=== PATIENT | female | born 1965 | race Caucasian/White ===

== ENCOUNTER → 2016-05-29 | Outpatient (CLI) | payer MEDICARE ==
[~2016-05-29] MED LIST: /CELE20CA PO; /CIPR75TA OR; /FENT25PA TD; /FENT25PA TOP; /FENT50PA TD; /LOR25TA OR; /ONDA4TA OR; /PANT40TA OR; /SUCR1TA OR; AMLO10TA OR; ASCO1000 PO; ATIV0.5T OR; ATIV0.5T3 PO; CAL-500T PO; CALC500T49; CALCIUM OR; CALCIUM PO; CALCIUM/MAGNESIUM PO; CLIN200T; COLA100C2 OR; COMPAZINE OR; CORA1000 PO; DICL50TAB PO; DIET; ENOX40SY SC; FENT25DI22 TD; FISH1000 OR; FISH1000 PO; FLAXMIS PO; FOLLOW UP; FOSA70TA PO; HUMIRA; HUMIRA OR; HYDR10TA16 PO; HYDROCODONE; HYDROCODONE OR; IBUP40TA PO; LIDO5DIS EXT; LORA0.5T OR; MAG OR; MAG400TA PO; MAGN500T2 PO; MAGNESIUM OX; MAGNESIUM PO; METH2.5TA PO; MILKPOW PO; MILKSUS OR; NATU400T PO; NEUR100C PO; NEUTSOL PO; OMEP20TA7 OR; OXYC5CAP4 PO; OYST500T OR; PERC7.5T8 OR; POTA10CA2 OR; PRED2.5T PO; PRED20TA PO; PRED5TAB; PRED5TAB OR; PROBCAP13 PO; PROBCAP4 PO; SENN8.6T5 OR; SENO8.6T5 OR; SULI200T OR; SULI200T PO; VALT1TAB PO; VICO5TAB; VICO5TAB OR; VICODIN PO; VICODINES TAB PO; VIT D 2000 OR; VIT D 2000 PO; VITA-56 OR; VITA100L PO; VITA100T; VITA100T OR; VITA100T5 OR; VITA400C; VITA400C OR; VITA400C PO; VITA500C OR; VITA500T; VITA500T OR; VITA500T3 PO; VITA50TA12 PO; VITAMIN D 3 PO; VITAMIN D50000 UNT; VITAMINB12; VITAMIND3 PO; VITAMINE PO; ZINC OR; ZOFR8TAB OR; ZYFLAMEND PO; [UNRECOGNIZED DRUG - CODE] PO; [UNRECOGNIZED DRUG - CODE] PO; [UNRECOGNIZED DRUG - MIXTURE] PO; [UNRECOGNIZED DRUG - OTHER]; [UNRECOGNIZED DRUG - OTHER]; [UNRECOGNIZED DRUG - OTHER] OR; [UNRECOGNIZED DRUG - OTHER] PO; [UNRECOGNIZED DRUG - OTHER] PO; [UNRECOGNIZED DRUG - OTHER] PO; [UNRECOGNIZED DRUG - OTHER] PO; [UNRECOGNIZED DRUG - OTHER] PO; [UNRECOGNIZED DRUG - OTHER] PO; [UNRECOGNIZED DRUG - OTHER] PO; magnesium oxide OR; milk thistle PO; tumeric PO; vitamin D OR
--- NOTE | 2016-06-01 01:26 | ECWPNPC ---
PATIENT NAME: LILIAN HOOD : 1965 GENDER: FEMALE VISIT DATE: 05/29/2016 DISCHARGE DATE: 05/29/16 1457 VISIT LOCKED DATE TIME: PHYSICIAN: ANETTE LORD RESOURCE: ANETTE LORD REASON FOR APPOINTMENT 1. CHRONIC PAIN HISTORY OF PRESENT ILLNESS HISTORY OF PRESENT ILLNESS: HERE FOR F/U AND MANAGEMENT OF CHRONIC NECK AND LBP W HX OF RHEUMATOID ARTHROPATHY.HAS HAD SEVERE INCREASE IN PAIN IN MARCH.USING HYDROCODONE 10/325 BETWEEN 4-6 PILLS DAY AND THIS VARIES ACCORDING TO PAIN LEVEL.FEELS IT IS EFFECTIVE AT REDUCING PAIN AND KEEPING HER COMFORTABLE.DENIES SIDE EFFECTS. CHIEF AREA OF PAIN IS LEFT SHOULDER. FOLLOWING WITH SOS AND RHEUMATOLOGY. PAIN THE PATIENT DESCRIBES THE PAIN... THE PATIENT DESCRIBES THE PAIN... FALL RISK SCREENING: SCREENING :NO FALLS IN THE PAST YEAR CURRENT MEDICATIONS TAKING PREDNISONE 2.5 MG TABLET 1 TABLET ORALLY TWICE DAILY TAKING DICLOFENAC SODIUM 50 MG TABLET DELAYED RELEASE 1 TABLET ORALLY TWICE DAILY TAKING VITAMIN B12 100 MCG TABLET 500 MCG 2 TABLETS ORALLY ONCE A DAY TAKING VITAMIN D3 2000 UNIT CAPSULE 1 CAPSULE ORALLY ONCE A DAY TAKING MAGNESIUM 500 MG CAPSULE 1 CAP ORALLY ONCE A DAY TAKING VITAMIN E 400 UNIT CAPSULE 1 CAPSULE ORALLY ONCE A DAY TAKING MILK THISTLE 500 MG CAPSULE 750MGS ORALLY DAILY TAKING PROBIOTIC TABLET DELAYED RELEASE ORALLY DAILY TAKING GLUTATHIONE 50 MG TABLET ORALLY TAKING VITAMIN C 1000 MG TABLET 1 TABLET ORALLY ONCE A DAY TAKING MAY HAVE CURAMED BCM-95 DAILY TAKING COLLAGEN ULTRA - CAPSULE ORALLY TAKING NORCO 10-325 MG TABLET 1 TABLET NEEDED ORALLY Q4-6H MDD6 TAKING IRON (FERROUS GLUCONATE) 65 MG TABLET ORALLY TWICE DAILY TAKING CORAL CALCIUM 500 MG CAPSULE 1 CAP ORALLY DAILY NOT-TAKING VITAMIN B6 250 MG TABLET ORALLY NOT-TAKING CALCIUM CITRATE 1040 MG TABLET ORALLY NOT-TAKING ALOE VERA 470 MG CAPSULE ORALLY NOT-TAKING MAY HAVE - - , NOTES: BONE AND TISSUE SUPPLEMENT NOT-TAKING METHOTREXATE 2.5 MG TABLET 4 TABS ORALLY WEEKLY NOT-TAKING BONE DENSITY 300-200 MG-UNIT TABLET 2 TABLETS BEFORE A MEAL ORALLY ONCE A DAY MEDICATION LIST REVIEWED AND RECONCILED WITH THE PATIENT PAST MEDICAL HISTORY RHEUMATOID ARTHRITIS-DR. STERN OVARIAN CA-DR. LILIAN VALENZUELA DEPRESSION BRCA 2 POSITIVE IRON DEFICIENCY ANEMIA TDAP 02/2015 ALLERGIES HYDROXYCHLOROQUINE: ALLERGY SULFASALAZINE: ALLERGY SEAFOOD: NAUSEA/VOMITING: ALLERGY CODEINE SULFATE: STOMACH CRAMPING: ALLERGY DULOXETINE HCL: HALLUCINATIONS: ALLERGY LYRICA: DIZZINESS, UNSTABLE BALANCE, SHORT-TERM MEMORY LOSS: ALLERGY HUMIRA: MUSCLE PAIN: ALLERGY GABAPENTIN: CONFUSION: ALLERGY METHOTREXATE: SORES IN MOUTH, CONSTANT COUGH AND PROBLEMS BREATHING: SIDE EFFECTS SOCIAL HISTORY TOBACCO USE ARE YOU A:NONSMOKER LEARNING BARRIERS / SPECIAL NEEDS ORIENTED TO PLAN OF CARE: PATIENT, PAIN MANAGEMENT PATIENT, ORIENTED TO PLAN OF CARE: PATIENT, PAIN MANAGEMENT PATIENT. NEW PATIENT PAIN DIARY TODAY'S VISITNOTES FROM 0-10, WHAT LEVEL IS YOUR PAIN TODAY?0 PAIN CLINIC PFS, CLERGY, PUBLIC HEALTH REFERRALS PFS REFERRAL NEEDED?NO CLERGY REFERRAL NEEDED?NO PUBLIC HEALTH REFERRAL NEEDED?NO WAS THE PROVIDER NOTIFIED OF ANY PERTINENT INFO?NO PFS REFERRAL NEEDED?NO CLERGY REFERRAL NEEDED?NO PUBLIC HEALTH REFERRAL NEEDED?NO WAS THE PROVIDER NOTIFIED OF ANY PERTINENT INFO?NO REVIEW OF SYSTEMS CONSTITUTIONAL: ANY CHANGE IN YOUR MEDICAL CONDITION? YES LEFT SHOULDER ARTHRITIS-- SEEING SPECIALIST--? SURGERYANEMIA . CHILLS NO . FEVER NO . INFECTION: DO YOU HAVE NEW INFECTIONS? NO . DO YOU HAVE HISTORY OF MRSA? NO . MUSCULOSKELETAL: ANY NEW PATTERNS OF PAIN OR NUMBNESS? NO . GASTROENTEROLOGY: ANY NEW CHANGE IN BOWEL CONTROL? NO . GENITOURINARY: ANY NEW CHANGE IN BLADDER CONTROL? NO . IS THERE A CHANCE YOU COULD BE ? NO . HEMATOLOGY/LYMPH: DO YOU TAKE ANY BLOOD THINNERS? (FOR EXAMPLE- COUMADIN, PLAVIX, AGGRENOX, PLATEL, PRADAXA, OR XARELTO) NO . WHEN WAS YOUR LAST DOSE? DATE: TIME: . NEUROLOGY: HAVE YOU FALLEN IN THE PAST 6 MONTHS? NO . ANY NEW EXTREMITY NUMBNESS OR WEAKNESS? NO . CARDIOLOGY: DO YOU HAVE A PACEMAKER OR DEFIBRILLATOR? NO . RESPIRATORY: HAVE YOU BEEN SICK IN THE PAST WEEK? NO . FEVER NO . FLU LIKE SYMPTOMS? NO . COUGH NO . INTEGUMENTARY: DO YOU HAVE ANY RASHES OR OPEN SORES? NO . ALLERGIC/IMMUNO: ARE YOU ALLERGIC TO SHELLFISH OR IV DYE? NO . ANY NEW ALLERGIES? NO . PSYCHIATRIC: DO YOU HAVE THOUGHTS OF HURTING YOURSELF OR SOMEONE ELSE? NO . ARE YOU ABUSED, NEGLECTED, OR IN AN UNSAFE ENVIRONMENT? NO . ENDOCRINOLOGY: ARE YOU DIABETIC? NO . OTHER: DO YOU NEED ANY PRESCRIPTIONS? YES HYDROCODONE . IF YES, PLEASE LIST: ____ . ANY NEW PROBLEMS WITH YOUR MEDICATIONS? NO . WHEN DID YOU LAST EAT? ____ . WHEN DID YOU LAST DRINK? ____ . WHAT DID YOU LAST DRINK? ____ . NAME OF PERSON DRIVING YOU HOME? ____ . DO YOU HAVE ANY OTHER QUESTIONS OR CONCERNS NO . REVIEWED BY: PROVIDER: ANETTE AMADOR . VITAL SIGNS WT 130 LBS, HT 62 IN, BMI 23.77 INDEX, BP 139/69 MM HG, HR 105 /MIN, RR 16 /MIN, TEMP 98.6 F, OXYGEN SAT % 100, REVIEWED BY: AD. EXAMINATION GENERAL EXAMINATION: HEENT:HEAD:, NORMOCEPHALIC, EYES:, EYES NORMAL, NOSE:, NOSE CLEAR, THROAT: NORMAL. LUNGS:LUNG SOUNDS ARE CLEAR. HEART:HEART RATE REGULAR. ABDOMEN:SOFT AND NOT TENDER, NON-DISTENDED. MUSCULOSKELETAL:*. LUMBAR SACRAL SPINEMUSCLE STRENGTH TESTING 4/5 RIGHT AND 3/5 LEFT LOWER EXT. PALPATION: NEGATIVE FOR PAIN OVER L/S SPINE. MILD DISCOMFORT WITH DEEP PALPATION PAIN OVER L/S PARASPINALS AND SIJ AREAS L>R. THORACIC SPINENEGATIVE FOR PAIN WITH PALPATION OF THORACIC SPINE. NEGATIVE FOR PAIN WITH PALPATION OF THORACIC PARASPINAL. CERVICALMILD PAIN WITH PALPATION OF CERVICAL SPINE. + FOR PAIN WITH PALPATION OF CERVICAL PARASPINALS L>R.. + FOR PAIN WITH PALPATION OF TRAPEZIUS BILAT L>R., MUSCLE STRENGTH TESTING 1/5 LEFT AND 2/5 RIGHT UPPER EXTREMETIES. 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 ROJM-UPPER ARMS-LESS THAN 30 DEGREES ABDUCTION LEFT.ABDUCTION <50 DEGREES RIGHT... SKIN:NORMAL, NO RASH. NEUROLOGIC EXAM:ALERT AND ORIENTED X 3, DTRS 1-2+ IN ALL 4 EXTREMITIES, DENIES UPPER EXTREMETIES SENSORY LOSS, DENIES LOWER EXTREMETIES SENSORY LOSS. DIAGNOSTIC: . ASSESSMENTS RHEUMATOID ARTHRITIS INVOLVING MULTIPLE SITES WITH POSITIVE RHEUMATOID FACTOR - M05.79 (PRIMARY) CHRONIC PRESCRIPTION OPIATE USE - Z79.899 TREATMENT RHEUMATOID ARTHRITIS INVOLVING MULTIPLE SITES WITH POSITIVE RHEUMATOID FACTOR REFILL NORCO TABLET, 10-325 MG, 1 TABLET NEEDED, ORALLY, Q4-6H MDD6, 30 DAY(S), 180, REFILLS 0 PROCEDURE CODES FA211 ESTABILISHED PATIENT SCIENTOLOGIST FACILITY CHARGE FOLLOW UP 2 MONTHS ELECTRONICALLY SIGNED BY PERRY MARTINEZ ON 05/29/2016 AT 02:58 PM EST DISCLAIMER : THIS IS A VISIT SUMMARY EXTRACTED FROM THE [employer] CHART. IT IS NOT A COPY OF THE [employer] PROGRESS NOTE. SUDHIR
== END ==
LOC: M PAIN 14:00
PROVIDERS: ATTEND Nurse Practitioner Family
DX: M05.79 Rheumatoid arthritis with rheumatoid factor of multiple sites without organ or systems involvement (principal); Z79.899 Other long term (current) drug therapy; Z79.891 Long term (current) use of opiate analgesic; M54.2 Cervicalgia; M54.5 Low back pain; G89.29 Other chronic pain; Z88.6 Allergy status to analgesic agent; Z88.3 Allergy status to other anti-infective agents; Z88.5 Allergy status to narcotic agent; Z91.013 Allergy to seafood

== ENCOUNTER → 2016-07-29 | Outpatient (CLI) | payer OTHER ==
--- NOTE | 2016-08-02 01:46 | ECWPNPC ---
PATIENT NAME: LILIAN HOOD : 1965 GENDER: FEMALE VISIT DATE: 07/29/2016 DISCHARGE DATE: 07/29/16 1445 VISIT LOCKED DATE TIME: PHYSICIAN: ANETTE LORD RESOURCE: ANETTE LORD REASON FOR APPOINTMENT 1. CHRONIC PAIN HISTORY OF PRESENT ILLNESS HISTORY OF PRESENT ILLNESS: HERE FOR F/U AND MANAGEMENT OF CHRONIC NECK AND LBP W HX OF RHEUMATOID ARTHROPATHY.HAS HAD SEVERE INCREASE IN PAIN IN MARCH.USING HYDROCODONE 10/325 BETWEEN 4-6 PILLS DAY AND THIS VARIES ACCORDING TO PAIN LEVEL.FEELS IT IS EFFECTIVE AT REDUCING PAIN AND KEEPING HER COMFORTABLE.DENIES SIDE EFFECTS. LEFT SHOULDER PAIN HAS IMPROVED.SAW DR. JONES FOR HER SHOULDER AND SHE HAS DECIDED NOT TO DO SURGERY.SAW REGARDING HANDS. SHE IS THINKING OF HAVING RIGHT HAND SURGERY IN . FOLLOWING WITH SOS AND RHEUMATOLOGY.RATING PAIN VAS 5/10. PAIN THE PATIENT DESCRIBES THE PAIN... THE PATIENT DESCRIBES THE PAIN... THE PATIENT DESCRIBES THE PAIN... FALL RISK SCREENING: SCREENING :NO FALLS IN THE PAST YEAR CURRENT MEDICATIONS TAKING PREDNISONE 2.5 MG TABLET 1 TABLET ORALLY TWICE DAILY TAKING DICLOFENAC SODIUM 50 MG TABLET DELAYED RELEASE 1 TABLET ORALLY TWICE DAILY TAKING VITAMIN B12 100 MCG TABLET 500 MCG 2 TABLETS ORALLY ONCE A DAY TAKING VITAMIN D3 2000 UNIT CAPSULE 1 CAPSULE ORALLY ONCE A DAY TAKING MAGNESIUM 500 MG CAPSULE 1 CAP ORALLY ONCE A DAY TAKING VITAMIN E 400 UNIT CAPSULE 1 CAPSULE ORALLY ONCE A DAY TAKING MILK THISTLE 500 MG CAPSULE 750MGS ORALLY DAILY TAKING PROBIOTIC TABLET DELAYED RELEASE ORALLY DAILY TAKING GLUTATHIONE 50 MG TABLET ORALLY DAILY TAKING VITAMIN C 1000 MG TABLET 1 TABLET ORALLY ONCE A DAY TAKING MAY HAVE CURAMED BCM-95 DAILY TAKING CORAL CALCIUM 500 MG CAPSULE 1 CAP ORALLY DAILY TAKING NORCO 10-325 MG TABLET 1 TABLET NEEDED ORALLY Q4-6H MDD6 TAKING IRON 1 TAB ORAL DAILY NOT-TAKING COLLAGEN ULTRA - CAPSULE ORALLY NOT-TAKING IRON (FERROUS GLUCONATE) 65 MG TABLET ORALLY TWICE DAILY NOT-TAKING VITAMIN B6 250 MG TABLET ORALLY NOT-TAKING CALCIUM CITRATE 1040 MG TABLET ORALLY NOT-TAKING ALOE VERA 470 MG CAPSULE ORALLY NOT-TAKING MAY HAVE - - , NOTES: BONE AND TISSUE SUPPLEMENT NOT-TAKING METHOTREXATE 2.5 MG TABLET 4 TABS ORALLY WEEKLY NOT-TAKING BONE DENSITY 300-200 MG-UNIT TABLET 2 TABLETS BEFORE A MEAL ORALLY ONCE A DAY MEDICATION LIST REVIEWED AND RECONCILED WITH THE PATIENT PAST MEDICAL HISTORY RHEUMATOID ARTHRITIS-DR. STERN OVARIAN CA-DR. LILIAN VALENZUELA DEPRESSION BRCA 2 POSITIVE IRON DEFICIENCY ANEMIA TDAP 02/2015 ALLERGIES HYDROXYCHLOROQUINE: ALLERGY SULFASALAZINE: ALLERGY SEAFOOD: NAUSEA/VOMITING: ALLERGY CODEINE SULFATE: STOMACH CRAMPING: ALLERGY DULOXETINE HCL: HALLUCINATIONS: ALLERGY LYRICA: DIZZINESS, UNSTABLE BALANCE, SHORT-TERM MEMORY LOSS: ALLERGY HUMIRA: MUSCLE PAIN: ALLERGY GABAPENTIN: CONFUSION: ALLERGY METHOTREXATE: SORES IN MOUTH, CONSTANT COUGH AND PROBLEMS BREATHING: SIDE EFFECTS SOCIAL HISTORY GENERAL: TOBACCO USE ARE YOU A:NONSMOKER LEARNING BARRIERS / SPECIAL NEEDS ORIENTED TO PLAN OF CARE: PATIENT, PAIN MANAGEMENT PATIENT, ORIENTED TO PLAN OF CARE: PATIENT, PAIN MANAGEMENT PATIENT. NEW PATIENT PAIN DIARY TODAY'S VISITNOTES FROM 0-10, WHAT LEVEL IS YOUR PAIN TODAY?0 PAIN CLINIC PFS, CLERGY, PUBLIC HEALTH REFERRALS PFS REFERRAL NEEDED?NO CLERGY REFERRAL NEEDED?NO PUBLIC HEALTH REFERRAL NEEDED?NO WAS THE PROVIDER NOTIFIED OF ANY PERTINENT INFO?NO PFS REFERRAL NEEDED?NO CLERGY REFERRAL NEEDED?NO PUBLIC HEALTH REFERRAL NEEDED?NO WAS THE PROVIDER NOTIFIED OF ANY PERTINENT INFO?NO REVIEW OF SYSTEMS CONSTITUTIONAL: ANY CHANGE IN YOUR MEDICAL CONDITION? NO . CHILLS NO . FEVER NO . INFECTION: DO YOU HAVE NEW INFECTIONS? NO . DO YOU HAVE HISTORY OF MRSA? NO . MUSCULOSKELETAL: ANY NEW PATTERNS OF PAIN OR NUMBNESS? NO . GASTROENTEROLOGY: ANY NEW CHANGE IN BOWEL CONTROL? NO . GENITOURINARY: ANY NEW CHANGE IN BLADDER CONTROL? NO . IS THERE A CHANCE YOU COULD BE ? NO . HEMATOLOGY/LYMPH: DO YOU TAKE ANY BLOOD THINNERS? (FOR EXAMPLE- COUMADIN, PLAVIX, AGGRENOX, PLATEL, PRADAXA, OR XARELTO) NO . WHEN WAS YOUR LAST DOSE? DATE: TIME: . NEUROLOGY: HAVE YOU FALLEN IN THE PAST 6 MONTHS? NO . ANY NEW EXTREMITY NUMBNESS OR WEAKNESS? NO . CARDIOLOGY: DO YOU HAVE A PACEMAKER OR DEFIBRILLATOR? NO . RESPIRATORY: HAVE YOU BEEN SICK IN THE PAST WEEK? NO . FEVER NO . FLU LIKE SYMPTOMS? NO . COUGH NO . INTEGUMENTARY: DO YOU HAVE ANY RASHES OR OPEN SORES? NO . ALLERGIC/IMMUNO: ARE YOU ALLERGIC TO SHELLFISH OR IV DYE? NO . ANY NEW ALLERGIES? NO . PSYCHIATRIC: DO YOU HAVE THOUGHTS OF HURTING YOURSELF OR SOMEONE ELSE? NO . ARE YOU ABUSED, NEGLECTED, OR IN AN UNSAFE ENVIRONMENT? NO . ENDOCRINOLOGY: ARE YOU DIABETIC? NO . OTHER: DO YOU NEED ANY PRESCRIPTIONS? YES . IF YES, PLEASE LIST: HYDROCODONE . ANY NEW PROBLEMS WITH YOUR MEDICATIONS? NO . WHEN DID YOU LAST EAT? ____ . WHEN DID YOU LAST DRINK? ____ . WHAT DID YOU LAST DRINK? ____ . NAME OF PERSON DRIVING YOU HOME? ____ . DO YOU HAVE ANY OTHER QUESTIONS OR CONCERNS YES, LEFT SHOULDER -NOT HAVING TOTAL SHOULDER REPLACEMENT YET(). GOING TO HAVE RIGHT HAND SURGERY IN 2016 (DR. GARCIA). ALL FINGERS AND KNUCKLES DISLOCATED . REVIEWED BY: PROVIDER: ANETTE AMADOR . VITAL SIGNS WT 132.4 LBS, HT 62 IN, BMI 24.21 INDEX, BP 126/75 MM HG, HR 107 /MIN, RR 16 /MIN, TEMP 98.2 F, OXYGEN SAT % 98%, NA INITIALS LC, REVIEWED BY: CS. EXAMINATION GENERAL EXAMINATION: HEENT:HEAD:, NORMOCEPHALIC, EYES:, EYES NORMAL, NOSE:, NOSE CLEAR, THROAT: NORMAL. LUNGS:LUNG SOUNDS ARE CLEAR. HEART:HEART RATE REGULAR. ABDOMEN:SOFT AND NOT TENDER, NON-DISTENDED. MUSCULOSKELETAL:*. LUMBAR SACRAL SPINEMUSCLE STRENGTH TESTING 4/5 RIGHT AND 3/5 LEFT LOWER EXT. PALPATION: NEGATIVE FOR PAIN OVER L/S SPINE. MILD DISCOMFORT WITH DEEP PALPATION PAIN OVER L/S PARASPINALS AND SIJ AREAS L>R. THORACIC SPINENEGATIVE FOR PAIN WITH PALPATION OF THORACIC SPINE. NEGATIVE FOR PAIN WITH PALPATION OF THORACIC PARASPINAL. CERVICALMILD PAIN WITH PALPATION OF CERVICAL SPINE. + FOR PAIN WITH PALPATION OF CERVICAL PARASPINALS L>R.. + FOR PAIN WITH PALPATION OF TRAPEZIUS BILAT L>R., MUSCLE STRENGTH TESTING 1/5 LEFT AND 2/5 RIGHT UPPER EXTREMETIES. 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 ROJM-UPPER ARMS-LESS THAN 30 DEGREES ABDUCTION LEFT.ABDUCTION <50 DEGREES RIGHT... SKIN:NORMAL, NO RASH. NEUROLOGIC EXAM:ALERT AND ORIENTED X 3, DTRS 1-2+ IN ALL 4 EXTREMITIES, DENIES UPPER EXTREMETIES SENSORY LOSS, DENIES LOWER EXTREMETIES SENSORY LOSS. DIAGNOSTIC: . ASSESSMENTS RHEUMATOID ARTHRITIS INVOLVING MULTIPLE SITES WITH POSITIVE RHEUMATOID FACTOR - M05.79 (PRIMARY) CHRONIC PRESCRIPTION OPIATE USE - Z79.899 TREATMENT RHEUMATOID ARTHRITIS INVOLVING MULTIPLE SITES WITH POSITIVE RHEUMATOID FACTOR REFILL NORCO TABLET, 10-325 MG, 1 TABLET NEEDED, ORALLY, Q4-6H MDD6, 30 DAY(S), 180, REFILLS 0 NOTES: ISTOP REGISTRY REVIEWED AND DEMNOSTRATES COMPLLIANCE. BRINGS IN MEDICATIONS WHICH IS APPROPRIATE FOR WHAT WAS DISPENSED. RECENT URINE TOXICOLOGY REVIEWED. NO UNAUTHORIZED MEDICATIONS. NO ILLICIT SUBSTANCES AND PRESCRIBED MEDICATIONS WERE PRESENT. , RISKS AND BENEFITS OF NARCOTIC/OPIOD MEDICATIONS WERE REVIEWED WITH PATIENT - THIS INCLUDES BUT IS NOT LIMITED TO RISK OF DEPENDANCE/DEVELOPMENT OF ADDICTION, MOOD DISTURBANCE AND DEPRESSION, OSTEOPOROSIS, HORMONAL AND LABIDAL CHANGES, RESPIRATORY DEPRESSION AND . PATIENT IS ADVISED NOT TO DRIVE WHILE ON THESE MEDICATIONSUSE TYLENOL 650MG THREE TIMES PER DAY. PROCEDURE CODES FA211 ESTABILISHED PATIENT [facility] CHARGE DISPOSITION & COMMUNICATION FOLLOW UP 2 MONTHS ELECTRONICALLY SIGNED BY PERRY MARTINEZ ON 07/29/2016 AT 03:24 PM EDT DISCLAIMER : THIS IS A VISIT SUMMARY EXTRACTED FROM THE [employer] CHART. IT IS NOT A COPY OF THE [employer] PROGRESS NOTE. SUDHIR
== END ==
LOC: M PAIN 14:20
PROVIDERS: ATTEND Nurse Practitioner Family
DX: Z09 Encounter for follow-up examination after completed treatment for conditions other than malignant neoplasm (principal); G89.29 Other chronic pain; M05.79 Rheumatoid arthritis with rheumatoid factor of multiple sites without organ or systems involvement; F32.9 Major depressive disorder, single episode, unspecified; D50.9 Iron deficiency anemia, unspecified; Z88.8 Allergy status to other drugs, medicaments and biological substances; Z88.2 Allergy status to sulfonamides; Z91.013 Allergy to seafood; Z88.5 Allergy status to narcotic agent; Z79.52 Long term (current) use of systemic steroids; Z79.899 Other long term (current) drug therapy; Z85.43 Personal history of malignant neoplasm of ovary

== ENCOUNTER → 2016-08-18 | Outpatient (CLI) | payer OTHER | LOC: M LAB 10:57 | PROVIDERS: ATTEND Obstetrics & Gynecology Gynecologic Oncology | DX: C56.1 Malignant neoplasm of right ovary (principal); C56.2 Malignant neoplasm of left ovary ==

== ENCOUNTER 2016-09-13 16:19 | Emergency (ER) | payer OTHER ==
[~2016-09-13] VITALS: Ht 160 cm; Wt 61.2 kg
[2016-09-13] MEDS ORDERED: MAGN500C PO (16:33)
[2016-09-13] MEDS ORDERED: IRON50TA PO (16:33)
[2016-09-13] MEDS ORDERED: NS 500 ML IV ONE (18:15)
[2016-09-13 19:02] LABS: BASO % 0.3 % (0.0-1.0); EOS # 0.1 K/mm3 (0.0-0.50); EOS % 1.4 % (0.0-3.0); LARGE UNSTAINED CELL # 0.1 K/mm3 (0.0-0.4); LARGE UNSTAINED CELL % 1.5 % (0.0-4.0); LYMPH # 1.2 K/mm3 (1.5-4.5); LYMPH % 14.4 % (24.0-44.0); MEAN CORPUSCULAR HEMOGLOBIN 29.6 pg (27.0-33.0); MEAN CORPUSCULAR HGB CONC 31.9 g/dl (32.0-36.5); MEAN CORPUSCULAR VOLUME 92.6 fl (80.0-96.0); MONO # 0.5 K/mm3 (0.0-0.8); MONO % 5.3 % (0.0-5.0); NEUTROPHILS # 6.7 K/mm3 (1.8-7.7); NEUTROPHILS % 77.2 % (36.0-66.0); PLATELET COUNT, AUTOMATED 385 k/mm3 (150-450); RED CELL DISTRIBUTION WIDTH 14.1 % (11.5-14.5); WHITE BLOOD COUNT 8.6 K/mm3 (4.0-10.0)
--- NOTE | 2016-09-13 19:20 | REPUSA ---
Ultrasound of the gallbladder Clinical history: pain. Findings: The pancreas is limited in visualization secondary to overlying bowel gas, but appears grossly unrema rkable. The liver demonstrates increased echotexture and echogenicity, with no mass lesions. The gall bladder contains gallstones. There is no gallbladder wall thickening. The common bile duct measures 4 mm and is within normal limits. There is a positive Gasca's sign. The right kidney measures 10.4 cm in length and is unremarkable. There is no ascites. Impression: 1. Cholelithiasis with positive Gasca's sign. No gallbladder wall thickening or biliary ductal dilat ation. Acute cholecystitis must be considered. Follow-up is recommended as clinically indicated. 2. Fatty infiltration of the liver.
[2016-09-13 19:24] LABS: ALBUMIN 3.5 GM/DL (3.2-5.2); ALBUMIN/GLOBULIN RATIO 0.76 (1.00-1.93); ALKALINE PHOSPHATASE 92 U/L (45-117); ALT/SGPT 21 U/L (12-78); ANION GAP 9 MEQ/L (8-16); AST/SGOT 19 U/L (15-37); BILIRUBIN,DIRECT 0.1 MG/DL (0.0-0.2); BILIRUBIN,TOTAL 0.4 MG/DL (0.2-1.0); BLOOD UREA NITROGEN 9 MG/DL (7-18); CALCIUM LEVEL 8.3 MG/DL (8.5-10.1); CARBON DIOXIDE LEVEL 28 MEQ/L (21-32); CHLORIDE LEVEL 102 MEQ/L (98-107); CREATININE FOR GFR 0.52 MG/DL (0.55-1.02); GLOMERULAR FILTRATION RATE > 60.0 (>51); GLUCOSE, FASTING 120 MG/DL (70-105); MAGNESIUM LEVEL 1.7 MG/DL (1.8-2.4); PHOSPHORUS LEVEL 3.5 MG/DL (2.5-4.9); POTASSIUM SERUM 3.6 MEQ/L (3.5-5.1); SODIUM LEVEL 139 MEQ/L (136-145); TOTAL PROTEIN 8.1 GM/DL (6.4-8.2)
[2016-09-13 19:30] LABS: FREE T4 1.29 NG/DL (0.76-1.46)
[2016-09-13] MEDS ORDERED: MAGNESIUM OXIDE 400 MG TAB (MAG-OX) PO ONE (20:30)
[2016-09-13] MEDS ORDERED: ISOVUE-370 76% 100ML VIAL (Q9967) As Ordered ONE (20:46)
[2016-09-13 22:34] VITALS: BP 135/80
--- NOTE | 2016-09-14 05:07 | REP ---
Clinical: Shortness of breath and acute abdominal pain. Technique: Axial contrast enhanced images from the lung bases to the pubic symphysis using 100 ml Isovue 370 intravenous contrast material with coronal and sagittal re-formations. Comparison: 08/08/2015. Findings: Lung bases demonstrate minimal right middle lobe and lingular fibroatelectatic changes. Visualized portions of the heart and pericardium normal. Liver, spleen, pancreas, gallbladder, bilateral adrenal glands and kidneys are normal. The enteric system is without obstruction or acute inflammatory process. Evidence for prior appendectomy. Pelvis demonstrates normal bladder and evidence for prior hysterectomy. No pelvic fluid or ascites. No free air. No adenopathy. No mass lesion. Vasculature is normal. Surrounding musculoskeletal structures are intact. Impression: No acute intra-abdominal or pelvic pathology appreciated. Signed by Keyshawn Holley MD 09/14/2016 04:58 A
--- NOTE | 2016-09-14 05:10 | REP ---
Clinical: Acute chest pain and shortness of breath. Comparison: 04/24/2009 Technique: Axial contrast enhanced images from the thoracic inlet to the upper abdomen using 100 ml Isovue 370 intravenous contrast material with coronal and sagittal re-formations. Findings: Satisfactory enhancement of the pulmonary vasculature is achieved and no filling defects are identified to suggest pulmonary embolus. Thoracic aorta is normal caliber without aneurysm or dissection. Heart and pericardium are normal. Bilateral lung staley are well aerated and without acute pulmonary parenchymal consolidation or atelectasis; trace chronic right middle lobe and lingular fibroatelectatic changes noted . No nodule or mass lesion. No pleural effusion/reaction. No pneumothorax. Incidental note is made of left axillary adenopathy with lymph nodes measuring up to 19 mm. Impression: No evidence for pulmonary embolus. No acute pleuroparenchymal or mediastinal process. Prominent left axillary lymph nodes up to 19 mm. Signed by Keyshawn Holley MD 09/14/2016 05:02 A
--- NOTE | 2016-09-14 10:07 | REP ---
CHEST, TWO VIEWS: HISTORY: Chest pain. COMPARISON: 02/20/2015 The lungs are clear. The heart is normal in size. The pulmonary vasculature is normal in appearance. The bony structure is intact. IMPRESSION: No acute disease. Signed by Marcelino Cazares MD 09/14/2016 10:10 A
--- NOTE | 2016-09-15 05:52 | ECGEPIP ---
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
== END 2016-09-13 22:35 | disposition home or self-care (01) ==
LOC: M ED 17:59
DX: R53.81 Other malaise (principal); R53.83 Other fatigue; K80.20 Calculus of gallbladder without cholecystitis without obstruction; D50.9 Iron deficiency anemia, unspecified; M05.40 Rheumatoid myopathy with rheumatoid arthritis of unspecified site; Z85.05 Personal history of malignant neoplasm of liver; Z85.43 Personal history of malignant neoplasm of ovary; Z88.5 Allergy status to narcotic agent; Z79.899 Other long term (current) drug therapy; Z91.013 Allergy to seafood; Z79.52 Long term (current) use of systemic steroids
CPT/HCPCS: 36415; 71020; 71275; 74177; 76705; 80048; 80076; 81001; 82550; 82553; 83690; 83735; 83880; 84100; 84439; 84443; 84484; 85025; 85379; 87086; 93005; 93041; 94760; 96360; 96361; 99285; Q9967

== ENCOUNTER → 2016-09-16 | Outpatient (CLI) | payer OTHER ==
[~2016-09-16] MED LIST changes: +IRON50TA PO; +MAGN500C PO
[2016-09-16 14:01] LABS: BASO % 0.3 % (0.0-1.0); EOS # 0.2 K/mm3 (0.0-0.50); EOS % 2.5 % (0.0-3.0); LARGE UNSTAINED CELL # 0.1 K/mm3 (0.0-0.4); LARGE UNSTAINED CELL % 1.9 % (0.0-4.0); LYMPH # 1.8 K/mm3 (1.5-4.5); LYMPH % 28.3 % (24.0-44.0); MEAN CORPUSCULAR HEMOGLOBIN 29.7 pg (27.0-33.0); MEAN CORPUSCULAR HGB CONC 31.4 g/dl (32.0-36.5); MEAN CORPUSCULAR VOLUME 94.7 fl (80.0-96.0); MONO # 0.4 K/mm3 (0.0-0.8); PLATELET COUNT, AUTOMATED 455 k/mm3 (150-450); RED CELL DISTRIBUTION WIDTH 14.2 % (11.5-14.5); WHITE BLOOD COUNT 6.5 K/mm3 (4.0-10.0)
[2016-09-16 14:07] LABS: ALBUMIN 3.4 GM/DL (3.2-5.2); ALBUMIN/GLOBULIN RATIO 0.72 (1.00-1.93); ALKALINE PHOSPHATASE 86 U/L (45-117); ALT/SGPT 18 U/L (12-78); ANION GAP 6 MEQ/L (8-16); AST/SGOT 16 U/L (15-37); BILIRUBIN,TOTAL 0.4 MG/DL (0.2-1.0); BLOOD UREA NITROGEN 12 MG/DL (7-18); CALCIUM LEVEL 8.7 MG/DL (8.5-10.1); CARBON DIOXIDE LEVEL 29 MEQ/L (21-32); CHLORIDE LEVEL 105 MEQ/L (98-107); FERRITIN 226 NG/ML (8-252); GLOMERULAR FILTRATION RATE > 60.0 (>51); GLUCOSE, FASTING 88 MG/DL (70-105); PERCENT SATURATION 13.6 % (13.2-37.4); SODIUM LEVEL 140 MEQ/L (136-145); TOTAL IRON BINDING CAPACITY 258 UG/DL (250-450); TOTAL PROTEIN 8.1 GM/DL (6.4-8.2)
[2016-09-16 14:11] LABS: VITAMIN B12 LEVEL 1936 PG/ML (247-911)
--- NOTE | 2016-09-17 01:57 | REP ---
Clinical: Pain. Deformity. Technique: AP, lateral, bilateral oblique views of the right foot. Comparison: 05/28/2012. Findings: Moderate osteopenia is appreciated. Advanced degenerative changes include joint space narrowing, marginal osteophytes, periarticular erosive changes and chronic subluxation involving the metatarsophalangeal and interphalangeal joints. Marked hallux valgus deformity noted. Degenerative changes involving the midfoot articulations are also appreciated including subchondral sclerosis and spurring. No acute fracture dislocation. No subcutaneous emphysema or radiodense foreign body. Impression: Osteopenia and advanced degenerative changes. Advanced hallux valgus deformity. Signed by Keyshawn Holley MD 09/17/2016 01:48 A
== END ==
LOC: M LAB 12:24
PROVIDERS: ATTEND Nurse Practitioner Family
DX: M85.871 Other specified disorders of bone density and structure, right ankle and foot (principal); M20.11 Hallux valgus (acquired), right foot; M06.9 Rheumatoid arthritis, unspecified; M81.0 Age-related osteoporosis without current pathological fracture; E61.1 Iron deficiency
CPT/HCPCS: 36415; 73630; 80053; 82607; 82652; 82728; 83550; 83735; 85025; G0463

== ENCOUNTER → 2016-09-23 | Outpatient (CLI) | payer OTHER ==
--- NOTE | 2016-09-23 19:12 | REP ---
Right lower extremity duplex venous ultrasound: History: Right lower extremity edema. Question reflux. Reflux study. Findings: The deep veins of the right lower extremity are anechoic and fully compressible on two-dimensional scanning from the groin to the popliteal fossa. There is no evidence of deep vein thrombosis. Color Doppler flow is homogeneous. A normal spectral Doppler interrogation. Reflux findings: There is minimal focus of venous reflux, greater than 0.5 seconds in duration, in the deep system from the common femoral vein to the mid femoral vein on the right side. No reflux is seen in the superficial system. The greater saphenous vein measures 4 mm proximally at the saphenofemoral junction. The greater saphenous vein measures 2.5 mm in AP dimension at midthigh and 2.7 mm in AP dimension at the knee. The lesser saphenous vein measures 3.1 mm in AP dimension. Impression: No evidence of deep vein thrombosis. Minimal reflux in the deep system from common femoral vein to mid femoral vein. No superficial system reflux seen. Signed by Chauncey Meza MD 09/24/2016 08:06 A
== END ==
LOC: M RAD 13:14
PROVIDERS: ATTEND Nurse Practitioner Family
DX: R60.0 Localized edema (principal)

== ENCOUNTER → 2016-09-26 | Outpatient (CLI) | payer OTHER ==
--- NOTE | 2016-09-26 17:57 | REP ---
LEFT LOWER EXTREMITY DUPLEX DOPPLER VENOUS ULTRASOUND WITH EVALUATION FOR VENOUS REFLUX: Real-time compression and duplex Doppler interrogation of left lower extremity deep vein system is performed. Left common femoral, superficial femoral and popliteal veins are fully compressible with transducer pressure and demonstrate normal spontaneous and phasic flow without evidence of deep venous thrombosis. Evaluation for venous reflux demonstrates reflux in the common femoral vein of a minimal degree. There is also minimal reflux throughout the superficial femoral vein. There is an anterior accessory greater saphenous vein present without reflux. There is minimal reflux in the greater saphenous vein at the saphenofemoral junction duration 0.7 seconds, AP diameter of that vessel 5 mm. No reflux is seen in the greater saphenous vein at the mid thigh level or at the level of the knee. The diameter of those vessels is 2 mm. There is no reflux in the left popliteal vein or lesser saphenous vein measures 2 mm. Signed by Demond Lau MD 09/26/2016 08:06 P
== END ==
LOC: M RAD 13:48
PROVIDERS: ATTEND Nurse Practitioner Family
DX: R60.0 Localized edema (principal)

== ENCOUNTER → 2016-09-30 | Outpatient (CLI) | payer OTHER ==
--- NOTE | 2016-10-07 08:21 | HOLTMON ---
[facility] Test Date: 2016-09-30 Pat Name: LILIAN HOOD Department: Room: - Gender: Bi Tester: LONI LINDER : 1965 Requested By: Fe Azevedo [facility] Order Number: [id number] Reading MD: Rome Jauregui Interpretive Statements Your patient's underlying rhythm was sinus with a rate that varied between 45 bpm at 5:53 AM and 125 bpm at 4:38 PM, averaging 82 bpm. No evidence of significant bradyarrhythmia or high-grade AV block. Very rare isolated PVCs (averaging less than one per hour) and no PSVT. Occasional isolated asymptomatic PVCs (averaging 34 per hour) but no more complex for symptomatic arrhythmia was observed. Reported symptoms of dizziness/shortness of breath upon standing, shortness of breath while riding in the car, dizziness following medications, dizziness and shortness of breath while walking, chest pressure, did not correlate with any rhythm disturbance. Electronically Signed On 10-07-2016 8:21:07 EDT by Rome Jauregui
== END ==
LOC: M EKG 12:58
PROVIDERS: ATTEND Nurse Practitioner Family
DX: R00.2 Palpitations (principal)

== ENCOUNTER → 2016-09-30 | Outpatient (CLI) | payer OTHER ==
--- NOTE | 2016-10-23 02:03 | ECWPNPC ---
PATIENT NAME: LILIAN HOOD : 1965 GENDER: FEMALE VISIT DATE: 09/30/2016 DISCHARGE DATE: 09/30/16 1506 VISIT LOCKED DATE TIME: PHYSICIAN: ANETTE LORD RESOURCE: ANETTE LORD REASON FOR APPOINTMENT 1. FOLLOWUP HISTORY OF PRESENT ILLNESS HISTORY OF PRESENT ILLNESS: HERE FOR F/U AND MANAGEMENT OF CHRONIC NECK AND LBP W HX OF RHEUMATOID ARTHROPATHY.HAS HAD SEVERE INCREASE IN LOW BACK PAIN OVER THE PAST MONTH. USING HYDROCODONE 10/325 BETWEEN 4-6 PILLS DAY AND THIS VARIES ACCORDING TO PAIN LEVEL.FEELS IT IS EFFECTIVE AT REDUCING PAIN AND KEEPING HER COMFORTABLE.DENIES SIDE EFFECTS. LEFT SHOULDER PAIN HAS IMPROVED.SAW DR. JONES FOR HER SHOULDER AND SHE HAS DECIDED NOT TO DO SURGERY.SAW REGARDING HANDS. SHE IS THINKING OF HAVING RIGHT HAND SURGERY IN . FOLLOWING WITH SOS AND RHEUMATOLOGY.RATING PAIN VAS 2-6/10. PAIN THE PATIENT DESCRIBES THE PAIN... THE PATIENT DESCRIBES THE PAIN... THE PATIENT DESCRIBES THE PAIN... THE PATIENT DESCRIBES THE PAIN... FALL RISK SCREENING: SCREENING :NO FALLS IN THE PAST YEAR CURRENT MEDICATIONS TAKING PREDNISONE 2.5 MG TABLET 1 TABLET ORALLY TWICE DAILY TAKING DICLOFENAC SODIUM 50 MG TABLET DELAYED RELEASE 1 TABLET ORALLY TWICE DAILY TAKING VITAMIN B12 100 MCG TABLET 500 MCG 2 TABLETS ORALLY ONCE A DAY TAKING VITAMIN D3 2000 UNIT CAPSULE 1 CAPSULE ORALLY ONCE A DAY TAKING MAGNESIUM 500 MG CAPSULE 1 CAP ORALLY ONCE A DAY TAKING VITAMIN E 400 UNIT CAPSULE 1 CAPSULE ORALLY ONCE A DAY TAKING MILK THISTLE 500 MG CAPSULE 750MGS ORALLY DAILY TAKING PROBIOTIC TABLET DELAYED RELEASE ORALLY DAILY TAKING VITAMIN C 1000 MG TABLET 1 TABLET ORALLY ONCE A DAY TAKING MAY HAVE CURAMED BCM-95 DAILY TAKING CORAL CALCIUM 500 MG CAPSULE 1 CAP ORALLY DAILY TAKING IRON 1 TAB ORAL DAILY TAKING IRON (FERROUS GLUCONATE) 65 MG TABLET ORALLY TWICE DAILY TAKING NORCO 10-325 MG TABLET 1 TABLET NEEDED ORALLY Q4-6H MDD6 NOT-TAKING GLUTATHIONE 50 MG TABLET ORALLY DAILY NOT-TAKING COLLAGEN ULTRA - CAPSULE ORALLY NOT-TAKING VITAMIN B6 250 MG TABLET ORALLY NOT-TAKING CALCIUM CITRATE 1040 MG TABLET ORALLY NOT-TAKING ALOE VERA 470 MG CAPSULE ORALLY NOT-TAKING MAY HAVE - - , NOTES: BONE AND TISSUE SUPPLEMENT NOT-TAKING METHOTREXATE 2.5 MG TABLET 4 TABS ORALLY WEEKLY NOT-TAKING BONE DENSITY 300-200 MG-UNIT TABLET 2 TABLETS BEFORE A MEAL ORALLY ONCE A DAY MEDICATION LIST REVIEWED AND RECONCILED WITH THE PATIENT PAST MEDICAL HISTORY RHEUMATOID ARTHRITIS-DR. STERN OVARIAN CA-DR. LILIAN VALENZUELA DEPRESSION BRCA 2 POSITIVE IRON DEFICIENCY ANEMIA TDAP 02/2015 ALLERGIES METHOTREXATE: SORES IN MOUTH, CONSTANT COUGH AND PROBLEMS BREATHING: SIDE EFFECTS HYDROXYCHLOROQUINE: ALLERGY SULFASALAZINE: ALLERGY SEAFOOD: NAUSEA/VOMITING: ALLERGY CODEINE SULFATE: STOMACH CRAMPING: ALLERGY DULOXETINE HCL: HALLUCINATIONS: ALLERGY LYRICA: DIZZINESS, UNSTABLE BALANCE, SHORT-TERM MEMORY LOSS: ALLERGY HUMIRA: MUSCLE PAIN: ALLERGY GABAPENTIN: CONFUSION: ALLERGY SURGICAL HISTORY QUINTON BSO-DR. LILIAN VALENZUELA 05/20/2010 RIGHT TKA-DR. ABDUL DOUBLE MASTECTOMY-DR. DANIS IBARRA 03/[address] CALDERA 08/10/2014 LEFT TKA-DR. KOENIG 11/2014 HOSPITALIZATION/MAJOR DIAGNOSTIC PROCEDURE SURGICAL NEEDS REVIEW OF SYSTEMS CONSTITUTIONAL: ANY CHANGE IN YOUR MEDICAL CONDITION? YES. PT SEEN AT [facility] ER FOR FATIGUE AND CHEST PRESSURE. LABS & DX TESTS DONE, GALL STONES , ENLARGED LEFT ATRIUM AND LYMPHADENOPATHY TO LEFT AXILLA. SINCE THEN PT HAS FOLLOWED UP WITH PCP AND SEVERAL SPECIALTY MD'S. PT STATES SHE HAD A BX OF L AXILLARY LN YESTERDAY IN [place]. PT STATES HER PAIN IS WELL CONTROLLED WITH NORCO.&NBSP;. CHILLS &NBSP;&NBSP; NO&NBSP;. FEVER &NBSP;&NBSP; NO&NBSP;. INFECTION: DO YOU HAVE NEW INFECTIONS? NO . DO YOU HAVE HISTORY OF MRSA? NO . MUSCULOSKELETAL: ANY NEW PATTERNS OF PAIN OR NUMBNESS? YES CHEST PRESSURE, EXAMINED AT [facility] ER. LESS SEVERE NOW, PT RATES CHEST PRESSURE 2/10. . GASTROENTEROLOGY: ANY NEW CHANGE IN BOWEL CONTROL? NO . GENITOURINARY: ANY NEW CHANGE IN BLADDER CONTROL? NO . IS THERE A CHANCE YOU COULD BE ? NO . HEMATOLOGY/LYMPH: DO YOU TAKE ANY BLOOD THINNERS? (FOR EXAMPLE- COUMADIN, PLAVIX, AGGRENOX, PLATEL, PRADAXA, OR XARELTO) NO . WHEN WAS YOUR LAST DOSE? DATE: TIME: . NEUROLOGY: HAVE YOU FALLEN IN THE PAST 6 MONTHS? NO . ANY NEW EXTREMITY NUMBNESS OR WEAKNESS? NO . CARDIOLOGY: DO YOU HAVE A PACEMAKER OR DEFIBRILLATOR? NO . RESPIRATORY: HAVE YOU BEEN SICK IN THE PAST WEEK? NO . FEVER NO . FLU LIKE SYMPTOMS? NO . COUGH NO . INTEGUMENTARY: DO YOU HAVE ANY RASHES OR OPEN SORES? NO . ALLERGIC/IMMUNO: ARE YOU ALLERGIC TO SHELLFISH OR IV DYE? NO . ANY NEW ALLERGIES? NO . PSYCHIATRIC: DO YOU HAVE THOUGHTS OF HURTING YOURSELF OR SOMEONE ELSE? NO . ARE YOU ABUSED, NEGLECTED, OR IN AN UNSAFE ENVIRONMENT? NO . ENDOCRINOLOGY: ARE YOU DIABETIC? NO . OTHER: DO YOU NEED ANY PRESCRIPTIONS? NO . IF YES, PLEASE LIST: ____ . ANY NEW PROBLEMS WITH YOUR MEDICATIONS? NO . WHEN DID YOU LAST EAT? ____ . WHEN DID YOU LAST DRINK? ____ . WHAT DID YOU LAST DRINK? ____ . NAME OF PERSON DRIVING YOU HOME? ____ . DO YOU HAVE ANY OTHER QUESTIONS OR CONCERNS NO . REVIEWED BY: PROVIDER: ANETTE AMADOR . VITAL SIGNS WT 132.2 LBS, HT 62 IN, BMI 24.18 INDEX, BP 130/78 MM HG, HR 131 /MIN, RR 18 /MIN, TEMP 97.3 F, OXYGEN SAT % 94%, SAFE IN ENV? (Y/N) Y, NA INITIALS GA 13:41, REVIEWED BY: EM. EXAMINATION GENERAL EXAMINATION: HEENT:HEAD:, NORMOCEPHALIC, EYES:, EYES NORMAL, NOSE:, NOSE CLEAR, THROAT: NORMAL. LUNGS:LUNG SOUNDS ARE CLEAR. HEART:HEART RATE REGULAR. ABDOMEN:SOFT AND NOT TENDER, NON-DISTENDED. MUSCULOSKELETAL:*. LUMBAR SACRAL SPINEMUSCLE STRENGTH TESTING 4/5 RIGHT AND 3/5 LEFT LOWER EXT. PALPATION: + FOR PAIN OVER L/S SPINE AND LUMBAR PARASPINALS.TRIGGER POINTS ELICITED OVER LUMBAR AND CERVICAL PARASPINALS . THORACIC SPINENEGATIVE FOR PAIN WITH PALPATION OF THORACIC SPINE. NEGATIVE FOR PAIN WITH PALPATION OF THORACIC PARASPINAL. CERVICALMILD PAIN WITH PALPATION OF CERVICAL SPINE. + FOR PAIN WITH PALPATION OF CERVICAL PARASPINALS L>R.. + FOR PAIN WITH PALPATION OF TRAPEZIUS BILAT L>R., MUSCLE STRENGTH TESTING 1/5 LEFT AND 2/5 RIGHT UPPER EXTREMETIES. WEAK BUTTON BUTTONHOLE MARKER STRENGTH BUTTON BUTTONHOLE MARKER BILATERAL HAND L>R. ROJM-UPPER ARMS-LESS THAN 30 DEGREES ABDUCTION LEFT.ABDUCTION <50 DEGREES RIGHT... SKIN:NORMAL, NO RASH. NEUROLOGIC EXAM:ALERT AND ORIENTED X 3, DTRS 1-2+ IN ALL 4 EXTREMITIES, DENIES UPPER EXTREMETIES SENSORY LOSS, DENIES LOWER EXTREMETIES SENSORY LOSS. DIAGNOSTIC: . ASSESSMENTS RHEUMATOID ARTHRITIS INVOLVING MULTIPLE SITES WITH POSITIVE RHEUMATOID FACTOR - M05.79 (PRIMARY) MYALGIA - M79.1 CHRONIC PRESCRIPTION OPIATE USE - Z79.891 TREATMENT RHEUMATOID ARTHRITIS INVOLVING MULTIPLE SITES WITH POSITIVE RHEUMATOID FACTOR REFILL NORCO TABLET, 10-325 MG, 1 TABLET NEEDED, ORALLY, Q4-6H MDD6, 30 DAY(S), 180, REFILLS 0 NOTES: ISTOP REGISTRY REVIEWED AND DEMNOSTRATES COMPLLIANCE. BRINGS IN MEDICATIONS WHICH IS APPROPRIATE FOR WHAT WAS DISPENSED. RECENT URINE TOXICOLOGY REVIEWED. NO UNAUTHORIZED MEDICATIONS. NO ILLICIT SUBSTANCES AND PRESCRIBED MEDICATIONS WERE PRESENT. , RISKS AND BENEFITS OF NARCOTIC/OPIOD MEDICATIONS WERE REVIEWED WITH PATIENT - THIS INCLUDES BUT IS NOT LIMITED TO RISK OF DEPENDANCE/DEVELOPMENT OF ADDICTION, MOOD DISTURBANCE AND DEPRESSION, OSTEOPOROSIS, HORMONAL AND LABIDAL CHANGES, RESPIRATORY DEPRESSION AND . PATIENT IS ADVISED NOT TO DRIVE WHILE ON THESE MEDICATIONS.URINE TOX TODAY. PROCEDURE CODES FA211 ESTABILISHED PATIENT [facility] CHARGE DISPOSITION & COMMUNICATION FOLLOW UP 6 WEEKS ELECTRONICALLY SIGNED BY PERRY MARTINEZ ON 10/21/2016 AT 08:53 AM EDT DISCLAIMER : THIS IS A VISIT SUMMARY EXTRACTED FROM THE [employer] CHART. IT IS NOT A COPY OF THE [employer] PROGRESS NOTE. SUDHIR
== END ==
LOC: M PAIN 14:00
PROVIDERS: ATTEND Nurse Practitioner Family
DX: G89.29 Other chronic pain (principal); M05.79 Rheumatoid arthritis with rheumatoid factor of multiple sites without organ or systems involvement; M79.1 Myalgia; C56.9 Malignant neoplasm of unspecified ovary; F32.9 Major depressive disorder, single episode, unspecified; M81.0 Age-related osteoporosis without current pathological fracture; E83.42 Hypomagnesemia; M21.961 Unspecified acquired deformity of right lower leg; Z88.8 Allergy status to other drugs, medicaments and biological substances; Z88.2 Allergy status to sulfonamides; Z91.013 Allergy to seafood; Z88.5 Allergy status to narcotic agent; Z79.52 Long term (current) use of systemic steroids; Z79.899 Other long term (current) drug therapy

== ENCOUNTER → 2016-11-25 | Outpatient (CLI) | payer MEDICARE, OTHER ==
[~2016-11-25] MED LIST changes: +CORACAP6 PO; +CURC500C PO; +HYDR-2807 PO; +IRON18TA PO; +MILK175C2 PO; +PRED25TA PO; +VITA10006 PO; +VITA100067 PO; +VITA400C7 PO; +[UNRECOGNIZED DRUG - CODE] XX; +[UNRECOGNIZED DRUG - OTHER] PO; +iodine PB
--- NOTE | 2016-11-26 08:27 | REP ---
MRI THORACIC SPINE WITHOUT AND WITH CONTRAST: HISTORY: Back pain. CONTRAST: ProHance 12 mL. COMPARISON: 01/29/2015. There is no disc bulge or herniation. The spinal canal and neural foramina are patent. The spinal cord is normal in signal intensity. There is no abnormal enhancement. Normal signal intensity is present in the thoracic vertebral bodies. IMPRESSION: There is no disc bulge or herniation. Signed by Marcelino Cazares MD 11/26/2016 08:32 A
--- NOTE | 2016-11-26 09:08 | REP ---
MRI CHEST/STERNUM: Multiple sequences obtained in the axial, sagittal, and coronal planes pre and post intravenous administration of 12 mL of gadolinium. The sternum demonstrates normal marrow signal. There is no bone marrow edema or occult fracture. There is no bone lesion identified. There is no abnormal marrow enhancement. There are degenerative changes at the sternoclavicular joints bilaterally. With spurring noted at the medial ends of the clavicles and a tiny amount of fluid in both sternoclavicular joints. There is some metallic artifact in the anterior soft tissues. Incidental note is made of a cyst in the spleen. IMPRESSION: No sternal abnormality. There are degenerative changes as the sternoclavicular joints bilaterally. Signed by Demond Lau MD 11/26/2016 05:35 P
== END ==
LOC: M RAD 16:16
PROVIDERS: ATTEND Nurse Practitioner Family
DX: R59.9 Enlarged lymph nodes, unspecified (principal); R07.89 Other chest pain
CPT/HCPCS: 71552; 72157; A9576

== ENCOUNTER → 2016-12-17 | Outpatient (CLI) | payer OTHER ==
--- NOTE | 2017-01-02 02:04 | ECWPNPC ---
PATIENT NAME: LILIAN HOOD : 1965 GENDER: FEMALE VISIT DATE: 12/17/2016 DISCHARGE DATE: 12/17/16 1658 VISIT LOCKED DATE TIME: PHYSICIAN: ANETTE LORD RESOURCE: ANETTE LORD HISTORY OF PRESENT ILLNESS HISTORY OF PRESENT ILLNESS: HERE FOR F/U AND MANAGEMENT OF CHRONIC NECK AND LBP W HX OF RHEUMATOID ARTHROPATHY.HAS HAD SEVERE INCREASE IN LOW BACK PAIN OVER THE PAST MONTH. USING HYDROCODONE 10/325 BETWEEN 4-6 PILLS DAY AND THIS VARIES ACCORDING TO PAIN LEVEL.FEELS IT IS EFFECTIVE AT REDUCING PAIN AND KEEPING HER COMFORTABLE.DENIES SIDE EFFECTS. LEFT SHOULDER PAIN HAS IMPROVED.SAW DR. JONES FOR HER SHOULDER AND SHE HAS DECIDED NOT TO DO SURGERY.SAW REGARDING HANDS. SHE IS THINKING OF HAVING RIGHT HAND SURGERY IN . FOLLOWING WITH SOS AND RHEUMATOLOGY.RATING PAIN VAS 4-6/10. PAIN THE PATIENT DESCRIBES THE PAIN... THE PATIENT DESCRIBES THE PAIN... THE PATIENT DESCRIBES THE PAIN... THE PATIENT DESCRIBES THE PAIN... THE PATIENT DESCRIBES THE PAIN... FALL RISK SCREENING: SCREENING :NO FALLS IN THE PAST YEAR CURRENT MEDICATIONS TAKING NORCO 10-325 MG TABLET 1 TABLET NEEDED ORALLY Q4-6H MDD6 TAKING PREDNISONE 2.5 MG TABLET 1 TABLET ORALLY TWICE DAILY TAKING DICLOFENAC SODIUM 50 MG TABLET DELAYED RELEASE 1 TABLET ORALLY TWICE DAILY TAKING VITAMIN D3 2000 UNIT CAPSULE 1 CAPSULE ORALLY ONCE A DAY TAKING MAGNESIUM 500 MG CAPSULE 1 CAP ORALLY ONCE A DAY TAKING VITAMIN E 400 UNIT CAPSULE 1 CAPSULE ORALLY ONCE A DAY TAKING MILK THISTLE 500 MG CAPSULE 750MGS ORALLY DAILY TAKING PROBIOTIC TABLET DELAYED RELEASE ORALLY DAILY TAKING VITAMIN C 1000 MG TABLET 1 TABLET ORALLY ONCE A DAY TAKING MAY HAVE CURAMED BCM-95 DAILY TAKING FERROUS SULFATE 325 (65 FE) MG TABLET 1 TABLET ORALLY TID TAKING CALCIUM 500 MG TABLET 1 TABLET WITH MEALS ORALLY TWICE A DAY NOT-TAKING VITAMIN B12 100 MCG TABLET 500 MCG 2 TABLETS ORALLY ONCE A DAY NOT-TAKING CORAL CALCIUM 500 MG CAPSULE 1 CAP ORALLY DAILY NOT-TAKING IRON 1 TAB ORAL DAILY NOT-TAKING GLUTATHIONE 50 MG TABLET ORALLY DAILY NOT-TAKING COLLAGEN ULTRA - CAPSULE ORALLY NOT-TAKING VITAMIN B6 250 MG TABLET ORALLY NOT-TAKING CALCIUM CITRATE 1040 MG TABLET ORALLY NOT-TAKING ALOE VERA 470 MG CAPSULE ORALLY NOT-TAKING MAY HAVE - - , NOTES: BONE AND TISSUE SUPPLEMENT NOT-TAKING METHOTREXATE 2.5 MG TABLET 4 TABS ORALLY WEEKLY NOT-TAKING BONE DENSITY 300-200 MG-UNIT TABLET 2 TABLETS BEFORE A MEAL ORALLY ONCE A DAY MEDICATION LIST REVIEWED AND RECONCILED WITH THE PATIENT PAST MEDICAL HISTORY RHEUMATOID ARTHRITIS-DR. STERN OVARIAN CA-DR. LILIAN VALENZUELA DEPRESSION BRCA 2 POSITIVE IRON DEFICIENCY ANEMIA TDAP 02/2015 ALLERGIES METHOTREXATE: SORES IN MOUTH, CONSTANT COUGH AND PROBLEMS BREATHING: SIDE EFFECTS HYDROXYCHLOROQUINE: ALLERGY SULFASALAZINE: ALLERGY SEAFOOD: NAUSEA/VOMITING: ALLERGY CODEINE SULFATE: STOMACH CRAMPING: ALLERGY DULOXETINE HCL: HALLUCINATIONS: ALLERGY LYRICA: DIZZINESS, UNSTABLE BALANCE, SHORT-TERM MEMORY LOSS: ALLERGY HUMIRA: MUSCLE PAIN: ALLERGY GABAPENTIN: CONFUSION: ALLERGY SURGICAL HISTORY QUINTON BSO-DR. LILIAN VALENZUELA 05/20/2010 RIGHT TKA-DR. ABDUL DOUBLE MASTECTOMY-DR. DANIS IBARRA 03/[address] CALDERA 08/10/2014 LEFT TKA-DR. KOENIG 11/2014 NEEDLE BIOPSY LEFT AXILLARY/NODES 09/2016 HOSPITALIZATION/MAJOR DIAGNOSTIC PROCEDURE SURGICAL NEEDS REVIEW OF SYSTEMS REVIEWED BY: PROVIDER: ANETTE AMADOR . CONSTITUTIONAL: ANY CHANGE IN YOUR MEDICAL CONDITION? NO . CHILLS NO . FEVER NO . INFECTION: DO YOU HAVE NEW INFECTIONS? NO . DO YOU HAVE HISTORY OF MRSA? NO . MUSCULOSKELETAL: ANY NEW PATTERNS OF PAIN OR NUMBNESS? YES, RIGHT FOOT, ANKLE PAIN HAS WORSENED . GASTROENTEROLOGY: ANY NEW CHANGE IN BOWEL CONTROL? YES, BOWEL CRAMPING . GENITOURINARY: ANY NEW CHANGE IN BLADDER CONTROL? NO . IS THERE A CHANCE YOU COULD BE ? NO . HEMATOLOGY/LYMPH: DO YOU TAKE ANY BLOOD THINNERS? (FOR EXAMPLE- COUMADIN, PLAVIX, AGGRENOX, PLATEL, PRADAXA, OR XARELTO) NO . WHEN WAS YOUR LAST DOSE? DATE: TIME: . NEUROLOGY: HAVE YOU FALLEN IN THE PAST 6 MONTHS? NO . ANY NEW EXTREMITY NUMBNESS OR WEAKNESS? NO . CARDIOLOGY: DO YOU HAVE A PACEMAKER OR DEFIBRILLATOR? NO . RESPIRATORY: HAVE YOU BEEN SICK IN THE PAST WEEK? NO . FEVER NO . FLU LIKE SYMPTOMS? NO . COUGH NO . INTEGUMENTARY: DO YOU HAVE ANY RASHES OR OPEN SORES? NO . ALLERGIC/IMMUNO: ARE YOU ALLERGIC TO SHELLFISH OR IV DYE? NO . ANY NEW ALLERGIES? NO . PSYCHIATRIC: DO YOU HAVE THOUGHTS OF HURTING YOURSELF OR SOMEONE ELSE? NO . ARE YOU ABUSED, NEGLECTED, OR IN AN UNSAFE ENVIRONMENT? NO . ENDOCRINOLOGY: ARE YOU DIABETIC? NO . OTHER: DO YOU NEED ANY PRESCRIPTIONS? YES, HYDROCODONE . IF YES, PLEASE LIST: ____ . ANY NEW PROBLEMS WITH YOUR MEDICATIONS? NO . WHEN DID YOU LAST EAT? ____ . WHEN DID YOU LAST DRINK? ____ . WHAT DID YOU LAST DRINK? ____ . NAME OF PERSON DRIVING YOU HOME? ____ . DO YOU HAVE ANY OTHER QUESTIONS OR CONCERNS NO . VITAL SIGNS WT 128 LBS, HT 62 IN, BMI 23.41 INDEX, BP 122/77 MM HG, HR 101 /MIN, RR 18 /MIN, TEMP 98.8 F, OXYGEN SAT % 99%, SAFE IN ENV? (Y/N) Y, NA INITIALS AW 1541, REVIEWED BY: MELONY. EXAMINATION GENERAL EXAMINATION: HEENT:HEAD:, NORMOCEPHALIC, EYES:, EYES NORMAL, NOSE:, NOSE CLEAR, THROAT: NORMAL. LUNGS:LUNG SOUNDS ARE CLEAR. HEART:HEART RATE REGULAR. ABDOMEN:SOFT AND NOT TENDER, NON-DISTENDED. MUSCULOSKELETAL:*. LUMBAR SACRAL SPINEMUSCLE STRENGTH TESTING 4/5 RIGHT AND 3/5 LEFT LOWER EXT. PALPATION: + FOR PAIN OVER L/S SPINE AND LUMBAR PARASPINALS.TRIGGER POINTS ELICITED OVER LUMBAR AND CERVICAL PARASPINALS . THORACIC SPINENEGATIVE FOR PAIN WITH PALPATION OF THORACIC SPINE. NEGATIVE FOR PAIN WITH PALPATION OF THORACIC PARASPINAL. CERVICALMILD PAIN WITH PALPATION OF CERVICAL SPINE. + FOR PAIN WITH PALPATION OF CERVICAL PARASPINALS L>R.. + FOR PAIN WITH PALPATION OF TRAPEZIUS BILAT L>R., MUSCLE STRENGTH TESTING 1/5 LEFT AND 2/5 RIGHT UPPER EXTREMETIES. WEAK REPAIRER AUTO CLOCKS STRENGTH REPAIRER AUTO CLOCKS BILATERAL HAND L>R. ROJM-UPPER ARMS-LESS THAN 30 DEGREES ABDUCTION LEFT.ABDUCTION <50 DEGREES RIGHT... SKIN:NORMAL, NO RASH. NEUROLOGIC EXAM:ALERT AND ORIENTED X 3, DTRS 1-2+ IN ALL 4 EXTREMITIES, DENIES UPPER EXTREMETIES SENSORY LOSS, DENIES LOWER EXTREMETIES SENSORY LOSS. DIAGNOSTIC: . ASSESSMENTS RHEUMATOID ARTHRITIS INVOLVING MULTIPLE SITES WITH POSITIVE RHEUMATOID FACTOR - M05.79 (PRIMARY) CHRONIC PRESCRIPTION OPIATE USE - Z79.891 TREATMENT RHEUMATOID ARTHRITIS INVOLVING MULTIPLE SITES WITH POSITIVE RHEUMATOID FACTOR REFILL NORCO TABLET, 10-325 MG, 1 TABLET NEEDED, ORALLY, Q4-6H MDD6, 30 DAY(S), 180, REFILLS 0 PROCEDURE CODES FA211 ESTABILISHED PATIENT [facility] CHARGE DISPOSITION & COMMUNICATION FOLLOW UP 3 MONTHS ELECTRONICALLY SIGNED BY PERRY MARTINEZ ON 01/01/2017 AT 07:13 PM EDT DISCLAIMER : THIS IS A VISIT SUMMARY EXTRACTED FROM THE [employer] CHART. IT IS NOT A COPY OF THE [employer] PROGRESS NOTE. MTDD
== END ==
LOC: M PAIN 14:20
PROVIDERS: ATTEND Nurse Practitioner Family
DX: M05.79 Rheumatoid arthritis with rheumatoid factor of multiple sites without organ or systems involvement (principal); M54.2 Cervicalgia; M54.5 Low back pain; F32.9 Major depressive disorder, single episode, unspecified; Z88.2 Allergy status to sulfonamides; Z91.013 Allergy to seafood; Z88.5 Allergy status to narcotic agent; Z88.8 Allergy status to other drugs, medicaments and biological substances; Z79.52 Long term (current) use of systemic steroids; Z79.899 Other long term (current) drug therapy

== ENCOUNTER → 2017-02-16 | Outpatient (CLI) | payer OTHER | LOC: M LAB 15:59 | PROVIDERS: ATTEND Nurse Practitioner | DX: C56.2 Malignant neoplasm of left ovary (principal) ==

== ENCOUNTER 2017-02-26 12:04 | Outpatient (CLI) | payer OTHER ==
[~2017-02-26] VITALS: Ht 160 cm; Wt 60.3 kg
[2017-02-26] MEDS ORDERED: NS 1,000 ML IV SCH (12:15)
[2017-02-26] MEDS ORDERED: LIDOCAINE 2% INJ 100 MG/5 ML SDV (FOR ANES.) As Ordered ONE (12:17)
[2017-02-26] MEDS ORDERED: PROPOFOL 200 MG/20 ML VIAL As Ordered ONE (12:17)
[2017-02-26] MEDS ORDERED: fentaNYL 100 MCG/2 ML INJECTION (J3010) As Ordered ONE (12:49)
[2017-02-26] MEDS ORDERED: PHENYLephrine HCL 500 MCG/5 ML (100MCG/ML) SYRINGE (J2370) As Ordered ONE (12:59)
--- NOTE | 2017-02-26 13:03 | ROOR ---
Patient Name: Charmaine Jorgensen Procedure Date: 02/26/2017 12:50 PM Date of : 1965 Age: 51 Room: [facility] Gender: Female Note Status: Finalized Procedure: Upper GI endoscopy Indications: Suspected esophageal reflux Providers: Deni Crump Jr, MD Referring MD: Fe Sherwood NP Requesting Provider: Medicines: Propofol per Anesthesia Complications: No immediate complications. Procedure: Pre-Anesthesia Assessment: - Prior to the procedure, a History and Physical was performed, and patient medications and allergies were reviewed. The patient is competent. The risks and benefits of the procedure and the sedation options and risks were discussed with the patient. All questions were answered and informed consent was obtained. Patient identification and proposed procedure were verified by the physician and the nurse in the pre-procedure area and in the procedure room. Mental Status Examination: alert and oriented. Airway Examination: normal oropharyngeal airway and neck mobility. Respiratory Examination: clear to auscultation. CV Examination: normal. ASA Grade Assessment: II - A patient with mild systemic disease. After reviewing the risks and benefits, the patient was deemed in satisfactory condition to undergo the procedure. The anesthesia plan was to use moderate sedation / analgesia (conscious sedation). Immediately prior to administration of medications, the patient was re-assessed for adequacy to receive sedatives. The heart rate, respiratory rate, oxygen saturations, blood pressure, adequacy of pulmonary ventilation, and response to care were monitored throughout the procedure. The physical status of the patient was re-assessed after the procedure. The Endoscope was introduced through the mouth, and advanced to the second part of duodenum. The upper GI endoscopy was accomplished without difficulty. The patient tolerated the procedure well. Findings: The upper third of the esophagus, middle third of the esophagus and lower third of the esophagus were normal. The cardia and prepyloric region of the stomach were normal. Patchy moderate inflammation characterized by erosions and friability was found in the gastric body. Biopsies were taken with a cold forceps for histology. The duodenal bulb, first portion of the duodenum and second portion of the duodenum were normal. Impression: - Normal upper third of esophagus, middle third of esophagus and lower third of esophagus. - Normal cardia and prepyloric region of the stomach. - Gastritis. Biopsied. - Normal duodenal bulb, first portion of the duodenum and second portion of the duodenum. Recommendation: - Discharge patient to home (ambulatory). - Return to my office in 1 month. Deni Crump MD Deni Crump Jr, MD 02/26/2017 1:03:08 PM This report has been signed electronically. Number of Addenda: 0 Note Initiated On: 02/26/2017 12:50 PM Estimated Blood Loss: Estimated blood loss: none.
[2017-02-26 13:41] VITALS: BP 94/63
== END 2017-02-26 13:40 | disposition home or self-care (01) ==
LOC: M OPP 12:04
PROVIDERS: ATTEND Surgery
DX: K21.9 Gastro-esophageal reflux disease without esophagitis (principal); R10.13 Epigastric pain; K29.70 Gastritis, unspecified, without bleeding; R07.89 Other chest pain; R23.3 Spontaneous ecchymoses; M06.9 Rheumatoid arthritis, unspecified; M54.89 Other dorsalgia; M54.2 Cervicalgia; M79.7 Fibromyalgia; Z85.43 Personal history of malignant neoplasm of ovary; Z92.21 Personal history of antineoplastic chemotherapy; R06.02 Shortness of breath; Z90.13 Acquired absence of bilateral breasts and nipples; Z96.653 Presence of artificial knee joint, bilateral; Z88.8 Allergy status to other drugs, medicaments and biological substances; Z91.041 Radiographic dye allergy status; Z88.5 Allergy status to narcotic agent; Z88.2 Allergy status to sulfonamides; Z91.013 Allergy to seafood; Z79.52 Long term (current) use of systemic steroids; Z79.899 Other long term (current) drug therapy
CPT/HCPCS: 43239; 88305; J2370; J3010

== ENCOUNTER → 2017-03-25 | Outpatient (CLI) | payer OTHER | LOC: M PAIN 14:30 | PROVIDERS: ATTEND Nurse Practitioner Family | DX: M05.79 Rheumatoid arthritis with rheumatoid factor of multiple sites without organ or systems involvement (principal); M54.5 Low back pain; M54.2 Cervicalgia; G89.29 Other chronic pain; Z79.891 Long term (current) use of opiate analgesic; Z79.899 Other long term (current) drug therapy; Z88.8 Allergy status to other drugs, medicaments and biological substances; Z88.2 Allergy status to sulfonamides; Z88.5 Allergy status to narcotic agent; Z91.013 Allergy to seafood ==

== ENCOUNTER → 2017-06-23 | Outpatient (CLI) | payer MEDICARE | LOC: M PAIN 14:45 | DX: G89.29 Other chronic pain (principal); R06.9 Unspecified abnormalities of breathing; M05.79 Rheumatoid arthritis with rheumatoid factor of multiple sites without organ or systems involvement; F32.9 Major depressive disorder, single episode, unspecified; D50.9 Iron deficiency anemia, unspecified; Z79.891 Long term (current) use of opiate analgesic; Z79.52 Long term (current) use of systemic steroids; Z79.899 Other long term (current) drug therapy; Z88.2 Allergy status to sulfonamides; Z88.5 Allergy status to narcotic agent; Z88.8 Allergy status to other drugs, medicaments and biological substances; Z91.013 Allergy to seafood | CPT/HCPCS: G0463 ==

== ENCOUNTER → 2017-08-28 | Outpatient (CLI) | payer MEDICARE ==
[2017-08-28 19:09] LABS: CA 125 8.3 U/ML (<30.2)
== END ==
LOC: M LAB 16:27
DX: C56.1 Malignant neoplasm of right ovary (principal); C56.2 Malignant neoplasm of left ovary
CPT/HCPCS: 86304

== ENCOUNTER → 2017-09-28 | Outpatient (CLI) | payer MEDICARE | LOC: M PAIN 14:30 | DX: G89.29 Other chronic pain (principal); M05.79 Rheumatoid arthritis with rheumatoid factor of multiple sites without organ or systems involvement; M54.2 Cervicalgia; M54.5 Low back pain; F32.9 Major depressive disorder, single episode, unspecified; D50.9 Iron deficiency anemia, unspecified; Z96.653 Presence of artificial knee joint, bilateral; Z90.13 Acquired absence of bilateral breasts and nipples; Z90.710 Acquired absence of both cervix and uterus; Z79.52 Long term (current) use of systemic steroids; Z79.891 Long term (current) use of opiate analgesic; Z79.899 Other long term (current) drug therapy; Z88.8 Allergy status to other drugs, medicaments and biological substances; Z88.5 Allergy status to narcotic agent; Z91.013 Allergy to seafood | CPT/HCPCS: G0463 ==

== ENCOUNTER → 2017-11-03 | Outpatient (REF) | payer MEDICARE ==
[2017-11-03 17:26] LABS: BASO % 0.4 % (0.0-1.0); EOS # 0.2 10^3/uL (0.0-0.50); EOS % 2.4 % (0.0-3.0); HEMATOCRIT 36.6 % (36.0-47.0); HEMOGLOBIN 11.6 g/dl (12.0-15.5); IMMATURE GRANULOCYTE % 0.3 % (0-3.0); LYMPH # 1.6 10^3/uL (1.5-4.5); LYMPH % 22.7 % (24.0-44.0); MEAN CORPUSCULAR HGB CONC 31.7 g/dl (32.0-36.5); MEAN CORPUSCULAR VOLUME 94.6 fl (80.0-96.0); MONO # 0.5 10^3/uL (0.0-0.8); MONO % 6.8 % (0.0-5.0); NEUTROPHILS # 4.9 10^3/uL (1.8-7.7); NEUTROPHILS % 67.4 % (36.0-66.0); PLATELET COUNT, AUTOMATED 347 10^3/uL (150-450); RED BLOOD COUNT 3.87 10^6/uL (4.00-5.40); RED CELL DISTRIBUTION WIDTH 13.7 % (11.5-14.5); WHITE BLOOD COUNT 7.2 10^3/uL (4.0-10.0)
[2017-11-03 17:53] LABS: VITAMIN B12 LEVEL 751 PG/ML (247-911)
[2017-11-03 18:07] LABS: ALBUMIN 3.6 GM/DL (3.2-5.2); ALBUMIN/GLOBULIN RATIO 0.78 (1.00-1.93); ALKALINE PHOSPHATASE 98 U/L (45-117); ALT/SGPT 26 U/L (12-78); ANION GAP 10 MEQ/L (8-16); AST/SGOT 17 U/L (7-37); BILIRUBIN,TOTAL 0.4 MG/DL (0.2-1.0); BLOOD UREA NITROGEN 12 MG/DL (7-18); CALCIUM LEVEL 8.7 MG/DL (8.5-10.1); CARBON DIOXIDE LEVEL 28 MEQ/L (21-32); CHLORIDE LEVEL 104 MEQ/L (98-107); CREATININE FOR GFR 0.54 MG/DL (0.55-1.30); FERRITIN 334 NG/ML (8-252); FREE T4 1.26 NG/DL (0.76-1.46); GLOMERULAR FILTRATION RATE > 60.0 (>51); GLUCOSE, FASTING 112 MG/DL (70-100); IRON (FE) 68 UG/DL (50-170); MAGNESIUM LEVEL 1.8 MG/DL (1.8-2.4); POTASSIUM SERUM 3.8 MEQ/L (3.5-5.1); SODIUM LEVEL 142 MEQ/L (136-145); THYROID STIMULATING HORMONE 0.813 uIU/ML (0.358-3.740); TOTAL IRON BINDING CAPACITY 262 UG/DL (250-450); TOTAL PROTEIN 8.2 GM/DL (6.4-8.2)
[2017-11-07 00:12] LABS: VITAMIN D 1,25 DIHYDROXY 24.5 pg/mL (19.9-79.3)
== END ==
LOC: M SFHCCLAY 13:45
DX: E83.42 Hypomagnesemia (principal); M81.0 Age-related osteoporosis without current pathological fracture; E61.1 Iron deficiency; M06.9 Rheumatoid arthritis, unspecified; Z79.899 Other long term (current) drug therapy
CPT/HCPCS: 83550

== ENCOUNTER → 2017-11-03 | Outpatient (CLI) | payer MEDICARE | LOC: M CLY 14:00 | DX: M16.11 Unilateral primary osteoarthritis, right hip (principal); M25.851 Other specified joint disorders, right hip; R93.7 Abnormal findings on diagnostic imaging of other parts of musculoskeletal system; E83.42 Hypomagnesemia; M81.0 Age-related osteoporosis without current pathological fracture; M06.9 Rheumatoid arthritis, unspecified; Z79.899 Other long term (current) drug therapy | CPT/HCPCS: 73502; 83550 ==

== ENCOUNTER → 2017-12-04 | Outpatient (CLI) | payer MEDICARE ==
[~2017-12-04] MED LIST changes: -/CELE20CA PO; -/CIPR75TA OR; -/FENT25PA TD; -/FENT25PA TOP; -/FENT50PA TD; -/LOR25TA OR; -/ONDA4TA OR; -/PANT40TA OR; -/SUCR1TA OR; -AMLO10TA OR; -ASCO1000 PO; -ATIV0.5T OR; -ATIV0.5T3 PO; -CAL-500T PO; -CALC500T49; -CALCIUM OR; -CALCIUM PO; -CALCIUM/MAGNESIUM PO; -CLIN200T; -COLA100C2 OR; -COMPAZINE OR; -CORA1000 PO; -CORACAP6 PO; -CURC500C PO; -DICL50TAB PO; -DIET; -ENOX40SY SC; -FENT25DI22 TD; -FISH1000 OR; -FISH1000 PO; -FLAXMIS PO; -FOLLOW UP; -FOSA70TA PO; +GASTROGRAFIN SOLUTION 30ML (Q9963) As Ordered; -HUMIRA; -HUMIRA OR; -HYDR-2807 PO; -HYDR10TA16 PO; -HYDROCODONE; -HYDROCODONE OR; -IBUP40TA PO; -IRON18TA PO; -IRON50TA PO; +ISOVUE-370 76% 100ML VIAL (Q9967) As Ordered; -LIDO5DIS EXT; -LORA0.5T OR; -MAG OR; -MAG400TA PO; -MAGN500C PO; -MAGN500T2 PO; -MAGNESIUM OX; -MAGNESIUM PO; -METH2.5TA PO; -MILK175C2 PO; -MILKPOW PO; -MILKSUS OR; -NATU400T PO; -NEUR100C PO; -NEUTSOL PO; -OMEP20TA7 OR; -OXYC5CAP4 PO; -OYST500T OR; -PERC7.5T8 OR; -POTA10CA2 OR; -PRED2.5T PO; -PRED20TA PO; -PRED25TA PO; -PRED5TAB; -PRED5TAB OR; -PROBCAP13 PO; -PROBCAP4 PO; -SENN8.6T5 OR; -SENO8.6T5 OR; -SULI200T OR; -SULI200T PO; -VALT1TAB PO; -VICO5TAB; -VICO5TAB OR; -VICODIN PO; -VICODINES TAB PO; -VIT D 2000 OR; -VIT D 2000 PO; -VITA-56 OR; -VITA10006 PO; -VITA100067 PO; -VITA100L PO; -VITA100T; -VITA100T OR; -VITA100T5 OR; -VITA400C; -VITA400C OR; -VITA400C PO; -VITA400C7 PO; -VITA500C OR; -VITA500T; -VITA500T OR; -VITA500T3 PO; -VITA50TA12 PO; -VITAMIN D 3 PO; -VITAMIN D50000 UNT; -VITAMINB12; -VITAMIND3 PO; -VITAMINE PO; -ZINC OR; -ZOFR8TAB OR; -ZYFLAMEND PO; -[UNRECOGNIZED DRUG - CODE] PO; -[UNRECOGNIZED DRUG - CODE] PO; -[UNRECOGNIZED DRUG - CODE] XX; -[UNRECOGNIZED DRUG - MIXTURE] PO; -[UNRECOGNIZED DRUG - OTHER]; -[UNRECOGNIZED DRUG - OTHER]; -[UNRECOGNIZED DRUG - OTHER] OR; -[UNRECOGNIZED DRUG - OTHER] PO; -[UNRECOGNIZED DRUG - OTHER] PO; -[UNRECOGNIZED DRUG - OTHER] PO; -[UNRECOGNIZED DRUG - OTHER] PO; -[UNRECOGNIZED DRUG - OTHER] PO; -[UNRECOGNIZED DRUG - OTHER] PO; -[UNRECOGNIZED DRUG - OTHER] PO; -[UNRECOGNIZED DRUG - OTHER] PO; -iodine PB; -magnesium oxide OR; -milk thistle PO; -tumeric PO; -vitamin D OR
== END ==
LOC: M RAD 16:08
DX: R10.11 Right upper quadrant pain (principal); J84.10 Pulmonary fibrosis, unspecified; M51.36 Other intervertebral disc degeneration, lumbar region; M94.251 Chondromalacia, right hip; M17.0 Bilateral primary osteoarthritis of knee
CPT/HCPCS: Q9963

== ENCOUNTER → 2017-12-29 | Outpatient (CLI) | payer MEDICARE | LOC: M PAIN 15:00 | DX: M05.79 Rheumatoid arthritis with rheumatoid factor of multiple sites without organ or systems involvement (principal); D50.9 Iron deficiency anemia, unspecified; M06.9 Rheumatoid arthritis, unspecified; Z79.899 Other long term (current) drug therapy; Z88.8 Allergy status to other drugs, medicaments and biological substances; Z91.013 Allergy to seafood | CPT/HCPCS: G0463 ==

== ENCOUNTER → 2018-02-15 | Outpatient (CLI) | payer MEDICARE | LOC: M CLY 09:13 | DX: Z01.818 Encounter for other preprocedural examination (principal); M16.11 Unilateral primary osteoarthritis, right hip; M06.9 Rheumatoid arthritis, unspecified | CPT/HCPCS: 71046; 90682 ==

== ENCOUNTER → 2018-04-26 | Outpatient (CLI) | payer MEDICARE ==
[~2018-04-26] MED LIST changes: +/CELE20CA PO; +/CIPR75TA OR; +/FENT25PA TD; +/FENT25PA TOP; +/FENT50PA TD; +/LOR25TA OR; +/ONDA4TA OR; +/PANT40TA OR; +/SUCR1TA OR; +AMLO10TA OR; +ASCO1000 PO; +ATIV0.5T OR; +ATIV0.5T3 PO; +CAL-500T PO; +CALC500T49; +CALCIUM OR; +CALCIUM PO; +CALCIUM/MAGNESIUM PO; +CLIN200T; +COLA100C2 OR; +COMPAZINE OR; +CORA1000 PO; +CORACAP6 PO; +CURC500C PO; +DICL50TAB PO; +DIET; +ENOX40SY SC; +FENT25DI22 TD; +FISH1000 OR; +FISH1000 PO; +FLAXMIS PO; +FOLLOW UP; +FOSA70TA PO; -GASTROGRAFIN SOLUTION 30ML (Q9963) As Ordered; +HUMIRA; +HUMIRA OR; +HYDR-2807 PO; +HYDR10TA16 PO; +HYDROCODONE; +HYDROCODONE OR; +IBUP40TA PO; +IRON18TA PO; +IRON50TA PO; -ISOVUE-370 76% 100ML VIAL (Q9967) As Ordered; +LIDO5DIS EXT; +LORA0.5T OR; +MAG OR; +MAG400TA PO; +MAGN500C PO; +MAGN500T2 PO; +MAGNESIUM OX; +MAGNESIUM PO; +METH2.5T48 PO; +MILK175C2 PO; +MILKPOW PO; +MILKSUS OR; +NATU400T PO; +NEUR100C PO; +NEUTSOL PO; +OMEP20TA7 OR; +OXYC5CAP4 PO; +OYST500T OR; +PERC7.5T8 OR; +POTA10CA2 OR; +PRED2.5T PO; +PRED20TA PO; +PRED25TA PO; +PRED5TAB; +PRED5TAB OR; +PROBCAP13 PO; +PROBCAP4 PO; +SENN8.6T5 OR; +SENO8.6T5 OR; +SULI200T OR; +SULI200T PO; +VALT1TAB PO; +VICO5TAB; +VICO5TAB OR; +VICODIN PO; +VICODINES TAB PO; +VIT D 2000 OR; +VIT D 2000 PO; +VITA-56 OR; +VITA10006 PO; +VITA100067 PO; +VITA100L PO; +VITA100T; +VITA100T OR; +VITA100T5 OR; +VITA400C; +VITA400C OR; +VITA400C PO; +VITA400C7 PO; +VITA500C OR; +VITA500T; +VITA500T OR; +VITA500T3 PO; +VITA50TA12 PO; +VITAMIN D 3 PO; +VITAMIN D50000 UNT; +VITAMINB12; +VITAMIND3 PO; +VITAMINE PO; +ZINC OR; +ZOFR8TAB OR; +ZYFLAMEND PO; +[UNRECOGNIZED DRUG - CODE] PO; +[UNRECOGNIZED DRUG - CODE] PO; +[UNRECOGNIZED DRUG - CODE] XX; +[UNRECOGNIZED DRUG - MIXTURE] PO; +[UNRECOGNIZED DRUG - OTHER]; +[UNRECOGNIZED DRUG - OTHER]; +[UNRECOGNIZED DRUG - OTHER] OR; +[UNRECOGNIZED DRUG - OTHER] PO; +[UNRECOGNIZED DRUG - OTHER] PO; +[UNRECOGNIZED DRUG - OTHER] PO; +[UNRECOGNIZED DRUG - OTHER] PO; +[UNRECOGNIZED DRUG - OTHER] PO; +[UNRECOGNIZED DRUG - OTHER] PO; +[UNRECOGNIZED DRUG - OTHER] PO; +[UNRECOGNIZED DRUG - OTHER] PO; +iodine PB; +magnesium oxide OR; +milk thistle PO; +tumeric PO; +vitamin D OR
--- NOTE | 2018-05-20 01:00 | ECWPNPC ---
PATIENT NAME: LILIAN HOOD : 1965 GENDER: FEMALE VISIT DATE: 04/26/2018 DISCHARGE DATE: 04/26/18 1514 VISIT LOCKED DATE TIME: PHYSICIAN: ANETTE LORD RESOURCE: ANETTE LORD REASON FOR APPOINTMENT 1. CHRONIC PAIN HISTORY OF PRESENT ILLNESS DEPRESSION SCREENING: PHQ-2 IN LAST TWO WEEKS HAVE YOU BEEN BOTHERED BY LITTLE INTEREST OR PLEASURE IN DOING THINGSNO FEELING DOWN, DEPRESSED, OR HOPELESSNO HISTORY OF PRESENT ILLNESS: HERE FOR F/U AND MANAGEMENT OF CHRONIC NECK AND LBP W HX OF RHEUMATOID ARTHROPATHY. USING HYDROCODONE 10/325 BETWEEN 4-6 PILLS DAY AND THIS VARIES ACCORDING TO PAIN LEVEL.FEELS IT IS EFFECTIVE AT REDUCING PAIN AND KEEPING HER COMFORTABLE.DENIES SIDE EFFECTS.FOLLOWING WITH REGARDING HANDS.SHE HAD RIGHT HIP REPLACEMENT ON February.SHE IS DOING WELL POST OPERATIVELY. PAIN THE PATIENT DESCRIBES THE PAIN... THE PATIENT DESCRIBES THE PAIN... THE PATIENT DESCRIBES THE PAIN... THE PATIENT DESCRIBES THE PAIN... THE PATIENT DESCRIBES THE PAIN... THE PATIENT DESCRIBES THE PAIN... THE PATIENT DESCRIBES THE PAIN... THE PATIENT DESCRIBES THE PAIN... THE PATIENT DESCRIBES THE PAIN... THE PATIENT DESCRIBES THE PAIN... FALL RISK SCREENING: SCREENING :NO FALLS IN THE PAST YEAR CURRENT MEDICATIONS TAKING ZANTAC 150 MG TABLET 1 TABLET AT BEDTIME ORALLY ONCE A DAY NEEDED TAKING PREDNISONE 2.5 MG TABLET 1 TABLET ORALLY TWICE DAILY TAKING DICLOFENAC SODIUM 50 MG TABLET DELAYED RELEASE 1 TABLET ORALLY TWICE DAILY TAKING VITAMIN D3 2000 UNIT CAPSULE 1 CAPSULE ORALLY ONCE A DAY TAKING MAGNESIUM 500 MG CAPSULE 1 CAP ORALLY ONCE A DAY TAKING VITAMIN E 400 UNIT CAPSULE 1 CAPSULE ORALLY ONCE A DAY TAKING MILK THISTLE 500 MG CAPSULE 750MGS ORALLY DAILY TAKING PROBIOTIC TABLET DELAYED RELEASE ORALLY DAILY TAKING VITAMIN C 1000 MG TABLET 1 TABLET ORALLY ONCE A DAY TAKING MAY HAVE CURAMED BCM-95 DAILY TAKING CALCIUM 500 MG TABLET 1 TABLET WITH MEALS ORALLY DAILY TAKING FLAXSEED OIL 1000 MG CAPSULE ORALLY TAKING GLUTATHIONE 50 MG TABLET ORALLY DAILY TAKING MAY HAVE - - , NOTES: CURAMED SUPPLEMENT FOR IMMUNE HEALTH TAKING B COMPLEX - TABLET ORALLY TAKING COLACE 100 MG CAPSULE 1 CAPSULE NEEDED ORALLY ONCE A DAY TAKING FERROUS SULFATE 325 (65 FE) MG TABLET 1 TABLET ORALLY TID TAKING NORCO 10-325 MG TABLET 1 TABLET NEEDED ORALLY Q4-6H MDD6 NOT-TAKING EPIPEN 2-ARPAN 0.3 MG/0.3ML SOLUTION AUTO-INJECTOR DIRECTED INJECTION DIRECTED: PRN ALLERGIC REACTION NOT-TAKING ASPIR-81 81 MG TABLET DELAYED RELEASE 1 TABLET ORALLY ONCE A DAY MEDICATION LIST REVIEWED AND RECONCILED WITH THE PATIENT PAST MEDICAL HISTORY RHEUMATOID ARTHRITIS-DR. STERN OVARIAN CA-DR. LILIAN VALENZUELA DEPRESSION BRCA 2 POSITIVE IRON DEFICIENCY ANEMIA TDAP 02/2015 ALLERGIES METHOTREXATE: SORES IN MOUTH, CONSTANT COUGH AND PROBLEMS BREATHING: SIDE EFFECTS HYDROXYCHLOROQUINE: ALLERGY SULFASALAZINE: ALLERGY SEAFOOD: NAUSEA/VOMITING: ALLERGY CODEINE SULFATE: STOMACH CRAMPING: ALLERGY DULOXETINE HCL: HALLUCINATIONS: ALLERGY LYRICA: DIZZINESS, UNSTABLE BALANCE, SHORT-TERM MEMORY LOSS: ALLERGY HUMIRA: MUSCLE PAIN: ALLERGY GABAPENTIN: CONFUSION: ALLERGY CELEBREX: DIFFICULTY BREATHING: ALLERGY MUSHROOMS: ANAPHYLAXIS: ALLERGY SURGICAL HISTORY QUINTON BSO-DR. LILIAN VALENZUELA 05/20/2010 RIGHT TKA-DR. ABDUL DOUBLE MASTECTOMY-DR. DANIS IBARRA 03/[address] CALDERA 08/10/2014 LEFT TKA-DR. KOENIG 11/2014 NEEDLE BIOPSY LEFT AXILLARY/NODES 09/[address] CALDERA 02/2017 TOTAL RIGHT HIP ARTHROPLASTY 02/23/2018 SOCIAL HISTORY GENERAL: TOBACCO USE ARE YOU A:NONSMOKER BMI CARE GOAL FOLLOW-UP ABOVE NORMAL BMI FOLLOW-UPLIFESTYLE EDUCATION REGARDING DIET ALCOHOL SCREENING DID YOU HAVE A DRINK CONTAINING ALCOHOL IN THE PAST YEAR?NO POINTS0 INTERPRETATIONNEGATIVE RECREATIONAL DRUG USE DRUG USE?NO PATIENT DENIES ABUSE OR MISSUSED OF ANY MEDICATION. PATIENT DENIES USE OF ANY ILLEGAL SUBSTANCE INCLUDING MARIJUANA OR COCAINE. CAFFEINE CAFFEINE USE?NO SEXUAL HX HAD SEX IN THE LAST 12 MONTHS (VAGINAL, ORAL, OR ANAL)?NO HAVE YOU EVER HAD AN STD?NO HIV / HEP-C SCREENING HIV TEST OFFERED TO PATIENT:YES DATE OFFERED:11/03/2017 TEST ACCEPTED:NO HEP-C TEST OFFERED TO PATIENT:YES DATE OFFERED:11/03/2017 REASON:PATIENT DECLINED TEST ACCEPTED:NO REASON:PATIENT DECLINED BROCHURE PROVIDED TO PATIENTNO -PATIENT DECLINED MU-ISM [id number] AGNOSTIC LANGUAGE LANGUAGES SPOKEN:ESTONIAN EDUCATION LEVEL OF EDUCATION:COLLEGE LEARNING BARRIERS / SPECIAL NEEDS CHANGE FROM LAST VISIT?NO 02/15/2018 BARRIERS TO LEARNING?NO HEARING IMPAIRED?NO VISION IMPAIRED?YES COGNITIVELY IMPAIRED?NO :CORRECTIVE LENSES READINESS TO LEARN?YES LEARNING PREFERENCES?NO LEARNING CAPABILITIES PRESENT?YES EMOTIONAL BARRIERS?NO SPECIAL DEVICES?YES :OTHER [facility] ADVANCED PRACTICE NURSE NEEDED?NO DOMESTIC VIOLENCE DO YOU FEEL SAFE IN YOUR ENVIRONMENT?YES 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 EXERCISE: WALKS. MARITAL STATUS: SINGLE. OTHERS AT HOME: NONE. NEW PATIENT PAIN DIARY TODAY'S VISITNOTES FROM 0-10, WHAT LEVEL IS YOUR PAIN TODAY?5 PAIN CLINIC PFS, CLERGY, PUBLIC HEALTH REFERRALS PFS REFERRAL NEEDED?NO CLERGY REFERRAL NEEDED?NO PUBLIC HEALTH REFERRAL NEEDED?NO WAS THE PROVIDER NOTIFIED OF ANY PERTINENT INFO?NO HAS THE PATIENT BEEN EDUCATED REGARDING HIS/HER PLAN OF CARE?YES HAS THE PATIENT BEEN EDUCATED REGARDING PAIN, THE RISK FOR PAIN, THE IMPORTANCE OF EFFECTIVE PAIN MANAGEMENT, AND THE PAIN ASSESSMENT PROCESS?YES ADVANCE DIRECTIVE ADVANCE DIRECTIVE DISCUSSED WITH PATIENT:YES JIGNA HOOD-MOM HOSPITALIZATION/MAJOR DIAGNOSTIC PROCEDURE SURGICAL NEEDS RIGHT HIP REPLACED REVIEW OF SYSTEMS REVIEWED BY: PROVIDER: ANETTE AMADOR . CONSTITUTIONAL: ANY CHANGE IN YOUR MEDICAL CONDITION? YES, RIGHT HIP REPLACEMENT 02/2018 . CHILLS NO . FEVER NO . INFECTION: DO YOU HAVE NEW INFECTIONS? NO . DO YOU HAVE HISTORY OF MRSA? NO . MUSCULOSKELETAL: ANY NEW PATTERNS OF PAIN OR NUMBNESS? YES, LEFT HIP PAIN SINCE RIGHT HIP REPLACEMENT . GASTROENTEROLOGY: ANY NEW CHANGE IN BOWEL CONTROL? NO . GENITOURINARY: ANY NEW CHANGE IN BLADDER CONTROL? NO . IS THERE A CHANCE YOU COULD BE ? NO . HEMATOLOGY/LYMPH: DO YOU TAKE ANY BLOOD THINNERS? (FOR EXAMPLE- COUMADIN, PLAVIX, AGGRENOX, PLATEL, PRADAXA, OR XARELTO) NO . WHEN WAS YOUR LAST DOSE? DATE: TIME: . NEUROLOGY: HAVE YOU FALLEN IN THE PAST 6 MONTHS? NO . ANY NEW EXTREMITY NUMBNESS OR WEAKNESS? YES, LEFT HIP PAIN . CARDIOLOGY: DO YOU HAVE A PACEMAKER OR DEFIBRILLATOR? NO . RESPIRATORY: HAVE YOU BEEN SICK IN THE PAST WEEK? NO . FEVER NO . FLU LIKE SYMPTOMS? NO . COUGH NO . INTEGUMENTARY: DO YOU HAVE ANY RASHES OR OPEN SORES? NO . ALLERGIC/IMMUNO: ARE YOU ALLERGIC TO SHELLFISH OR IV DYE? NO . ANY NEW ALLERGIES? YES, MUSHROOMS . PSYCHIATRIC: DO YOU HAVE THOUGHTS OF HURTING YOURSELF OR SOMEONE ELSE? NO . ARE YOU ABUSED, NEGLECTED, OR IN AN UNSAFE ENVIRONMENT? NO . ENDOCRINOLOGY: ARE YOU DIABETIC? NO . OTHER: DO YOU NEED ANY PRESCRIPTIONS? YES, HYDROCODONE REFILL . IF YES, PLEASE LIST: ____ . ANY NEW PROBLEMS WITH YOUR MEDICATIONS? NO . WHEN DID YOU LAST EAT? ____ . WHEN DID YOU LAST DRINK? ____ . WHAT DID YOU LAST DRINK? ____ . NAME OF PERSON DRIVING YOU HOME? ____ . DO YOU HAVE ANY OTHER QUESTIONS OR CONCERNS YES, RIGHT HIP REPLACEMENT 02/23/[address] [facility] [address] BRANDEN KOENIG . VITAL SIGNS WT 130.2 LBS, HT 62 IN, BMI 23.81 INDEX, BP 120/80 MM HG, HR 120 /MIN, RR 18 /MIN, TEMP 96.6 F, OXYGEN SAT % 97%, NA INITIALS SC 14:22, REVIEWED BY: MELONY. EXAMINATION GENERAL EXAMINATION: GENERAL APPEARANCE:AWAKE,ALERT ,PLEAASANT . PSYCHAFFECT NORMAL . LUNGS:LUNG DAVILA ARE CLEAR TO AUSCULTATION BILATERALLY. GOOD MOVEMENT OF AIR . HEART:S1, S2 IN A REGULAR RATE AND RHYTHM. NO SIGNIFICANT MURMURS, RUBS OR GALLOPS NOTED . ASSESSMENTS RHEUMATOID ARTHRITIS INVOLVING MULTIPLE SITES WITH POSITIVE RHEUMATOID FACTOR - M05.79 (PRIMARY) CHRONIC PRESCRIPTION OPIATE USE - Z79.899 TREATMENT RHEUMATOID ARTHRITIS INVOLVING MULTIPLE SITES WITH POSITIVE RHEUMATOID FACTOR REFILL NORCO TABLET, 10-325 MG, 1 TABLET NEEDED, ORALLY, Q4-6H MDD6, 30 DAY(S), 180, REFILLS 0 NOTES: ISTOP REGISTRY REVIEWED AND DEMONSTRATES COMPLLIANCE. BRINGS IN MEDICATIONS WHICH IS APPROPRIATE FOR WHAT WAS DISPENSED. RECENT URINE TOXICOLOGY REVIEWED. NO UNAUTHORIZED MEDICATIONS. NO ILLICIT SUBSTANCES AND PRESCRIBED MEDICATIONS WERE PRESENT. , RISKS AND BENEFITS OF NARCOTIC/OPIOD MEDICATIONS WERE REVIEWED WITH PATIENT - THIS INCLUDES BUT IS NOT LIMITED TO RISK OF DEPENDANCE/DEVELOPMENT OF ADDICTION, MOOD DISTURBANCE AND DEPRESSION, OSTEOPOROSIS, HORMONAL AND LABIDAL CHANGES, RESPIRATORY DEPRESSION AND . PATIENT IS ADVISED NOT TO DRIVE OR DRINK ALCOHOL WHILE ON THESE MEDICATIONS. PROCEDURE CODES FA211 ESTABILISHED PATIENT [facility] CHARGE DISPOSITION & COMMUNICATION FOLLOW UP 3 MONTHS ELECTRONICALLY SIGNED BY PERRY FROST ON 05/19/2018 AT 01:56 PM EST DISCLAIMER : THIS IS A VISIT SUMMARY [facility]ED FROM [facility]. IT IS NOT A COPY OF THE [facility] PROGRESS NOTE. MTDD
== END ==
LOC: M PAIN 14:15
PROVIDERS: ATTEND Nurse Practitioner Family
DX: G89.29 Other chronic pain (principal); M05.79 Rheumatoid arthritis with rheumatoid factor of multiple sites without organ or systems involvement; F32.9 Major depressive disorder, single episode, unspecified; D50.9 Iron deficiency anemia, unspecified; Z96.653 Presence of artificial knee joint, bilateral; Z85.43 Personal history of malignant neoplasm of ovary; Z90.710 Acquired absence of both cervix and uterus; Z90.722 Acquired absence of ovaries, bilateral; Z79.899 Other long term (current) drug therapy; Z79.891 Long term (current) use of opiate analgesic; Z91.013 Allergy to seafood; Z91.018 Allergy to other foods; Z88.2 Allergy status to sulfonamides; Z88.5 Allergy status to narcotic agent; Z88.8 Allergy status to other drugs, medicaments and biological substances; Z96.641 Presence of right artificial hip joint

== ENCOUNTER 2018-05-22 13:08 | Emergency (ER) | payer MEDICARE ==
[~2018-05-22] VITALS: Ht 160 cm; Wt 59.1 kg
[2018-05-22] MEDS ORDERED: MILK175C2 PO (13:38)
[2018-05-22] MEDS ORDERED: NS 1,000 ML IV ONE (14:15)
[2018-05-22 14:43] LABS: BASO % 0.2 % (0.0-1.0); EOS % 0.4 % (0.0-3.0); HEMATOCRIT 33.6 % (36.0-47.0); HEMOGLOBIN 10.2 g/dl (12.0-15.5); MEAN CORPUSCULAR HEMOGLOBIN 29.7 pg (27.0-33.0); MEAN CORPUSCULAR HGB CONC 30.4 g/dl (32.0-36.5); MEAN CORPUSCULAR VOLUME 97.7 fl (80.0-96.0); MONO # 0.5 10^3/uL (0.0-0.8); MONO % 5.5 % (0.0-5.0); NEUTROPHILS # 6.6 10^3/uL (1.8-7.7); NEUTROPHILS % 81.4 % (36.0-66.0); PLATELET COUNT, AUTOMATED 281 10^3/uL (150-450); RED BLOOD COUNT 3.44 10^6/uL (4.00-5.40); WHITE BLOOD COUNT 8.1 10^3/uL (4.0-10.0)
[2018-05-22 14:54] LABS: INR 0.96; PROTHROMBIN TIME 12.9 SECONDS (12.1-14.4)
--- NOTE | 2018-05-22 14:54 | REP ---
CT ABDOMEN AND PELVIS WITHOUT CONTRAST: HISTORY: Abdominal pain. COMPARISON: 12/04/2017 Calcification is present in the gallbladder consistent with cholelithiasis. A 1.3 cm hypodensity is present in the spleen, unchanged compared to the previous study. The liver, pancreas, adrenal glands, and kidneys are normal in appearance. There is no mass, adenopathy, or free fluid. The visualized lungs are clear. The patient is status post right total hip replacement. Metal artifact partially obscures the pelvis. The patient is status post hysterectomy. The visualized urinary bladder is normal in appearance. Surgical clips are present in the anterior abdomen. Degenerative change is present in the spine. IMPRESSION: 1. Cholelithiasis. 2. There is a 1.3 cm hypodensity in the spleen, unchanged compared to the previous study. 3. The patient is status post hysterectomy. Electronically Signed by Marcelino Cazares MD 05/22/2018 03:00 P
[2018-05-22 14:55] LABS: PARTIAL THROMBOPLASTIN TIME 28.9 SECONDS (25.4-37.6)
--- NOTE | 2018-05-22 15:07 | REP ---
RIGHT ANKLE, FOUR VIEWS: HISTORY: Pain. There is no acute fracture or dislocation. The joint space is normal in appearance. An osteophyte is present on the anterior talus. Soft tissue swelling is present. IMPRESSION: There is no acute fracture or dislocation. Electronically Signed by Marcelino Cazares MD 05/22/2018 03:08 P
[2018-05-22 15:09] LABS: ALBUMIN 3.7 GM/DL (3.2-5.2); ALT/SGPT 22 U/L (12-78); BILIRUBIN,DIRECT 0.2 MG/DL (0.0-0.2); BILIRUBIN,TOTAL 0.6 MG/DL (0.2-1.0); BLOOD UREA NITROGEN 10 MG/DL (7-18); CALCIUM LEVEL 8.9 MG/DL (8.5-10.1); CARBON DIOXIDE LEVEL 28 MEQ/L (21-32); CHLORIDE LEVEL 102 MEQ/L (98-107); CK-MB VALUE MASS < 1.0 NG/ML (<3.6); CPK CREATINE PHOSPHOKINASE 21 U/L (26-192); CREATININE FOR GFR 0.48 MG/DL (0.55-1.30); GLOMERULAR FILTRATION RATE > 60.0 (>51); GLUCOSE, FASTING 102 MG/DL (70-100); LIPASE 82 U/L (73-393); MB/CK RELATIVE INDEX 4.76 (< OR =4); POTASSIUM SERUM 4.1 MEQ/L (3.5-5.1); SODIUM LEVEL 138 MEQ/L (136-145); TOTAL PROTEIN 8.1 GM/DL (6.4-8.2); TROPONIN I < 0.02 NG/ML (< 0.10)
[2018-05-22 17:04] VITALS: BP 128/62
--- NOTE | 2018-05-23 15:45 | ECGEPIP ---
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
== END 2018-05-22 17:06 | disposition home or self-care (01) ==
LOC: M ED 13:08
DX: D64.9 Anemia, unspecified (principal); K92.1 Melena; M19.071 Primary osteoarthritis, right ankle and foot; Z96.641 Presence of right artificial hip joint; Z85.43 Personal history of malignant neoplasm of ovary; Z79.899 Other long term (current) drug therapy; Z79.52 Long term (current) use of systemic steroids; Z88.5 Allergy status to narcotic agent; Z88.8 Allergy status to other drugs, medicaments and biological substances; Z88.2 Allergy status to sulfonamides; Z91.048 Other nonmedicinal substance allergy status; Z91.013 Allergy to seafood; Z96.653 Presence of artificial knee joint, bilateral; Z90.13 Acquired absence of bilateral breasts and nipples; G62.0 Drug-induced polyneuropathy; Z92.21 Personal history of antineoplastic chemotherapy; Z90.710 Acquired absence of both cervix and uterus; K57.92 Diverticulitis of intestine, part unspecified, without perforation or abscess without bleeding; M54.9 Dorsalgia, unspecified; R07.9 Chest pain, unspecified

== ENCOUNTER → 2018-05-23 | Outpatient (CLI) | payer MEDICARE | LOC: M LAB 14:47 | PROVIDERS: ATTEND Obstetrics & Gynecology Gynecologic Oncology | DX: C56.1 Malignant neoplasm of right ovary (principal); C56.2 Malignant neoplasm of left ovary ==

== ENCOUNTER → 2018-05-23 | Outpatient (CLI) | payer MEDICARE ==
[2018-05-23 15:08] LABS: BASO % 0.3 % (0.0-1.0); EOS # 0.1 10^3/uL (0.0-0.50); EOS % 0.6 % (0.0-3.0); HEMATOCRIT 34.1 % (36.0-47.0); HEMOGLOBIN 10.5 g/dl (12.0-15.5); LYMPH # 0.9 10^3/uL (1.5-4.5); LYMPH % 11.7 % (24.0-44.0); MEAN CORPUSCULAR HGB CONC 30.8 g/dl (32.0-36.5); MEAN CORPUSCULAR VOLUME 97.4 fl (80.0-96.0); MONO # 0.4 10^3/uL (0.0-0.8); MONO % 5.6 % (0.0-5.0); NEUTROPHILS # 6.3 10^3/uL (1.8-7.7); NEUTROPHILS % 81.4 % (36.0-66.0); PLATELET COUNT, AUTOMATED 312 10^3/uL (150-450); WHITE BLOOD COUNT 7.7 10^3/uL (4.0-10.0)
[2018-05-23 15:50] LABS: ALBUMIN 3.7 GM/DL (3.2-5.2); ALT/SGPT 24 U/L (12-78); BILIRUBIN,TOTAL 0.6 MG/DL (0.2-1.0); BLOOD UREA NITROGEN 8 MG/DL (7-18); CALCIUM LEVEL 9.1 MG/DL (8.5-10.1); CARBON DIOXIDE LEVEL 28 MEQ/L (21-32); CHLORIDE LEVEL 101 MEQ/L (98-107); FERRITIN 360 NG/ML (8-252); GLOMERULAR FILTRATION RATE > 60.0 (>51); GLUCOSE, FASTING 97 MG/DL (70-100); IRON (FE) 31 UG/DL (50-170); MAGNESIUM LEVEL 1.8 MG/DL (1.8-2.4); PERCENT SATURATION 13.1 % (13.2-45.0); POTASSIUM SERUM 4.1 MEQ/L (3.5-5.1); SODIUM LEVEL 137 MEQ/L (136-145); THYROID STIMULATING HORMONE 0.932 uIU/ML (0.358-3.740); TOTAL IRON BINDING CAPACITY 237 UG/DL (250-450); TOTAL PROTEIN 8.1 GM/DL (6.4-8.2)
[2018-05-24 11:01] LABS: VITAMIN B12 LEVEL 1261 PG/ML (247-911)
== END ==
LOC: M LAB 14:40
PROVIDERS: ATTEND Nurse Practitioner Family
DX: M81.0 Age-related osteoporosis without current pathological fracture (principal); E55.9 Vitamin D deficiency, unspecified; E61.1 Iron deficiency; M06.9 Rheumatoid arthritis, unspecified; M05.79 Rheumatoid arthritis with rheumatoid factor of multiple sites without organ or systems involvement; R53.83 Other fatigue

== ENCOUNTER → 2018-07-15 | Outpatient (CLI) | payer MEDICARE ==
[~2018-07-15] MED LIST changes: +ZANT300T9 PO
--- NOTE | 2018-07-15 16:43 | REP ---
Clinical: Dizziness . Technique: Lau scale and color Doppler evaluation using linear high frequency transducer Findings: Two-dimensional lau scale and color images demonstrate smooth age-appropriate intimal thickening of the bilateral carotid arteries with normal arterial lumen, laminar flow and no appreciable narrowing. Color Doppler interrogation demonstrates normal arterial wave patterns and velocities with no significant spectral broadening. Normal flow direction is appreciated in the bilateral vertebral arteries. RIGHT (cm/s) LEFT (cm/s) ICA peak systolic velocity 87.4 116.3 ICA diastolic velocity 40.6 37.7 ECA peak systolic velocity 73.6 62.5 CCA peak systolic velocity 89.5 91.0 ICA/CCA ratio 0.98 1.28 Impression: No hemodynamically significant areas of narrowing or stenosis appreciated. Based on set standards narrowing falls within the less than 50% range. Electronically Signed by Keyshawn Holley MD 07/15/2018 04:34 P
--- NOTE | 2018-07-15 17:15 | REP ---
MR BRAIN WITHOUT CONTRAST: HISTORY: Dizziness. COMPARISON: CT 08/13/2010. Several small areas of increased signal intensity on T2 weighted images are present in the cerebellum. These represent old lacunar infarctions. Several punctate areas of increased signal intensity on T2 weighted images are present in the subcortical white matter. This represents small vessel ischemic disease. There is no intraparenchymal hemorrhage, acute infarct, mass, or midline shift. The ventricular system and cortical sulci are dilated consistent with minimal volume loss. There is no extracerebral collection. The visualized sinuses are clear. IMPRESSION:1. Old bilateral cerebellar lacunar infarctions. 2. Minimal small vessel ischemic disease. 3. Minimal volume loss. Electronically Signed by Marcelino Cazares MD 07/16/2018 08:47 A
== END ==
LOC: M RAD 15:20
PROVIDERS: ATTEND Nurse Practitioner Family
DX: I63.9 Cerebral infarction, unspecified (principal); I67.82 Cerebral ischemia

== ENCOUNTER → 2018-07-23 | Outpatient (CLI) | payer MEDICARE ==
--- NOTE | 2018-08-09 00:16 | ECWPNPC ---
PATIENT NAME: LILIAN HOOD : 1965 GENDER: FEMALE VISIT DATE: 07/23/2018 DISCHARGE DATE: 07/23/18 1532 VISIT LOCKED DATE TIME: PHYSICIAN: ANETTE LORD RESOURCE: ANETTE LORD REASON FOR APPOINTMENT 1. 3 MONTHS HISTORY OF PRESENT ILLNESS HISTORY OF PRESENT ILLNESS: HERE FOR F/U AND MANAGEMENT OF CHRONIC NECK AND LBP W HX OF RHEUMATOID ARTHROPATHY. USING HYDROCODONE 10/325 BETWEEN 4-6 PILLS DAY AND THIS VARIES ACCORDING TO PAIN LEVEL.FEELS IT IS EFFECTIVE AT REDUCING PAIN AND KEEPING HER COMFORTABLE.DENIES SIDE EFFECTS.SHE HAD RIGHT HIP REPLACEMENT ON February.SHE IS DOING WELL POST OPERATIVELY.SHE IS WAITING TO DO LEFT HIP AND IS CURRENTLY BEING EVALUATED FOR VERTIGO AND RAPID HEART RATE.LEFT HIP HAS BEEN UNBEARABLE.PAIN LEVEL IS 5-9/10 VAS. PAIN THE PATIENT DESCRIBES THE PAIN... THE PATIENT DESCRIBES THE PAIN... THE PATIENT DESCRIBES THE PAIN... THE PATIENT DESCRIBES THE PAIN... THE PATIENT DESCRIBES THE PAIN... THE PATIENT DESCRIBES THE PAIN... THE PATIENT DESCRIBES THE PAIN... THE PATIENT DESCRIBES THE PAIN... THE PATIENT DESCRIBES THE PAIN... THE PATIENT DESCRIBES THE PAIN... THE PATIENT DESCRIBES THE PAIN... FALL RISK SCREENING: SCREENING : NO FALLS IN THE PAST YEAR. CURRENT MEDICATIONS TAKING PREDNISONE 2.5 MG TABLET 1 TABLET ORALLY TWICE DAILY TAKING VITAMIN D3 2000 UNIT CAPSULE 1 CAPSULE ORALLY ONCE A DAY TAKING MAGNESIUM 500 MG CAPSULE 1 CAP ORALLY ONCE A DAY TAKING MILK THISTLE 500 MG CAPSULE 750MGS ORALLY DAILY TAKING PROBIOTIC TABLET DELAYED RELEASE ORALLY DAILY TAKING VITAMIN C 1000 MG TABLET 1 TABLET ORALLY ONCE A DAY TAKING MAY HAVE CURAMED BCM-95 DAILY TAKING CALCIUM 500 MG TABLET 1 TABLET WITH MEALS ORALLY DAILY TAKING GLUTATHIONE 50 MG TABLET ORALLY DAILY TAKING MAY HAVE - - , NOTES: CURAMED SUPPLEMENT FOR IMMUNE HEALTH TAKING COLACE 100 MG CAPSULE 1 CAPSULE NEEDED ORALLY ONCE A DAY TAKING NORCO 10-325 MG TABLET 1 TABLET NEEDED ORALLY Q4-6H MDD6 TAKING VITAMIN B-12 100 MCG TABLET ORALLY TAKING ZANTAC 300 MG TABLET 1 TABLET ORALLY ONCE A DAY NOT-TAKING FLAXSEED OIL 1000 MG CAPSULE ORALLY , NOTES: NOT CURRENTLY TAKING NOT-TAKING EPIPEN 2-ARPAN 0.3 MG/0.3ML SOLUTION AUTO-INJECTOR DIRECTED INJECTION DIRECTED: PRN ALLERGIC REACTION NOT-TAKING DICLOFENAC SODIUM 50 MG TABLET DELAYED RELEASE 1 TABLET ORALLY TWICE DAILY DISCONTINUED FERROUS SULFATE 325 (65 FE) MG TABLET 1 TABLET ORALLY TID DISCONTINUED B COMPLEX - TABLET ORALLY MEDICATION LIST REVIEWED AND RECONCILED WITH THE PATIENT PAST MEDICAL HISTORY RHEUMATOID ARTHRITIS-DR. STERN OVARIAN CA-DR. LILIAN VALENZUELA DEPRESSION BRCA 2 POSITIVE IRON DEFICIENCY ANEMIA TDAP 02/2015 ALLERGIES METHOTREXATE: SORES IN MOUTH, CONSTANT COUGH AND PROBLEMS BREATHING - SIDE EFFECTS HYDROXYCHLOROQUINE: ALLERGY SULFASALAZINE: ALLERGY SEAFOOD: NAUSEA/VOMITING - ALLERGY CODEINE SULFATE: STOMACH CRAMPING - ALLERGY DULOXETINE HCL: HALLUCINATIONS - ALLERGY LYRICA: DIZZINESS, UNSTABLE BALANCE, SHORT-TERM MEMORY LOSS - ALLERGY HUMIRA: MUSCLE PAIN - ALLERGY GABAPENTIN: CONFUSION - ALLERGY CELEBREX: DIFFICULTY BREATHING - ALLERGY MUSHROOMS: ANAPHYLAXIS - ALLERGY SURGICAL HISTORY QUINTON BSO-DR. LILIAN VALENZUELA 05/20/2010 RIGHT TKA-DR. ABDUL DOUBLE MASTECTOMY-DR. DANIS IBARRA 03/[address] CALDERA 08/10/2014 LEFT TKA-DR. KOENIG 11/2014 NEEDLE BIOPSY LEFT AXILLARY/NODES 09/[address] CALDERA 02/2017 TOTAL RIGHT HIP ARTHROPLASTY: DR. KOENIG 02/23/2018 FAMILY HISTORY FATHER: ALIVE 76 YRS, PROSTATE CA AGE 60, DIAGNOSED WITH HYPERTENSION MOTHER: ALIVE 73 YRS, WELL SIBLINGS: BROTHER TESTING FOR LEUKEMIA 4 BROTHER(S) - HEALTHY. FATHER HAD PROSTATE CANCER. SOCIAL HISTORY GENERAL: TOBACCO USE ARE YOU A:NONSMOKER LATEX QUESTIONNAIRE LATEX ALLERGY : HAVE YOU EVER DEVELOPED ANY TYPE OF REACTION AFTER HANDLING LATEX PRODUCTS SUCH RUBBER GLOVES, CONDOMS, DIAPHRAGMS, BALLOONS, SOCKS, OR UNDERWEAR?NO LATEX ALLERGY : HAVE YOU EVER DEVELOPED ANY TYPE OF REACTION DURING OR AFTER DENTAL APPOINTMENT, VAGINAL/RECTAL EXAMINATION, SURGICAL PROCEDURE, OR ANY OTHER EXPOSURE?NO LATEX RISK : HAVE YOU EVER HAD ANY DIFFICULTY BREATHING OR HIVES AFTER EATING OR HANDLING ANY FRUITS, OR VEGETABLES; SUCH KIWI, BANANAS, STONE FRUITS, OR CHESTNUTSNO LATEX RISK : DO YOU HAVE A PREVIOUS PERSONAL HISTORY OF MORE THAN NINE SURGERIES, SPINA BIFIDA, OR REPEATED CATHERTIZATIONS? NO LATEX RISK : ARE YOU FREQUENTLY EXPOSED TO LATEX PRODUCTS IN YOUR OCCUPATION?NO DATE ASKED : 07/23/2018 BMI CARE GOAL FOLLOW-UP ABOVE NORMAL BMI FOLLOW-UPLIFESTYLE EDUCATION REGARDING DIET ALCOHOL SCREENING DID YOU HAVE A DRINK CONTAINING ALCOHOL IN THE PAST YEAR?NO POINTS0 INTERPRETATIONNEGATIVE RECREATIONAL DRUG USE DRUG USE?NO PATIENT DENIES ABUSE OR MISSUSED OF ANY MEDICATION. PATIENT DENIES USE OF ANY ILLEGAL SUBSTANCE INCLUDING MARIJUANA OR COCAINE. CAFFEINE CAFFEINE USE?NO SEXUAL HX HAD SEX IN THE LAST 12 MONTHS (VAGINAL, ORAL, OR ANAL)?NO HAVE YOU EVER HAD AN STD?NO HIV / HEP-C SCREENING HIV TEST OFFERED TO PATIENT:YES DATE OFFERED:11/03/2017 TEST ACCEPTED:NO HEP-C TEST OFFERED TO PATIENT:YES DATE OFFERED:11/03/2017 REASON:PATIENT DECLINED TEST ACCEPTED:NO REASON:PATIENT DECLINED BROCHURE PROVIDED TO PATIENTNO -PATIENT DECLINED BAPTISM [id number] AGNOSTIC LANGUAGE LANGUAGES SPOKEN:MALAY EDUCATION LEVEL OF EDUCATION:COLLEGE LEARNING BARRIERS / SPECIAL NEEDS CHANGE FROM LAST VISIT?NO 06/02/2018 BARRIERS TO LEARNING?NO HEARING IMPAIRED?NO VISION IMPAIRED?YES :CORRECTIVE LENSES COGNITIVELY IMPAIRED?NO READINESS TO LEARN?YES LEARNING PREFERENCES?NO LEARNING CAPABILITIES PRESENT?YES EMOTIONAL BARRIERS?NO SPECIAL DEVICES?YES :OTHER CRUTCH GUNITE NOZZLE OPERATOR NEEDED?NO DOMESTIC VIOLENCE DO YOU FEEL SAFE IN YOUR ENVIRONMENT?YES 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 EXERCISE: WALKS. MARITAL STATUS: SINGLE. OTHERS AT HOME: NONE. NEW PATIENT PAIN DIARY TODAY'S VISITNOTES FROM 0-10, WHAT LEVEL IS YOUR PAIN TODAY?5 PAIN CLINIC PFS, CLERGY, PUBLIC HEALTH REFERRALS PFS REFERRAL NEEDED?NO CLERGY REFERRAL NEEDED?NO PUBLIC HEALTH REFERRAL NEEDED?NO WAS THE PROVIDER NOTIFIED OF ANY PERTINENT INFO?NO HAS THE PATIENT BEEN EDUCATED REGARDING HIS/HER PLAN OF CARE?YES HAS THE PATIENT BEEN EDUCATED REGARDING PAIN, THE RISK FOR PAIN, THE IMPORTANCE OF EFFECTIVE PAIN MANAGEMENT, AND THE PAIN ASSESSMENT PROCESS?YES ADVANCE DIRECTIVE ADVANCE DIRECTIVE DISCUSSED WITH PATIENT:YES JIGNA HOOD-MOM REVIEWED WITH PT 07/23/18 5230 BV. HOSPITALIZATION/MAJOR DIAGNOSTIC PROCEDURE SURGICAL NEEDS RIGHT HIP REPLACED REVIEW OF SYSTEMS REVIEWED BY: PROVIDER: ANETTE AMADOR . CONSTITUTIONAL: ANY CHANGE IN YOUR MEDICAL CONDITION? YES, PT STATES SHE HAS HAD INCREASED HEART RATE AND LIGHTHEADEDNESS SINCE 2018. CURRENTLY SEEING [facility] AND HEMATOLOGY REGARDING THIS. HAS HAD WORKUP DONE, WAITING ON RESULTS. . CHILLS NO . FEVER NO . INFECTION: DO YOU HAVE NEW INFECTIONS? NO . DO YOU HAVE HISTORY OF MRSA? NO . MUSCULOSKELETAL: ANY NEW PATTERNS OF PAIN OR NUMBNESS? YES, PT COMPLAINS OF INCREASED PAIN IN LEFT HIP. STATES SHE IS CURRENTLY SEEING ORTHO AND IS PLANNING ON HIP REPLACEMENT. STATES MOBILITY IS GETTING WORSE . GASTROENTEROLOGY: ANY NEW CHANGE IN BOWEL CONTROL? NO . GENITOURINARY: ANY NEW CHANGE IN BLADDER CONTROL? NO . IS THERE A CHANCE YOU COULD BE ? NO . HEMATOLOGY/LYMPH: DO YOU TAKE ANY BLOOD THINNERS? (FOR EXAMPLE- COUMADIN, PLAVIX, AGGRENOX, PLATEL, PRADAXA, OR XARELTO) NO . WHEN WAS YOUR LAST DOSE? DATE: TIME: . NEUROLOGY: HAVE YOU FALLEN IN THE PAST 12 MONTHS? NO . ANY NEW EXTREMITY NUMBNESS OR WEAKNESS? NO . CARDIOLOGY: DO YOU HAVE A PACEMAKER OR DEFIBRILLATOR? NO . RESPIRATORY: HAVE YOU BEEN SICK IN THE PAST WEEK? NO . FEVER NO . FLU LIKE SYMPTOMS? NO . COUGH NO . INTEGUMENTARY: DO YOU HAVE ANY RASHES OR OPEN SORES? NO . ALLERGIC/IMMUNO: ARE YOU ALLERGIC TO IV DYE? NO . ANY NEW ALLERGIES? NO . PSYCHIATRIC: DO YOU HAVE THOUGHTS OF HURTING YOURSELF OR SOMEONE ELSE? NO . ARE YOU ABUSED, NEGLECTED, OR IN AN UNSAFE ENVIRONMENT? NO . ENDOCRINOLOGY: ARE YOU DIABETIC? NO . OTHER: DO YOU NEED ANY PRESCRIPTIONS? YES, HYDROCODONE 10/325 . IF YES, PLEASE LIST: ____ . ANY NEW PROBLEMS WITH YOUR MEDICATIONS? NO . WHEN DID YOU LAST EAT? ____ . WHEN DID YOU LAST DRINK? ____ . WHAT DID YOU LAST DRINK? ____ . NAME OF PERSON DRIVING YOU HOME? ____ . DO YOU HAVE ANY OTHER QUESTIONS OR CONCERNS NO . VITAL SIGNS WT 119 LBS, HT 62 IN, BMI 21.76 INDEX, BP 133/80 MM HG, HR 122 /MIN, RR 16 /MIN, TEMP 97.0 F, OXYGEN SAT % 94%, NA INITIALS SC 14:34. EXAMINATION GENERAL EXAMINATION: GENERAL APPEARANCE:AWAKE,ALERT ,PLEAASANT . PSYCHAFFECT NORMAL . LUNGS:LUNG DAVILA ARE CLEAR TO AUSCULTATION BILATERALLY. GOOD MOVEMENT OF AIR . HEART:S1, S2 IN A REGULAR RATE AND RHYTHM. NO SIGNIFICANT MURMURS, RUBS OR GALLOPS NOTED . ASSESSMENTS RHEUMATOID ARTHRITIS INVOLVING MULTIPLE SITES WITH POSITIVE RHEUMATOID FACTOR - M05.79 (PRIMARY) TREATMENT RHEUMATOID ARTHRITIS INVOLVING MULTIPLE SITES WITH POSITIVE RHEUMATOID FACTOR REFILL NORCO TABLET, 10-325 MG, 1 TABLET NEEDED, ORALLY, Q4-6H MDD6, 30 DAY(S), 180, REFILLS 0 NOTES: ISTOP REGISTRY REVIEWED AND DEMONSTRATES COMPLLIANCE. (REF #[id number] ) BRINGS IN MEDICATIONS WHICH IS APPROPRIATE FOR WHAT WAS DISPENSED. RECENT URINE TOXICOLOGY REVIEWED. NO UNAUTHORIZED MEDICATIONS. NO ILLICIT SUBSTANCES AND PRESCRIBED MEDICATIONS WERE PRESENT. URINE TOX TODAY, RISKS AND BENEFITS OF NARCOTIC/OPIOD MEDICATIONS WERE REVIEWED WITH PATIENT - THIS INCLUDES BUT IS NOT LIMITED TO RISK OF DEPENDANCE/DEVELOPMENT OF ADDICTION, MOOD DISTURBANCE AND DEPRESSION, OSTEOPOROSIS, HORMONAL AND LABIDAL CHANGES, RESPIRATORY DEPRESSION AND . PATIENT IS ADVISED NOT TO DRIVE OR DRINK ALCOHOL WHILE ON THESE MEDICATIONS. PROCEDURE CODES FA211 ESTABILISHED PATIENT [facility] FACILITY CHARGE DISPOSITION & COMMUNICATION FOLLOW UP 3 MONTHS (REASON: MED MGMT) ELECTRONICALLY SIGNED BY PERRY FROST ON 08/08/2018 AT 05:10 PM EDT DISCLAIMER : THIS IS A VISIT SUMMARY EXTRACTED FROM THE [employer] CHART. IT IS NOT A COPY OF THE [employer] PROGRESS NOTE. SUDHIR
== END ==
LOC: M PAIN 14:15
PROVIDERS: ATTEND Nurse Practitioner Family
DX: M05.79 Rheumatoid arthritis with rheumatoid factor of multiple sites without organ or systems involvement (principal); G89.29 Other chronic pain; F32.9 Major depressive disorder, single episode, unspecified; Z79.52 Long term (current) use of systemic steroids; Z79.899 Other long term (current) drug therapy; Z88.2 Allergy status to sulfonamides; Z88.5 Allergy status to narcotic agent; Z88.8 Allergy status to other drugs, medicaments and biological substances; Z91.018 Allergy to other foods; Z91.013 Allergy to seafood; Z85.43 Personal history of malignant neoplasm of ovary; Z90.13 Acquired absence of bilateral breasts and nipples; Z96.641 Presence of right artificial hip joint

== ENCOUNTER → 2018-07-27 | Outpatient (CLI) | payer MEDICARE ==
--- NOTE | 2018-07-30 10:16 | DEXA ---
AP SPINE L1 - L4 1.051 -1.2 -0.3 LT FEMUR TOTAL 0.612 -3.1 -2.5 LT NECK 0.736 -2.2 -1.1 RT FEMUR TOTAL RT NECK TOTAL BODY TOTAL OTHER COMMENTS: There is low bone density of the spine. There is osteoporosis of the left hip. There is degenerative change in the spine which may artificially elevate the BMD. The decreased density of the spine does represent a significant change since 08/30/2015. The decreased density of the left hip does represent a significant change since 08/30/2015. The density of the spine has decreased 9.2% since the initial exam on 08/29/2014. The spine density has decreased 7.3% since the most recent exam on 08/30/2015. The density of the left hip has decreased 6.3% since the initial exam on 08/29/2014. The density of the left hip has decreased 10.5% since the most recent exam on 08/30/2015. FOLLOW-UP: Recommendation for the next bone density exam: 2 years. SUDHIR
== END ==
LOC: M WHC 13:29
PROVIDERS: ATTEND Internal Medicine Hematology & Oncology
DX: M85.80 Other specified disorders of bone density and structure, unspecified site (principal); M81.0 Age-related osteoporosis without current pathological fracture; Z79.52 Long term (current) use of systemic steroids

== ENCOUNTER → 2018-07-30 | Outpatient (CLI) | payer MEDICARE ==
[~2018-07-30] MED LIST changes: +E-Z-GAS II EFFERVESCENT PACKET (SODIUM BICARB./CITRIC ACID/SIMETHICONE) As Ordered ONE; +E-Z-HD 98% w/w 340GM SUSP BTL As Ordered ONE; +E-Z-PAQUE 96% w/w SUSP 176GM BTL As Ordered ONE
--- NOTE | 2018-07-30 18:24 | REP ---
UPPER GI AND ESOPHAGRAM SINGLE CONTRAST The procedure was performed under the direct supervision of Dr. Hayes. The images were reviewed with Dr. Hayes. The robotic welding operator film shows no organomegaly or pathological masses. The test gas pattern is nonspecific. There are surgical clips overlying the abdomen and pelvis. The patient is status post right hip arthroplasty. Single view PA chest x-ray shows surgical clips in the axillary regions bilaterally as well as overlying the right chest. The superior mediastinal structures are midline. Heart size within normal limits. Lungs are clear. Liquid barium was administered in the erect and right lateral recumbent positions. The oral and pharyngeal stages of deglutition are unremarkable. Esophageal transport is prompt and efficient and there is no esophagitis stricture mucosal ring or hiatal hernia. Gastroesophageal reflux is not demonstrated on this examination. The stomach is grossly normal. The rugal folds are smooth and regular. There is no evidence of gastritis neoplasm or ulcer disease. The duodenum is grossly normal. The mucosal folds are smooth and regular. There is no evidence of duodenitis pancreatitis peptic ulcer disease or neoplasm. There are two small diverticula in the descending portion of the duodenum. The visualized portion of the proximal small bowel appears normal in course and caliber. Impression: There are two small diverticula in the descending portion of the duodenum otherwise unremarkable single contrast esophagram and upper GI examination. 1.1 minutes of fluoroscopy time was utilized for this procedure. Reviewed by VIRAL Contreras 07/30/2018 04:33 P Electronically Signed by Chau Hayes MD 07/30/2018 06:16 P
== END ==
LOC: M RAD 11:16
PROVIDERS: ATTEND Surgery
DX: K57.11 Diverticulosis of small intestine without perforation or abscess with bleeding (principal)

== ENCOUNTER → 2018-09-24 | Outpatient (CLI) | payer MEDICARE ==
[~2018-09-24] MED LIST changes: -/CELE20CA PO; -/FENT25PA TD; -/FENT25PA TOP; -/FENT50PA TD; -/ONDA4TA OR; -/PANT40TA OR; -/SUCR1TA OR; +CELE1CAP4 PO; -E-Z-GAS II EFFERVESCENT PACKET (SODIUM BICARB./CITRIC ACID/SIMETHICONE) As Ordered ONE; -E-Z-HD 98% w/w 340GM SUSP BTL As Ordered ONE; -E-Z-PAQUE 96% w/w SUSP 176GM BTL As Ordered ONE; -ENOX40SY SC; +FENT1DIS14 TD; +FENT1DIS14 TOP; +FENT1DIS15 TD; +IBUP-1114 PO; -IBUP40TA PO; +LOVE1INJ SC; +ONDA-1 OR; +ONDA-227 OR; +PROT1TAB2 OR; +SUCR1TAB56 OR; -ZOFR8TAB OR
[2018-09-24 11:32] LABS: BASO % 0.3 % (0.0-1.0); EOS # 0.1 10^3/uL (0.0-0.50); EOS % 1.1 % (0.0-3.0); LYMPH # 2.1 10^3/uL (1.5-4.5); LYMPH % 29.5 % (24.0-44.0); MEAN CORPUSCULAR HEMOGLOBIN 29.3 pg (27.0-33.0); MEAN CORPUSCULAR HGB CONC 30.8 g/dl (32.0-36.5); MEAN CORPUSCULAR VOLUME 95.4 fl (80.0-96.0); MONO # 0.5 10^3/uL (0.0-0.8); MONO % 7.2 % (0.0-5.0); NEUTROPHILS # 4.4 10^3/uL (1.8-7.7); NEUTROPHILS % 61.6 % (36.0-66.0); PLATELET COUNT, AUTOMATED 320 10^3/uL (150-450); RED BLOOD COUNT 4.09 10^6/uL (4.00-5.40); WHITE BLOOD COUNT 7.1 10^3/uL (4.0-10.0)
[2018-09-24 12:09] LABS: ALBUMIN 3.6 GM/DL (3.2-5.2); ALT/SGPT 16 U/L (12-78); BILIRUBIN,TOTAL 0.5 MG/DL (0.2-1.0); BLOOD UREA NITROGEN 13 MG/DL (7-18); CALCIUM LEVEL 9.3 MG/DL (8.5-10.1); CARBON DIOXIDE LEVEL 29 MEQ/L (21-32); CHLORIDE LEVEL 102 MEQ/L (98-107); CHOLESTEROL LEVEL 169 MG/DL (<200); CHOLESTEROL RISK RATIO 3.755 (<5); CREATININE FOR GFR 0.46 MG/DL (0.55-1.30); FOLATE 22.1 NG/ML; GLOMERULAR FILTRATION RATE > 60.0 (>51); GLUCOSE, FASTING 87 MG/DL (70-100); HDL CHOLESTEROL 45 MG/DL (>40); LDL CHOLESTEROL 94 MG/DL (<100); NON-HDL-C 124 MG/DL; POTASSIUM SERUM 3.7 MEQ/L (3.5-5.1); SODIUM LEVEL 137 MEQ/L (136-145); TOTAL PROTEIN 8.8 GM/DL (6.4-8.2); TRIGLYCERIDES LEVEL 148 MG/DL (<150); VITAMIN B12 LEVEL 729 PG/ML
[2018-09-24 12:15] LABS: HEMOGLOBIN A1c 4.6 %
[2018-09-28 11:38] LABS: DRVV SCREEN 42.7 SEC
[2018-09-29 14:10] LABS: ANCA-ATYPICAL <1:20 titer (Neg:<1:20); ANTI DS-DNA AB <1:10 titer (.); CARDIOLIPIN IGA ANTIBODY <9 APL U/mL (0-11); CARDIOLIPIN IGG ANTIBODY <9 GPL U/mL (0-14); CARDIOLIPIN IGM ANTIBODY 14 MPL U/mL (0-12); CYTOPLASMIC NEUTROP AB ANCA-C <1:20 titer (Neg:<1:20); PERINUCLEAR AB ANCA-P <1:20 titer (Neg:<1:20); SSA SJOGRENS A <0.2 AI (0.0-0.9); SSB SJOGRENS B <0.2 AI (0.0-0.9); VITAMIN E(ALPHA TOCOPHEROL) 13.4 mg/L (7.0-25.1); VITAMIN E(GAMMA TOCOPHEROL) 0.6 mg/L (0.5-5.5)
[2018-10-01 00:06] LABS: ANTI THROMBIN 3 ANTIGEN IMMUNO 137 % (72-124); ANTI THROMBIN 3 FUNCT ACTIVITY 146 % (75-135); PROTEIN C FUNCTIONAL ACTIVITY 164 % (73-180); PROTEIN S FUNCTIONAL ACTIVITY 72 % (63-140); VITAMIN B1 LEVEL WHOLE BLOOD 167.2 nmol/L (66.5-200.0); VITAMIN B6,PYRIDOXAL PHOSPHATE 6.4 ug/L (2.0-32.8)
== END ==
LOC: M LAB 10:34
PROVIDERS: ATTEND Psychiatry & Neurology Neurology
DX: I63.9 Cerebral infarction, unspecified (principal); R41.2 Retrograde amnesia

== ENCOUNTER → 2018-12-08 | Outpatient (CLI) | payer MEDICARE ==
[~2018-12-08] MED LIST changes: +CYAN500T8 PO
--- NOTE | 2018-12-08 20:05 | REP ---
HISTORY: Pain. There is severe asymmetric hip joint space narrowing with subchondral sclerosis involving the femoral head and acetabulum. There is mild superolateral femoral head flattening. The bones are somewhat demineralized. There is no evidence of acute fracture. IMPRESSION: Chronic left hip changes as described above. Electronically Signed by Marco A Muprhy DO 12/09/2018 12:20 P
== END ==
LOC: M WUC 18:34
PROVIDERS: ATTEND Physician Assistant
DX: M16.12 Unilateral primary osteoarthritis, left hip (principal)

== ENCOUNTER → 2018-12-22 | Outpatient (REF) | payer MEDICARE | LOC: M LABDRAWC 16:41 | PROVIDERS: ATTEND Obstetrics & Gynecology Gynecologic Oncology | DX: C56.1 Malignant neoplasm of right ovary (principal); C56.2 Malignant neoplasm of left ovary ==

== ENCOUNTER 2019-03-04 16:56 | Emergency (ER) | payer MEDICARE ==
[~2019-03-04] VITALS: Ht 160 cm; Wt 50.0 kg
[2019-03-04] MEDS ORDERED: ASPI81CH33 PO (17:30)
[2019-03-04] MEDS ORDERED: COLA100C5 PO (17:30)
[2019-03-04 18:57] LABS: HEMOGLOBIN 10.7 g/dl (12.0-15.5); MEAN CORPUSCULAR HEMOGLOBIN 32.1 pg (27.0-33.0); MEAN CORPUSCULAR HGB CONC 31.5 g/dl (32.0-36.5); MEAN CORPUSCULAR VOLUME 102.1 fl (80.0-96.0); PLATELET COUNT, AUTOMATED 206 10^3/uL (150-450); RED BLOOD COUNT 3.33 10^6/uL (4.00-5.40); WHITE BLOOD COUNT 6.2 10^3/uL (4.0-10.0)
[2019-03-04 19:18] VITALS: BP 119/68
--- NOTE | 2019-03-04 20:22 | ECGEPIP ---
[facility] - ED Test Date: 2019-03-04 Pat Name: LILIAN HOOD Department: Room: - Gender: Female Teleradiologist: CT : 1965 Requested By: Tong Small Order Number: [id number] Reading MD: Tong Small Measurements Intervals [place] Rate: 116 P: 69 [place]: 126 QRS: 79 QRSD: 86 T: 69 QT: 285 QTc: 396 Interpretive Statements SINUS TACHYCARDIA POSSIBLE LEFT ATRIAL ENLARGEMENT ABNORMAL RHYTHM ECG DELAYED R WAVE PROGRESSION NONSPECIFIC ST T WAVE CHANGES CW 05/22/[address] T WAVE CHANGES Electronically Signed on 03-04-2019 20:22:09 EDT by Tong Small
== END 2019-03-04 19:28 | disposition home or self-care (01) ==
LOC: M ED 16:56
DX: Z48.89 Encounter for other specified surgical aftercare (principal); R00.0 Tachycardia, unspecified; R94.31 Abnormal electrocardiogram [ECG] [EKG]; D64.9 Anemia, unspecified; Z96.642 Presence of left artificial hip joint; M06.9 Rheumatoid arthritis, unspecified; F32.9 Major depressive disorder, single episode, unspecified; Z85.43 Personal history of malignant neoplasm of ovary; Z79.82 Long term (current) use of aspirin; Z79.899 Other long term (current) drug therapy; Z91.018 Allergy to other foods; Z88.5 Allergy status to narcotic agent; Z88.1 Allergy status to other antibiotic agents; Z88.8 Allergy status to other drugs, medicaments and biological substances

== ENCOUNTER → 2019-04-21 | Outpatient (CLI) | payer MEDICARE ==
[~2019-04-21] MED LIST changes: +ASPI81CH33 PO; +COLA100C5 PO
--- NOTE | 2019-05-10 04:41 | ECWPNPC ---
PATIENT NAME: LILIAN HOOD : 1965 GENDER: FEMALE VISIT DATE: 04/21/2019 DISCHARGE DATE: 04/21/19 1617 VISIT LOCKED DATE TIME: PHYSICIAN: ANETTE LORD RESOURCE: ANETTE LORD REASON FOR APPOINTMENT 1. CHRONIC PAIN HISTORY OF PRESENT ILLNESS HISTORY OF PRESENT ILLNESS: HERE FOR F/U AND MANAGEMENT OF CHRONIC NECK AND LBP W HX OF RHEUMATOID ARTHROPATHY. USING HYDROCODONE 10/325 BETWEEN 4-6 PILLS DAY AND THIS VARIES ACCORDING TO PAIN LEVEL.FEELS IT IS EFFECTIVE AT REDUCING PAIN AND KEEPING HER COMFORTABLE.DENIES SIDE EFFECTS.SHE HAD LEFT HIP REPLACEMENT IN 2018.SHE IS DOING WELL POST OPERATIVELY.HAVING A FLARE UP OF RHEUMATOID ARTHRITIS OVER THE PAST WEEK. PAIN THE PATIENT DESCRIBES THE PAIN... FALL RISK SCREENING: SCREENING :NO FALLS REPORTED IN THE LAST YEAR CURRENT MEDICATIONS TAKING ASPIRIN 81 81 MG TABLET DELAYED RELEASE 1 TABLET ORALLY ONCE A DAY TAKING COLACE 100 MG CAPSULE 1 CAPSULE NEEDED ORALLY ONCE A DAY TAKING GLUTATHIONE 50 MG TABLET ORALLY DAILY TAKING CALCIUM 500 MG TABLET 2 ORALLY DAILY TAKING MAY HAVE CURAMED BCM-95 DAILY TAKING VITAMIN C 1000 MG TABLET 1 TABLET ORALLY ONCE A DAY TAKING PROBIOTIC TABLET DELAYED RELEASE ORALLY DAILY TAKING MILK THISTLE 500 MG CAPSULE 750MGS ORALLY DAILY TAKING MAGNESIUM 500 MG CAPSULE 1 CAP ORALLY ONCE A DAY TAKING VITAMIN D3 2000 UNIT CAPSULE 1 CAPSULE ORALLY ONCE A DAY TAKING PREDNISONE 2.5 MG TABLET 1 TABLET ORALLY BID TAKING MECLIZINE HCL 25 MG TABLET 1 TABLET NEEDED ORALLY TID TAKING NORCO 10-325 MG TABLET 1 TABLET NEEDED ORALLY Q4-6H MDD6 MEDICATION LIST REVIEWED AND RECONCILED WITH THE PATIENT PAST MEDICAL HISTORY RHEUMATOID ARTHRITIS-DR. STERN OVARIAN CA-DR. 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 LILIAN VALENZUELA 05/20/2010 RIGHT TKA-DR. ABDUL DOUBLE MASTECTOMY-DR. DANIS IBARRA 03/[address] CALDERA 08/10/2014 LEFT TKA-DR. KOENIG 11/2014 NEEDLE BIOPSY LEFT AXILLARY/NODES 09/[address] CALDERA 02/2017 TOTAL RIGHT HIP ARTHROPLASTY: DR. KOENIG 02/23/2018 EGD VERENICE 05/2018 LEFT PB: ARYA 01/2019 FAMILY HISTORY FATHER: ALIVE 76 YRS, PROSTATE CA AGE 60, DIAGNOSED WITH HYPERTENSION MOTHER: ALIVE 73 YRS, WELL SIBLINGS: BROTHER TESTING FOR LEUKEMIA 4 BROTHER(S) - HEALTHY. FATHER HAD PROSTATE CANCER. SOCIAL HISTORY GENERAL: TOBACCO USE ARE YOU A:NONSMOKER HIV / HEP-C SCREENING HIV TEST OFFERED TO PATIENT:YES DATE OFFERED:11/03/2017 TEST ACCEPTED:NO HEP-C TEST OFFERED TO PATIENT:YES DATE OFFERED:11/03/2017 REASON:PATIENT DECLINED TEST ACCEPTED:NO REASON:PATIENT DECLINED BROCHURE PROVIDED TO PATIENTNO -PATIENT DECLINED OTHERS AT HOME: NONE. EDUCATION LEVEL OF EDUCATION:COLLEGE DIET: REGULAR. LANGUAGE LANGUAGES SPOKEN:BOLIVIAN DOMESTIC VIOLENCE DO YOU FEEL SAFE IN YOUR ENVIRONMENT?YES NEW PATIENT PAIN DIARY TODAY'S VISITNOTES FROM 0-10, WHAT LEVEL IS YOUR PAIN TODAY?5 BMI CARE GOAL FOLLOW-UP ABOVE NORMAL BMI FOLLOW-UPLIFESTYLE EDUCATION REGARDING DIET RECREATIONAL DRUG USE DRUG USE?NO PATIENT DENIES ABUSE OR MISSUSED OF ANY MEDICATION. PATIENT DENIES USE OF ANY ILLEGAL SUBSTANCE INCLUDING MARIJUANA OR COCAINE. EXERCISE: WALKS. 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 EXAMINER NEEDED?NO PAIN CLINIC PFS, CLERGY, PUBLIC HEALTH REFERRALS PFS REFERRAL NEEDED?NO CLERGY REFERRAL NEEDED?NO PUBLIC HEALTH REFERRAL NEEDED?NO WAS THE PROVIDER NOTIFIED OF ANY PERTINENT INFO?NO HAS THE PATIENT BEEN EDUCATED REGARDING HIS/HER PLAN OF CARE?YES HAS THE PATIENT BEEN EDUCATED REGARDING PAIN, THE RISK FOR PAIN, THE IMPORTANCE OF EFFECTIVE PAIN MANAGEMENT, AND THE PAIN ASSESSMENT PROCESS?YES LATEX QUESTIONNAIRE LATEX ALLERGY : HAVE YOU EVER DEVELOPED ANY TYPE OF REACTION AFTER HANDLING LATEX PRODUCTS SUCH RUBBER GLOVES, CONDOMS, DIAPHRAGMS, BALLOONS, SOCKS, OR UNDERWEAR?NO LATEX ALLERGY : HAVE YOU EVER DEVELOPED ANY TYPE OF REACTION DURING OR AFTER DENTAL APPOINTMENT, VAGINAL/RECTAL EXAMINATION, SURGICAL PROCEDURE, OR ANY OTHER EXPOSURE?NO DATE ASKED : 07/23/2018 LATEX RISK : HAVE YOU EVER HAD ANY DIFFICULTY BREATHING OR HIVES AFTER EATING OR HANDLING ANY FRUITS, OR VEGETABLES; SUCH KIWI, BANANAS, STONE FRUITS, OR CHESTNUTSNO LATEX RISK : DO YOU HAVE A PREVIOUS PERSONAL HISTORY OF MORE THAN NINE SURGERIES, SPINA BIFIDA, OR REPEATED CATHERIZATIONS? NO LATEX RISK : ARE YOU FREQUENTLY EXPOSED TO LATEX PRODUCTS IN YOUR OCCUPATION?NO CAFFEINE CAFFEINE USE?NO ADVANCE DIRECTIVE ADVANCE DIRECTIVE DISCUSSED WITH PATIENT:YES JIGNA HOOD-MOM ORTHODOX [id number] AGNOSTIC MARITAL STATUS: SINGLE. 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 SEXUAL HX HAD SEX IN THE LAST 12 MONTHS (VAGINAL, ORAL, OR ANAL)?NO HAVE YOU EVER HAD AN STD?NO REVIEWED WITH PT 07/23/18 1439 BV. HOSPITALIZATION/MAJOR DIAGNOSTIC PROCEDURE SURGICAL NEEDS RIGHT HIP REPLACED REVIEW OF SYSTEMS REVIEWED BY: PROVIDER: ANETTE AMADOR . CONSTITUTIONAL: ANY CHANGE IN YOUR MEDICAL CONDITION? YES, VERTIGO, PCP PRESCRIBED MECLIZINE . CHILLS NO . FEVER NO . INFECTION: DO YOU HAVE NEW INFECTIONS? NO . DO YOU HAVE HISTORY OF MRSA? NO . MUSCULOSKELETAL: ANY NEW PATTERNS OF PAIN OR NUMBNESS? YES, RA CAUSING PAIN . GASTROENTEROLOGY: ANY NEW CHANGE IN BOWEL CONTROL? NO . GENITOURINARY: ANY NEW CHANGE IN BLADDER CONTROL? NO . IS THERE A CHANCE YOU COULD BE ? NO . HEMATOLOGY/LYMPH: DO YOU TAKE ANY BLOOD THINNERS? (FOR EXAMPLE- COUMADIN, PLAVIX, AGGRENOX, PLATEL, PRADAXA, OR XARELTO) NO . WHEN WAS YOUR LAST DOSE? DATE: TIME: . NEUROLOGY: HAVE YOU FALLEN IN THE PAST 12 MONTHS? NO . ANY NEW EXTREMITY NUMBNESS OR WEAKNESS? NO . CARDIOLOGY: DO YOU HAVE A PACEMAKER OR DEFIBRILLATOR? NO . RESPIRATORY: HAVE YOU BEEN SICK IN THE PAST WEEK? NO . FEVER NO . FLU LIKE SYMPTOMS? NO . COUGH NO . INTEGUMENTARY: DO YOU HAVE ANY RASHES OR OPEN SORES? NO . ALLERGIC/IMMUNO: ARE YOU ALLERGIC TO IV DYE? NO . ANY NEW ALLERGIES? NO . PSYCHIATRIC: DO YOU HAVE THOUGHTS OF HURTING YOURSELF OR SOMEONE ELSE? NO . ARE YOU ABUSED, NEGLECTED, OR IN AN UNSAFE ENVIRONMENT? NO . ENDOCRINOLOGY: ARE YOU DIABETIC? NO . OTHER: DO YOU NEED ANY PRESCRIPTIONS? YES, NORCO . IF YES, PLEASE LIST: ____ . ANY NEW PROBLEMS WITH YOUR MEDICATIONS? NO . WHEN DID YOU LAST EAT? ____ . WHEN DID YOU LAST DRINK? ____ . WHAT DID YOU LAST DRINK? ____ . NAME OF PERSON DRIVING YOU HOME? ____ . DO YOU HAVE ANY OTHER QUESTIONS OR CONCERNS LEFT HIP REPLACEMENT 01/2019 AND FLU VACCINE RECEIVED 03/2019 . VITAL SIGNS WT 112.8 LBS, HT 62 IN, BMI 20.63 INDEX, BP 116/79 MM HG, HR 133 /MIN, RR 18 /MIN, TEMP 96.9 F, OXYGEN SAT % 100%, NA INITIALS SC 15:00. EXAMINATION GENERAL EXAMINATION: GENERALAWAKE,ALERT ,PLEAASANT . PSYCHAFFECT NORMAL . LUNGS:LUNG DAVILA ARE CLEAR TO AUSCULTATION BILATERALLY. GOOD MOVEMENT OF AIR . HEART:S1, S2 IN A REGULAR RATE AND RHYTHM. NO SIGNIFICANT MURMURS, RUBS OR GALLOPS NOTED . ASSESSMENTS RHEUMATOID ARTHRITIS INVOLVING MULTIPLE SITES WITH POSITIVE RHEUMATOID FACTOR - M05.79 (PRIMARY) TREATMENT RHEUMATOID ARTHRITIS INVOLVING MULTIPLE SITES WITH POSITIVE RHEUMATOID FACTOR REFILL NORCO TABLET, 10-325 MG, 1 TABLET NEEDED, ORALLY, Q4-6H MDD6, 30 DAYS, 180, REFILLS 0 NOTES: ISTOP REGISTRY REVIEWED AND DEMONSTRATES COMPLLIANCE. BRINGS IN MEDICATIONS WHICH IS APPROPRIATE FOR WHAT WAS DISPENSED. RECENT URINE TOXICOLOGY REVIEWED. NO UNAUTHORIZED MEDICATIONS. NO ILLICIT SUBSTANCES AND PRESCRIBED MEDICATIONS WERE PRESENT. URINE TOX TODAY, RISKS OF NARCOTIC/OPIOD MEDICATIONS INCLUDES BUT IS NOT LIMITED TO RISK OF DEPENDANCE/DEVELOPMENT OF ADDICTION, MOOD DISTURBANCE AND DEPRESSION, OSTEOPOROSIS, HORMONAL AND LABIDAL CHANGES, RESPIRATORY DEPRESSION AND . PATIENT IS ADVISED NOT TO DRIVE OR DRINK ALCOHOL WHILE ON THESE MEDICATIONS. PROCEDURE CODES FA211 ESTABILISHED PATIENT [facility] FACILITY CHARGE DISPOSITION & COMMUNICATION FOLLOW UP 4 MONTHS ELECTRONICALLY SIGNED BY PERRY FROST ON 05/09/2019 AT 01:37 PM EST DISCLAIMER : THIS IS A VISIT SUMMARY EXTRACTED FROM THE [employer] CHART. IT IS NOT A COPY OF THE [email or web address] PROGRESS NOTE. MTDD
== END ==
LOC: M PAIN 14:30
PROVIDERS: ATTEND Nurse Practitioner Family
DX: M05.79 Rheumatoid arthritis with rheumatoid factor of multiple sites without organ or systems involvement (principal); G89.29 Other chronic pain; Z86.59 Personal history of other mental and behavioral disorders; Z88.2 Allergy status to sulfonamides; Z88.5 Allergy status to narcotic agent; Z88.8 Allergy status to other drugs, medicaments and biological substances; Z91.018 Allergy to other foods; Z79.82 Long term (current) use of aspirin; Z79.899 Other long term (current) drug therapy

== ENCOUNTER → 2019-07-12 | Outpatient (CLI) | payer MEDICARE | LOC: M LAB 16:32 | PROVIDERS: ATTEND Obstetrics & Gynecology Gynecologic Oncology | DX: C56.1 Malignant neoplasm of right ovary (principal); C56.2 Malignant neoplasm of left ovary ==

== ENCOUNTER → 2019-09-13 | Outpatient (CLI) | payer MEDICARE ==
--- NOTE | 2019-09-15 02:14 | ECWPNPC ---
PATIENT NAME: LILIAN HOOD : 1965 GENDER: FEMALE VISIT DATE: 09/13/2019 DISCHARGE DATE: 09/13/19 1146 VISIT LOCKED DATE TIME: PHYSICIAN: ANETTE LORD RESOURCE: ANETTE LORD REASON FOR APPOINTMENT 1. CHRONIC [phone] HISTORY OF PRESENT ILLNESS HISTORY OF PRESENT ILLNESS: PATIENT IS AGREEABLE TO TELEMED VISIT VIA ZOOM FOR F/U AND MANAGEMENT OF CHRONIC NECK AND LBP W HX OF RHEUMATOID ARTHROPATHY. USING HYDROCODONE 10/ BETWEEN 4-6 PILLS DAY AND THIS VARIES ACCORDING TO PAIN LEVEL.FEELS IT IS EFFECTIVE AT REDUCING PAIN AND KEEPING HER COMFORTABLE.DENIES SIDE EFFECTS.SHE HAD LEFT HIP REPLACEMENT IN 2018.SHE IS DOING WELL POST OPERATIVELY.HAVING A FLARE UP OF RHEUMATOID ARTHRITIS OVER THE PAST FEW MONTHS. WILL BE SEEING RHEUMATOLOGY TO CONSIDER BIOLOGIC IN THE NEXT FEW WEEKS. PAIN HAS BEEN BETTER OVER THE PAST WEEK AND IS RATING PAIN LEVEL A 4/10 VAS. PAIN THE PATIENT DESCRIBES THE PAIN... FALL RISK SCREENING: SCREENING :NO FALLS REPORTED IN THE LAST YEAR CURRENT MEDICATIONS TAKING ASPIRIN 81 81 MG TABLET DELAYED RELEASE 1 TABLET ORALLY ONCE A DAY TAKING COLACE 100 MG CAPSULE 1 CAPSULE NEEDED ORALLY ONCE A DAY TAKING GLUTATHIONE 50 MG TABLET ORALLY DAILY TAKING CALCIUM 500 MG TABLET 2 ORALLY DAILY TAKING MAY HAVE CURAMED BCM-95 DAILY TAKING VITAMIN C 1000 MG TABLET 1 TABLET ORALLY ONCE A DAY TAKING PROBIOTIC TABLET DELAYED RELEASE ORALLY DAILY TAKING MILK THISTLE 500 MG CAPSULE 750MGS ORALLY DAILY TAKING MAGNESIUM 500 MG CAPSULE 1 CAP ORALLY ONCE A DAY TAKING VITAMIN D3 2000 UNIT CAPSULE 1 CAPSULE ORALLY ONCE A DAY TAKING PREDNISONE 2.5 MG TABLET 1 TABLET ORALLY BID TAKING NORCO 10-325 MG TABLET 1 TABLET NEEDED ORALLY Q4-6H MDD6 NOT-TAKING FERROUS SULFATE 325 (65 FE) MG TABLET 1 TABLET ORALLY TID NOT-TAKING EPIPEN 2-ARPAN 0.3 MG/0.3ML SOLUTION AUTO-INJECTOR DIRECTED INJECTION DIRECTED: PRN ALLERGIC REACTION NOT-TAKING MECLIZINE HCL 25 MG TABLET 1 TABLET NEEDED ORALLY TID MEDICATION LIST REVIEWED AND RECONCILED WITH THE PATIENT PAST MEDICAL HISTORY RHEUMATOID ARTHRITIS-DR. STERN OVARIAN CA-DR. 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 LILIAN VALENZUELA 05/20/2010 RIGHT TKA-DR. ABDUL DOUBLE MASTECTOMY-DR. DANIS IBARRA 03/[address] CALDERA 08/10/2014 LEFT TKA-DR. KOENIG 11/2014 NEEDLE BIOPSY LEFT AXILLARY/NODES 09/[address] CALDERA 02/2017 TOTAL RIGHT HIP ARTHROPLASTY: DR. KOENIG 02/23/2018 EGD VERENICE 05/2018 LEFT PB: ARYA 01/2019 FAMILY HISTORY FATHER: ALIVE 76 YRS, PROSTATE CA AGE 60, DIAGNOSED WITH HYPERTENSION MOTHER: ALIVE 73 YRS, WELL SIBLINGS: BROTHER TESTING FOR LEUKEMIA 4 BROTHER(S) - HEALTHY. FATHER HAD PROSTATE CANCER. SOCIAL HISTORY GENERAL: TOBACCO USE ARE YOU A:NONSMOKER LATEX QUESTIONNAIRE LATEX ALLERGY : HAVE YOU EVER DEVELOPED ANY TYPE OF REACTION AFTER HANDLING LATEX PRODUCTS SUCH RUBBER GLOVES, CONDOMS, DIAPHRAGMS, BALLOONS, SOCKS, OR UNDERWEAR?NO LATEX ALLERGY : HAVE YOU EVER DEVELOPED ANY TYPE OF REACTION DURING OR AFTER DENTAL APPOINTMENT, VAGINAL/RECTAL EXAMINATION, SURGICAL PROCEDURE, OR ANY OTHER EXPOSURE?NO LATEX RISK : HAVE YOU EVER HAD ANY DIFFICULTY BREATHING OR HIVES AFTER EATING OR HANDLING ANY FRUITS, OR VEGETABLES; SUCH KIWI, BANANAS, STONE FRUITS, OR CHESTNUTSNO LATEX RISK : DO YOU HAVE A PREVIOUS PERSONAL HISTORY OF MORE THAN NINE SURGERIES, SPINA BIFIDA, OR REPEATED CATHERIZATIONS? NO LATEX RISK : ARE YOU FREQUENTLY EXPOSED TO LATEX PRODUCTS IN YOUR OCCUPATION?NO DATE ASKED : 07/23/2018 BMI CARE GOAL FOLLOW-UP ABOVE NORMAL BMI [facility] EDUC[facility] REGARDING DIET ALCOHOL SCREENING DID YOU HAVE A DRINK CONTAINING ALCOHOL IN THE PAST YEAR?NO POINTS0 INTERPRETATIONNEGATIVE RECREATIONAL DRUG USE DRUG USE?NO PATIENT DENIES ABUSE OR MISSUSED OF ANY MEDICATION. PATIENT DENIES USE OF ANY ILLEGAL SUBSTANCE INCLUDING MARIJUANA OR COCAINE. CAFFEINE CAFFEINE USE?NO SEXUAL HX HAD SEX IN THE LAST 12 MONTHS (VAGINAL, ORAL, OR ANAL)?NO HAVE YOU EVER HAD AN STD?NO HIV / HEP-C SCREENING HIV TEST OFFERED TO PATIENT:YES DATE OFFERED:11/03/2017 TEST ACCEPTED:NO HEP-C TEST OFFERED TO PATIENT:YES DATE OFFERED:11/03/2017 REASON:PATIENT DECLINED TEST ACCEPTED:NO REASON:PATIENT DECLINED BROCHURE PROVIDED TO PATIENTNO -PATIENT DECLINED ZOROASTRIANISM [id number] AGNOSTIC LANGUAGE LANGUAGES SPOKEN:SAMOAN EDUCATION LEVEL OF EDUCATION:COLLEGE LEARNING BARRIERS / SPECIAL NEEDS CHANGE FROM LAST VISIT?NO BARRIERS TO LEARNING?NO HEARING IMPAIRED?NO VISION IMPAIRED?YES COGNITIVELY IMPAIRED?NO :CORRECTIVE LENSES READINESS TO LEARN?YES LEARNING PREFERENCES?NO LEARNING CAPABILITIES PRESENT?YES EMOTIONAL BARRIERS?NO SPECIAL DEVICES?YES :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 EXERCISE: WALKS. MARITAL STATUS: SINGLE. OTHERS AT HOME: NONE. NEW PATIENT PAIN DIARY TODAY'S VISITNOTES PATIENT DESCRIBES PAIN :BURNING, HAVE IT ALL THE TIME, IT COMES AND GOES, THROBBING 09/13/19 FROM 0-10, WHAT LEVEL IS YOUR PAIN TODAY?5 PRECIPITATING FACTORS NOTHING ALLEVIATING FACTORS MEDS IMPACT ON FUNCTION YES PAIN CLINIC PFS, CLERGY, PUBLIC HEALTH REFERRALS PFS REFERRAL NEEDED?NO CLERGY REFERRAL NEEDED?NO PUBLIC HEALTH REFERRAL NEEDED?NO WAS THE PROVIDER NOTIFIED OF ANY PERTINENT INFO?NO HAS THE PATIENT BEEN EDUCATED REGARDING HIS/HER PLAN OF CARE?YES HAS THE PATIENT BEEN EDUCATED REGARDING PAIN, THE RISK FOR PAIN, THE IMPORTANCE OF EFFECTIVE PAIN MANAGEMENT, AND THE PAIN ASSESSMENT PROCESS?YES ADVANCE DIRECTIVE ADVANCE DIRECTIVE DISCUSSED WITH PATIENT:YES JIGNA HOOD-MOM REVIEWED WITH PT 07/23/18 1118 BV. HOSPITALIZATION/MAJOR DIAGNOSTIC PROCEDURE SURGICAL NEEDS RIGHT HIP REPLACED REVIEW OF SYSTEMS REVIEWED BY: PROVIDER: ANETTE AMADOR . CONSTITUTIONAL: ANY CHANGE IN YOUR MEDICAL CONDITION? NO . CHILLS NO . FEVER NO . INFECTION: DO YOU HAVE NEW INFECTIONS? NO . DO YOU HAVE HISTORY OF MRSA? NO . MUSCULOSKELETAL: ANY NEW PATTERNS OF PAIN OR NUMBNESS? YES, PAIN WAS CONSTANT FROM MAY TILL JULY. AUGUST PAIN HAS CALMED DOWN QUITE A BIT . GASTROENTEROLOGY: ANY NEW CHANGE IN BOWEL CONTROL? YES, CONSTIPATION, COLACE HELPS . GENITOURINARY: ANY NEW CHANGE IN BLADDER CONTROL? NO . IS THERE A CHANCE YOU COULD BE ? NO . HEMATOLOGY/LYMPH: DO YOU TAKE ANY BLOOD THINNERS? (FOR EXAMPLE- COUMADIN, PLAVIX, AGGRENOX, PLATEL, PRADAXA, OR XARELTO) NO . WHEN WAS YOUR LAST DOSE? DATE: TIME: . NEUROLOGY: HAVE YOU FALLEN IN THE PAST 12 MONTHS? NO . ANY NEW EXTREMITY NUMBNESS OR WEAKNESS? NO . CARDIOLOGY: DO YOU HAVE A PACEMAKER OR DEFIBRILLATOR? NO . RESPIRATORY: HAVE YOU BEEN SICK IN THE PAST WEEK? NO . FEVER NO . FLU LIKE SYMPTOMS? NO . COUGH NO . INTEGUMENTARY: DO YOU HAVE ANY RASHES OR OPEN SORES? NO . ALLERGIC/IMMUNO: ARE YOU ALLERGIC TO IV DYE? NO . ANY NEW ALLERGIES? NO . PSYCHIATRIC: DO YOU HAVE THOUGHTS OF HURTING YOURSELF OR SOMEONE ELSE? NO . ARE YOU ABUSED, NEGLECTED, OR IN AN UNSAFE ENVIRONMENT? NO . ENDOCRINOLOGY: ARE YOU DIABETIC? NO . OTHER: DO YOU NEED ANY PRESCRIPTIONS? NO . IF YES, PLEASE LIST: ____ . ANY NEW PROBLEMS WITH YOUR MEDICATIONS? NO . WHEN DID YOU LAST EAT? ____ . WHEN DID YOU LAST DRINK? ____ . WHAT DID YOU LAST DRINK? ____ . NAME OF PERSON DRIVING YOU HOME? ____ . DO YOU HAVE ANY OTHER QUESTIONS OR CONCERNS NO . EXAMINATION GENERAL EXAMINATION: GENERALNO ACUTE DISTRESS, WELL NOURISHED AND HYDRATED. PSYCHAPPROPRIATE MOOD AND AFFECT . FACE:UNREMARKABLE. ASSESSMENTS RHEUMATOID ARTHRITIS INVOLVING MULTIPLE SITES WITH POSITIVE RHEUMATOID FACTOR - M05.79 (PRIMARY) CHRONIC PRESCRIPTION OPIATE USE - Z79.899 TREATMENT RHEUMATOID ARTHRITIS INVOLVING MULTIPLE SITES WITH POSITIVE RHEUMATOID FACTOR CONTINUE NORCO TABLET, 10-325 MG, 1 TABLET NEEDED, ORALLY, Q4-6H MDD6 NOTES: ISTOP REGISTRY REVIEWED AND DEMONSTRATES COMPLLIANCE.D. RECENT URINE TOXICOLOGY REVIEWED. NO UNAUTHORIZED MEDICATIONS. NO ILLICIT SUBSTANCES AND PRESCRIBED MEDICATIONS WERE PRESENT. APPROXIMATE TIME SPENT DURING TELEMED VISIT WAS 12 MINUTES. OTHERS CLINICAL NOTES: VIRTULA VISIT DONE TODAY 09/13/19, NO VITAL SIGNS. EM. DISPOSITION & COMMUNICATION FOLLOW UP 3 MONTHS (REASON: MED MGMNT/RHEUMATOID ARTHROPATHY) ELECTRONICALLY SIGNED BY PERRY FROST ON 09/14/2019 AT 02:27 PM EDT DISCLAIMER : THIS IS A VISIT SUMMARY EXTRACTED FROM THE [employer] CHART. IT IS NOT A COPY OF THE [employer] PROGRESS NOTE. MTDD
== END ==
LOC: M PAIN 10:30
PROVIDERS: ATTEND Nurse Practitioner Family
DX: M05.79 Rheumatoid arthritis with rheumatoid factor of multiple sites without organ or systems involvement (principal); Z79.82 Long term (current) use of aspirin; Z79.891 Long term (current) use of opiate analgesic; Z79.899 Other long term (current) drug therapy; Z88.5 Allergy status to narcotic agent; Z88.8 Allergy status to other drugs, medicaments and biological substances; Z91.013 Allergy to seafood; Z91.018 Allergy to other foods

== ENCOUNTER → 2019-10-15 | Outpatient (CLI) | payer MEDICARE ==
--- NOTE | 2019-10-16 09:21 | REP ---
LIMITED CERVICAL SPINE: Three AP and lateral views of the cervical spine are performed. No compression fracture is seen. There is normal cervical lordosis with no prevertebral soft tissue swelling. There is mild to moderate disc space narrowing at C5-6. There is mild diffuse narrowing and sclerosis at the posterior facet joints. IMPRESSION: Mild to moderate degenerative disc space narrowing at C5-6. Electronically Signed by Demond Lau MD 10/16/2019 10:13 A
--- NOTE | 2019-10-16 09:24 | REP ---
BILATERAL ELBOWS: AP and lateral views of bilateral elbows performed. AP views are limited as the patient could not completely straighten her elbow. No acute fracture or dislocation is seen. There is moderate diffuse joint space narrowing bilaterally with diffuse sclerotic and erosive changes at the articulating surfaces. There is mild spurring of the proximal ulna bilaterally. There is mild spurring of the head of the left radius. IMPRESSION: Moderate erosive arthritic changes bilaterally. Electronically Signed by Demond Lau MD 10/16/2019 10:23 A
== END ==
LOC: M WUC 14:51
PROVIDERS: ATTEND Internal Medicine Rheumatology

== ENCOUNTER → 2019-10-15 | Outpatient (CLI) | payer MEDICARE ==
--- NOTE | 2019-10-16 09:22 | REP ---
BILATERAL HIPS: AP and frogleg views of bilateral hips performed. Total hip prosthesis is seen bilaterally. There is no acute fracture or dislocation. No abnormal lucency is seen at the prosthetic interface with adjacent bone. A cerclage wire is seen in the intertrochanteric region of the proximal left femur. There are metallic clips overlying the left pelvis. IMPRESSION: Bilateral total hip prostheses in good position with no radiographic abnormality. Electronically Signed by Demond Lau MD 10/16/2019 10:23 A
== END ==
LOC: M WUC 14:55
PROVIDERS: ATTEND Orthopaedic Surgery

== ENCOUNTER → 2019-10-15 | Outpatient (CLI) | payer MEDICARE ==
--- NOTE | 2019-10-16 08:53 | REP ---
LEFT FOOT, FOUR VIEWS: Four views of left foot are performed. I see no acute fracture or dislocation. There is diffuse moderate narrowing of the intertarsal joints with subchondral sclerosis and scattered mild spurring, as well as at the tarsal/metatarsal joints. There is severe narrowing a the 1st metatarsophalangeal joint with mild subchondral sclerosis. There is moderate spurring at the base of the 1st proximal phalanx. Erosive changes are seen of the head of the 1st metatarsal, and there are mild subchondral cystic changes. There is narrowing of the 2nd and 3rd metatarsophalangeal joints. There is mild diffuse narrowing of the interphalangeal joints. IMPRESSION: Diffuse degenerative changes, as above. There is fairly severe degenerative change and hallux valgus deformity at the 1st metatarsophalangeal joint. Electronically Signed by Demond Lau MD 10/16/2019 10:13 A
== END ==
LOC: M WUC 14:44
PROVIDERS: ATTEND Nurse Practitioner Family

== ENCOUNTER → 2019-11-08 | Outpatient (CLI) | payer MEDICARE ==
[~2019-11-08] MED LIST changes: +GASTROGRAFIN SOLUTION 30ML (Q9963) As Ordered ONE; +ISOVUE-370 76% 100ML VIAL As Ordered ONE
--- NOTE | 2019-11-08 17:07 | REP ---
REASON: History of carcinoma. The latest prior for comparison is 02/15/2015. The lung staley are clear and unchanged. Multiple surgical clips are seen in the axillary regions and anterior chest bilaterally status quo. The heart is not enlarged and the pleural angles are sharp. Marked chronic changes are again seen involving the left shoulder. IMPRESSION: No evidence of acute cardiopulmonary disease. Findings as described above. Electronically Signed by Marco A Murphy DO 11/08/2019 05:29 P
--- NOTE | 2019-11-09 03:16 | REP ---
REASON: History of ovarian carcinoma and weight loss. COMPARISON: Multiple, the latest 05/22/2018, a noncontrast-enhanced examination. Lack of intravenous contrast today also limits the exam. There are chronic changes seen in the lung bases with cylindrical bronchiectasis, status quo. The liver and spleen are unchanged. There is splenomegaly. There is cholelithiasis, status quo. The pancreas, adrenal glands, and kidneys are unchanged. The abdominal aorta and para-aortic regions seen in limited fashion are unchanged. No free fluid or free air is seen in the abdomen. The pelvis is seen in limited fashion secondary to marked spray artifact arising from hip prosthesis; even DEEPA was utilized. No gross free fluid or free air is seen in the abdomen or pelvis. There is no evidence of an intra-abdominal or intrapelvic mass or adenopathy. The bowel loops and their mesenteries are within normal limits. Bone window technique throughout the examination showed the osseous structures to be essentially unchanged from the prior exam. IMPRESSION: 1. Marked exam limitations, as described above. 2. Cholelithiasis, unchanged. 3. Splenomegaly, unchanged. 4. Chronic lung base changes, as described above. 5. Other findings as described above. Consider followup with a contrast-enhanced exam. Electronically Signed by Marco A Murphy DO 11/09/2019 08:39 A
== END ==
LOC: M RAD 14:25
PROVIDERS: ATTEND Obstetrics & Gynecology Gynecologic Oncology
DX: J47.9 Bronchiectasis, uncomplicated (principal); C56.1 Malignant neoplasm of right ovary; R16.1 Splenomegaly, not elsewhere classified; K80.10 Calculus of gallbladder with chronic cholecystitis without obstruction
CPT/HCPCS: 71046; 74176; Q9963; Q9967

== ENCOUNTER → 2020-03-19 | Outpatient (CLI) | payer MEDICARE ==
[~2020-03-19] MED LIST changes: -GASTROGRAFIN SOLUTION 30ML (Q9963) As Ordered ONE; -HYDR-2807 PO; +HYDR-4433 PO; -ISOVUE-370 76% 100ML VIAL As Ordered ONE
--- NOTE | 2020-03-21 03:30 | ECWPNPC ---
PATIENT NAME: LILIAN HOOD : 1965 GENDER: FEMALE VISIT DATE: 03/19/2020 DISCHARGE DATE: 03/19/20 1506 VISIT LOCKED DATE TIME: PHYSICIAN: ANETTE LORD PHYSICIAN PAGER NO: ACTIVE RESOURCE: ANETTE LORD REASON FOR APPOINTMENT 1. MED MGMNT/RHEUMATOID ARTHROPATHY HISTORY OF PRESENT ILLNESS GENERAL: HERE FOR MEDICATION MANAGEMENT OF CHRONIC GENERALIZED JOINT PAIN WITH A HISTORY OF RHEUMATOID ARTHRITIS. FINDS HER CURRENT MEDICATIONS HELPFUL AT REDUCING PAIN AND KEEPING HER FUNCTIONAL. DENIES ADVERSE SIDE EFFECTS. DOING WELL ON NEW MEDICATION SHE STARTED IN OCTOBER FOR RHEUMATOID DISEASE. CONTINUES TO HAVE WEIGHT LOSS. STATES THAT ONCOLOGY IS AWARE. HISTORY OF OVARIAN CANCER 10 YEARS AGO. FOLLOWS WITH ONCOLOGY YEARLY. STATES SHE FEELS WELL. -. FALL RISK SCREENING: SCREENING :ONE FALL WITH INJURY IN THE PAST YEAR 12/2019 HEAD LAC, LOST BALANCE BUT DID NOT SEEK MEDICAL ATTENTION. PAIN SCREENING: PATIENT HAS A COMPLAINT OF ACUTE OR CHRONIC PAIN :NO NURSING NOTE: -. PAIN CENTER INTAKE QUESTIONS: DO YOU HAVE A HISTORY OF MRSA? :NO DO YOU TAKE A BLOOD THINNERS? :NO DO YOU HAVE ANY BLEEDING DISORDERS? :NO ANY NEW NUMBNESS OR WEAKNESS IN YOUR LEGS OR ARMS? :NO ANY PACEMAKER,DEFIBRILLATOR, OR DORSAL COLUMN STIMULATOR? :NO DO YOU HAVE ANY RASHES OR OPEN SORES? :NO FRAILE SKIN, BRUISES EASILY ARE YOU ALLERGIC TO IV DYE? :NO ARE YOU DIABETIC? :NO ANY NEW PROBLEMS WITH YOUR MEDICATIONS? :NO HAVE YOU RECEIVED A VACCINE IN THE PAST 30 DAYS? :NO DO YOU PLAN TO RECEIVE A VACCINE IN THE NEXT 21 DAYS? :NO DO YOU NEED ANY PRESCRIPTION? :NO DO YOU TAKE ANY IMMUNOSUPPRESSIVE MEDICATIONS? :YES RA MEDICATIONS IS THERE A CHANCE YOU COULD BE ? :NO ARE YOU BREAST FEEDING? :NO CURRENT MEDICATIONS TAKING ASPIRIN 81 81 MG TABLET DELAYED RELEASE 1 TABLET ORALLY ONCE A DAY TAKING COLACE 100 MG CAPSULE 1 CAPSULE NEEDED ORALLY ONCE A DAY TAKING GLUTATHIONE 50 MG TABLET ORALLY DAILY TAKING CALCIUM 500 MG TABLET 2 ORALLY DAILY TAKING MAY HAVE CURAMED BCM-95 DAILY TAKING VITAMIN C 1000 MG TABLET 1 TABLET ORALLY ONCE A DAY TAKING PROBIOTIC TABLET DELAYED RELEASE ORALLY DAILY TAKING MILK THISTLE 500 MG CAPSULE 750MGS ORALLY DAILY TAKING MAGNESIUM 500 MG CAPSULE 1 CAP ORALLY ONCE A DAY TAKING VITAMIN D3 2000 UNIT CAPSULE 1 CAPSULE ORALLY ONCE A DAY TAKING PREDNISONE 2.5 MG TABLET 1 TABLET ORALLY BID, NOTES: TAPERING DOSE TAKING FERROUS SULFATE 325 (65 FE) MG TABLET 1 TABLET ORALLY TID TAKING LEFLUNOMIDE 10 MG TABLET 1 TABLET ORALLY ONCE A DAY, NOTES: RA RX TAKING NORCO 10-325 MG TABLET 1 TABLET NEEDED ORALLY Q4-6H MDD6 TAKING IODINE - CRYSTALS DIRECTED NOT-TAKING EPIPEN 2-ARPAN 0.3 MG/0.3ML SOLUTION AUTO-INJECTOR DIRECTED INJECTION DIRECTED: PRN ALLERGIC REACTION NOT-TAKING MECLIZINE HCL 25 MG TABLET 1 TABLET NEEDED ORALLY TID MEDICATION LIST REVIEWED AND RECONCILED WITH THE PATIENT PAST MEDICAL HISTORY RHEUMATOID ARTHRITIS-DR. STERN OVARIAN CA-DR. 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 LILIAN VALENZUELA 05/20/2010 RIGHT TKA-DR. ABDUL DOUBLE MASTECTOMY-DR. DANIS IBARRA 03/[address] CALDERA 08/10/2014 LEFT TKA-DR. KOENIG 11/2014 NEEDLE BIOPSY LEFT AXILLARY/NODES 09/[address] CALDERA 02/2017 TOTAL RIGHT HIP ARTHROPLASTY: DR. KOENIG 02/23/2018 EGD VERENICE 05/2018 LEFT PB: ARYA 01/2019 FAMILY HISTORY FATHER: ALIVE 76 YRS, PROSTATE CA AGE 60, DIAGNOSED WITH HYPERTENSION MOTHER: ALIVE 73 YRS, WELL SIBLINGS: BROTHER TESTING FOR LEUKEMIA 4 BROTHER(S) - HEALTHY. FATHER HAD PROSTATE CANCER. SOCIAL HISTORY GENERAL: TOBACCO USE ARE YOU A:NONSMOKER LATEX QUESTIONNAIRE LATEX ALLERGY : HAVE YOU EVER DEVELOPED ANY TYPE OF REACTION AFTER HANDLING LATEX PRODUCTS SUCH RUBBER GLOVES, CONDOMS, DIAPHRAGMS, BALLOONS, SOCKS, OR UNDERWEAR?NO LATEX ALLERGY : HAVE YOU EVER DEVELOPED ANY TYPE OF REACTION DURING OR AFTER DENTAL APPOINTMENT, VAGINAL/RECTAL EXAMINATION, SURGICAL PROCEDURE, OR ANY OTHER EXPOSURE?NO LATEX RISK : HAVE YOU EVER HAD ANY DIFFICULTY BREATHING OR HIVES AFTER EATING OR HANDLING ANY FRUITS, OR VEGETABLES; SUCH KIWI, BANANAS, STONE FRUITS, OR CHESTNUTSNO LATEX RISK : DO YOU HAVE A PREVIOUS PERSONAL HISTORY OF MORE THAN NINE SURGERIES, SPINA BIFIDA, OR REPEATED CATHERIZATIONS? NO LATEX RISK : ARE YOU FREQUENTLY EXPOSED TO LATEX PRODUCTS IN YOUR OCCUPATION?NO DATE ASKED : 03/19/2020 BMI CARE GOAL FOLLOW-UP BELOW NORMAL BMI FOLLOW-UPLIFESTYLE EDUCATION REGARDING DIET ALCOHOL SCREENING DID YOU HAVE A DRINK CONTAINING ALCOHOL IN THE PAST YEAR?NO POINTS0 INTERPRETATIONNEGATIVE RECREATIONAL DRUG USE DRUG USE?NO PATIENT DENIES ABUSE OR MISSUSED OF ANY MEDICATION. PATIENT DENIES USE OF ANY ILLEGAL SUBSTANCE INCLUDING MARIJUANA OR COCAINE. CAFFEINE CAFFEINE USE?NO SEXUAL HX HAD SEX IN THE LAST 12 MONTHS (VAGINAL, ORAL, OR ANAL)?NO HAVE YOU EVER HAD AN STD?NO HIV / HEP-C SCREENING HIV TEST OFFERED TO PATIENT:YES DATE OFFERED:11/03/2017 TEST ACCEPTED:NO HEP-C TEST OFFERED TO PATIENT:YES DATE OFFERED:11/03/2017 REASON:PATIENT DECLINED TEST ACCEPTED:NO REASON:PATIENT DECLINED BROCHURE PROVIDED TO PATIENTNO -PATIENT DECLINED LATTER-DAY [id number] AGNOSTIC LANGUAGE LANGUAGES SPOKEN:THAI EDUCATION LEVEL OF EDUCATION:COLLEGE LEARNING BARRIERS / SPECIAL NEEDS CHANGE FROM LAST VISIT?NO BARRIERS TO LEARNING?NO HEARING IMPAIRED?NO VISION IMPAIRED?YES COGNITIVELY IMPAIRED?NO :CORRECTIVE LENSES READINESS TO LEARN?YES LEARNING PREFERENCES?NO LEARNING CAPABILITIES PRESENT?YES EMOTIONAL BARRIERS?NO SPECIAL DEVICES?YES :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 EXERCISE: WALKS. MARITAL STATUS: SINGLE. OTHERS AT HOME: NONE. TODAY'S VISITNOTES PATIENT DESCRIBES PAIN :BURNING, HAVE IT ALL THE TIME, IT COMES AND GOES, THROBBING 09/13/19 FROM 0-10, WHAT LEVEL IS YOUR PAIN TODAY?5 PRECIPITATING FACTORS NOTHING ALLEVIATING FACTORS MEDS IMPACT ON FUNCTION YES PAIN CLINIC PFS, CLERGY, PUBLIC HEALTH REFERRALS PFS REFERRAL NEEDED?NO CLERGY REFERRAL NEEDED?NO PUBLIC HEALTH REFERRAL NEEDED?NO WAS THE PROVIDER NOTIFIED OF ANY PERTINENT INFO?NO HAS THE PATIENT BEEN EDUCATED REGARDING HIS/HER PLAN OF CARE?YES HAS THE PATIENT BEEN EDUCATED REGARDING PAIN, THE RISK FOR PAIN, THE IMPORTANCE OF EFFECTIVE PAIN MANAGEMENT, AND THE PAIN ASSESSMENT PROCESS?YES ADVANCE DIRECTIVE ADVANCE DIRECTIVE DISCUSSED WITH PATIENT:YES JIGNA HOOD-MOM REVIEWED WITH PT 07/23/18 1439 BV. HOSPITALIZATION/MAJOR DIAGNOSTIC PROCEDURE SURGICAL NEEDS RIGHT HIP REPLACED REVIEW OF SYSTEMS CONSTITUTIONAL: ANY RECENT FEVER NO . CHILLS NO . WEIGHT CHANGE OF UNKNOWN REASONS NO . GASTROENTEROLOGY: NEW UNEXPLAINABLE CHANGES IN BOWEL CONTROL NO . CONSTIPATION NO . GENITOURINARY: ANY NEW CHANGE IN BLADDER CONTROL? NO . NEUROLOGY: NEW ONSET DIZZINESS OR NEUROLOGICAL CHANGES NOT MENTIONED NO . NEW NUMBNESS OR PAIN PATTERNS NOT MENTIONED AND PERTINENT TO TODAY'S VISIT NO . CARDIOLOGY: NEW CHEST PRESSURE NO . NEW CHEST PAIN NO . RESPIRATORY: UNEXPLAINABLE COUGH NO . NEW SHORTNESS OF BREATH NO . VITAL SIGNS WT 95.6 LBS, HT 62 IN, BMI 17.48 INDEX, BP 148/68 MM HG, HR 142 /MIN, RR 18 /MIN, TEMP 99.1 F, OXYGEN SAT % 98% RA, BLOOD GLUCOSE LEVEL N/A, SAFE IN ENV? (Y/N) YES, NA INITIALS NV, REVIEWED BY: SHAUN RAMIREZ CHIEF OPERATIONS OFFICER. EXAMINATION GENERAL EXAMINATION: GENERALAWAKE,ALERT ,PLEAASANT . PSYCHAFFECT NORMAL . LUNGS:LUNG DAVILA ARE CLEAR TO AUSCULTATION BILATERALLY. GOOD MOVEMENT OF AIR . HEART:NORMAL RHYTHM, TACHYCARDIC. ASSESSMENTS RHEUMATOID ARTHRITIS INVOLVING MULTIPLE SITES WITH POSITIVE RHEUMATOID FACTOR - M05.79 (PRIMARY) CHRONIC PRESCRIPTION OPIATE USE - Z79.891 TREATMENT RHEUMATOID ARTHRITIS INVOLVING MULTIPLE SITES WITH POSITIVE RHEUMATOID FACTOR REFILL NORCO TABLET, 10-325 MG, 1 TABLET NEEDED, ORALLY, Q4-6H MDD6, 30 DAYS, 180, REFILLS 0 NOTES: ISTOP REGISTRY REVIEWED AND DEMONSTRATES COMPLLIANCE. (REF # ) BRINGS IN MEDICATIONS WHICH IS APPROPRIATE FOR WHAT WAS DISPENSED. RECENT URINE TOXICOLOGY REVIEWED. NO UNAUTHORIZED MEDICATIONS. NO ILLICIT SUBSTANCES AND PRESCRIBED MEDICATIONS WERE PRESENT. PROCEDURE CODES [id number] ESTABILISHED PATIENT [facility] CHARGE DISPOSITION & COMMUNICATION FOLLOW UP 4 MONTHS (REASON: MED MGMNT) ELECTRONICALLY SIGNED BY PERRY FROST ON 03/20/2020 AT 09:25 AM EST DISCLAIMER : THIS IS A VISIT SUMMARY EXTRACTED FROM THE [employer] CHART. IT IS NOT A COPY OF THE [employer] PROGRESS NOTE. SUDHIR
== END ==
LOC: M PAIN 14:30
PROVIDERS: ATTEND Nurse Practitioner Family
DX: M05.79 Rheumatoid arthritis with rheumatoid factor of multiple sites without organ or systems involvement (principal); G89.29 Other chronic pain; D50.9 Iron deficiency anemia, unspecified; Z86.59 Personal history of other mental and behavioral disorders; Z96.643 Presence of artificial hip joint, bilateral; Z96.653 Presence of artificial knee joint, bilateral; Z88.2 Allergy status to sulfonamides; Z88.5 Allergy status to narcotic agent; Z88.6 Allergy status to analgesic agent; Z88.8 Allergy status to other drugs, medicaments and biological substances; Z91.013 Allergy to seafood; Z91.018 Allergy to other foods; Z79.82 Long term (current) use of aspirin; Z79.899 Other long term (current) drug therapy

== ENCOUNTER → 2020-05-16 | Outpatient (CLI) | payer MEDICARE ==
[~2020-05-16] MED LIST changes: +CYAN500T14 PO; -CYAN500T8 PO
[2020-05-16 16:33] LABS: BASO % 0.6 % (0.0-1.0); EOS # 0.2 10^3/uL (0.0-0.5); EOS % 4.4 % (0.0-3.0); HEMATOCRIT 36.2 % (36.0-47.0); HEMOGLOBIN 10.6 g/dl (12.0-15.5); LYMPH % 37.8 % (24.0-44.0); MEAN CORPUSCULAR HGB CONC 29.3 g/dl (32.0-36.5); MEAN CORPUSCULAR VOLUME 98.9 fl (80.0-96.0); MONO # 0.5 10^3/uL (0.0-0.8); MONO % 8.6 % (0.0-5.0); NEUTROPHILS # 2.5 10^3/uL (1.5-8.5); NEUTROPHILS % 48.4 % (36.0-66.0); PLATELET COUNT, AUTOMATED 303 10^3/uL (150-450); RED BLOOD COUNT 3.66 10^6/uL (4.00-5.40); WHITE BLOOD COUNT 5.2 10^3/uL (4.0-10.0)
[2020-05-16 16:41] LABS: ALBUMIN 3.8 GM/DL (3.2-5.2); ALT/SGPT 33 U/L (12-78); C REACTIVE PROTEIN QUANTITATIV 1.24 MG/DL (0.00-0.30); CREATININE FOR GFR 0.48 MG/DL (0.55-1.30); GLOMERULAR FILTRATION RATE > 60.0 (>51)
[2020-05-16 18:06] LABS: ERYTHROCYTE SEDIMENTATION RATE 11 mm/hr (0-30)
== END ==
LOC: M WUC 14:30
PROVIDERS: ATTEND Physician Assistant Medical
DX: M05.79 Rheumatoid arthritis with rheumatoid factor of multiple sites without organ or systems involvement (principal); M81.8 Other osteoporosis without current pathological fracture; M15.9 Polyosteoarthritis, unspecified; Z79.899 Other long term (current) drug therapy

== ENCOUNTER → 2020-07-25 | Outpatient (CLI) | payer MEDICARE ==
[2020-07-25 17:09] LABS: ALT/SGPT 32 U/L (12-78); C REACTIVE PROTEIN QUANTITATIV 0.43 MG/DL (0.00-0.30); CREATININE FOR GFR 0.48 MG/DL (0.55-1.30); GLOMERULAR FILTRATION RATE > 60.0 (>51)
[2020-07-25 17:18] LABS: BASO % 0.8 % (0.0-1.0); EOS # 0.2 10^3/uL (0.0-0.5); EOS % 3.8 % (0.0-3.0); HEMATOCRIT 34.7 % (36.0-47.0); HEMOGLOBIN 10.5 g/dl (12.0-15.5); LYMPH # 1.9 10^3/uL (1.5-5.0); MEAN CORPUSCULAR HEMOGLOBIN 30.3 pg (27.0-33.0); MEAN CORPUSCULAR HGB CONC 30.3 g/dl (32.0-36.5); MONO # 0.4 10^3/uL (0.0-0.8); MONO % 7.6 % (2.0-8.0); NEUTROPHILS # 2.8 10^3/uL (1.5-8.5); NEUTROPHILS % 52.6 % (36.0-66.0); PLATELET COUNT, AUTOMATED 280 10^3/uL (150-450); RED BLOOD COUNT 3.47 10^6/uL (4.00-5.40); WHITE BLOOD COUNT 5.3 10^3/uL (4.0-10.0)
[2020-07-25 18:20] LABS: ERYTHROCYTE SEDIMENTATION RATE 38 mm/hr (0-30)
== END ==
LOC: M WUC 14:37
PROVIDERS: ATTEND Physician Assistant Medical
DX: M05.79 Rheumatoid arthritis with rheumatoid factor of multiple sites without organ or systems involvement (principal); M81.8 Other osteoporosis without current pathological fracture; M15.9 Polyosteoarthritis, unspecified; Z79.899 Other long term (current) drug therapy

== ENCOUNTER → 2020-08-08 | Outpatient (CLI) | payer MEDICARE ==
--- NOTE | 2020-08-11 10:46 | ECWPNPC ---
PATIENT NAME: LILIAN HOOD : 1965 GENDER: FEMALE VISIT DATE: 08/08/2020 DISCHARGE DATE: 08/08/20 1557 VISIT LOCKED DATE TIME: PHYSICIAN: ANETTE LORD PHYSICIAN PAGER NO: ACTIVE RESOURCE: ANETTE LORD REASON FOR APPOINTMENT 1. MED MGMNT/RHEUMATOID ARTHROPATHY HISTORY OF PRESENT ILLNESS DEPRESSION SCREENING: PHQ-2 (2015 EDITION) LITTLE INTEREST OR PLEASURE IN DOING THINGS?NOT AT ALL FEELING DOWN, DEPRESSED, OR HOPELESS?NOT AT ALL TOTAL SCORE0 GENERAL: HERE FOR ROUTINE FOLLOW-UP AND MEDICINE MANAGEMENT FOR CHRONIC PAIN. HAS SEVERE RHEUMATOID ARTHROPATHY. FINDS CURRENT MEDICATION HELPFUL AT REDUCING PAIN AND KEEPING HER FUNCTIONAL. DENIES ADVERSE MEDICATION.-. FALL RISK SCREENING: SCREENING : ONE FALL REPORTED IN THE LAST YEAR WITH INJURY. PAIN SCREENING: PATIENT HAS A COMPLAINT OF ACUTE OR CHRONIC PAIN :YES INTENSITY OF PAIN (SCALE OF 1 TO 10):0 NURSING NOTE: -. PAIN CENTER INTAKE QUESTIONS: DO YOU HAVE A HISTORY OF MRSA? :NO DO YOU TAKE A BLOOD THINNERS? :NO DO YOU HAVE ANY BLEEDING DISORDERS? :NO ANY NEW NUMBNESS OR WEAKNESS IN YOUR LEGS OR ARMS? :NO ANY PACEMAKER,DEFIBRILLATOR, OR DORSAL COLUMN STIMULATOR? :NO DO YOU HAVE ANY RASHES OR OPEN SORES? :NO ARE YOU ALLERGIC TO IV DYE? :NO ARE YOU DIABETIC? :NO ANY NEW PROBLEMS WITH YOUR MEDICATIONS? :NO HAVE YOU RECEIVED A VACCINE IN THE PAST 30 DAYS? :NO DO YOU PLAN TO RECEIVE A VACCINE IN THE NEXT 21 DAYS? :NO DO YOU NEED ANY PRESCRIPTION? :NO DO YOU TAKE ANY IMMUNOSUPPRESSIVE MEDICATIONS? :YES PREDNISONE AND LEFLUNIMIDE FOR RA DO YOU HAVE ANY KIDNEY OR LIVER DISEASE? :NO IS THERE A CHANCE YOU COULD BE ? :NO ARE YOU BREAST FEEDING? :NO CURRENT MEDICATIONS TAKING ASPIRIN 81 81 MG TABLET DELAYED RELEASE 1 TABLET ORALLY ONCE A DAY TAKING GLUTATHIONE 50 MG TABLET ORALLY DAILY TAKING CALCIUM 500 MG TABLET 2 ORALLY DAILY TAKING MAY HAVE CURAMED BCM-95 DAILY TAKING VITAMIN C 1000 MG TABLET 1 TABLET ORALLY ONCE A DAY TAKING PROBIOTIC TABLET DELAYED RELEASE ORALLY DAILY TAKING MILK THISTLE 500 MG CAPSULE 750MGS ORALLY DAILY TAKING MAGNESIUM 500 MG CAPSULE 1 CAP ORALLY ONCE A DAY TAKING VITAMIN D3 2000 UNIT CAPSULE 1 CAPSULE ORALLY ONCE A DAY TAKING PREDNISONE 2.5 MG TABLET 1 TABLET ORALLY BID, NOTES: TAPERING DOSE TAKING LEFLUNOMIDE 10 MG TABLET 1 TABLET ORALLY ONCE A DAY, NOTES: RA RX TAKING IODINE - CRYSTALS DIRECTED TAKING HYDROCODONE-ACETAMINOPHEN 10-325 MG TABLET 1 TABLET NEEDED ORALLY Q 4-6HR PRN MDD6 NOT-TAKING COLACE 100 MG CAPSULE 1 CAPSULE NEEDED ORALLY ONCE A DAY NOT-TAKING FERROUS SULFATE 325 (65 FE) MG TABLET 1 TABLET ORALLY TID NOT-TAKING NORCO 10-325 MG TABLET 1 TABLET NEEDED ORALLY Q4-6H MDD6 NOT-TAKING EPIPEN 2-ARPAN 0.3 MG/0.3ML SOLUTION AUTO-INJECTOR DIRECTED INJECTION DIRECTED: PRN ALLERGIC REACTION NOT-TAKING MECLIZINE HCL 25 MG TABLET 1 TABLET NEEDED ORALLY TID MEDICATION LIST REVIEWED AND RECONCILED WITH THE PATIENT PAST MEDICAL HISTORY RHEUMATOID ARTHRITIS-DR. STERN OVARIAN CA-DR. 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 ALLERGIES METHOTREXATE: SORES IN MOUTH, CONSTANT COUGH AND PROBLEMS BREATHING - SIDE EFFECTS HYDROXYCHLOROQUINE: ALLERGY SULFASALAZINE: ALLERGY SEAFOOD: NAUSEA/VOMITING - ALLERGY CODEINE SULFATE: STOMACH CRAMPING - ALLERGY DULOXETINE HCL: HALLUCINATIONS - ALLERGY LYRICA: DIZZINESS, UNSTABLE BALANCE, SHORT-TERM MEMORY LOSS - ALLERGY HUMIRA: MUSCLE PAIN - ALLERGY GABAPENTIN: CONFUSION - ALLERGY CELEBREX: DIFFICULTY BREATHING - ALLERGY MUSHROOMS: ANAPHYLAXIS - ALLERGY SOCIAL HISTORY GENERAL: TOBACCO USE ARE YOU A:NONSMOKER LATEX QUESTIONNAIRE LATEX ALLERGY : HAVE YOU EVER DEVELOPED ANY TYPE OF REACTION AFTER HANDLING LATEX PRODUCTS SUCH RUBBER GLOVES, CONDOMS, DIAPHRAGMS, BALLOONS, SOCKS, OR UNDERWEAR?NO LATEX ALLERGY : HAVE YOU EVER DEVELOPED ANY TYPE OF REACTION DURING OR AFTER DENTAL APPOINTMENT, VAGINAL/RECTAL EXAMINATION, SURGICAL PROCEDURE, OR ANY OTHER EXPOSURE?NO DATE ASKED : 03/19/2020 LATEX RISK : HAVE YOU EVER HAD ANY DIFFICULTY BREATHING OR HIVES AFTER EATING OR HANDLING ANY FRUITS, OR VEGETABLES; SUCH KIWI, BANANAS, STONE FRUITS, OR CHESTNUTSNO LATEX RISK : DO YOU HAVE A PREVIOUS PERSONAL HISTORY OF MORE THAN NINE SURGERIES, SPINA BIFIDA, OR REPEATED CATHERIZATIONS? NO LATEX RISK : ARE YOU FREQUENTLY EXPOSED TO LATEX PRODUCTS IN YOUR OCCUPATION?NO BMI CARE GOAL FOLLOW-UP BELOW NORMAL BMI [facility] EDUC[facility] REGARDING DIET ALCOHOL SCREENING DID YOU HAVE A DRINK CONTAINING ALCOHOL IN THE PAST YEAR?NO POINTS0 INTERPRETATIONNEGATIVE RECREATIONAL DRUG USE DRUG USE?NO PATIENT DENIES ABUSE OR MISSUSED OF ANY MEDICATION. PATIENT DENIES USE OF ANY ILLEGAL SUBSTANCE INCLUDING MARIJUANA OR COCAINE. CAFFEINE CAFFEINE USE?NO SEXUAL HX HAD SEX IN THE LAST 12 MONTHS (VAGINAL, ORAL, OR ANAL)?NO HAVE YOU EVER HAD AN STD?NO HIV / HEP-C SCREENING HIV TEST OFFERED TO PATIENT:YES DATE OFFERED:11/03/2017 TEST ACCEPTED:NO HEP-C TEST OFFERED TO PATIENT:YES DATE OFFERED:11/03/2017 REASON:PATIENT DECLINED TEST ACCEPTED:NO REASON:PATIENT DECLINED BROCHURE PROVIDED TO PATIENTNO -PATIENT DECLINED [id number] AGNOSTIC LANGUAGE LANGUAGES SPOKEN:GERMAN EDUCATION LEVEL OF EDUCATION:COLLEGE LEARNING BARRIERS / SPECIAL NEEDS CHANGE FROM LAST VISIT?NO BARRIERS TO LEARNING?NO HEARING IMPAIRED?NO VISION IMPAIRED?YES COGNITIVELY IMPAIRED?NO :CORRECTIVE LENSES READINESS TO LEARN?YES LEARNING PREFERENCES?NO LEARNING CAPABILITIES PRESENT?YES EMOTIONAL BARRIERS?NO SPECIAL DEVICES?YES :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 EXERCISE: WALKS. MARITAL STATUS: SINGLE. OTHERS AT HOME: NONE. TODAY'S VISITNOTES PATIENT DESCRIBES PAIN :BURNING, HAVE IT ALL THE TIME, IT COMES AND GOES, THROBBING 09/13/19 FROM 0-10, WHAT LEVEL IS YOUR PAIN TODAY?5 PRECIPITATING FACTORS NOTHING ALLEVIATING FACTORS MEDS IMPACT ON FUNCTION YES - PFS REFERRAL NEEDED?NO CLERGY REFERRAL NEEDED?NO PUBLIC HEALTH REFERRAL NEEDED?NO WAS THE PROVIDER NOTIFIED OF ANY PERTINENT INFO?NO HAS THE PATIENT BEEN EDUCATED REGARDING HIS/HER PLAN OF CARE?YES HAS THE PATIENT BEEN EDUCATED REGARDING PAIN, THE RISK FOR PAIN, THE IMPORTANCE OF EFFECTIVE PAIN MANAGEMENT, AND THE PAIN ASSESSMENT PROCESS?YES ADVANCE DIRECTIVE ADVANCE DIRECTIVE DISCUSSED WITH PATIENT:YES [facility] [place] 07/23/18 8947 BV. REVIEW OF SYSTEMS CONSTITUTIONAL: ANY RECENT FEVER NO . CHILLS NO . WEIGHT CHANGE OF UNKNOWN REASONS NO . GASTROENTEROLOGY: NEW UNEXPLAINABLE CHANGES IN BOWEL CONTROL NO . CONSTIPATION NO . GENITOURINARY: ANY NEW CHANGE IN BLADDER CONTROL? NO . NEUROLOGY: NEW ONSET DIZZINESS OR NEUROLOGICAL CHANGES NOT MENTIONED NO . NEW NUMBNESS OR PAIN PATTERNS NOT MENTIONED AND PERTINENT TO TODAY'S VISIT NO . CARDIOLOGY: NEW CHEST PRESSURE NO . PATIENT DENIES NO . RESPIRATORY: UNEXPLAINABLE COUGH NO . NEW SHORTNESS OF BREATH NO . VITAL SIGNS WT 93.2 LBS, HT 62 IN, BMI 17.04 INDEX, BP 140/67 MM HG, HR 130 /MIN, RR 18 /MIN, TEMP 97.3 F, OXYGEN SAT % 98%, SAFE IN ENV? (Y/N) Y, NA INITIALS SC 14:46, REVIEWED BY: EM. EXAMINATION GENERAL EXAMINATION: GENERALAWAKE,ALERT ,PLEAASANT . PSYCHAFFECT NORMAL . LUNGS:LUNG DAVILA ARE CLEAR TO AUSCULTATION BILATERALLY. GOOD MOVEMENT OF AIR . HEART:NORMAL RHYTHM, TACHYCARDIC. ASSESSMENTS RHEUMATOID ARTHRITIS INVOLVING MULTIPLE SITES WITH POSITIVE RHEUMATOID FACTOR - M05.79 (PRIMARY) CHRONIC PRESCRIPTION OPIATE USE - Z79.891 TREATMENT RHEUMATOID ARTHRITIS INVOLVING MULTIPLE SITES WITH POSITIVE RHEUMATOID FACTOR CONTINUE HYDROCODONE-ACETAMINOPHEN TABLET, 10-325 MG, 1 TABLET NEEDED, ORALLY, Q 4-6HR PRN MDD6 LAB: URINE TEST GROUP CORRINE GOODE 08/08/2020 3:52:10 PM > LAST DOSE: NORCO 08/08/2020 NOTES: ISTOP REGISTRY REVIEWED AND DEMONSTRATES COMPLLIANCE. BRINGS IN MEDICATIONS WHICH IS APPROPRIATE FOR WHAT WAS DISPENSED. RECENT URINE TOXICOLOGY REVIEWED. NO UNAUTHORIZED MEDICATIONS. NO ILLICIT SUBSTANCES AND PRESCRIBED MEDICATIONS WERE PRESENT. PROCEDURE CODES FA211 ESTABILISHED PATIENT [facility] CHARGE DISPOSITION & COMMUNICATION FOLLOW UP 3 MONTHS (REASON: MEDICATION MANAGEMENT/REVIEW URINE TOX) ELECTRONICALLY SIGNED BY PERRY FROST ON 08/10/2020 AT 01:30 PM EDT DISCLAIMER : THIS IS A VISIT SUMMARY EXTRACTED FROM THE [employer] CHART. IT IS NOT A COPY OF THE [employer] PROGRESS NOTE. MTDD
== END ==
LOC: M PAIN 14:30
PROVIDERS: ATTEND Nurse Practitioner Family
DX: M05.79 Rheumatoid arthritis with rheumatoid factor of multiple sites without organ or systems involvement (principal); G89.29 Other chronic pain; Z86.59 Personal history of other mental and behavioral disorders; Z88.2 Allergy status to sulfonamides; Z88.5 Allergy status to narcotic agent; Z88.8 Allergy status to other drugs, medicaments and biological substances; Z91.013 Allergy to seafood; Z91.018 Allergy to other foods; Z79.82 Long term (current) use of aspirin; Z79.899 Other long term (current) drug therapy

== ENCOUNTER → 2020-08-27 | Outpatient (CLI) | payer MEDICARE ==
[2020-08-27 16:21] LABS: BASO % 0.6 % (0.0-1.0); EOS # 0.2 10^3/uL (0.0-0.5); EOS % 3.7 % (0.0-3.0); HEMATOCRIT 35.7 % (36.0-47.0); HEMOGLOBIN 10.7 g/dl (12.0-15.5); LYMPH # 2.1 10^3/uL (1.5-5.0); MEAN CORPUSCULAR HEMOGLOBIN 30.4 pg (27.0-33.0); MEAN CORPUSCULAR VOLUME 101.4 fl (80.0-96.0); MONO # 0.5 10^3/uL (0.0-0.8); MONO % 7.7 % (2.0-8.0); NEUTROPHILS # 3.3 10^3/uL (1.5-8.5); NEUTROPHILS % 53.8 % (36.0-66.0); PLATELET COUNT, AUTOMATED 301 10^3/uL (150-450); RED BLOOD COUNT 3.52 10^6/uL (4.00-5.40); WHITE BLOOD COUNT 6.2 10^3/uL (4.0-10.0)
[2020-08-27 17:02] LABS: ALBUMIN 4.1 GM/DL (3.2-5.2); ALT/SGPT 27 U/L (12-78); BILIRUBIN,TOTAL 0.7 MG/DL (0.2-1.0); BLOOD UREA NITROGEN 12 MG/DL (7-18); CALCIUM LEVEL 9.4 MG/DL (8.5-10.1); CARBON DIOXIDE LEVEL 32 MEQ/L (21-32); CHLORIDE LEVEL 105 MEQ/L (98-107); CHOLESTEROL LEVEL 166 MG/DL (<200); CHOLESTEROL RISK RATIO 3.254 (<5); CREATININE FOR GFR 0.49 MG/DL (0.55-1.30); GLOMERULAR FILTRATION RATE > 60.0 (>51); GLUCOSE, FASTING 86 MG/DL (70-100); HDL CHOLESTEROL 51 MG/DL (>40); IRON (FE) 63 UG/DL (50-170); LDL CHOLESTEROL 88 MG/DL (<100); MAGNESIUM LEVEL 2.2 MG/DL (1.8-2.4); NON-HDL-C 115 MG/DL; POTASSIUM SERUM 3.8 MEQ/L (3.5-5.1); SODIUM LEVEL 141 MEQ/L (136-145); TOTAL 25(OH) VITAMIN D 61.6 NG/ML (30.0-100.0); TOTAL IRON BINDING CAPACITY 263 UG/DL (250-450); TRIGLYCERIDES LEVEL 136 MG/DL (<150)
== END ==
LOC: M WUC 11:25
PROVIDERS: ATTEND Nurse Practitioner Family
DX: M05.79 Rheumatoid arthritis with rheumatoid factor of multiple sites without organ or systems involvement (principal); G89.29 Other chronic pain; Z79.891 Long term (current) use of opiate analgesic; E83.42 Hypomagnesemia; R03.0 Elevated blood-pressure reading, without diagnosis of hypertension; R53.83 Other fatigue; R63.4 Abnormal weight loss; Z85.43 Personal history of malignant neoplasm of ovary; Z79.52 Long term (current) use of systemic steroids; M06.9 Rheumatoid arthritis, unspecified; Z79.899 Other long term (current) drug therapy

== ENCOUNTER → 2020-08-27 | Outpatient (CLI) | payer MEDICARE | LOC: M WUC 11:31 | PROVIDERS: ATTEND Obstetrics & Gynecology Gynecologic Oncology | DX: C56.1 Malignant neoplasm of right ovary (principal) ==

== ENCOUNTER → 2020-10-03 | Outpatient (CLI) | payer MEDICARE ==
[2020-10-03 16:16] LABS: BASO % 0.6 % (0.0-1.0); EOS # 0.2 10^3/uL (0.0-0.5); EOS % 3.2 % (0.0-3.0); HEMATOCRIT 33.7 % (36.0-47.0); HEMOGLOBIN 10.1 g/dl (12.0-15.5); LYMPH # 1.1 10^3/uL (1.5-5.0); LYMPH % 20.9 % (24.0-44.0); MEAN CORPUSCULAR HEMOGLOBIN 30.6 pg (27.0-33.0); MEAN CORPUSCULAR VOLUME 102.1 fl (80.0-96.0); MONO # 0.4 10^3/uL (0.0-0.8); MONO % 7.4 % (2.0-8.0); NEUTROPHILS # 3.4 10^3/uL (1.5-8.5); NEUTROPHILS % 67.7 % (36.0-66.0); PLATELET COUNT, AUTOMATED 246 10^3/uL (150-450)
[2020-10-03 16:28] LABS: ALBUMIN 3.9 GM/DL (3.2-5.2); ALT/SGPT 48 U/L (12-78); BLOOD UREA NITROGEN 14 MG/DL (7-18); C REACTIVE PROTEIN QUANTITATIV 1.08 MG/DL (0.00-0.30); CREATININE FOR GFR 0.44 MG/DL (0.55-1.30); GLOMERULAR FILTRATION RATE > 60.0 (>51)
[2020-10-03 17:11] LABS: ERYTHROCYTE SEDIMENTATION RATE 39 mm/hr (0-30)
== END ==
LOC: M WUC 14:06
PROVIDERS: ATTEND Physician Assistant Medical
DX: M05.79 Rheumatoid arthritis with rheumatoid factor of multiple sites without organ or systems involvement (principal); M15.9 Polyosteoarthritis, unspecified; M81.8 Other osteoporosis without current pathological fracture; Z79.899 Other long term (current) drug therapy

== ENCOUNTER → 2020-11-05 | Outpatient (CLI) | payer MEDICARE ==
--- NOTE | 2020-11-07 05:31 | ECWPNPC ---
PATIENT NAME: LILIAN HOOD : 1965 GENDER: FEMALE VISIT DATE: 11/05/2020 DISCHARGE DATE: 11/05/20 1516 VISIT LOCKED DATE TIME: PHYSICIAN: ANETTE LORD PHYSICIAN PAGER NO: ACTIVE RESOURCE: ANETTE LORD REASON FOR APPOINTMENT 1. MEDICATION MANAGEMENT/REVIEW URINE TOX HISTORY OF PRESENT ILLNESS GENERAL: - HERE FOR ROUTINE FOLLOW-UP AND MEDICINE MANAGEMENT FOR CHRONIC PAIN. HAS SEVERE RHEUMATOID ARTHROPATHY. FINDS CURRENT MEDICATION HELPFUL AT REDUCING PAIN AND KEEPING HER FUNCTIONAL. DENIES ADVERSE EFFECTS WITH MEDICATION.-CONTINUES TO LOSE WEIGHT OVER THE PAST 2 YEARS. FOLLOWING CLOSELY WITH DR. LAU WHO HAS ORDERED A CT SCAN OF HER ABDOMEN. PATIENT HAS BEEN TRYING TO EAT MORE HIGH CALORIE/PROTEIN MEALS. COMPLAINTS OF CHRONIC NAUSEA. REPORTS NORMAL BOWEL AND BLADDER FUNCTION. FALL RISK SCREENING: SCREENING : NO FALLS REPORTED IN THE LAST YEAR. PAIN SCREENING: PATIENT HAS A COMPLAINT OF ACUTE OR CHRONIC PAIN :YES LOCATION OF PAIN:NECK, LOW BACK, OTHER: RHEUMATOID ARTHROPATHY INTENSITY OF PAIN (SCALE OF 1 TO 10):4 WHAT DOES YOUR PAIN FEEL LIKE:ACHING, SHARP, THROBBING DURATION:CONTINOUS, CONSTANT, ALL DAY PAIN IS INCREASED BY:OTHERS NOTHING PAIN IS DECREASED BY:USE OF PAIN MEDICATIONS NURSING NOTE: -. PAIN CENTER INTAKE QUESTIONS: DO YOU HAVE A HISTORY OF MRSA? :NO DO YOU TAKE A BLOOD THINNERS? :NO DO YOU HAVE ANY BLEEDING DISORDERS? :NO ANY NEW NUMBNESS OR WEAKNESS IN YOUR LEGS OR ARMS? :NO ANY PACEMAKER,DEFIBRILLATOR, OR DORSAL COLUMN STIMULATOR? :NO DO YOU HAVE ANY RASHES OR OPEN SORES? :NO ARE YOU ALLERGIC TO IV DYE? :NO ARE YOU DIABETIC? :NO ANY NEW PROBLEMS WITH YOUR MEDICATIONS? :NO HAVE YOU RECEIVED A VACCINE IN THE PAST 30 DAYS? :NO DO YOU PLAN TO RECEIVE A VACCINE IN THE NEXT 21 DAYS? :NO DO YOU NEED ANY PRESCRIPTION? :NO DO YOU TAKE ANY IMMUNOSUPPRESSIVE MEDICATIONS? :YES PREDNISONE AND LEFLUNIMIDE FOR RA DO YOU HAVE ANY KIDNEY OR LIVER DISEASE? :NO IS THERE A CHANCE YOU COULD BE ? :NO ARE YOU BREAST FEEDING? :NO CURRENT MEDICATIONS TAKING ASPIRIN 81 81 MG TABLET DELAYED RELEASE 1 TABLET ORALLY ONCE A DAY TAKING GLUTATHIONE 50 MG TABLET ORALLY DAILY TAKING CALCIUM 500 MG TABLET 2 ORALLY DAILY TAKING MAY HAVE CURAMED BCM-95 DAILY TAKING VITAMIN C 1000 MG TABLET 1 TABLET ORALLY ONCE A DAY TAKING PROBIOTIC TABLET DELAYED RELEASE ORALLY DAILY TAKING MILK THISTLE 500 MG CAPSULE 750MGS ORALLY DAILY TAKING MAGNESIUM 500 MG CAPSULE 1 CAP ORALLY ONCE A DAY TAKING VITAMIN D3 2000 UNIT CAPSULE 1 CAPSULE ORALLY TWICE A DAY TAKING PREDNISONE 2.5 MG TABLET 1 TABLET ORALLY DAILY, NOTES: TAPERING DOSE TAKING LEFLUNOMIDE 10 MG TABLET 1 TABLET ORALLY ONCE A DAY, NOTES: RA RX TAKING FERROUS SULFATE 325 (65 FE) MG TABLET 1 TABLET ORALLY BID, NOTES: NOT SURE TAKING HYDROCODONE-ACETAMINOPHEN 10-325 MG TABLET 1 TABLET NEEDED ORALLY Q 4-6HR PRN MDD6 NOT-TAKING IODINE - CRYSTALS DIRECTED NOT-TAKING COLACE 100 MG CAPSULE 1 CAPSULE NEEDED ORALLY ONCE A DAY NOT-TAKING NORCO 10-325 MG TABLET 1 TABLET NEEDED ORALLY Q4-6H MDD6 NOT-TAKING EPIPEN 2-ARPAN 0.3 MG/0.3ML SOLUTION AUTO-INJECTOR DIRECTED INJECTION DIRECTED: PRN ALLERGIC REACTION NOT-TAKING MECLIZINE HCL 25 MG TABLET 1 TABLET NEEDED ORALLY TID MEDICATION LIST REVIEWED AND RECONCILED WITH THE PATIENT PAST MEDICAL HISTORY OVARIAN CA-DR. LILIAN VALENZUELA DEPRESSION RHEUMATOID ARTHRITIS-DR. 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 ONE FALL LAST YEAR FALL INSIDE OF THE LIVING, CUT ON FOREHEAD ALLERGIES METHOTREXATE: SORES IN MOUTH, CONSTANT COUGH AND PROBLEMS BREATHING - SIDE EFFECTS HYDROXYCHLOROQUINE: NOT SURE - ALLERGY SULFASALAZINE: NOT SURE - ALLERGY SEAFOOD: NAUSEA/VOMITING - ALLERGY CODEINE SULFATE: STOMACH CRAMPING - ALLERGY DULOXETINE HCL: HALLUCINATIONS - ALLERGY LYRICA: DIZZINESS, UNSTABLE BALANCE, SHORT-TERM MEMORY LOSS - ALLERGY HUMIRA: MUSCLE PAIN - ALLERGY GABAPENTIN: CONFUSION - ALLERGY CELEBREX: DIFFICULTY BREATHING - ALLERGY MUSHROOMS: ANAPHYLAXIS - ALLERGY SOCIAL HISTORY GENERAL: TOBACCO USE ARE YOU A:NONSMOKER LATEX QUESTIONNAIRE LATEX ALLERGY : HAVE YOU EVER DEVELOPED ANY TYPE OF REACTION AFTER HANDLING LATEX PRODUCTS SUCH RUBBER GLOVES, CONDOMS, DIAPHRAGMS, BALLOONS, SOCKS, OR UNDERWEAR?NO LATEX ALLERGY : HAVE YOU EVER DEVELOPED ANY TYPE OF REACTION DURING OR AFTER DENTAL APPOINTMENT, VAGINAL/RECTAL EXAMINATION, SURGICAL PROCEDURE, OR ANY OTHER EXPOSURE?NO LATEX RISK : HAVE YOU EVER HAD ANY DIFFICULTY BREATHING OR HIVES AFTER EATING OR HANDLING ANY FRUITS, OR VEGETABLES; SUCH KIWI, BANANAS, STONE FRUITS, OR CHESTNUTSNO LATEX RISK : DO YOU HAVE A PREVIOUS PERSONAL HISTORY OF MORE THAN NINE SURGERIES, SPINA BIFIDA, OR REPEATED CATHERIZATIONS? NO LATEX RISK : ARE YOU FREQUENTLY EXPOSED TO LATEX PRODUCTS IN YOUR OCCUPATION?NO DATE ASKED : 11/05/2020 ALCOHOL USE: NO. BMI CARE GOAL FOLLOW-UP BELOW NORMAL BMI FOLLOW-UPLIFESTYLE EDUCATION REGARDING DIET ALCOHOL SCREENING DID YOU HAVE A DRINK CONTAINING ALCOHOL IN THE PAST YEAR?NO POINTS0 INTERPRETATIONNEGATIVE RECREATIONAL DRUG USE DRUG USE?NO PATIENT DENIES ABUSE OR MISSUSED OF ANY MEDICATION. PATIENT DENIES USE OF ANY ILLEGAL SUBSTANCE INCLUDING MARIJUANA OR COCAINE. CAFFEINE CAFFEINE USE?NO SEXUAL HX HAD SEX IN THE LAST 12 MONTHS (VAGINAL, ORAL, OR ANAL)?NO HAVE YOU EVER HAD AN STD?NO HIV / HEP-C SCREENING HIV TEST OFFERED TO PATIENT:YES DATE OFFERED:11/03/2017 TEST ACCEPTED:NO HEP-C TEST OFFERED TO PATIENT:YES DATE OFFERED:11/03/2017 REASON:PATIENT DECLINED TEST ACCEPTED:NO REASON:PATIENT DECLINED BROCHURE PROVIDED TO PATIENTNO -PATIENT DECLINED MORMON [id number] AGNOSTIC LANGUAGE LANGUAGES SPOKEN:CUBAN EDUCATION LEVEL OF EDUCATION:COLLEGE LEARNING BARRIERS / SPECIAL NEEDS CHANGE FROM LAST VISIT?NO BARRIERS TO LEARNING?NO HEARING IMPAIRED?NO VISION IMPAIRED?YES :CORRECTIVE LENSES COGNITIVELY IMPAIRED?NO READINESS TO LEARN?YES LEARNING PREFERENCES?NO LEARNING CAPABILITIES PRESENT?YES EMOTIONAL BARRIERS?NO SPECIAL DEVICES?YES :WALKER, OTHER CRUTCH INSIGHTS ANALYST NEEDED?NO DOMESTIC VIOLENCE DO YOU FEEL SAFE IN YOUR ENVIRONMENT?YES 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 EXERCISE: WALKS. MARITAL STATUS: SINGLE. OTHERS AT HOME: NONE. TODAY'S VISITNOTES PATIENT DESCRIBES PAIN :BURNING, HAVE IT ALL THE TIME, IT COMES AND GOES, THROBBING 09/13/19 FROM 0-10, WHAT LEVEL IS YOUR PAIN TODAY?5 PRECIPITATING FACTORS NOTHING ALLEVIATING FACTORS MEDS IMPACT ON FUNCTION YES - PFS REFERRAL NEEDED?NO CLERGY REFERRAL NEEDED?NO PUBLIC HEALTH REFERRAL NEEDED?NO WAS THE PROVIDER NOTIFIED OF ANY PERTINENT INFO?NO HAS THE PATIENT BEEN EDUCATED REGARDING HIS/HER PLAN OF CARE?YES HAS THE PATIENT BEEN EDUCATED REGARDING PAIN, THE RISK FOR PAIN, THE IMPORTANCE OF EFFECTIVE PAIN MANAGEMENT, AND THE PAIN ASSESSMENT PROCESS?YES ADVANCE DIRECTIVE ADVANCE DIRECTIVE DISCUSSED WITH PATIENT:YES JIGNA HOOD-MOM REVIEWED WITH PT 07/23/18 1439 BV. REVIEW OF SYSTEMS CONSTITUTIONAL: ANY RECENT FEVER NO . CHILLS NO . WEIGHT CHANGE OF UNKNOWN REASONS NO . GASTROENTEROLOGY: NEW UNEXPLAINABLE CHANGES IN BOWEL CONTROL NO . CONSTIPATION NO . GENITOURINARY: ANY NEW CHANGE IN BLADDER CONTROL? NO . NEUROLOGY: NEW ONSET DIZZINESS OR NEUROLOGICAL CHANGES NOT MENTIONED NO . NEW NUMBNESS OR PAIN PATTERNS NOT MENTIONED AND PERTINENT TO TODAY'S VISIT NO . CARDIOLOGY: NEW CHEST PRESSURE NO . PATIENT DENIES NO . RESPIRATORY: UNEXPLAINABLE COUGH NO . NEW SHORTNESS OF BREATH NO . VITAL SIGNS WT 94.6 LBS, HT 62 IN, BMI 17.30 INDEX, BP 136/64 MM HG, HR 129 /MIN, RR 18 /MIN, TEMP 98.4 F, OXYGEN SAT % 98%, SAFE IN ENV? (Y/N) YES, NA INITIALS CT 14:41T.ARTURO LOCKWOOD. EXAMINATION GENERAL EXAMINATION: GENERALAWAKE,ALERT ,PLEAASANT . PSYCHAFFECT NORMAL . LUNGS:LUNG DAVILA ARE CLEAR TO AUSCULTATION BILATERALLY. GOOD MOVEMENT OF AIR . HEART:NORMAL RHYTHM, TACHYCARDIC. ASSESSMENTS RHEUMATOID ARTHRITIS INVOLVING MULTIPLE SITES WITH POSITIVE RHEUMATOID FACTOR - M05.79 (PRIMARY) CHRONIC PRESCRIPTION OPIATE USE - Z79.899 TREATMENT RHEUMATOID ARTHRITIS INVOLVING MULTIPLE SITES WITH POSITIVE RHEUMATOID FACTOR REFILL HYDROCODONE-ACETAMINOPHEN TABLET, 10-325 MG, 1 TABLET NEEDED, ORALLY, Q 4-6HR PRN MDD6, 30 DAYS, 180, REFILLS 0 PROCEDURE CODES FA211 ESTABILISHED PATIENT [facility] CHARGE DISPOSITION & COMMUNICATION FOLLOW UP 3 MONTHS (REASON: MED MGMNT/UTOX) ELECTRONICALLY SIGNED BY PERRY FROST ON 11/06/2020 AT 02:31 PM EDT DISCLAIMER : THIS IS A VISIT SUMMARY EXTRACTED FROM THE [employer] CHART. IT IS NOT A COPY OF THE [employer] PROGRESS NOTE. MTDD
== END ==
LOC: M PAIN 14:30
PROVIDERS: ATTEND Nurse Practitioner Family
DX: M05.79 Rheumatoid arthritis with rheumatoid factor of multiple sites without organ or systems involvement (principal); G89.29 Other chronic pain; D50.9 Iron deficiency anemia, unspecified; Z86.59 Personal history of other mental and behavioral disorders; Z88.2 Allergy status to sulfonamides; Z88.5 Allergy status to narcotic agent; Z88.6 Allergy status to analgesic agent; Z88.8 Allergy status to other drugs, medicaments and biological substances; Z91.013 Allergy to seafood; Z91.018 Allergy to other foods; Z79.82 Long term (current) use of aspirin; Z79.899 Other long term (current) drug therapy

== ENCOUNTER → 2020-11-29 | Outpatient (CLI) | payer MEDICARE ==
[~2020-11-29] MED LIST changes: +GASTROGRAFIN SOLUTION 30ML (Q9963) As Ordered ONE; +ISOVUE-370 76% 100ML VIAL As Ordered ONE
--- NOTE | 2020-11-29 17:08 | REP ---
INDICATION: ABN WT LOSS NAUSEA. COMPARISON: Comparison CT study November 08, 2019.. TECHNIQUE: Contrast dose: 100 ML of Isovue 370 are administered pre and postcontrast enhanced imaging of the upper abdomen. Oral contrast was also administered. Postcontrast imaging is acquired from the diaphragms to the perineum. AE the delayed postcontrast acquisition is also performed. FINDINGS: Preliminary digital booster station operator radiograph demonstrates bilateral hip arthroplasties. Bowel gas pattern is unremarkable. The lung bases are clear on axial CT images. There is no evidence of pleural effusion or ascites. The liver and the spleen are normal in size homogeneous in texture. There are calcific densities in the dependent portion the gallbladder consistent with cholelithiasis. No biliary ductal dilation is seen. No abnormality is noted in the pancreas. Normal adrenals are seen. The kidneys enhance symmetrically and are morphologically intact. No retroperitoneal mass or adenopathy is observed. Small and large bowel loops are unremarkable in the abdomen and pelvis. There is considerable spray artifact in the mid and lower pelvis from metallic hip arthroplasty components but no pelvic mass or adenopathy is appreciated. There is no evidence of ascites. No abdominal wall defect is seen. On bone window settings, no bony destructive lesion is appreciated. Delayed postcontrast acquisition shows no additional abnormality. There are scattered surgical clips in the abdomen unchanged. IMPRESSION: No acute abdominal or pelvic abnormality seen. Cholelithiasis. Bilateral hip arthroplasties. <Electronically signed by Kevin Meza > 11/29/20 1988
== END ==
LOC: M RAD 14:35
PROVIDERS: ATTEND Surgery
DX: R63.4 Abnormal weight loss (principal); R11.0 Nausea
CPT/HCPCS: 74178; Q9963; Q9967

== ENCOUNTER → 2020-12-05 | Outpatient (CLI) | payer MEDICARE ==
[~2020-12-05] MED LIST changes: -GASTROGRAFIN SOLUTION 30ML (Q9963) As Ordered ONE; -ISOVUE-370 76% 100ML VIAL As Ordered ONE
[2020-12-05 16:37] LABS: BASO % 0.4 % (0.0-1.0); EOS # 0.3 10^3/uL (0.0-0.5); EOS % 5.4 % (0.0-3.0); LYMPH # 0.9 10^3/uL (1.5-5.0); LYMPH % 19.2 % (24.0-44.0); MONO # 0.4 10^3/uL (0.0-0.8); MONO % 7.7 % (2.0-8.0); NEUTROPHILS # 3.2 10^3/uL (1.5-8.5); NEUTROPHILS % 67.1 % (36.0-66.0)
[2020-12-05 17:05] LABS: BLOOD UREA NITROGEN 15 MG/DL (7-18); CREATININE FOR GFR 0.48 MG/DL (0.55-1.30); GLOMERULAR FILTRATION RATE > 60.0 (>51)
[2020-12-05 17:06] LABS: ALBUMIN 3.8 GM/DL (3.2-5.2); ALT/SGPT 72 U/L (12-78); C REACTIVE PROTEIN QUANTITATIV 0.94 MG/DL (0.00-0.30)
== END ==
LOC: M WUC 13:32
DX: M05.79 Rheumatoid arthritis with rheumatoid factor of multiple sites without organ or systems involvement (principal); M15.9 Polyosteoarthritis, unspecified; M81.8 Other osteoporosis without current pathological fracture; Z79.899 Other long term (current) drug therapy

== ENCOUNTER → 2020-12-05 | Outpatient (CLI) | payer MEDICARE ==
[2020-12-05 16:39] LABS: BASO % 0.4 % (0.0-1.0); EOS # 0.2 10^3/uL (0.0-0.5); EOS % 4.1 % (0.0-3.0); HEMATOCRIT 32.3 % (36.0-47.0); HEMOGLOBIN 9.8 g/dl (12.0-15.5); LYMPH % 20.5 % (24.0-44.0); MEAN CORPUSCULAR HEMOGLOBIN 30.8 pg (27.0-33.0); MEAN CORPUSCULAR HGB CONC 30.3 g/dl (32.0-36.5); MEAN CORPUSCULAR VOLUME 101.6 fl (80.0-96.0); MONO # 0.3 10^3/uL (0.0-0.8); MONO % 7.2 % (2.0-8.0); NEUTROPHILS # 3.2 10^3/uL (1.5-8.5); NEUTROPHILS % 67.6 % (36.0-66.0); PLATELET COUNT, AUTOMATED 258 10^3/uL (150-450); RED BLOOD COUNT 3.18 10^6/uL (4.00-5.40); WHITE BLOOD COUNT 4.7 10^3/uL (4.0-10.0)
== END ==
LOC: M WUC 13:28
PROVIDERS: ATTEND Nurse Practitioner Family
DX: E61.1 Iron deficiency (principal)

== ENCOUNTER → 2020-12-11 | Outpatient (CLI) | payer MEDICARE ==
--- NOTE | 2020-12-13 00:17 | ECWPNPC ---
PATIENT NAME: YNES HOOD : 1965 GENDER: FEMALE VISIT DATE: 12/11/2020 DISCHARGE DATE: 12/11/20 1459 VISIT LOCKED DATE TIME: PHYSICIAN: ANETTE LORD PHYSICIAN PAGER NO: ACTIVE RESOURCE: ANETTE LORD REASON FOR APPOINTMENT 1. CHRONIC PAIN HISTORY OF PRESENT ILLNESS GENERAL: - - HERE FOR ROUTINE FOLLOW-UP AND MEDICINE MANAGEMENT FOR CHRONIC PAIN. HAS SEVERE RHEUMATOID ARTHROPATHY. FINDS CURRENT MEDICATION HELPFUL AT REDUCING PAIN AND KEEPING HER FUNCTIONAL. DENIES ADVERSE EFFECTS WITH MEDICATION.-PATIENT IS BEGINNING TO GAIN WEIGHT AFTER LOSING QUITE A BIT OF WEIGHT RECENTLY. FOLLOWING CLOSELY WITH PRIMARY CARE PROVIDER. REPORTS IMPROVED APPETITE. FALL RISK SCREENING: SCREENING : NO FALLS REPORTED IN THE LAST YEAR. PAIN SCREENING: PATIENT HAS A COMPLAINT OF ACUTE OR CHRONIC PAIN :YES LOCATION OF PAIN:NECK, UPPER BACK, MID BACK, LOW BACK RHEUMATOID ARTHROPATHY INTENSITY OF PAIN (SCALE OF 1 TO 10):7 WHAT DOES YOUR PAIN FEEL LIKE:ACHING, CONTINOUS, STABBING DURATION:CONTINOUS, CONSTANT, ALL DAY PAIN IS INCREASED BY:OTHERS NOTHING THE PAIN IS ALWAYS THERE PAIN IS DECREASED BY:USE OF PAIN MEDICATIONS NURSING NOTE: -. PAIN CENTER INTAKE QUESTIONS: DO YOU HAVE A HISTORY OF MRSA? :NO DO YOU TAKE A BLOOD THINNERS? :NO DO YOU HAVE ANY BLEEDING DISORDERS? :NO ANY NEW NUMBNESS OR WEAKNESS IN YOUR LEGS OR ARMS? :NO ANY PACEMAKER,DEFIBRILLATOR, OR DORSAL COLUMN STIMULATOR? :NO DO YOU HAVE ANY RASHES OR OPEN SORES? :NO ARE YOU ALLERGIC TO IV DYE? :NO ARE YOU DIABETIC? :NO ANY NEW PROBLEMS WITH YOUR MEDICATIONS? :NO HAVE YOU RECEIVED A VACCINE IN THE PAST 30 DAYS? :NO DO YOU PLAN TO RECEIVE A VACCINE IN THE NEXT 21 DAYS? :NO DO YOU NEED ANY PRESCRIPTION? :YES HYDROCODONE-ACETAMINOPHEN 10-325 MG DO YOU TAKE ANY IMMUNOSUPPRESSIVE MEDICATIONS? :YES PREDNISONE AND LEFLUNIMIDE FOR RA DO YOU HAVE ANY KIDNEY OR LIVER DISEASE? :NO IS THERE A CHANCE YOU COULD BE ? :NO ARE YOU BREAST FEEDING? :NO CURRENT MEDICATIONS TAKING ASPIRIN 81 81 MG TABLET DELAYED RELEASE 1 TABLET ORALLY ONCE A DAY TAKING GLUTATHIONE 50 MG TABLET ORALLY DAILY TAKING CALCIUM 500 MG TABLET 2 ORALLY DAILY TAKING MAY HAVE CURAMED BCM-95 DAILY TAKING VITAMIN C 1000 MG TABLET 1 TABLET ORALLY ONCE A DAY TAKING PROBIOTIC TABLET DELAYED RELEASE ORALLY DAILY TAKING MILK THISTLE 500 MG CAPSULE 750MGS ORALLY DAILY TAKING MAGNESIUM 500 MG CAPSULE 1 CAP ORALLY ONCE A DAY TAKING VITAMIN D3 2000 UNIT CAPSULE 1 CAPSULE ORALLY TWICE A DAY TAKING PREDNISONE 2.5 MG TABLET 1 TABLET ORALLY DAILY, NOTES: TAPERING DOSE TAKING LEFLUNOMIDE 10 MG TABLET 1 TABLET ORALLY ONCE A DAY TAKING HYDROCODONE-ACETAMINOPHEN 10-325 MG TABLET 1 TABLET NEEDED ORALLY Q 4-6HR PRN MDD6 TAKING SUCRALFATE 1 GM TABLET 1 TABLET ON AN EMPTY STOMACH ORALLY PREMALS TID TAKING FERROUS SULFATE 325 (65 FE) MG TABLET 1 TABLET ORALLY BID MEDICATION LIST REVIEWED AND RECONCILED WITH THE PATIENT ALLERGIES NO[ALLERGIES VERIFIED] SOCIAL HISTORY GENERAL: TOBACCO USE ARE YOU A:NONSMOKER LATEX QUESTIONNAIRE LATEX ALLERGY : HAVE YOU EVER DEVELOPED ANY TYPE OF REACTION AFTER HANDLING LATEX PRODUCTS SUCH RUBBER GLOVES, CONDOMS, DIAPHRAGMS, BALLOONS, SOCKS, OR UNDERWEAR?NO LATEX ALLERGY : HAVE YOU EVER DEVELOPED ANY TYPE OF REACTION DURING OR AFTER DENTAL APPOINTMENT, VAGINAL/RECTAL EXAMINATION, SURGICAL PROCEDURE, OR ANY OTHER EXPOSURE?NO LATEX RISK : HAVE YOU EVER HAD ANY DIFFICULTY BREATHING OR HIVES AFTER EATING OR HANDLING ANY FRUITS, OR VEGETABLES; SUCH KIWI, BANANAS, STONE FRUITS, OR CHESTNUTSNO LATEX RISK : DO YOU HAVE A PREVIOUS PERSONAL HISTORY OF MORE THAN NINE SURGERIES, SPINA BIFIDA, OR REPEATED CATHERIZATIONS? NO LATEX RISK : ARE YOU FREQUENTLY EXPOSED TO LATEX PRODUCTS IN YOUR OCCUPATION?NO DATE ASKED : 12/11/2020 ALCOHOL USE: NO. BMI CARE GOAL FOLLOW-UP BELOW NORMAL BMI FOLLOW-UPLIFESTYLE EDUCATION REGARDING DIET ALCOHOL SCREENING DID YOU HAVE A DRINK CONTAINING ALCOHOL IN THE PAST YEAR?NO POINTS0 INTERPRETATIONNEGATIVE RECREATIONAL DRUG USE DRUG USE?NO PATIENT DENIES ABUSE OR MISSUSED OF ANY MEDICATION. PATIENT DENIES USE OF ANY ILLEGAL SUBSTANCE INCLUDING MARIJUANA OR COCAINE. CAFFEINE CAFFEINE USE?NO SEXUAL HX HAD SEX IN THE LAST 12 MONTHS (VAGINAL, ORAL, OR ANAL)?NO HAVE YOU EVER HAD AN STD?NO HIV / HEP-C SCREENING HIV TEST OFFERED TO PATIENT:YES DATE OFFERED:11/03/2017 TEST ACCEPTED:NO HEP-C TEST OFFERED TO PATIENT:YES DATE OFFERED:11/03/2017 REASON:PATIENT DECLINED TEST ACCEPTED:NO REASON:PATIENT DECLINED BROCHURE PROVIDED TO PATIENTNO -PATIENT DECLINED JEHOVAH'S WITNESS [id number] AGNOSTIC LANGUAGE LANGUAGES SPOKEN:[place]ER EDUCATION LEVEL OF EDUCATION:COLLEGE LEARNING BARRIERS / SPECIAL NEEDS CHANGE FROM LAST VISIT?NO BARRIERS TO LEARNING?NO HEARING IMPAIRED?NO VISION IMPAIRED?YES :CORRECTIVE LENSES COGNITIVELY IMPAIRED?YES READINESS TO LEARN?YES LEARNING PREFERENCES?NO LEARNING CAPABILITIES PRESENT?YES EMOTIONAL BARRIERS?NO SPECIAL DEVICES?YES :WALKER, OTHER CRUTCH AD COMPOSITOR NEEDED?NO DOMESTIC VIOLENCE DO YOU FEEL SAFE IN YOUR ENVIRONMENT?YES 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 EXERCISE: WALKS. MARITAL STATUS: SINGLE. OTHERS AT HOME: NONE. TODAY'S VISITNOTES PATIENT DESCRIBES PAIN :BURNING, HAVE IT ALL THE TIME, IT COMES AND GOES, THROBBING 09/13/19 FROM 0-10, WHAT LEVEL IS YOUR PAIN TODAY?5 PRECIPITATING FACTORS NOTHING ALLEVIATING FACTORS MEDS IMPACT ON FUNCTION YES - PFS REFERRAL NEEDED?NO CLERGY REFERRAL NEEDED?NO PUBLIC HEALTH REFERRAL NEEDED?NO WAS THE PROVIDER NOTIFIED OF ANY PERTINENT INFO?NO HAS THE PATIENT BEEN EDUCATED REGARDING HIS/HER PLAN OF CARE?YES HAS THE PATIENT BEEN EDUCATED REGARDING PAIN, THE RISK FOR PAIN, THE IMPORTANCE OF EFFECTIVE PAIN MANAGEMENT, AND THE PAIN ASSESSMENT PROCESS?YES ADVANCE DIRECTIVE ADVANCE DIRECTIVE DISCUSSED WITH PATIENT:YES JIGNA HOOD-[facility] REVIEWED WITH PT 07/23/18 5531 BV. REVIEW OF SYSTEMS CONSTITUTIONAL: ANY RECENT FEVER NO . CHILLS NO . WEIGHT CHANGE OF UNKNOWN REASONS NO . GASTROENTEROLOGY: NEW UNEXPLAINABLE CHANGES IN BOWEL CONTROL NO . CONSTIPATION NO . GENITOURINARY: ANY NEW CHANGE IN BLADDER CONTROL? NO . NEUROLOGY: NEW ONSET DIZZINESS OR NEUROLOGICAL CHANGES NOT MENTIONED NO . NEW NUMBNESS OR PAIN PATTERNS NOT MENTIONED AND PERTINENT TO TODAY'S VISIT NO . CARDIOLOGY: NEW CHEST PRESSURE NO . PATIENT DENIES NO . RESPIRATORY: UNEXPLAINABLE COUGH NO . NEW SHORTNESS OF BREATH NO . VITAL SIGNS WT 97 LBS, HT 62 IN, BMI 17.74 INDEX, BP 138/89 MM HG, HR 116 /MIN, RR 16 /MIN, TEMP 97.7 F, OXYGEN SAT % 99%, SAFE IN ENV? (Y/N) YES, NA INITIALS KS 14:33T.ARTURO LOCKWOOD. EXAMINATION GENERAL EXAMINATION: GENERALAWAKE,ALERT ,PLEAASANT . PSYCHAFFECT NORMAL . LUNGS:LUNG DAVILA ARE CLEAR TO AUSCULTATION BILATERALLY. GOOD MOVEMENT OF AIR . HEART:NORMAL RHYTHM, TACHYCARDIC. ASSESSMENTS RHEUMATOID ARTHRITIS INVOLVING MULTIPLE SITES WITH POSITIVE RHEUMATOID FACTOR - M05.79 (PRIMARY) TREATMENT RHEUMATOID ARTHRITIS INVOLVING MULTIPLE SITES WITH POSITIVE RHEUMATOID FACTOR REFILL HYDROCODONE-ACETAMINOPHEN TABLET, 10-325 MG, 1 TABLET NEEDED, ORALLY, Q 4-6HR PRN MDD6, 30 DAYS, 180, REFILLS 0 NOTES: ISTOP REGISTRY REVIEWED AND DEMONSTRATES COMPLLIANCE. BRINGS IN MEDICATIONS WHICH IS APPROPRIATE FOR WHAT WAS DISPENSED. RECENT URINE TOXICOLOGY REVIEWED. NO UNAUTHORIZED MEDICATIONS. NO ILLICIT SUBSTANCES AND PRESCRIBED MEDICATIONS WERE PRESENT. PROCEDURE CODES FA211 ESTABILISHED PATIENT [facility] CHARGE DISPOSITION & COMMUNICATION FOLLOW UP 3 MONTHS (REASON: MED MGMNT) ELECTRONICALLY SIGNED BY PERRY FROST ON 12/12/2020 AT 01:09 PM EDT DISCLAIMER : THIS IS A VISIT SUMMARY EXTRACTED FROM THE ECLINICAL[employer] CHART. IT IS NOT A COPY OF THE [employer] PROGRESS NOTE. SUDHIR
== END ==
LOC: M PAIN 14:15
PROVIDERS: ATTEND Nurse Practitioner Family
DX: M05.79 Rheumatoid arthritis with rheumatoid factor of multiple sites without organ or systems involvement (principal); Z79.82 Long term (current) use of aspirin; Z79.891 Long term (current) use of opiate analgesic; Z79.899 Other long term (current) drug therapy

== ENCOUNTER → 2020-12-26 | Outpatient (CLI) | payer MEDICARE ==
[~2020-12-26] MED LIST changes: +CALC500C16 PO; +FERR28CA PO; +LEFL20TA10
== END ==
LOC: M LAB 15:55
PROVIDERS: ATTEND Physician Assistant Medical
DX: M06.09 Rheumatoid arthritis without rheumatoid factor, multiple sites (principal)

== ENCOUNTER → 2021-02-13 | Outpatient (CLI) | payer MEDICARE ==
[~2021-02-13] MED LIST changes: +LEFL10TA12; -LEFL20TA10
[2021-02-13 18:07] LABS: BASO % 0.6 % (0.0-1.0); EOS # 0.2 10^3/uL (0.0-0.5); EOS % 2.5 % (0.0-3.0); HEMATOCRIT 36.5 % (36.0-47.0); HEMOGLOBIN 11.3 g/dl (12.0-15.5); LYMPH # 0.8 10^3/uL (1.5-5.0); LYMPH % 11.7 % (24.0-44.0); MEAN CORPUSCULAR HEMOGLOBIN 31.1 pg (27.0-33.0); MEAN CORPUSCULAR VOLUME 100.6 fl (80.0-96.0); MONO # 0.5 10^3/uL (0.0-0.8); MONO % 7.4 % (2.0-8.0); NEUTROPHILS % 77.5 % (36.0-66.0); PLATELET COUNT, AUTOMATED 258 10^3/uL (150-450); RED BLOOD COUNT 3.63 10^6/uL (4.00-5.40); WHITE BLOOD COUNT 6.4 10^3/uL (4.0-10.0)
[2021-02-13 18:28] LABS: ALBUMIN 3.8 GM/DL (3.2-5.2); ALT/SGPT 52 U/L (12-78); BLOOD UREA NITROGEN 19 MG/DL (7-18); C REACTIVE PROTEIN QUANTITATIV 0.77 MG/DL (0.00-0.30); CREATININE FOR GFR 0.54 MG/DL (0.55-1.30); GLOMERULAR FILTRATION RATE > 60.0 (>51)
[2021-02-13 19:13] LABS: ERYTHROCYTE SEDIMENTATION RATE 40 mm/hr (0-30)
== END ==
LOC: M LAB 15:45
PROVIDERS: ATTEND Physician Assistant Medical
DX: M05.79 Rheumatoid arthritis with rheumatoid factor of multiple sites without organ or systems involvement (principal); M15.9 Polyosteoarthritis, unspecified; M81.8 Other osteoporosis without current pathological fracture; Z79.899 Other long term (current) drug therapy

== ENCOUNTER → 2021-03-18 | Outpatient (CLI) | payer MEDICARE ==
--- NOTE | 2021-03-18 12:21 | REP ---
INDICATION: GALL STONES. COMPARISON: None TECHNIQUE/RADIOTRACER AND DOSE: FOLLOWING THE INTRAVENOUS ADMINISTRATION OF 6.5 MCI TECHNETIUM 99 M-MEBROFENIN, MULTIPLE IMAGES OF THE RIGHT UPPER QUADRANT ARE PERFORMED FOR 60 MINUTES. FINDINGS: THE GALLBLADDER IS VISUALIZED AT 10 MINUTES POST INJECTION. THERE IS no BILIARY TO BOWEL TRANSIT AT 60MINUTES POST INJECTION. THERE IS NO SCINTIGRAPHIC EVIDENCE OF CHOLECYSTITIS. IMPRESSION: No scintigraphic evidence of cholecystitis. 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 <Electronically signed by Demond Lau > 03/18/21 [id number]
== END ==
LOC: M RAD 10:31
PROVIDERS: ATTEND Internal Medicine Gastroenterology
DX: K82.8 Other specified diseases of gallbladder (principal)
CPT/HCPCS: 78226; A9537

== ENCOUNTER → 2021-03-22 | Outpatient (CLI) | payer MEDICARE | LOC: M PAIN 14:30 | PROVIDERS: ATTEND Anesthesiology | DX: M05.79 Rheumatoid arthritis with rheumatoid factor of multiple sites without organ or systems involvement (principal); M54.2 Cervicalgia; M79.18 Myalgia, other site; D50.9 Iron deficiency anemia, unspecified; Z86.59 Personal history of other mental and behavioral disorders; Z88.2 Allergy status to sulfonamides; Z88.5 Allergy status to narcotic agent; Z88.6 Allergy status to analgesic agent; Z88.8 Allergy status to other drugs, medicaments and biological substances; Z91.013 Allergy to seafood; Z91.018 Allergy to other foods; Z79.82 Long term (current) use of aspirin; Z79.899 Other long term (current) drug therapy ==

== ENCOUNTER → 2021-04-15 | Outpatient (CLI) | payer MEDICARE ==
[~2021-04-15] MED LIST changes: +CVS1CAP2 PO; +D31000TA2 PO; +HYDR-4517 PO; -LEFL10TA12; +LEFL10TA12 PO; +MAGN1CAP PO; +RA M200C4 PO; +VITA100062 PO; +ZINC1TAB2 PO; +[UNRECOGNIZED DRUG - CODE] PO; +curamed
[2021-04-15 14:51] LABS: BASO % 0.6 % (0.0-1.0); EOS # 0.2 10^3/uL (0.0-0.5); EOS % 5.9 % (0.0-3.0); HEMATOCRIT 34.3 % (36.0-47.0); HEMOGLOBIN 10.7 g/dl (12.0-15.5); LYMPH # 0.8 10^3/uL (1.5-5.0); LYMPH % 23.4 % (24.0-44.0); MEAN CORPUSCULAR HEMOGLOBIN 31.3 pg (27.0-33.0); MEAN CORPUSCULAR HGB CONC 31.2 g/dl (32.0-36.5); MEAN CORPUSCULAR VOLUME 100.3 fl (80.0-96.0); MONO # 0.3 10^3/uL (0.0-0.8); MONO % 7.6 % (2.0-8.0); NEUTROPHILS # 2.2 10^3/uL (1.5-8.5); NEUTROPHILS % 62.2 % (36.0-66.0); PLATELET COUNT, AUTOMATED 212 10^3/uL (150-450); RED BLOOD COUNT 3.42 10^6/uL (4.00-5.40); WHITE BLOOD COUNT 3.5 10^3/uL (4.0-10.0)
[2021-04-15 15:07] LABS: ALBUMIN 3.8 GM/DL (3.2-5.2); ALT/SGPT 45 U/L (12-78); BLOOD UREA NITROGEN 16 MG/DL (7-18); C REACTIVE PROTEIN QUANTITATIV 2.89 MG/DL (0.00-0.30); GLOMERULAR FILTRATION RATE > 60.0 (>51)
[2021-04-15 15:43] LABS: ERYTHROCYTE SEDIMENTATION RATE 52 mm/hr (0-30)
== END ==
LOC: M LAB 13:44
PROVIDERS: ATTEND Internal Medicine Rheumatology
DX: M05.79 Rheumatoid arthritis with rheumatoid factor of multiple sites without organ or systems involvement (principal); Z79.899 Other long term (current) drug therapy

== ENCOUNTER → 2021-04-15 | Outpatient (CLI) | payer MEDICARE ==
[2021-04-15 15:09] LABS: ALBUMIN 3.8 GM/DL (3.2-5.2); BILIRUBIN,DIRECT 0.3 MG/DL (0.0-0.2); BILIRUBIN,TOTAL 1.2 MG/DL (0.2-1.0); TOTAL PROTEIN 7.9 GM/DL (6.4-8.2)
== END ==
LOC: M LAB 13:47
PROVIDERS: ATTEND Internal Medicine Gastroenterology
DX: R63.4 Abnormal weight loss (principal)

== ENCOUNTER → 2021-04-15 | Outpatient (CLI) | payer MEDICARE | LOC: M RAD 11:29 | PROVIDERS: ATTEND Internal Medicine Gastroenterology | DX: K31.84 Gastroparesis (principal) | CPT/HCPCS: 78264; A9541 ==

== ENCOUNTER → 2021-04-22 | Outpatient (CLI) | payer MEDICARE ==
[~2021-04-22] MED LIST changes: -curamed
== END ==
LOC: M LABSMTC 10:24
PROVIDERS: ATTEND Anesthesiology
DX: Z01.812 Encounter for preprocedural laboratory examination (principal); Z20.822 Contact with and (suspected) exposure to COVID-19

== ENCOUNTER → 2021-04-24 | Outpatient (CLI) | payer MEDICARE ==
[~2021-04-24] MED LIST changes: +LIDOCAINE 1% MDV 20ML VIAL As Ordered ONE
[2021-04-24 09:24] LABS: EOS # 0.2 10^3/uL (0.0-0.5); EOS % 5.9 % (0.0-3.0); HEMATOCRIT 34.6 % (36.0-47.0); HEMOGLOBIN 10.6 g/dl (12.0-15.5); LYMPH # 1.4 10^3/uL (1.5-5.0); LYMPH % 35.6 % (24.0-44.0); MEAN CORPUSCULAR HEMOGLOBIN 31.1 pg (27.0-33.0); MEAN CORPUSCULAR HGB CONC 30.6 g/dl (32.0-36.5); MEAN CORPUSCULAR VOLUME 101.5 fl (80.0-96.0); MONO # 0.3 10^3/uL (0.0-0.8); MONO % 8.1 % (2.0-8.0); NEUTROPHILS # 1.9 10^3/uL (1.5-8.5); NEUTROPHILS % 49.1 % (36.0-66.0); PLATELET COUNT, AUTOMATED 210 10^3/uL (150-450); RED BLOOD COUNT 3.41 10^6/uL (4.00-5.40); WHITE BLOOD COUNT 3.9 10^3/uL (4.0-10.0)
[2021-04-24 11:00] VITALS: BP 125/60
--- NOTE | 2021-04-24 19:43 | REP ---
INDICATION: ANEMIA. COMPARISON: None. TECHNIQUE: The procedure is performed by VIRAL Mcdonald, under the direct supervision of Dr. Lau. The risks and benefits of the procedure were explained to the patient and informed consent was obtained both orally and written. Directly prior to the start of the procedure, a formal timeout was done in the exam room. The left iliac crest was localized using CT guidance. Skin was prepped and draped in the usual sterile fashion. Ten ml of 1% lidocaine was used as a local anesthetic. FINDINGS: Using CT guidance an 11 gauge bone biopsy system was inserted. Approximately 7 mL of marrow fluid was obtained, as well as 1 core of bone. Patient tolerated the procedure well and there were no immediate complications. After the appropriate amount of monitored convalescence the patient was discharged from the department. IMPRESSION: CT-guided bone marrow aspiration and core bone biopsy. <Electronically signed by Elvie Bolton > 04/24/21 1632 <Electronically signed by Demond Lau > 04/24/21 1940
== END ==
LOC: M IRPRO 08:50
PROVIDERS: ATTEND Specialist
DX: D64.9 Anemia, unspecified (principal)

== ENCOUNTER 2021-04-26 11:42 | Day surgery (SDC) | payer MEDICARE ==
[~2021-04-26] VITALS: Ht 160 cm; Wt 46.2 kg
[~2021-04-26 11:42] MED LIST changes: -LIDOCAINE 1% MDV 20ML VIAL As Ordered ONE; +NS 1,000 ML IV ONE
--- OUTSIDE RECORDS SUMMARY | 2021-04-26 11:48 | CCD | Summary of Care ---
Author Author [facility] Address Unknown Phone Unavailable Care Team Providers Care Manager Of Quality Name Role Phone Fe Sherwood MUCK FARMER PCP Encounter Details Care Team Description Date Type Department 04/24/2021 [facility] Clinical Encounter Pathology at [place] [address] [place] [address] Allergies Comments Active Allergy Reactions Severity Noted Date Contraindicated for ovarian ca Extreme fatigue and pain Adalimumab Other (See 03/26/2012 Comments) (azulphadine/sulfasalazine) blurred vision Azulene Base Other (See 03/23/2012 Comments) Celecoxib Shortness Of High 07/14/2014 Breath, Palpitations Abdominal pain Codeine Other (See 03/23/2012 Comments) Abd cramping Codeine Other (See 07/06/2019 Comments) hallucinations Duloxetine Hcl Other (See Low 03/23/2012 Comments) Hallucinations Duloxetine Hcl Other (See 07/06/2019 Comments) "feels weird" Gabapentin Other (See 03/26/2012 Comments) Increased pain, immobility Adalimumab 02/23/2018 Hydroxychloroquine Low 08/22/2020 Methotrexate Derivatives Shortness Of High 03/23 Breath Respitory issues Methotrexate Derivatives Other (See 07/06/2019 Comments) Mushroom Extract Complex Anaphylaxis High 02/08 Mushroom-In Food Anaphylaxis High 02/08/2018 Pregabalin Medium 08/22/2020 Propoxyphene High 09/02/2007 documented as of this encounter (statuses as of 04/25/2021) Medications End Date Status Medication Sig Dispensed Refills Start Date Active predniSONE (DELTASONE) Take 2.5 mg 0 2.5 MG tablet by mouth Two Times Daily Active Ascorbic Acid (VITAMIN C Take 1,000 mg 0 PO) by mouth every morning Active Barley Grass POWD Take by mouth 0 daily 1 tablespoon, mix with water Active Probiotic Product Take 1 0 (PROBIOTIC PO) capsule by mouth daily Active Cholecalciferol (VITAMIN Take 2,000 0 D) 2000 UNITS tablet Units by mouth Two Times Daily Active Misc Natural Products Take 750 mg 0 (TURMERIC CURCUMIN) CAPS by mouth daily Active Flaxseed, Linseed, (FLAX Take 1,000 mg 0 SEED OIL PO) by mouth as needed Active CALCIUM CARBONATE PO Take 1,000 mg 0 by mouth every morning Active aspirin 81 MG tablet Take 81 mg by 0 mouth every evening Active Docusate Sodium 100 MG Take 100 mg 10 tablet 0 / capsule by mouth Two 9 Times Daily Active magnesium gluconate Take 500 mg 0 (MAGONATE) 500 MG tablet by mouth daily Active GLUTATHIONE PO Take by mouth 0 daily Active Coenzyme Q10 (CO Q-10) Take 100 mg 0 100 MG CAPS by mouth daily Active Cyanocobalamin (VITAMIN Take by mouth 0 B12 PO) daily Active ranitidine (ZANTAC) 300 Take 1 tablet 0 02/16/ MG tablet by mouth 9 daily as needed for Heartburn Additional Information Patient not taking. Reported on 09/27/2019 Active Ferrous Sulfate 325 (65 Take 325 mg 0 Fe) MG Oral Tablet by mouth daily with breakfast Active Flaxseed Oil 1000 MG Oral Take by mouth 0 Capsule Active Milk Thistle 175 MG Oral Take 175 mg 0 Tablet by mouth daily Active Vitamin E 400 UNIT Oral Take 400 0 Capsule Units by mouth daily Active raNITIdine HCl 150 MG Take 150 mg 0 Oral Tablet (ZANTAC) by mouth Two Times Daily Active Calcium Carbonate-Vitamin Take 1 tablet 0 D 500-200 MG-UNIT Oral by mouth Tablet (OSCAL-500) daily Active Diclofenac Sodium 50 MG Take 50 mg by 0 Oral Tablet Delayed mouth Two Release (VOLTAREN) Times Daily Active predniSONE 5 MG Oral Take 5 mg by 0 Tablet (DELTASONE) mouth daily Active B Complex Vitamins Take by mouth 0 (VITAMIN B COMPLEX PO) Active HYDROcodone-Acetaminophen Take 1 tablet 0 10-325 MG Oral Tablet by mouth (VICODIN) every 6 (six) hours as needed for Pain Active Leflunomide 20 MG Oral Take 10 mg by 0 Tablet (ARAVA) mouth daily documented as of this encounter (statuses as of 04/25/2021) Active Problems Problem Noted Date Weight loss 09/27/2019 Status post total hip replacement, left 03/21/2019 Impaired mobility and activities of daily living Overview: Formatting of this note might be differ ent from the original. PT/OT History of total left hip replacement 02/01/2019 Overview: Formatting of this note might be differ ent from the original. PT/OT. Chronic left hip pain 04/12/2018 Physical deconditioning 03/01/2018 Status post total replacement of right hip 8 Tachycardia 02/24/2018 Hypokalemia 02/24/2018 Hypomagnesemia 02/24/2018 Osteoarthritis of right hip 02/23/2018 Chronic right hip pain 12/14/2017 Rheumatoid arthritis involving both hands with positi ve rheumatoid factor 01/02/2017 Status post total left knee replacement using cement 10/20/2014 RA (rheumatoid arthritis) 09/07/2014 Overview: Formatting of this note might be differ ent from the original. Prednisone 2.5 mg BID DJD (degenerative joint disease) 09/06/2014 DJD (degenerative joint disease) of knee 09/06/2014 Seroma, postoperative 04/07/2012 Acquired absence of breast and nipple 04/05/2012 Other postprocedural status(V45.89) 04/05/2012 BRCA2 positive 03/26/2012 Fibromyalgia 05/18/2011 Ovarian cancer 05/18/2010 Cancer Staging: Clinical stage from 05/20: FIGO Stage IIIC - Signed by Chelly Elena MD on 09/25/2019 Overview: Formatting of this note might be differ ent from the original. Bilateral carcinosarcoma, Stage IIIC. B aseline CA125 176.4 L ast Assessment & Plan: Formatting of this note might be differ ent from the original. All results reviewed. Remains in remis shakir. Arthritis of right hip documented as of this encounter (statuses as of 04/25/2021) Resolved Problems Problem Noted Date Resolved Date Leukocytosis 02/25/2018 09/27/2019 Acute blood loss as cause of postoperative anemia 02/25/20 18 09/27/2019 Overview: Formatting of this note might be differ ent from the original. Stable Rheumatoid arthritis 03/01/2018 documented as of this encounter (statuses as of 04/25/2021) Social History Date Tobacco Use Types Packs/Day Years Used Former Smoker Cigars Smokeless Tobacco: Never Used Comments: 30 years ago (cigars) Comments Alcohol Use Standard Drinks/Week rare Yes 0 (1 standard drink = 0.6 o z pure alcohol) Alcohol Habits Answer Date Recorded How often do you have a drink containing alcohol? No t asked How many drinks containing alcohol do you have on No t asked a typical day when you are drinking? How often do you have six or more drinks on one Not asked occasion? Comment: rare 07/06/2019 Sex Assigned at Date Recorded Not on file documented as of this encounter Last Filed Vital Signs Not on filedocumented in this encounter Plan of Treatment Care Team Description Date Type Specialty Becky Brar NP [address] [place] [address] [email or web address] 11/07/2021 Office Visit Gynecologic Oncolog y Date/Time Name Type Priority Associated Diag noses 04/24/2021 1:03 PM EST Cytogenetics Oncology, Pathology and Routine Blood and Bone Marrow Cytology 04/24/2021 1:18 PM EST Hematopathology Pathology and Routine Cytology Order Schedule Name Type Priority Associated Diag noses Once for 1 Occurrences starting 04/24/20 21 until 04/24/2021 Cytogenetics Oncology, Pathology and Routine Blood and Bone Marrow Cytology Once for 1 Occurrences starting 04/24/20 21 until 04/24/2021 Hematopathology Pathology and Routine Cytology Health Maintenance Due Date Last Done Comments MMR Vaccines (1 of 1 - 1964 Standard series) Varicella Vaccines (1 of 1966 2 - 2-dose childhood series) Pneumococcal Vaccine: 1969 Pediatrics (0 to 5 Years) and At-Risk Patients (6 to 64 Years) (1 of 4 - PCV13) DTaP,Tdap,and Td Vaccines 1970 (1 - Tdap) HIV Screening 1976 Cervical Cancer Screening 1984 5 years Breast Cancer Screening 2 2013 years Colon Cancer Screening 10 2013 yrs Zoster Vaccines (1 of 2) 2013 COVID-19 Vaccine (3 - 10/09/2020 09/11/2020, Moderna risk 4-dose 08/14/2020 series) Influenza Vaccine 02/15/2021 03/08/2019, 02/15/2018 Hepatitis C Screening (B. Completed 02/24/2018 1431-2414) HIB Vaccines Aged Out No longer eligible based on patient's age to complete this topic Hepatitis A Vaccines Aged Out No longer eligibl e based on patient's age to complete this topic Hepatitis B Vaccines Aged Out No longer eligibl e based on patient's age to complete this topic IPV Vaccines Aged Out No longer eligible based on patient's age to complete this topic documented as of this encounter Implants Device Identifier Shelf Expiration Date Model / Serial / L ot Implanted Type Area Manufactur er 07/15/2015 6197-9-001 / / [id number] Cement Bone Simplexw/Tobra - Left: Knee BRENDA [id number] CORPORATIO Implanted: Qty: 1 on 09/06/2014 by Edenilson Gutierrez MD at [facility] 02/12/2022 [id number] / / [id number] Patella Poly 29mmpersona - [id number] Left: Patella Z IMMER Implanted: Qty: 1 on 09/06/2014 by Edenilson Dumont MD at [facility] Description: KALE: [id number] 07/15/2024 [id number] / / [id number] Stem Tib 5dg D Lpersona - [id number] Left: Knee ZI MMER Implanted: Qty: 1 on 09/06/2014 by Edenilson Dumont MD at [facility] Description: KALE: [id number] 05/17/2024 [id number] / / [id number] Comp Fem Cr Cmt Ccr St 5 Lpersona - Left: Knee Z IMMER [id number] Implanted: Qty: 1 on 09/06/2014 by Edenilson Dumont MD at [facility] Description: KALE: [id number] 02/14/2021 [id number] / / [id number] Art Cr Ply 12mm 3-9cd Lpersona - Left: Knee ZIMM ER [id number] Implanted: Qty: 1 on 09/06/2014 by Edenilson Dumont MD at [facility] Description: KALE: [id number] 11/24/2021 [id number] / / [id number] Head Fem Biolox V40 36mm/+5 - Right: Hip BRENDA [id number] CORPORATIO Implanted: Qty: 1 on 02/23/2018 by Edenilson Gutierrez MD at [facility] 10/12/2022 [id number] / / [id number] Liner 36mm 0dg Sz D - [id number] Right: Hip STRYK ER Implanted: Qty: 1 on 02/23/2018 by CORPOREdenilson Cannon MD at [facility] N 08/31/2022 [id number] / / [id number] Shell Trident Acet 48d - Right: Hip STRYK ER [id number] CORPORATIO Implanted: Qty: 1 on 02/23/2018 by Edenilson Gutierrez MD at [facility] 08/06/2022 [id number] / / [id number] Screw Bone Cancell 6.5 25mm - Right: Hip BRENDA [id number] CORPORATIO Implanted: Qty: 1 on 02/23/2018 by Edenilson Gtuierrez MD at [facility] 12/08/2022 [id number] / / [id number] Hip Stem Angled Accoladeii 127#4 - Right: Hip ST NATHAN [id number] CORPORATIO Implanted: Qty: 1 on 02/23/2018 by Edenilson Gutierrez MD at [facility] 10/08/2022 [id number] / / [id number] Shell Acetab 48mm Left: Hip BRENDA Clusterholetrident Ii - [id number] CORPORATIO Implanted: Qty: 1 on 02/01/2019 by Edenilson Gutierrez MD at [facility] 11/30/2023 [id number] / / [id number] Liner 36mm 0dg Sz D - [id number] Left: Hip STRY KER Implanted: Qty: 1 on 02/01/2019 by Edenilson Block MD at [facility] N 07/25/2023 [id number] / / [id number] Screw Hex Low Prof 6.5x20mm. - Left: Hip STRYKE R [id number] CORPORATIO Implanted: Qty: 1 on 02/01/2019 by Edenilson Gutierrez MD at [facility] 10/12/2023 [id number] / / [id number] Screw Hex Low Prof 6.5x30mm. - Left: Hip STRYKE R [id number] CORPORATIO Implanted: Qty: 1 on 02/01/2019 by Edenilson Gutierrez MD at [facility] 08/17/2022 [id number] / / [id number] Hip Stem Angled Accoladeii 127#4 - Left: Hip ST NATHAN [id number] CORPORATIO Implanted: Qty: 1 on 02/01/2019 by Edenilson Gutierrez MD at [facility] 10/25/2023 [id number] / / [id number] Cable Dall M.Set 2.0 Vit.Med. - Left: Hip STRYK ER [id number] CORPORATIO Implanted: Qty: 1 on 02/01/2019 by Edenilson Gutierrez MD at [facility] 10/21/2023 [id number] / / [id number] Head Fem Biolox V40 36mm/0 - Left: Hip BRENDA [id number] CORPORATIO Implanted: Qty: 1 on 02/01/2019 by Edenilson Gutierrez MD at [facility] documented as of this encounter Results Not on filedocumented in this encounter Care Teams Start Date End Date Manager Of Quality Relationship Specialty 07/10/14 Fe Sherwood, [place] [address] documented as of this encounter
--- OUTSIDE RECORDS SUMMARY | 2021-04-26 11:48 | CCD | Continuity of Care Document ---
Author Author Titi MENESES II PA-C Organization Unknown Address [address] [facility], [address] [place] [address] Phone [phone] Care Team Providers Care Drapery Seamstress Name Role Phone Fe Sherwood AUTM Yuri Machado M.D. AUTM [phone] Deni Crump M.D. AUTM [phone] [facility] Audiology AUTM [phone] Problems Active Problems Provider Date Gastroesophageal reflux disease Ishmael [place] MD Onset: 0 08/31/2014 Social History Type Date Description Comments Sex Unknown ETOH Use Denies alcohol use Tobacco Use Start: Unknown Patient has never smoked Recreational Drug Use Denies Drug Use Allergies and adverse reactions Active Allergies Criticality Reaction | Severity Comments Date Methotrexate Unable to assess criticality 08/31/2014 Cymbalta Unable to assess criticality 08/31/2014 Humira Unable to assess criticality 08/31/2014 Codeine Unable to assess criticality 08/31/2014 Celebrex Unable to assess criticality 08/31/2014 Medications Active Medications SIG Qnty Indications Ordering Provide r Date Fluticasone Propionate 50mcg/Act Suspension 2 sprays to each nostril daily 48gm H69.93 Nicholas vallecillo MD 12/26/2020 Saline Nasal [place] 0.65% Solution 2 sprays to each nostril 2-3 times a day and as needed 264ml H69.93 To sidney Kraus MD 12/26/2020 Prednisone 2.5mg Tablets 1 every day 60tabs Unknown Hydrocodone 10/325mg Tablets 1 Q4-6HRS prn For Chronic Back Pain Unknown 0 Vitamin C 1000mg Tablets 1 by mouth every day Unknown Vitamin D3 2000Unit Capsules 2 by mouth every day Unknown Dlfllbz-Kizcwoujm-Hzpi Tablets every day Unknown Milk Thistle Extract 500mg Tablets every day Unknown Turmeric Curcumin Capsules e very day Unknown 4X Probiotic Tablets every d ay Unknown Leflunomide 10mg Tablets ever y day Sachi Iyer R.P.A.-C. Aspirin 81mg Tablets DR 1 by mouth every day Unknown Iron 28mg Tablets 1 by jeni th every day Unknown Immunizations Description No Information Available Vital Signs Date Vital Result Comment 02/26/2021 2:09pm Height 62 inches 5'2" Weight 100.25 lb BMI (Body Mass Index) 18.3 kg/m2 [place] Body Weight 110 lb Weight 45.473 kg BSA (Body Surface Area) 1.43 m2 12/26/2020 3:05pm Height 62 inches 5'2" Weight 95.00 lb BMI (Body Mass Index) 17.4 kg/m2 [place] Body Weight 110 lb Weight 43.092 kg BSA (Body Surface Area) 1.39 m2 Results Description No Information Available Procedures Date Code Description Status 02/26/2021 88316 Office/Outpatient Established Lo w MDM 20-29 Min Completed 12/26/2020 48820 Office/Outpatient New Moderate M DM 45-59 Minutes Completed 12/26/2020 84656 Endoscopy Nasal Diagnostic Compl eted 12/19/2020 22628 Office/Outpatient Established Lo w MDM 20-29 Min Completed 10/31/2020 66750 Office/Outpatient Established Lo w MDM 20-29 Min Completed Medical Devices Description No Information Available Encounters Type Date Location Provider Dx Diagnosis Office Visit 02/26/2021 2:00p [facility] Jevon Meneses II, PA-C R42 Dizziness and giddiness Office Visit 12/26/2020 3:00p [facility] Nicholas Kraus MD R07.0 Pain in throat H69.93 Unspecified Eustachian tube disorder, bilateral R42 Dizziness and giddiness Office Visit 12/19/2020 2:15p [facility] Deni vizcarra JR, MD R13.10 Dysphagia, unspecified K80.20 Calculus of gallbladder w/o cholecystitis w/o obstruction Office Visit 10/31/2020 2:15p [facility] Deni vizcarra JR, MD R13.10 Dysphagia, unspecified R63.4 Abnormal weight loss Assessments Date Code Description Provider 02/26/2021 R42 Dizziness and giddiness Jevon bautista II, PA-C 12/26/2020 R07.0 Pain in throat Nicholas Kraus MD 12/26/2020 H69.93 Unspecified Eustachian tube diso rder, bilateral Nicholas Kraus MD 12/26/2020 R42 Dizziness and giddiness Nicholas case MD 12/19/2020 R13.10 Dysphagia, unspecified Deni JAraceli vizcarra JR, MD 12/19/2020 K80.20 Calculus of gallblad jose carlos without cholecystitis without obstruction Deni Crump JR, MD 10/31/2020 R13.10 Dysphagia, unspecified Deni Travon vizcarra JR, MD 10/31/2020 R63.4 Abnormal weight loss Deni soriano JR, MD Plan of Treatment Future Appointment(s):* 03/11/2021 2:45 pm - South Diaz MD at [facility] 02/26/2021 - Jevon Meneses II, PA-C* R42 Dizziness and giddiness* Comments:* Normal audiogram and vestibular testing. No ENT source of lightheadedness identified by exam or testing. Patient does report a history of cerebellar infarction, RA and prior treatment with chemotherapy for ovarian cancer all of which may be contributing to symptoms. Recommend she follow with PCP to discuss if neurology evaluation may be appropriate.Patient has long-term balance difficulties, offered referral for balance and gait therapy with physical therapy. She has seen PT in the past and is not interested in returning at this time. * Follow up:* PRN Functional Status Description No Information Available Mental Status Description No Information Available Referrals Refer to Reason for Referral Status Appt Date South Diaz M.D. NAUSEA/ EGD, DYSPAGIA Closed 03/11 [facility], Gastroenterology [address] [facility] [address] [facility], [address] [place], [place] [id number] [phone] Ishmael [place] M.D. Balance disorder, Closed 12/25/[address] [place] [address] [address] [place], [place] [id number] [phone]
--- OUTSIDE RECORDS SUMMARY | 2021-04-26 11:48 | CCD | Continuity of Care Document ---
Author Author Titi GORDON MD Organization Unknown Address [address] [place] [address] Phone [phone] Care Team Providers Care 3D Technologist Name Role Phone Fe Sherwood AUTM Yuri Machado M.D. AUTM [phone] Deni Crump M.D. AUTM [phone] [facility] Audiology AUTM [phone] Problems Active Problems Provider Date Gastroesophageal reflux [...] SIG Qnty Indications Ordering Provide r Date Miralax 17GM/Scoop Powder use as directed see dr gordon colon preparation instructions 510gm R11.0 Joseph marie Gordon MD 03/11/2021 Milk Of Magnesia 1200mg/15ML Suspe nsion take 60 milliliters by mouth as directed on colonoscopy prep sheet. 355ml R11.0 South Gordon MD 03/11/2021 Fluticasone Propionate 50mcg/Act Suspension 2 sprays to each nostril daily 48gm H69.93 Nicholas vallecillo MD 12/26/2020 Saline Nasal [place] 0.65% Solution 2 sprays to each nostril 2-3 times a day and as needed 264ml H69.93 To sidney Kraus MD 12/26/2020 Glutathione Powder Unknown Vitamin B-12 500mcg Tablets one tablet by mouth daily. Unknown Iron 28mg Tablets 1 by jeni th every day Unknown Aspirin 81mg Tablets DR 1 by mouth every day Unknown Leflunomide 10mg Tablets ever y day Sachi Iyer, R.P.A.-C. 4X Probiotic Tablets every d ay Unknown Turmeric Curcumin Capsules e very day Unknown Milk Thistle Extract 500mg Tablets every day Unknown Znltjye-Vaespmxxg-Ipkp Tablets every day Unknown Vitamin D3 2000Unit Capsules 2 by mouth every day Unknown Vitamin C 1000mg Tablets 1 by mouth every day Unknown Hydrocodone 10/325mg Tablets 1 Q4-6HRS prn For Chronic Back Pain Unknown 0 Prednisone 2.5mg Tablets 1 every day 60tabs Unknown Immunizations Description No Information Available Vital Signs Date Vital Result Comment 03/11/2021 2:56pm BP Systolic 143 mmHg BP Diastolic 71 mmHg Height 62 inches 5'2" Weight 101.00 lb BMI (Body Mass Index) 18.5 kg/m2 [place] Body Weight 110 lb Weight 45.814 kg BSA (Body Surface Area) 1.43 m2 02/26/2021 2:09pm Height 62 inches 5'2" Weight 100.25 lb BMI (Body Mass Index) 18.3 kg/m2 [place] Body Weight 110 lb Weight 45.473 kg BSA (Body Surface Area) 1.43 m2 Results Description No Information Available Procedures Date Code Description Status 03/11/2021 35068 Office/Outpatient New Moderate M DM 45-59 Minutes Completed 02/26/2021 97684 Office/Outpatient Established Lo w MDM 20-29 Min Completed 12/26/2020 36899 Office/Outpatient New Moderate M DM 45-59 Minutes Completed 12/26/2020 53690 Endoscopy Nasal Diagnostic Compl eted 12/19/2020 20401 Office/Outpatient Established Lo w MDM 20-29 Min Completed 10/31/2020 01654 Office/Outpatient Established Lo w MDM 20-29 Min Completed Medical Devices Description No Information Available Encounters Type Date Location Provider Dx Diagnosis Office Visit 03/11/2021 2:45p [facility] Gastroenterology [facility] ctice South Gordon MD R11.0 Nausea R63.4 Abnormal weight loss K80.80 Other cholelithiasis without obstruction Office Visit 02/26/2021 2:00p [facility]NT Practice Jevon Meneses II, PA-C R42 Dizziness and giddiness Office Visit 12/26/2020 3:00p [facility] ENT Practice Nicholas Kraus MD R07.0 Pain in throat H69.93 Unspecified Eustachian tube disorder, bilateral R42 Dizziness and giddiness Office Visit 12/19/2020 2:15p [facility] Surgery Practice Deni vizcarra JR, MD R13.10 Dysphagia, unspecified K80.20 Calculus of gallbladder w/o cholecystitis w/o obstruction Office Visit 10/31/2020 2:15p [facility] Surgery Practice Deni vizcarra JR, MD R13.10 Dysphagia, unspecified R63.4 Abnormal weight loss Assessments Date Code Description Provider 03/11/2021 R11.0 Nausea South Gordon MD 03/11/2021 R63.4 Abnormal weight loss South tuttle MD 03/11/2021 K80.80 Other cholelithiasis without obs truction South Gordon MD 02/26/2021 R42 Dizziness and giddiness Jevon bautista II, PA-C 12/26/2020 R07.0 Pain in throat Nicholas Kraus MD 12/26/2020 H69.93 Unspecified Eustachian tube diso rder, bilateral Nicholas Kraus MD 12/26/2020 R42 Dizziness and giddiness Nicholas case MD 12/19/2020 R13.10 Dysphagia, unspecified Deni vizcarra JR, MD 12/19/2020 K80.20 Calculus of gallblad jose carlos without cholecystitis without obstruction Deni Crump JR, MD 10/31/2020 R13.10 Dysphagia, unspecified Deni vizcarra JR, MD 10/31/2020 R63.4 Abnormal weight loss Deni Cool Cherry soriano JR, MD Plan of Treatment 03/11/2021 - South Gordon MD* R11.0 Nausea * R63.4 Abnormal weight loss * K80.80 Other cholelithiasis without obstruction * * New Medication:* Milk Of Magnesia 1200 mg/15ML * Miralax 17 GM/Scoop * New Orders:* EGD and Colonoscopy, Ordered: 03/11/21 * Comments:* chronic nausea, poor po intake, weight loss. * Recommendations:* EGD (and colonoscopy)---Pt at this time declines colonoscopy. Gastric emptying test US/HIDA Consider repeat TRADING MANAGER eval-Consider follow up with neurology--light headed/nausea Pt has known gallstones. Consider re eval per surgery. Functional Status Description No Information Available Mental Status Description No Information Available Referrals Refer to Reason for Referral Status Appt Date South Gordon M.D. NAUSEA/ EGD, DYSPAGIA Closed 03/11 [facility], Gastroenterology [address] [place] [address], [address] [place] [address] [phone] Ishmael [place] M.D. Balance disorder, Closed 12/25/[address] [place] [address] [address] [place] [address] [phone]
--- OUTSIDE RECORDS SUMMARY | 2021-04-26 11:48 | CCD ---
Author Author [facility] Organization [facility] Address Unknown Phone Unavailable Care Team Providers Care Radial Arm Saw Operator Name Role Phone Frank Sloan Unavailable PROBLEMS Type Condition ICD9-CM Code LYA31-LL Code Onset Dates Condition S tatus W/U Status Risk SNOMED Code Notes Problem Rheumatoid arthritis involvi ng multiple sites with positive rheumatoid factor M05.79 Active confirmed 847979257 Problem Ovarian cancer C56.9 Active confirmed 44815 3007 Problem Other chronic pain G89.29 Active confirmed 8 1545113 Problem Chronic prescription opiate use Z79.899 Active confirmed 074251614 Problem Hypomagnesemia E83.42 Active confirmed 71208 5004 Problem Myalgia M79.1 Active confirmed 19124440 Problem Chronic prescription opiate use Z79.891 Active confirmed 163320626 Problem Osteoporosis M81.0 Active confirmed 1714576 6 Problem Deformity of right foot M21.961 Active confirmed 125727556 Problem Need for hepatitis C screening test Z11.59 Acti ve confirmed 431669628 Problem Vitamin D deficiency E55.9 Active confirmed 44598606 Problem Chronic fatigue R53.82 Active confirmed 8422 9001 Problem Acute non intractable tension-type headache G44.20 9 Active confirmed 924364770 Problem Balance disorder R26.89 Active confirmed 387 112026 Problem History of total right hip replacement Z96.641 A ctive confirmed 688466030856 Problem Encounter for screening for human immunodeficiency vir us [HIV] Z11.4 Active confirmed 976944151 Problem Chronic gastritis, presence of bleeding unspecified, unspecified gastritis type K29.50 Active confirmed 3322443 Problem Primary osteoarthritis of right hip M16.11 Acti ve confirmed 529296389 Problem Iron deficiency anemia, unspecified D50.9 Acti ve confirmed 72802276 Problem Rheumatoid arthritis M06.9 Active confirmed 09778099 Problem Cerebellar infarction I63.9 Active confirmed 51008500 Problem Current chronic use of systemic steroids Z79.52 Active confirmed 742568020219309 Problem Primary osteoarthritis of left hip M16.12 Activ e confirmed 280630279735868 Problem Hx of ovarian cancer Z85.43 Active confirmed 063077482 ALLERGIES Allergen (clinical drug ingredient) Drug/Non Drug Allergy do cumented on EMR Reaction Allergy Type Onset Date Status mushrooms Anaphylaxis Non Drug Allergy Active duloxetine Duloxetine HCl(NDC Code:[address]-31) hallucinations Drug Allergy Active celecoxib CeleBREX(NDC Code:[address]-61) difficulty breathing Drug Allergy Active Glucosamine Shellfish-derived Products Nausea/Vomiting Drug Allergy Active gabapentin Gabapentin(NDC Code:[address]-13) confusion Drug Allergy Active sulfasalazine Sulfasalazine(NDC Code:[address]-73) not sure Drug A llergy Active adalimumab Humira(NDC Code:[address]-49) muscle pain Drug Allergy Active pregabalin Lyrica(NDC Code:[address]-79) dizziness , unstable balance, short- term memory loss Drug Allergy Active Hydroxychloroquine not sure Drug Allergy Acti ve methotrexate Methotrexate(NDC Code:[address]-81) sor es in mouth, constant cough and problems breathing Drug Allergy Active codeine Codeine Sulfate(NDC Code:[address]-95) stomach cramping D rug Allergy Active ENCOUNTERS from 1963 to 2021-03-24 Encounter Location Date Provider Diagnosis [facility] [address] [phone] [place] [address] Mar, Frank Sloan Rheumatoid arthritis involving multiple sites with positive rheumatoid factor M05.79 ; Cervicalgia M54.2 ; Myalgia M79.10 and Myofascial pain syndrome M79.18 IMMUNIZATIONS Vaccine Route Administration Date Status Influenza 18 yrs & older Flublok IM Intramuscular Mar 08, 2019 Administered Influenza 18 yrs & older Flublok IM Intramuscular Feb 15, 2018 Administered Pneumococcal Adult 0.5mL Pneumovax 23 IM Intramuscular Feb 14, 2 017 Administered Pneumococcal 0.5mL Prevnar 13 IM Intramuscular Apr 30, 2016 A dministered Influenza 6mo & up Fluzone IM Intramuscular Apr 30, 2016 Admi nistered SOCIAL HISTORY Tobacco Use: Social History Observation Description Date Details (start date - stop date) Never Smoker Sex Assigned At : Social History Observation Description Sex Assigned At Unknown Education: Question Answer Notes Level of Education: College Audit Question Answer Notes Total Score: 0 Interpretation: Alcohol Education Language: Question Answer Notes Languages spoken: Comoran Confucianism: Question Answer Notes Confucianism 01 Agnostic Sexual Hx: Question Answer Notes Had sex in the last 12 months (vaginal, oral, or anal)? No Have you ever had an STD? No Drug and Alcohol Question Answer Notes Total Score: 0 Interpretation: No problems reported Alcohol Screening: Question Answer Notes Did you have a drink containing alcohol in the past year? No Points 0 Interpretation Negative BMI Care Goal Follow-Up Question Answer Notes Below Normal BMI Follow-Up Lifestyle education regarding t Tobacco Use: Question Answer Notes Are you a: never smoker REASON FOR REFERRAL No Information VITAL SIGNS Weight 103.4 lbs Mar, Weight-kg 46.9 kg Mar, Height 62 in Mar, BMI 18.91 kg/m2 Mar, Heart Rate 116 /min Mar, Respiratory Rate 18 /min Mar, Temperature 99.3 degrees Fahrenheit Mar, Oximetry 97% Mar, Blood pressure systolic 125 mm Hg Mar, Blood pressure diastolic 71 mm Hg Mar, MEDICATIONS Medication SIG (Take, Route, Frequency, Duration) Notes Start Da te End Date Status HYDROcodone-Acetaminophen 10-325 MG 1 tablet as needed Orally q 4-6hr prn mdd6 for 30 days Mar, Active Aspirin 81 81 MG 1 tablet Orally Once a day Active Glutathione 50 MG Orally Daily Acti ve Ferrous Sulfate 325 (65 Fe) MG 1 tablet Orally bid for 30 day(s) Active predniSONE 2.5 MG 1 tablet Orally Daily TAPERING DOSE Active Vitamin C 1000 MG 1 tablet Orally Once a day Active Probiotic Orally Daily Active Sucralfate 1 GM 1 tablet on an empty stomach Orally premals tid for 30 day(s) Nov, Active Milk Thistle 500 MG 750mgs Orally Daily Active Calcium 500 MG 2 Orally Daily Active Magnesium 500 MG 1 cap Orally Once a day Active Leflunomide 10 MG 1 tablet Orally Once a day for 30 day(s) Active May Have curamed BCM-95 daily Act samira Vitamin D3 2000 UNIT 1 capsule Orally twice a day Active PROCEDURES No Information RESULTS No Results REASON FOR VISIT Chronic pain MEDICAL (GENERAL) HISTORY Type Description Date Medical History Ovarian Ca-Dr. Chelly Elena Medical History Depression Medical History Rheumatoid Arthritis-Dr. Feng Medical History BRCA 2 positive Medical History Iron Deficiency Anemia Medical History Tdap 02/2015 Medical History [place] cerebellar infarction on MRI Medical History ONE FALL LAST YEAR FALL INSIDE OF THE LI VING, CUT ON FOREHEAD Surgical History QUINTON BSO-Dr. Chelly Elena 05/20/2010 Surgical History Right TKA-Dr. Lu Surgical History Double Mastectomy-Dr. Mojgan Hawk 03/[address] Crump 08/10/2014 Surgical History Left TKA-Dr. Dumont 11/2014 Surgical History needle biopsy left axillary/nodes 09/[address] Crump 02/2017 Surgical History total right hip arthroplasty: Dr. Dumont 02/23/2018 Surgical History EGD Alisia 05/2018 Surgical History LEFT PB: Tim 01/2019 Hospitalization History surgical needs Hospitalization History right hip replaced Hospitalization History LEFT hip replacement Goals Section No Information Health Concerns No Information MEDICAL EQUIPMENT No Information MENTAL STATUS No Information FUNCTIONAL STATUS No Information ASSESSMENTS Encounter Date Diagnosis Assessment Notes Treatment Notes Treatm ent Clinical Notes Mar, Rheumatoid arthritis involvi ng multiple sites with positive rheumatoid factor (ICD-10 - M05.79) I discussed alternatives with Ms. Hood. We had a long conversation about the opioids. We agree on reducing 180 to 160 per month. She is going to try at home to see if she can make more changes. I will order a cervical MRI to see what is going on there. The patient reports understanding and agrees with the plan. I, Yaritza Solorzano, documented the above information acting as a scribe for Dr. Sloan. I have reviewed the above document, written by Yaritza Solorzano, biomedical equipment technician, and I verify that it is accurate. Mar, Cervicalgia (ICD-10 - M54.2) Mar, Myalgia (ICD-10 - M79.10) Mar, Myofascial pain syndrome (ICD-10 - M79.18) PLAN OF TREATMENT Medication Medication Name Sig Start Date Stop Date HYDROcodone-Acetaminophen 10-325 MG 1 tablet as needed Orally q 4-6hr prn mdd6 for 30 days Mar, Treatment Notes Assessment Notes Clinical Notes Rheumatoid arthritis involving multiple sites with positive rheumatoid factor I discussed alternatives with Ms. Hood. We had a long conversation about the opioids. We agree on reducing 180 to 160 per month. She is going to try at home to see if she can make more changes. I will order a cervical MRI to see what is going on there. The patient reports understanding and agrees with the plan. I, Yaritza Solorzano, documented the above information acting as a scribe for Dr. Sloan. I have reviewed the above document, written by Yaritza Solorzano, biomedical equipment technician, and I verify that it is accurate. Pending Tests Test Name Order Date [facility] Spine, Cervical without con 2021-03-22 Next Appt Details Request auth for cervical MRI Reason:Req uest auth for cervical MRI Provider Name:Fe [place], 2020-05 03:00:00 PM, [address] , , [place], [address], Follow Up:Request auth for cervical MRIRequest auth for cervical MRI Insurance Providers Payer Name Payer Address Payer Phone Insured Name Patient Relati onship to Insured Coverage Start Date Coverage End Date MEDICARE BLUE O [address] [id number] YNES HOOD self
--- OUTSIDE RECORDS SUMMARY | 2021-04-26 11:48 | CCD ---
Author Author [facility] Organization [facility] Address Unknown Phone Unavailable Care Team Providers Care Food Storeroom Clerk Name Role Phone Fe Sherwood Unavailable PROBLEMS Type Condition ICD9-CM Code [id number] Code Onset Dates Condition S tatus W/U Status Risk SNOMED Code Notes Problem Rheumatoid arthritis involvi ng multiple sites with positive rheumatoid factor M05.79 Active confirmed 657420577 Problem Ovarian cancer C56.9 Active confirmed 26318 3007 Problem Other chronic pain G89.29 Active confirmed 8 3068612 Problem Chronic prescription opiate use Z79.899 Active confirmed 216071171 Problem Hypomagnesemia E83.42 Active confirmed 59906 5004 Problem Myalgia M79.1 Active confirmed 88246727 Problem Chronic prescription opiate use Z79.891 Active confirmed 307255709 Problem Osteoporosis M81.0 Active confirmed 9905638 6 Problem Deformity of right foot M21.961 Active confirmed 407617640 Problem Need for hepatitis C screening test Z11.59 Acti ve confirmed 766265786 Problem Vitamin D deficiency E55.9 Active confirmed 07686483 Problem Chronic fatigue R53.82 Active confirmed 8422 9001 Problem Acute non intractable tension-type headache G44.20 9 Active confirmed 156735457 Problem Balance disorder R26.89 Active confirmed 387 000820 Problem History of total right hip replacement Z96.641 A ctive confirmed 605983217589 Problem Encounter for screening for human immunodeficiency vir us [HIV] Z11.4 Active confirmed 050025325 Problem Chronic gastritis, presence of bleeding unspecified, unspecified gastritis type K29.50 Active confirmed 1702926 Problem Primary osteoarthritis of right hip M16.11 Acti ve confirmed 162735661 Problem Iron deficiency anemia, unspecified D50.9 Acti ve confirmed 11600468 Problem Rheumatoid arthritis M06.9 Active confirmed 28131012 Problem Cerebellar infarction I63.9 Active confirmed 50358895 Problem Current chronic use of systemic steroids Z79.52 Active confirmed 701763257883267 Problem Primary osteoarthritis of left hip M16.12 Activ e confirmed 878235063856191 Problem Hx of ovarian cancer Z85.43 Active confirmed 519365672 ALLERGIES Allergen (clinical drug ingredient) Drug/Non Drug Allergy do cumented on EMR Reaction Allergy Type Onset Date Status mushrooms Anaphylaxis Non Drug Allergy Active duloxetine Duloxetine HCl(NDC Code:[address]-59) hallucinations Drug Allergy Active celecoxib CeleBREX(NDC Code:[address]-60) difficulty breathing Drug Allergy Active Glucosamine Shellfish-derived Products Nausea/Vomiting Drug Allergy Active gabapentin Gabapentin(NDC Code:[address]-76) confusion Drug Allergy Active sulfasalazine Sulfasalazine(NDC Code:[address]-70) not sure Drug A llergy Active adalimumab Humira(NDC Code:[address]-96) muscle pain Drug Allergy Active pregabalin Lyrica(NDC Code:[address]-42) dizziness , unstable balance, short- term memory loss Drug Allergy Active Hydroxychloroquine not sure Drug Allergy Acti ve methotrexate Methotrexate(NDC Code:[address]-59) sor es in mouth, constant cough and problems breathing Drug Allergy Active codeine Codeine Sulfate(NDC Code:[address]-50) stomach cramping D rug Allergy Active ENCOUNTERS from 1963 to 2021-04-01 Encounter Location Date Provider Diagnosis [facility] [phone] [place] [address] Mar, Fe Sherwood IMMUNIZATIONS Vaccine Route Administration Date Status Influenza 18 yrs & older Flublok IM Intramuscular Mar 08, 2019 Administered Influenza 18 yrs & older Flublok IM Intramuscular Feb 15, 2018 Administered Pneumococcal Adult 0.5mL Pneumovax 23 IM Intramuscular Jul 01, 017 Administered Pneumococcal 0.5mL Prevnar 13 IM [...] Education Language: Question Answer Notes Languages spoken: Maori Congregation: Question Answer Notes Congregation 01 Agnostic Sexual Hx: Question Answer Notes [...] REASON FOR REFERRAL No Information VITAL SIGNS No information MEDICATIONS Medication SIG (Take, Route, Frequency, Duration) [...] Information RESULTS No Results REASON FOR VISIT phone appt MEDICAL (GENERAL) HISTORY Type Description Date Medical History Ovarian Ca-Dr. Chelly Elena Medical History Depression Medical History Rheumatoid Arthritis-Dr. Feng Medical History BRCA 2 positive Medical History Iron Deficiency Anemia Medical History Tdap 02/2015 Medical History Lacunar cerebellar infarction on MRI Medical History ONE FALL LAST YEAR FALL INSIDE OF THE [place], CUT ON FOREHEAD Surgical History QUINTON [...] No Information FUNCTIONAL STATUS No Information ASSESSMENTS No Information PLAN OF TREATMENT Medication Medication Name Sig Start Date Stop Date HYDROcodone-Acetaminophen 10-325 MG 1 tablet as needed Orally q 4-6hr prn mdd6 for 30 days Mar, Next Appt Details Provider Name:Fe Sherwood, 2020-05 213 01:15:00 PM, [address] [facility], , [place], [address], Provider Name:Frank Sloan, 2021-07-24 02:30:00 PM, [address], , [place], [address], Insurance Providers Payer Name Payer Address Payer Phone Insured Name Patient Relati onship to Insured Coverage Start Date Coverage End Date MEDICARE BLUE PPO [address] [id number] [place] self
--- OUTSIDE RECORDS SUMMARY | 2021-04-26 11:48 | CCD ---
Author Author [facility] Organization [facility] Address Unknown Phone Unavailable Care Team Providers Care Data Typist Name Role Phone Fe Sherwood Unavailable PROBLEMS Type Condition ICD9-CM Code [id number] Code Onset Dates Condition S tatus W/U Status Risk SNOMED Code Notes Problem Rheumatoid arthritis involvi ng multiple sites with positive rheumatoid factor M05.79 Active confirmed 203285027 Problem Ovarian cancer C56.9 Active confirmed 86737 3007 Problem Other chronic pain G89.29 Active confirmed 8 4031459 Problem Chronic prescription opiate use Z79.899 Active confirmed 918028813 Problem Hypomagnesemia E83.42 Active confirmed 43428 5004 Problem Myalgia M79.1 Active confirmed 45193285 Problem Chronic prescription opiate use Z79.891 Active confirmed 808251415 Problem Osteoporosis M81.0 Active confirmed 0898670 6 Problem Deformity of right foot M21.961 Active confirmed 461770254 Problem Need for hepatitis C screening test Z11.59 Acti ve confirmed 322337451 Problem Vitamin D deficiency E55.9 Active confirmed 21994136 Problem Chronic fatigue R53.82 Active confirmed 8422 9001 Problem Acute non intractable tension-type headache G44.20 9 Active confirmed 228025593 Problem Balance disorder R26.89 Active confirmed 387 989643 Problem History of total right hip replacement Z96.641 A ctive confirmed 986198245387 Problem Encounter for screening for human immunodeficiency vir us [HIV] Z11.4 Active confirmed 580788736 Problem Chronic gastritis, presence of bleeding unspecified, unspecified gastritis type K29.50 Active confirmed 0009193 Problem Primary osteoarthritis of right hip M16.11 Acti ve confirmed 183168194 Problem Iron deficiency anemia, unspecified D50.9 Acti ve confirmed 31896032 Problem Rheumatoid arthritis M06.9 Active confirmed 06287985 Problem Cerebellar infarction I63.9 Active confirmed 60739586 Problem Current chronic use of systemic steroids Z79.52 Active confirmed 232634947548566 Problem Primary osteoarthritis of left hip M16.12 Activ e confirmed 195980280091921 Problem Hx of ovarian cancer Z85.43 Active confirmed 555087688 ALLERGIES Allergen (clinical drug ingredient) Drug/Non Drug Allergy do cumented on EMR Reaction Allergy Type Onset Date Status mushrooms Anaphylaxis Non Drug Allergy Active duloxetine Duloxetine HCl(NDC Code:[address]-46) hallucinations Drug Allergy Active celecoxib CeleBREX(NDC Code:[address]-28) difficulty breathing Drug Allergy Active Glucosamine Shellfish-derived Products Nausea/Vomiting Drug Allergy Active gabapentin Gabapentin(NDC Code:[address]-88) confusion Drug Allergy Active sulfasalazine Sulfasalazine(NDC Code:[address]-43) not sure Drug A llergy Active adalimumab Humira(NDC Code:[address]-12) muscle pain Drug Allergy Active pregabalin Lyrica(NDC Code:[address]-64) dizziness , unstable balance, short- term memory loss Drug Allergy Active Hydroxychloroquine not sure Drug Allergy Acti ve methotrexate Methotrexate(NDC Code:[address]-00) sor es in mouth, constant cough and problems breathing Drug Allergy Active codeine Codeine Sulfate(ND Code:[address]-38) stomach cramping D rug Allergy Active ENCOUNTERS from 1963 to 2021-04-10 Encounter Location Date Provider Diagnosis [facility] [phone] [place] [address] Mar, Fe Sherwood IMMUNIZATIONS Vaccine Route Administration [...] Education Language: Question Answer Notes Languages spoken: Uzbek Lutheran: Question Answer Notes Lutheran 01 Agnostic Sexual Hx: Question Answer Notes [...] Information RESULTS No Results REASON FOR VISIT booster or 3rd shot MEDICAL (GENERAL) HISTORY Type Description Date Medical [...] Next Appt Details Provider Name:Fe Sherwood, 2020-05 2-13 01:15:00 PM, [address] [facility], , [place], [address], Provider Name:Frank Sloan, 2021-07-24 02:30:00 PM, [address], , [place], [address], Insurance Providers Payer Name Payer Address Payer Phone Insured Name Patient Relati onship to Insured Coverage Start Date Coverage End Date MEDICARE BLUE PPO [address] [address] [place]
--- OUTSIDE RECORDS SUMMARY | 2021-04-26 11:48 | CCD | Continuity of Care Document ---
Author Author Titi MENESES II PA-C Organization Unknown Address [address] [facility], [address] [place] [address] Phone [phone] Care Team Providers Care Consumer Affairs Manager Name Role Phone Fe Sherwood AUTM [phone] Yuri Machado M.D. AUTM Deni Crump M.D. AUTM [phone] [facility] AUTM [phone] Problems Active Problems Provider Date Gastroesophageal reflux [...] H69.93 Nicholas vallecillo MD 12/26/2020 Saline Nasal [place] 0.65% Solution 2 sprays to each nostril 2-3 times a day and as needed 264ml H69.93 To sidney Kraus MD 12/26/2020 Prednisone 2.5mg Tablets 1 every day 60tabs Unknown Hydrocodone 10/325mg Tablets 1 Q4-6HRS prn For Chronic Back Pain Unknown 0 Vitamin C 1000mg Tablets 1 by mouth every day Unknown Vitamin D3 2000Unit Capsules 2 by mouth every day Unknown Pckaxze-Otkuylkjt-Lidz Tablets every day Unknown Milk Thistle Extract [...] lb BMI (Body Mass Index) 18.3 kg/m2 Cook Sta Body Weight 110 lb Weight 45.473 kg BSA (Body Surface Area) 1.43 m2 12/26/2020 3:05pm Height 62 inches 5'2" Weight 95.00 lb BMI (Body Mass Index) 17.4 kg/m2 Cook Sta Body Weight 110 lb Weight 43.092 kg BSA (Body Surface Area) 1.39 m2 Results Description No Information Available Procedures Date Code Description Status 12/26/2020 23033 Office/Outpatient New Moderate M DM 45-59 Minutes Completed 12/26/2020 13924 Endoscopy Nasal Diagnostic Compl eted 12/19/2020 82029 Office/Outpatient Established Lo w MDM 20-29 Min Completed 10/31/2020 96499 Office/Outpatient Established Lo w MDM 20-29 Min Completed Medical Devices Description No Information Available Encounters Type Date Location Provider Dx Diagnosis Office Visit 12/26/2020 3:00p [facility] Nicholas Kraus MD R07.0 Pain in throat H69.93 Unspecified Eustachian tube disorder, bilateral R42 Dizziness and giddiness Office Visit 12/19/2020 2:15p [facility] Deni vizcarra JR, MD R13.10 Dysphagia, unspecified K80.20 Calculus of gallbladder w/o cholecystitis w/o obstruction Office Visit 10/31/2020 2:15p [facility] Deni vizcarra JR, MD R13.10 Dysphagia, unspecified R63.4 Abnormal weight loss Assessments Date Code Description Provider 02/26/2021 R42 Dizziness and giddiness HELEN Cuadra IIC 12/26/2020 R07.0 Pain in throat Nicholas Kraus MD 12/26/2020 H69.93 Unspecified Eustachian tube diso rder, bilateral Nicholas Kraus MD 12/26/2020 R42 Dizziness and giddiness Nicholas case MD 12/19/2020 R13.10 Dysphagia, unspecified Deni Travon vizcarra JR, MD 12/19/2020 K80.20 Calculus of gallblad jose carlos without cholecystitis without obstruction Deni Crump JR, MD 10/31/2020 R13.10 Dysphagia, unspecified Deni Travon vizcarra JR, MD 10/31/2020 R63.4 Abnormal weight loss Deni soriano JR, MD Plan of Treatment Future Appointment(s):* 03/11/2021 2:45 pm - South Diaz MD at [facility] 02/26/2021 - Jevon Meneses II, PA-C* R42 Dizziness and giddiness* Comments:* Normal audiogram and vestibular testing. No ENT source of lightheadedness identigied. Recommend she return for evauation with PCP as additional evalaution with neurology may be considred. Patient has long-term balance difficulties, offered referral for evaluation with physical therapy. She has seen PT in the past and is not interested in returning at this time. * Follow up:* PRN Functional Status Description No Information Available Mental Status Description No Information Available Referrals Refer to Reason for Referral Status Appt Date South Diaz M.D. NAUSEA/ EGD, DYSPAGIA Closed 03/11 [facility], Gastroenterology [address] [place] [address], [address] [place] [id number] [phone] Ishmael Beasley M.D. Balance disorder, Closed 12/25/[address] [place] [address] [address] [place] [address] [phone]
--- OUTSIDE RECORDS SUMMARY | 2021-04-26 11:49 | CCD ---
Author Author [facility] Organization [facility] Address Unknown Phone Unavailable Care Team Providers Care Automobile Wrecker Name Role Phone Frank Sloan Unavailable PROBLEMS Type Condition ICD9-CM Code ZGN19-ZH Code Onset Dates Condition S tatus W/U Status Risk SNOMED Code Notes Problem Rheumatoid arthritis involvi ng multiple sites with positive rheumatoid factor M05.79 Active confirmed 260167173 Problem Ovarian cancer C56.9 Active confirmed 71166 3007 Problem Other chronic pain G89.29 Active confirmed 8 1148406 Problem Chronic prescription opiate use Z79.899 Active confirmed 963822345 Problem Hypomagnesemia E83.42 Active confirmed 97720 5004 Problem Myalgia M79.1 Active confirmed 69928678 Problem Chronic prescription opiate use Z79.891 Active confirmed 438161184 Problem Osteoporosis M81.0 Active confirmed 4992197 6 Problem Deformity of right foot M21.961 Active confirmed 358387939 Problem Need for hepatitis C screening test Z11.59 Acti ve confirmed 654533194 Problem Vitamin D deficiency E55.9 Active confirmed 08191284 Problem Chronic fatigue R53.82 Active confirmed 8422 9001 Problem Acute non intractable tension-type headache G44.20 9 Active confirmed 578599430 Problem Balance disorder R26.89 Active confirmed 387 084868 Problem History of total right hip replacement Z96.641 A ctive confirmed 927497226163 Problem Encounter for screening for human immunodeficiency vir us [HIV] Z11.4 Active confirmed 207682859 Problem Chronic gastritis, presence of bleeding unspecified, unspecified gastritis type K29.50 Active confirmed 6537507 Problem Primary osteoarthritis of right hip M16.11 Acti ve confirmed 356801279 Problem Iron deficiency anemia, unspecified D50.9 Acti ve confirmed 54362048 Problem Rheumatoid arthritis M06.9 Active confirmed 63728055 Problem Cerebellar infarction I63.9 Active confirmed 96445556 Problem Current chronic use of systemic steroids Z79.52 Active confirmed 441673941347527 Problem Primary osteoarthritis of left hip M16.12 Activ e confirmed 184926121729062 Problem Hx of ovarian cancer Z85.43 Active confirmed 792116045 ALLERGIES Allergen (clinical drug ingredient) Drug/Non Drug Allergy do cumented on EMR Reaction Allergy Type Onset Date Status mushrooms Anaphylaxis Non Drug Allergy Active Seafood seafood Nausea/Vomiting Non Drug Allergy Act samira Hydroxychloroquine not sure Drug Allergy Acti ve celebrex difficulty breathing Non Drug Allergy Active sulfasalazine Sulfasalazine(ND Code:[address]-20) not sure Drug A llergy Active adalimumab Humira(NDC Code:[address]-73) muscle pain Drug Allergy Active pregabalin Lyrica(ND Code:[address]-41) dizziness , unstable balance, short- term memory loss Drug Allergy Active duloxetine Duloxetine HCl(NDC Code:[address]-97) hallucinations Drug Allergy Active methotrexate Methotrexate(NDC Code:[address]-70) sor es in mouth, constant cough and problems breathing Drug Allergy Active gabapentin Gabapentin(NDC Code:[address]-79) confusion Drug Allergy Active codeine Codeine Sulfate(NDC Code:[address]-25) stomach cramping D rug Allergy Active ENCOUNTERS from 1963 to 2021-01-25 Encounter Location Date Provider Diagnosis [facility] [address] Floor [phone] [place] [address] 08 Jan, 2021 Frank Sloan Rheumatoid arthritis involving multiple sites with positive rheumatoid factor M05.79 IMMUNIZATIONS Vaccine Route Administration Date Status Influenza [...] Education Language: Question Answer Notes Languages spoken: Thai Muslim: Question Answer Notes Muslim 01 Agnostic Sexual Hx: Question Answer Notes [...] Notes Start Da te End Date Status Sucralfate 1 GM 1 tablet on an empty stomach Orally premals tid for 30 day(s) Nov, Active Vitamin D3 2000 UNIT 1 capsule Orally twice a day Active May Have curamed BCM-95 daily Act samira Vitamin C 1000 MG 1 tablet Orally Once a day Active Milk Thistle 500 MG 750mgs Orally Daily Active Calcium 500 MG 2 Orally Daily Active HYDROcodone-Acetaminophen 10-325 MG 1 tablet as needed Orally q 4-6hr prn mdd6 for 30 Days Jan, Active predniSONE 2.5 MG 1 tablet Orally Daily TAPERING DOSE Active Leflunomide 10 MG 1 tablet Orally Once a day for 30 day(s) Active Glutathione 50 MG Orally Daily Acti ve Ferrous Sulfate 325 (65 Fe) MG 1 tablet Orally bid for 30 day(s) Active Probiotic Orally Daily Active Magnesium 500 MG 1 cap Orally Once a day Active Aspirin 81 81 MG 1 tablet Orally Once a day Active PROCEDURES No Information RESULTS No Results REASON FOR VISIT [place] MEDICAL (GENERAL) HISTORY Type Description Date Medical History Ovarian Ca-Dr. Chelly Elena Medical History Depression Medical History Rheumatoid Arthritis-Dr. Feng Medical History BRCA 2 positive Medical History Iron Deficiency Anemia Medical History Tdap 02/2015 Medical History [place] cerebellar infarction on MRI Medical History ONE FALL LAST YEAR FALL INSIDE OF THE [employer], CUT ON FOREHEAD Surgical History QUINT[place] BSO-Dr. [...] Notes Treatment Notes Treatm ent Clinical Notes Jan, Rheumatoid arthritis involvi ng multiple sites with positive rheumatoid factor (ICD-10 - M05.79) PLAN OF TREATMENT Medication Medication Name Sig Start Date Stop Date HYDROcodone-Acetaminophen 10-325 MG 1 tablet as needed Orally q 4-6hr prn mdd6 for 30 Days Jan, Next Appt Details Provider Name:Fe Sherwood, 2020-05 03:00:00 PM, [address] [facility], , [place], [address], Provider Name:Frank Sloan, 2021-03-20 02:30:00 PM, [address], , [place], [address], Insurance Providers Payer Name Payer Address Payer Phone Insured Name Patient Relati onship to Insured Coverage Start Date Coverage End Date MEDICARE BLUE PPO [address] [facility] [id number] [place]
--- OUTSIDE RECORDS SUMMARY | 2021-04-26 11:49 | CCD ---
Author Author [facility] Organization [facility] Address Unknown Phone Unavailable Care Team Providers Care Charge Account Clerk Name Role Phone Yudith Sandoval MD Unavailable Unavailable Yudith Sandoval MD Unavailable Unavailable Yudith Sandoval MD Unavailable Unavailable Yudith Sandoval MD Unavailable Unavailable Yudith Sandoval MD Unavailable Unavailable Yudith Sandoval MD Unavailable Unavailable DARVIN, JEANNETTE CASAS Unavailable Unavailable REINDL, JEANNETTE CASAS Unavailable Unavailable REINDL, JEANNETTE CASAS Unavailable Unavailable DARVIN, JEANNETTE CASAS Unavailable Unavailable DARVIN, JEANNETTE CASAS Unavailable Unavailable DARVIN, JEANNETTE CASAS Unavailable Unavailable DARVIN, JEANNETTE CASAS Unavailable Unavailable JEANNETTE BOSTON MD Unavailable Unavailable JEANNETTE BOSTON MD Unavailable Unavailable JEANNETTE BOSTON MD Unavailable Unavailable JEANNETTE BOSTON MD Unavailable Unavailable JEANNETTE BOSTON MD Unavailable Unavailable REINJEANNETTE HORVATH MD Unavailable Unavailable REINJEANNETTE HORVATH MD Unavailable Unavailable REINDLJEANNETTE MD Unavailable Unavailable REINJEANNETTE HORVATH MD Unavailable Unavailable REINJEANNETTE HORVATH MD Unavailable Unavailable REINJEANNETTE HORVATH MD Unavailable Unavailable REINJEANNETTE HORVATH MD Unavailable Unavailable REINJEANNETTE HORVATH MD Unavailable Unavailable REINJEANNETTE HORVATH MD Unavailable Unavailable JEANNETTE BOSTON MD Unavailable Unavailable REINJEANNETTE HORVATH MD Unavailable Unavailable REINJEANNETTE HORVATH MD Unavailable Unavailable REINJEANNETTE HORVATH MD Unavailable Unavailable JEANNETTE BOSTON MD Unavailable Unavailable JEANNETTE BOSTON MD Unavailable Unavailable JEANNETTE BOSTON MD Unavailable Unavailable JEANNETTE BOSTON MD Unavailable Unavailable JEANNETTE BOSTON MD Unavailable Unavailable JEANNETTE BOSTON MD Unavailable Unavailable REINJEANNETTE HORVATH MD Unavailable Unavailable REINJEANNETTE HORVATH MD Unavailable Unavailable REINJEANNETTE HORVATH MD Unavailable Unavailable JEANNETTE BOSTON MD Unavailable Unavailable JEANNETTE BOSTON MD Unavailable Unavailable JEANNETTE BOSTON MD Unavailable Unavailable REINJEANNETTE HORVATH MD Unavailable Unavailable JEANNETTE BOSTON MD Unavailable Unavailable JEANNETTE BOSTON MD Unavailable Unavailable JEANNETTE BOSTON MD Unavailable Unavailable JEANNETTE BOSTON MD Unavailable Unavailable VALENZUELAAniceto MD Unavailable Unavailable VALENZUELAAniceto MD Unavailable Unavailable VALENZUELAAniceto MD Unavailable Unavailable VALENZUELAAniceto MD Unavailable Unavailable VALENZUELAAniceto MD Unavailable Unavailable VALENZUELAAniceto MD Unavailable Unavailable VALENZUELAAniceto MD Unavailable Unavailable VALENZUELAAniceto MD Unavailable Unavailable VALENZUELAAniceto MD Unavailable Unavailable VALENZUELAAniceto MD Unavailable Unavailable VALENZUELAAniceto MD Unavailable Unavailable Aniceto VALENZUELA MD Unavailable Unavailable VALENZUELAAniceto MD Unavailable Unavailable Aniceto VALENZUELA MD Unavailable Unavailable Aniceto VALENZUELA MD Unavailable Unavailable Aniceto VALENZUELA MD Unavailable Unavailable Aniceto VALENZUELA MD Unavailable Unavailable Aniceto VALENZUELA MD Unavailable Unavailable Aniceto VALENZUELA MD Unavailable Unavailable Aniceto VALENZUELA MD Unavailable Unavailable Aniceto VALENZUELA MD Unavailable Unavailable Aniceto VALENZUELA MD Unavailable Unavailable Aniceto VALENZUELA MD Unavailable Unavailable Aniceto VALENZUELA MD Unavailable Unavailable Aniceto VALENZUELA MD Unavailable Unavailable Aniceto VALENZUELA MD Unavailable Unavailable Aniceto VALENZUELA MD Unavailable Unavailable Aniceto VALENZUELA MD Unavailable Unavailable Aniceto VALENZUELA MD Unavailable Unavailable Aniceto VALENZUELA MD Unavailable Unavailable Aniceto VALENZUELA MD Unavailable Unavailable Aniceto VALENZUELA MD Unavailable Unavailable Aniceto VALENZUELA MD Unavailable Unavailable Aniceto VALENZUELA MD Unavailable Unavailable Aniceto VALENZUELA MD Unavailable Unavailable VALENZUELAAniceto SAL MD Unavailable Unavailable Aniceto VALENZUELA MD Unavailable Unavailable Aniceto VALENZUELA MD Unavailable Unavailable Aniceto VALENZUELA MD Unavailable Unavailable Aniceto VALENZUELA MD Unavailable Unavailable Aniceto VALENZUELA MD Unavailable Unavailable VALENZUELAAniceto MD Unavailable Unavailable Aniceto VALENZUELA MD Unavailable Unavailable Aniceto VALENZUELA MD Unavailable Unavailable Aniceto VALENZUELA MD Unavailable Unavailable Aniceto VALENZUELA MD Unavailable Unavailable Aniceto VALENZUELA MD Unavailable Unavailable Aniceto VALENZUELA MD Unavailable Unavailable VALENZUELAAniceto MD Unavailable Unavailable VALENZUELAAniceto BENSON MD Unavailable Unavailable Aniceto VALENZUELA MD Unavailable Unavailable VALENZUELAAniceto MD Unavailable Unavailable VALENZUELAAniceto MD Unavailable Unavailable VALENZUELAAniceto MD Unavailable Unavailable VALENZUELAAniceto MD Unavailable Unavailable VALENZUELAAniceto MD Unavailable Unavailable VALENZUELAAniceto MD Unavailable Unavailable VALENZUELAAniceto MD Unavailable Unavailable VALENZUELAAniceto MD Unavailable Unavailable VALENZUELAAniceto MD Unavailable Unavailable VALENZUELAAniceto MD Unavailable Unavailable VALENZUELAAniceto MD Unavailable Unavailable VALENZUELAAniceto MD Unavailable Unavailable VALENZUELAAniceto MD Unavailable Unavailable Aniceto VALENZUELA MD Unavailable Unavailable VALENZUELAAniceto SAL MD Unavailable Unavailable Aniceto VALENZUELA MD Unavailable Unavailable Aniceto VALENZUELA MD Unavailable Unavailable Aniceto VALENZUELA MD Unavailable Unavailable Aniceto VALENZUELA MD Unavailable Unavailable Aniceto VALENZUELA MD Unavailable Unavailable Aniceto VALENZUELA MD Unavailable Unavailable Aniceto VALENZUELA MD Unavailable Unavailable Aniceto VALENZUELA MD Unavailable Unavailable Aniceto VALENZUELA MD Unavailable Unavailable Aniceto VALENZUELA MD Unavailable Unavailable Aniceto VALENZUELA MD Unavailable Unavailable Aniceto VALENZUELA MD Unavailable Unavailable Aniceto VALENZUELA MD Unavailable Unavailable Aniceto VALENZUELA MD Unavailable Unavailable Aniceto VALENZUELA MD Unavailable Unavailable Aniceto VALENZUELA MD Unavailable Unavailable Aniceto VALENZUELA MD Unavailable Unavailable Aniceto VALENZUELA MD Unavailable Unavailable Aniceto VALENZUELA MD Unavailable Unavailable Aniceto VALENZUELA MD Unavailable Unavailable Aniceto VALENZUELA MD Unavailable Unavailable Aniceto VALENZUELA MD Unavailable Unavailable Aniceto VALENZUELA MD Unavailable Unavailable Aniceto VALENZUELA MD Unavailable Unavailable Aniceto VALENZUELA MD Unavailable Unavailable Aniceto VALENZUELA MD Unavailable Unavailable Aniceto VALENZUELA MD Unavailable Unavailable Aniceto VALENZUELA MD Unavailable Unavailable Aniceto VALENZUELA MD Unavailable Unavailable Aniceto VALENZUELA MD Unavailable Unavailable Aniceto VALENZUELA MD Unavailable Unavailable Aniceto VALENZUELA MD Unavailable Unavailable Aniceto VALENZUELA MD Unavailable Unavailable Aniceto AVLENZUELA MD Unavailable Unavailable Aniceto VALENZUELA MD Unavailable Unavailable Aniceto VALENZUELA MD Unavailable Unavailable Aniceto VALENZUELA MD Unavailable Unavailable Aniceto VALENZUELA MD Unavailable Unavailable Aniceto VALENZUELA MD Unavailable Unavailable Aniceto VALENZUELA MD Unavailable Unavailable MCILVAIN, M DEION PA Unavailable Unavailable MCILVAIN, M DEION PA Unavailable Unavailable MCILVAIN, M DEION PA Unavailable Unavailable MCILVAIN, M DEION PA Unavailable Unavailable MCILVAIN, M DEION PA Unavailable Unavailable MCILVAIN, M DEION PA Unavailable Unavailable MCILVAIN, M DEION PA Unavailable Unavailable MCILVAIN, M DEION PA Unavailable Unavailable MCILVAIN, M DEION PA Unavailable Unavailable MCILVAIN, M DEION PA Unavailable Unavailable MCILVAIN, M DEION PA Unavailable Unavailable MCILVAIN, M DEION PA Unavailable Unavailable MCILVAIN, M DEION PA Unavailable Unavailable MCILVAIN, M DEION PA Unavailable Unavailable MCILVAIN, M DEION PA Unavailable Unavailable MCILVAIN, M DEION PA Unavailable Unavailable MCILVAIN, M DEION PA Unavailable Unavailable MCILVAIN, M DEION PA Unavailable Unavailable MCILVAIN, M DEION PA Unavailable Unavailable MCILVAIN, M DEION PA Unavailable Unavailable MCILVAIN, M DEION PA Unavailable Unavailable MCILVAIN, M DEION PA Unavailable Unavailable MCILVAIN, M DEION PA Unavailable Unavailable MCILVAIN, M DEION PA Unavailable Unavailable MCILVAIN, M DEION PA Unavailable Unavailable MCILVAIN, M DEION PA Unavailable Unavailable MCILVAIN, M DEION PA Unavailable Unavailable MCILVAIN, M DEION PA Unavailable Unavailable MCILVAIN, M DEION PA Unavailable Unavailable MCILVAIN, M DEION PA Unavailable Unavailable MCILVAIN, M DEION PA Unavailable Unavailable MCILVAIN, M DEION PA Unavailable Unavailable MCILVAIN, M DEION PA Unavailable Unavailable MCILVAIN, M DEION PA Unavailable Unavailable MCILVAIN, M DEION PA Unavailable Unavailable MCILVAIN, M DEION PA Unavailable Unavailable MCILVAIN, M DEION PA Unavailable Unavailable MCILVAIN, M DEION PA Unavailable Unavailable MCILVAIN, M DEION PA Unavailable Unavailable MCILVAIN, M DEOIN PA Unavailable Unavailable MCILVAIN, M DEINO PA Unavailable Unavailable MCILVAIN, M DEION PA Unavailable Unavailable MCILVAIN, M DEION PA Unavailable Unavailable MCILVAIN, M DEION PA Unavailable Unavailable MCILVAIN, M DEION PA Unavailable Unavailable MCILVAIN, M DEION PA Unavailable Unavailable MCILVAIN, M DEION PA Unavailable Unavailable MCILVAIN, M DEION PA Unavailable Unavailable MCILVAIN, M DEION PA Unavailable Unavailable MCILVAIN, M DEION PA Unavailable Unavailable MCILVAIN, M DEION PA Unavailable Unavailable MCILVAIN, M DEION PA Unavailable Unavailable MCILVAIN, M DEION PA Unavailable Unavailable MCILVAIN, M DEION PA Unavailable Unavailable MCILVAIN, M DEION PA Unavailable Unavailable MCILVAIN, M DEION PA Unavailable Unavailable MCILVAIN, M DEION PA Unavailable Unavailable MCILVAIN, M DEION PA Unavailable Unavailable MCILVAIN, M DEION PA Unavailable Unavailable MCILVAIN, M DEION PA Unavailable Unavailable MCILVAIN, M DEION PA Unavailable Unavailable MCILVAIN, M DEION PA Unavailable Unavailable MCILVAIN, M DEION PA Unavailable Unavailable MCILVAIN, M DEION PA Unavailable Unavailable Volcko, M Becky DIAMOND SIZER AND GRADER Unavailable Unavailable Volcko, M Becky DIAMOND SIZER AND GRADER Unavailable Unavailable Volcko, M Becky DIAMOND SIZER AND GRADER Unavailable Unavailable Volcko, M Becky DIAMOND SIZER AND GRADER Unavailable Unavailable Volcko, M Becky DIAMOND SIZER AND GRADER Unavailable Unavailable Volcko, M Becky DIAMOND SIZER AND GRADER Unavailable Unavailable Volcko, M Becky DIAMOND SIZER AND GRADER Unavailable Unavailable Volcko, M Becky DIAMOND SIZER AND GRADER Unavailable Unavailable Volcko, M Becky DIAMOND SIZER AND GRADER Unavailable Unavailable Volcko, M Becky DIAMOND SIZER AND GRADER Unavailable Unavailable Volcko, M Becky DIAMOND SIZER AND GRADER Unavailable Unavailable Volcko, M Becky DIAMOND SIZER AND GRADER Unavailable Unavailable Volcko, M Becky DIAMOND SIZER AND GRADER Unavailable Unavailable Volcko, M Becky DIAMOND SIZER AND GRADER Unavailable Unavailable Volcko, M Becky DIAMOND SIZER AND GRADER Unavailable Unavailable Volcko, M Becky DIAMOND SIZER AND GRADER Unavailable Unavailable Volcko, M Becky DIAMOND SIZER AND GRADER Unavailable Unavailable Volcko, M Becky DIAMOND SIZER AND GRADER Unavailable Unavailable Volcko, M Becky DIAMOND SIZER AND GRADER Unavailable Unavailable Volcko, M Becky DIAMOND SIZER AND GRADER Unavailable Unavailable Volcko, M Becky DIAMOND SIZER AND GRADER Unavailable Unavailable Volcko, M Becky DIAMOND SIZER AND GRADER Unavailable Unavailable Volcko, M Becky DIAMOND SIZER AND GRADER Unavailable Unavailable Volcko, M Becky DIAMOND SIZER AND GRADER Unavailable Unavailable Volcko, M Becky DIAMOND SIZER AND GRADER Unavailable Unavailable Volcko, M Becky DIAMOND SIZER AND GRADER Unavailable Unavailable Volcko, M Becky DIAMOND SIZER AND GRADER Unavailable Unavailable Volcko, M Becky DIAMOND SIZER AND GRADER Unavailable Unavailable Volcko, M Becky DIAMOND SIZER AND GRADER Unavailable Unavailable Volcko, M Becky DIAMOND SIZER AND GRADER Unavailable Unavailable Volcko, M Becky DIAMOND SIZER AND GRADER Unavailable Unavailable Volcko, M Becky DIAMOND SIZER AND GRADER Unavailable Unavailable Volckalen M Becky DIAMOND SIZER AND GRADER Unavailable Unavailable Voldamariso M Becky DIAMOND SIZER AND GRADER Unavailable Unavailable Vollotus M Becky DIAMOND SIZER AND GRADER Unavailable Unavailable Volcko M Becky DIAMOND SIZER AND GRADER Unavailable Unavailable Volckalen M Becky DIAMOND SIZER AND GRADER Unavailable Unavailable Esteban, V FILOMENA PA-C Unavailable Unavailable Garden, V FILOMENA PA-C Unavailable Unavailable Esteban, V FILOMENA PA-C Unavailable Unavailable Garden, V FILOMENA PA-C Unavailable Unavailable Garden, V FILOMENA PA-C Unavailable Unavailable Esteban, V FILOMENA PA-C Unavailable Unavailable Garden, V FILOMENA PA-C Unavailable Unavailable Garden, V FILOMENA PA-C Unavailable Unavailable Estbean, V FILOMENA PA-C Unavailable Unavailable Esteban, V FILOMENA PA-C Unavailable Unavailable Garden, V FILOMENA PA-C Unavailable Unavailable Garden, V FILOMENA PA-C Unavailable Unavailable Garden, V FILOMENA PA-C Unavailable Unavailable Garden, V FILOMENA PA-C Unavailable Unavailable Aniceto Crump JR, MD Unavailable Unavailable Aniceto Crump JR, MD Unavailable Unavailable Aniceto Crump JR, MD Unavailable Unavailable Aniceto Crump JR, MD Unavailable Unavailable Aniceto Crump JR, MD Unavailable Unavailable Aniceto Crump JR, MD Unavailable Unavailable Aniceto Crump JR, MD Unavailable Unavailable Aniceto Crump JR, MD Unavailable Unavailable Aniceto Crump JR, MD Unavailable Unavailable Aniceto Crump JR, MD Unavailable Unavailable Aniceto Crump JR, MD Unavailable Unavailable Aniceto Crump JR, MD Unavailable Unavailable Aniceto Crump JR, MD Unavailable Unavailable Aniceto Crump JR, MD Unavailable Unavailable Aniceto Crump JR, MD Unavailable Unavailable Aniceto Crump JR, MD Unavailable Unavailable Aniceto Crump JR, MD Unavailable Unavailable Aniceto Crump JR, MD Unavailable Unavailable Aniceto Crump JR, MD Unavailable Unavailable Aniceto Crump JR, MD Unavailable Unavailable Aniceto Crump JR, MD Unavailable Unavailable Aniceto Crump JR, MD Unavailable Unavailable Aniceto Crump JR, MD Unavailable Unavailable Aniceto Crump JR, MD Unavailable Unavailable Aniceto Crump JR, MD Unavailable Unavailable Aniceto Crump JR, MD Unavailable Unavailable Aniceto Crump JR, MD Unavailable Unavailable Aniceto Crump JR, MD Unavailable Unavailable Aniceto Crump JR, MD Unavailable Unavailable Alisia JR, J Deni CASAS Unavailable Unavailable Alisia JR, J Deni CASAS Unavailable Unavailable Alisia JR, J Deni Unavailable Unavailable Alisia JR, J Deni CASAS Unavailable Unavailable Alisia JR, J Deni Unavailable Unavailable Alisia JR, J Deni Unavailable Unavailable Alisia JR, J Deni Unavailable Unavailable Alisia JR, J Deni Unavailable Unavailable Alisia JR, J Deni Unavailable Unavailable Alisia JR, J Deni Unavailable Unavailable Alisia JR, J Deni Unavailable Unavailable Alisia JR, J Deni Unavailable Unavailable Alisia JR, J Deni Unavailable Unavailable Alisia JR, J Deni Unavailable Unavailable Alisia JR, J Deni Unavailable Unavailable Alisia JR, J Deni Unavailable Unavailable Alisia JR, J Deni Unavailable Unavailable Alisia JR, J Deni Unavailable Unavailable Alisia JR, J Deni Unavailable Unavailable Alisia JR, J Deni Unavailable Unavailable Alisia JR, J Deni Unavailable Unavailable Alisia JR, J Deni Unavailable Unavailable Alisia JR, J Deni Unavailable Unavailable Alisia JR, J Deni Unavailable Unavailable Alisia JR, J Deni Unavailable Unavailable Alisia JR, J Deni CASAS Unavailable Unavailable Alisia JR, J Deni CASAS Unavailable Unavailable Adeola KRAUS MD Unavailable Unavailable Adeola KRAUS MD Unavailable Unavailable Adeola KRAUS MD Unavailable Unavailable Adeola KRAUS MD Unavailable Unavailable Adeola KRAUS MD Unavailable Unavailable Adeola KRAUS MD Unavailable Unavailable Adeola KRAUS MD Unavailable Unavailable Adeola KRAUS MD Unavailable Unavailable Adeola KRAUS MD Unavailable Unavailable Adeola KRAUS MD Unavailable Unavailable Adeola KRAUS MD Unavailable Unavailable Adeola KRAUS MD Unavailable Unavailable Adeola KRAUS MD Unavailable Unavailable Adeola KRAUS MD Unavailable Unavailable Adeola KRAUS MD Unavailable Unavailable Adeola KRAUS MD Unavailable Unavailable Adeola KRAUS MD Unavailable Unavailable Adeola KRAUS MD Unavailable Unavailable Adeola KRAUS MD Unavailable Unavailable Adeola KRAUS MD Unavailable Unavailable Adeola KRAUS MD Unavailable Unavailable Adeola KRAUS MD Unavailable Unavailable Adeola KRAUS MD Unavailable Unavailable Adeola KRAUS MD Unavailable Unavailable Adeola KRAUS MD Unavailable Unavailable Adeola KRAUS MD Unavailable Unavailable Adeola KRAUS MD Unavailable Unavailable Adeola KRAUS MD Unavailable Unavailable Adeola KRAUS MD Unavailable Unavailable Adeola KRAUS MD Unavailable Unavailable Adeola KRAUS MD Unavailable Unavailable Adeola KRAUS MD Unavailable Unavailable Adeola KRAUS MD Unavailable Unavailable Adeola KRAUS MD Unavailable Unavailable KHAIRALLAH, RAMZI MD Unavailable Unavailable KHAIRALLAH, RAMZI MD Unavailable Unavailable KHAIRALLAH, RAMZI MD Unavailable Unavailable KHAIRALLAH, RAMZI MD Unavailable Unavailable KHAIRALLAH, RAMZI MD Unavailable Unavailable KHAIRALLAH, RAMZI MD Unavailable Unavailable KHAIRALLAH, RAMZI MD Unavailable Unavailable KHAIRALLAH, RAMZI MD Unavailable Unavailable KHAIRALLAH, RAMZI MD Unavailable Unavailable KHAIRALLAH, RAMZI MD Unavailable Unavailable KHAIRALLAH, RAMZI MD Unavailable Unavailable KHAIRALLAH, RAMZI MD Unavailable Unavailable KHAIRALLAH, RAMZI MD Unavailable Unavailable KHAIRALLAH, RAMZI MD Unavailable Unavailable KHAIRALLAH, RAMZI MD Unavailable Unavailable KHAIRALLAH, RAMZI MD Unavailable Unavailable KHAIRALLAH, RAMZI MD Unavailable Unavailable KHAIRALLAH, RAMZI MD Unavailable Unavailable KHAIRALLAH, RAMZI MD Unavailable Unavailable KHAIRALLAH, RAMZI MD Unavailable Unavailable KHAIRALLAH, RAMZI MD Unavailable Unavailable KHAIRALLAH, RAMZI MD Unavailable Unavailable KHAIRALLAH, RAMZI MD Unavailable Unavailable KHAIRALLAH, RAMZI MD Unavailable Unavailable KHAIRALLAH, RAMZI MD Unavailable Unavailable KHAIRALLAH, RAMZI MD Unavailable Unavailable KHAIRALLAH, RAMZI MD Unavailable Unavailable KHAIRALLAH, RAMZI MD Unavailable Unavailable KHAIRALLAH, RAMZI MD Unavailable Unavailable KHAIRALLAH, RAMZI MD Unavailable Unavailable KHAIRALLAH, RAMZI MD Unavailable Unavailable KHAIRALLAH, RAMZI MD Unavailable Unavailable KHAIRALLAH, RAMZI MD Unavailable Unavailable KHAIRALLAH, RAMZI MD Unavailable Unavailable KHAIRALLAH, RAMZI MD Unavailable Unavailable KHAIRALLAH, RAMZI MD Unavailable Unavailable KHAIRALLAH, RAMZI MD Unavailable Unavailable KHAIRALLAH, RAMZI MD Unavailable Unavailable KHAIRALLAH, RAMZI MD Unavailable Unavailable KHAIRALLAH, RAMZI MD Unavailable Unavailable KHAIRALLAH, RAMZI MD Unavailable Unavailable KHAIRALLAH, RAMZI MD Unavailable Unavailable KHAIRALLAH, RAMZI MD Unavailable Unavailable KHAIRALLAH, RAMZI MD Unavailable Unavailable KHAIRALLAH, RAMZI MD Unavailable Unavailable KHAIRALLAH, RAMZI MD Unavailable Unavailable KHAIRALLAH, RAMZI MD Unavailable Unavailable KHAIRALLAH, RAMZI MD Unavailable Unavailable KHAIRALLAH, RAMZI MD Unavailable Unavailable KHAIRALLAH, RAMZI MD Unavailable Unavailable KHAIRALLAH, RAMZI MD Unavailable Unavailable KHAIRALLAH, RAMZI MD Unavailable Unavailable KHAIRALLAH, RAMZI MD Unavailable Unavailable KHAIRALLAH, RAMZI MD Unavailable Unavailable KHAIRALLAH, RAMZI MD Unavailable Unavailable KHAIRALLAH, RAMZI MD Unavailable Unavailable KHAIRALLAH, RAMZI MD Unavailable Unavailable KHAIRALLAH, RAMZI MD Unavailable Unavailable KHAIRALLAH, RAMZI MD Unavailable Unavailable KHAIRALLAH, RAMZI MD Unavailable Unavailable KHAIRALLAH, RAMZI MD Unavailable Unavailable KHAIRALLAH, RAMZI MD Unavailable Unavailable KHAIRALLAH, RAMZI MD Unavailable Unavailable KHAIRALLAH, RAMZI MD Unavailable Unavailable KHAIRALLAH, RAMZI MD Unavailable Unavailable KHAIRALLAH, RAMZI MD Unavailable Unavailable KHAIRALLAH, RAMZI MD Unavailable Unavailable KHAIRALLAH, RAMZI MD Unavailable Unavailable KHAIRALLAH, RAMZI MD Unavailable Unavailable KHAIRALLAH, RAMZI MD Unavailable Unavailable KHAIRALLAH, RAMZI MD Unavailable Unavailable KHAIRALLAH, RAMZI MD Unavailable Unavailable KHAIRALLAH, RAMZI MD Unavailable Unavailable KHAIRALLAH, RAMZI MD Unavailable Unavailable KHAIRALLAH, RAMZI MD Unavailable Unavailable KHAIRALLAH, RAMZI MD Unavailable Unavailable KHAIRALLAH, RAMZI MD Unavailable Unavailable KHAIRALLAH, RAMZI MD Unavailable Unavailable KHAIRALLAH, RAMZI MD Unavailable Unavailable KHAIRALLAH, RAMZI MD Unavailable Unavailable KHAIRALLAH, RAMZI MD Unavailable Unavailable KHAIRALLAH, RAMZI MD Unavailable Unavailable KHAIRALLAH, RAMZI MD Unavailable Unavailable KHAIRALLAH, RAMZI MD Unavailable Unavailable KHAIRALLAH, RAMZI MD Unavailable Unavailable KHAIRALLAH, RAMZI MD Unavailable Unavailable KHAIRALLAH, RAMZI MD Unavailable Unavailable KHAIRALLAH, RAMZI MD Unavailable Unavailable KHAIRALLAH, RAMZI MD Unavailable Unavailable KHAIRALLAH, RAMZI MD Unavailable Unavailable KHAIRALLAH, RAMZI MD Unavailable Unavailable Jevon Meneses II Unavailable Unavailable Gideon II, Jevon PA Unavailable Unavailable Gideon II, Jevon PA Unavailable Unavailable Gideon II, Jevon PA Unavailable Unavailable Gideon II, Jevon PA Unavailable Unavailable Gideon II, Jevon PA Unavailable Unavailable Gideon II, Jevon PA Unavailable Unavailable Gideon II, Jevon PA Unavailable Unavailable Gideon II, Jevon PA Unavailable Unavailable Gideon II, Jevon PA Unavailable Unavailable Gideon II, Jevon PA Unavailable Unavailable Gideon II, Jevon PA Unavailable Unavailable Gideon II, Jevon PA Unavailable Unavailable Gideon II, Jevon PA Unavailable Unavailable Gideon II, Jevon PA Unavailable Unavailable Gideon II, Jevon PA Unavailable Unavailable Gideon II, Jevon PA Unavailable Unavailable Gideon II, Jevon PA Unavailable Unavailable Gideon II, Jevon PA Unavailable Unavailable Re-disclosure Warning The records that you are about to access may contain information from federally-assisted alcohol or drug abuse programs. If such information is present, then the following federally mandated warning applies: This information has been disclosed to you from records protected by federal confidentiality rules (42 CFR part 2). The federal rules prohibit you from making any further disclosure of this information unless further disclosure is expressly permitted by the written consent of the person to whom it pertains or as otherwise permitted by 42 CFR part 2. A general authorization for the release of medical or other information is NOT sufficient for this purpose. The Federal rules restrict any use of the information to criminally investigate or prosecute any alcohol or drug abuse patient.The records that you are about to access may contain highly sensitive health information, the redisclosure of which is protected by Article 27-F of the [facility] Public Health law. If you continue you may have access to information: Regarding HIV / AIDS; Provided by facilities licensed or operated by the [facility] Office of Mental Health; or Provided by the [facility] Office for People With Developmental Disabilities. If such information is present, then the following [facility] mandated warning applies: This information has been disclosed to you from confidential records which are protected by state law. State law prohibits you from making any further disclosure of this information without the specific written consent of the person to whom it pertains, or as otherwise permitted by law. Any unauthorized further disclosure in violation of state law may result in a fine or halfway sentence or both. A general authorization for the release of medical or other information is NOT sufficient authorization for further disc losure. Allergies and Adverse Reactions Type Description Substance Reaction Status Data Source(s ) Propensity to adverse reactions HYDROXYCHLOROQUINE HYDROXYCHLOROQUINE [facility] Propensity to adverse reactions PREGABALIN PREGABALIN [facility] Propensity to adverse reactions PREGABALIN pregabalin Acti ve [facility] Propensity to adverse reactions HYDROXYCHLOROQUINE Hydroxychloroquine Active [facility] Family History Family Member Name Family Member Gender Family Member Status Date o f Status Description Data Source(s) Unknown Unknown Problem MEDENT ([facility]) Unknown Male Problem MEDENT ([facility]) alive Encounters Encounter Providers Location Date Indications Data Source(s ) Outpatient Attender: Becky Brar NP 11/07/2021 12:00:00 AM EDT [facility] Outpatient Referrer: Yudith Sandoval MD 04/24/2021 11:35:00 AM EST Nutritional anemia, unspecified [facility] Nutritional anemia, unspecified [place] [address] [facility] [address] [place] [address] 04/10/2021 12:00:00 AM EST eCW1 ([facility]) Unknown [address] [facility] [address] [address] 03/26/2021 12:00:00 AM EST eCW1 ([facility]) Outpatient [address] [facility] [address] [address] 03/22/2021 12:00:00 AM EDT eCW1 ([facility]) Outpatient Attender: JEANNETTE Kraus/Ramos/Irving/Rein dl 03/11/2021 02:45:00 PM EDT MEDENT ([facility]) Outpatient Attender: Jevon Kraus/Ramos/Irving/Suzanne dl 02/26/2021 02:00:00 PM EDT MED[facility] ([facility]) [place] [address] [facility] [place] [address] 02/21/2021 12:00:00 AM EDT eCW1 ([facility]) Unknown [address] [facility] [place] [address] 01/23/2021 12:00:00 AM EDT eCW1 ([facility]) Outpatient Attender: ROBER Kraus/Ramos/Irving/Reind marry 12/26/2020 03:00:00 PM EDT MEDENT ([facility] ) Outpatient Attender: Deni Kraus/[place]/Irving/Rein dl 12/19/2020 02:15:00 PM EDT MEDENT ([facility] ) Outpatient [address] [facility] [address] [place] [address] 12/11/2020 12:00:00 AM EDT eCW1 ([facility]) Outpatient [address] [facility] [place] [address] 12/10/2020 12:00:00 AM EDT eCW1 ([facility]) Outpatient Attender: LILIAN VALENZUELA MD [id number] 12:00:00 AM EDT - 11/08/2020 01:23:47 PM [facility] Outpatient [address] [facility] [place] [address] 11/05/2020 12:00:00 AM EDT eCW1 ([facility]) Outpatient Attender: Deni Kraus/Ramos/Irving/Rein dl 10/31/2020 02:15:00 PM EDT MEDENT ([facility] ) Unknown [address] [facility] [place] [address] 10/29/2020 12:00:00 AM EDT eCW1 ([facility]) Unknown [address] [facility] [place] [address] 10/25/2020 12:00:00 AM EDT eCW1 ([facility]) Attender: DEION VALERA [facility] 10/19/2020 01:36:00 PM EDT - 10/19/2020 01:36:00 PM EDT Next[facility] ( [facility]) Attender: DEION VALERA [facility] 10/04/2020 05:23:00 PM EDT - 10/04/2020 05:23:00 PM EDT [facility] ( [facility]) Unknown [address] [facility] [place] [address] 09/25/2020 12:00:00 AM EDT eCW1 ([facility]) Outpatient [address] [facility] [place] [address] 09/10/2020 12:00:00 AM EDT eCW1 ([facility]) OutpatientOFFICE/OUTPATIENT VISIT, EST Attender: DEION VALERA [facility] 09/04/2020 03:00:00 PM EDT - 09/04/2020 03:00:00 PM ED T Other oil heaterman (current) drug therapyOther osteoporosis without current pathological fracturePolyosteoarthritis, unspecifiedRheumatoid arthritis with rheumatoid factor of multiple sites without organ or systems involvement [facility] ([facility]) Other fdc (current) drug therapy Other osteoporosis without current patho logical fracture Polyosteoarthritis, unspecified Rheumatoid arthritis with rheumatoid fac tor of multiple sites without organ or systems involvement Unknown [address] [facility] [place] [address] 08/27/2020 12:00:00 AM EDT eCW1 ([facility]) Outpatient Attender: FILOMENA Orellana PA-C SJP.ANNE-SJP.ANNE 11/2020 03:18:20 PM EDT [facility] Unknown [address] [facility] [place] [address] 08/13/2020 12:00:00 AM EDT eCW1 ([facility]) Outpatient [address] [facility] [place] [address] 08/08/2020 12:00:00 AM EDT eCW1 ([facility]) Unknown [address] [facility] [place] [address] 07/23/2020 12:00:00 AM EST eCW1 ([facility]) Unknown [address] [facility] [place] [address] 06/27/2020 12:00:00 AM EST eCW1 ([facility]) Unknown [address] [facility] [place] [address] 06/25/2020 12:00:00 AM EST eCW1 ([facility]) Attender: ED STOKES [facility] 05/29/2020 07:07:00 PM EST - 05/29/2020 07:07:00 PM EST [facility] ( [facility]) Attender: DEION VALERA [facility] 05/24/2020 02:35:00 PM EST - 05/24/2020 02:35:00 PM EST [facility] ( [facility]) Unknown [address] [facility] [place] [address] 05/22/2020 12:00:00 AM EST eCW1 ([facility]) Unknown [address] [facility] [place] [address] 04/18/2020 12:00:00 AM EST eCW1 ([facility]) Outpatient [address] [facility] [place] [address] 03/19/2020 12:00:00 AM EST eCW1 ([facility]) Attender: DEION VALERA [facility] 02/28/2020 03:40:00 PM EDT - 02/28/2020 03:40:00 PM EDT Polyosteoarthritis, unspecifiedOther osteoporosis without current pathological fractureOther oil heaterman (current) drug therapyRheumatoid arthritis with rheumatoid factor of multiple sites without organ or systems involvement [facility] ([facility]) Polyosteoarthritis, unspecified Other osteoporosis without current patho logical fracture Other fdc (current) drug therapy Rheumatoid arthritis with rheumatoid fac tor of multiple sites without organ or systems involvement Immunizations Vaccine Date Status Description Data Source(s) COVID-19 VACCINE Moderna 2021 12:00:00 AM EST completed NYSIIS Vaccine Series Complete: YESThis Data wa s Submitted to [facility] Via [employer]. COVID-19 VACCINE Moderna 09/11/2020 12:00:00 AM EDT completed NYSIIS Vaccine Series Complete: YESThis Data wa s Submitted to [facility] Via [employer]. COVID-19 VACCINE Moderna 08/14/2020 12:00:00 AM EDT completed NDSIIS Vaccine Series Complete: NOThis Data was Submitted to [facility] Via [employer]. Influenza, injectable, MDCK, preservative free, hailee valent 02/28/2020 12:00:00 AM EDT completed Flucelvax [facility]) Source: New Immunization Record Medications Medication Brand Name Start Date Product Form Dose Route Admi nistrative Instructions Pharmacy Instructions Status Indications Reaction Description Data Source(s) Acetaminophen 325 MG / Hydrocodone Tj trate 10 MG Oral Tablet HYDROcodone- Acetaminophen 10-325 MG HYDROcodone-Acetaminophen 10-325 MG 03/22/2021 12:00:0 0 AM EDT 1.0 {tablet_as_needed} active HYDROcodone-Acetaminophen 10- 325 MG [facility] Acetaminophen 325 MG / Hydrocodone Tj trate 10 MG Oral Tablet HYDROcodone- Acetaminophen 10-325 MG HYDROcodone-Acetaminophen 10-325 MG 03/22/2021 12:00:0 0 AM EDT 1.0 {tablet_as_needed} active HYDROcodone-Acetaminophen 10- 325 MG [facility]CW1 [facility]) Acetaminophen 325 MG / Hydrocodone Tj trate 10 MG Oral Tablet HYDROcodone- Acetaminophen 10-325 MG HYDROcodone-Acetaminophen 10-325 MG 03/22/2021 12:00:0 0 AM EDT 1.0 {tablet_as_needed} active HYDROcodone-Acetaminophen 10- 325 MG [facility]CW1 [facility]) Magnesium Hydroxide 80 MG/ML Oral Suspension Milk Of Magnesi a 03/11/2021 12:00:00 AM EDT ORAL active M EDENT ([facility], ) POLYETHYLENE GLYCOL 3350 142 MG/ML Oral Solution [Miralax] M iralax 03/11/2021 12:00:00 AM EDT active M EDENT ([facility], ) Acetaminophen 325 MG / Hydrocodone Tj trate 10 MG Oral Tablet HYDROcodone- Acetaminophen 10-325 MG HYDROcodone-Acetaminophen 10-325 MG 02/21/2021 12:00:0 0 AM EDT 1.0 {tablet_as_needed} active HYDROcodone-Acetaminophen 10- 325 MG [facility]CW1 [facility]) Acetaminophen 325 MG / Hydrocodone Tj trate 10 MG Oral Tablet HYDROcodone- Acetaminophen 10-325 MG HYDROcodone-Acetaminophen 10-325 MG 01/25/2021 12:00:0 0 AM EDT 1.0 {tablet_as_needed} active HYDROcodone-Acetaminophen 10- 325 MG [facility]CW1 ([facility]) Fluticasone Propionate Fluticasone Propionate 12/26/2020 12:00:00 AM E DT active [facility] ([facility] ) Sodium Chloride 0.111 MEQ/ML Nasal Solution Saline Nasal Spr ay 12/26/2020 12:00:00 AM EDT active M EDENT ([facility], ) Acetaminophen 325 MG / Hydrocodone Tj trate 10 MG Oral Tablet HYDROcodone- Acetaminophen 10-325 MG HYDROcodone-Acetaminophen 10-325 MG 12/11/2020 12:00:0 0 AM EDT 1.0 {tablet_as_needed} active HYDROcodone-Acetaminophen 10- 325 MG eCW1 ([facility]) Acetaminophen 325 MG / Hydrocodone Tj trate 10 MG Oral Tablet HYDROcodone- Acetaminophen 10-325 MG HYDROcodone-Acetaminophen 10-325 MG 12/11/2020 12:00:0 0 AM EDT 1.0 {tablet_as_needed} active [facility]CW1 [facility]) Sucralfate 1000 MG Oral Tablet Sucralfate 1 GM Sucralfate 1 GM 12/10/2020 12:00:00 AM EDT 1.0 {tablet_on_an_empty_stomach} active Sucralfate 1 GM eCW1 ([facility]) Sucralfate 1000 MG Oral Tablet Sucralfate 1 GM Sucralfate 1 GM 12/10/2020 12:00:00 AM EDT 1.0 {tablet_on_an_empty_stomach} active Sucralfate 1 GM eCW1 ([facility]) Sucralfate 1000 MG Oral Tablet Sucralfate 1 GM Sucralfate 1 GM 12/10/2020 12:00:00 AM EDT 1.0 {tablet_on_an_empty_stomach} act samira eCW1 ([facility]) Sucralfate 1000 MG Oral Tablet Sucralfate 1 GM Sucralfate 1 GM 12/10/2020 12:00:00 AM EDT 1.0 {tablet_on_an_empty_stomach} active Sucralfate 1 GM eCW1 ([facility]) Sucralfate 1000 MG Oral Tablet Sucralfate 1 GM Sucralfate 1 GM 12/10/2020 12:00:00 AM EDT 1.0 {tablet_on_an_empty_stomach} active Sucralfate 1 GM eCW1 ([facility]) Sucralfate 1000 MG Oral Tablet Sucralfate 1 GM Sucralfate 1 GM 12/10/2020 12:00:00 AM EDT 1.0 {tablet_on_an_empty_stomach} active Sucralfate 1 GM eCW1 ([facility]) Sucralfate 1000 MG Oral Tablet Sucralfate 1 GM Sucralfate 1 GM 12/10/2020 12:00:00 AM EDT 1.0 {tablet_on_an_empty_stomach} active Sucralfate 1 GM eCW1 ([facility]) Acetaminophen 325 MG / Hydrocodone Tj trate 10 MG Oral Tablet HYDROcodone- Acetaminophen 10-325 MG HYDROcodone-Acetaminophen 10-325 MG 11/05/2020 12:00:0 0 AM EDT 1.0 {tablet_as_needed} active HYDROcodone-Acetaminophen 10- 325 MG eCW1 ([facility]) Acetaminophen 325 MG / Hydrocodone Tj trate 10 MG Oral Tablet HYDROcodone- Acetaminophen 10-325 MG HYDROcodone-Acetaminophen 10-325 MG 10/25/2020 12:00:0 0 AM EDT 1.0 {tablet_as_needed} active HYDROcodone-Acetaminophen 10- 325 MG eCW1 ([facility]) Acetaminophen 325 MG / Hydrocodone Tj trate 10 MG Oral Tablet HYDROcodone- Acetaminophen 10-325 MG HYDROcodone-Acetaminophen 10-325 MG 10/25/2020 12:00:0 0 AM EDT 1.0 {tablet_as_needed} active HYDROcodone-Acetaminophen 10- 325 MG eCW1 ([facility]) Acetaminophen 325 MG / Hydrocodone Tj trate 10 MG Oral Tablet Hydrocodone- Acetaminophen 10-325 MG Hydrocodone-Acetaminophen 10-325 MG 09/25/2020 12:00:0 0 AM EDT 1.0 {tablet_as_needed} active Hydrocodone-Acetaminophen 10- 325 MG eCW1 ([facility]) leflunomide 10 MG Oral Tablet leflunomide 10 mg tablet leflu nomide 10 mg tablet 09/04/2020 12:00:00 AM EDT 1.00 {tbl} ORAL active take 1 tablet by oral route every day Next[facility] ([facility]) Acetaminophen 325 MG / Hydrocodone Tj trate 10 MG Oral Tablet Hydrocodone- Acetaminophen 10-325 MG Hydrocodone-Acetaminophen 10-325 MG 08/27/2020 12:00:0 0 AM EDT 1.0 {tablet_as_needed} active Hydrocodone-Acetaminophen 10- 325 MG eCW1 ([facility]) Acetaminophen 325 MG / Hydrocodone Tj trate 10 MG Oral Tablet Hydrocodone- Acetaminophen 10-325 MG Hydrocodone-Acetaminophen 10-325 MG 08/27/2020 12:00:0 0 AM EDT 1.0 {tablet_as_needed} active Hydrocodone-Acetaminophen 10- 325 MG eCW1 ([facility]) Acetaminophen 325 MG / Hydrocodone Tj trate 10 MG Oral Tablet Hydrocodone- Acetaminophen 10-325 MG Hydrocodone-Acetaminophen 10-325 MG 07/23/2020 12:00:0 0 AM EST 1.0 {tablet_as_needed} active Hydrocodone-Acetaminophen 10- 325 MG eCW1 ([facility]) Acetaminophen 325 MG / Hydrocodone Tj trate 10 MG Oral Tablet Hydrocodone- Acetaminophen 10-325 MG Hydrocodone-Acetaminophen 10-325 MG 07/23/2020 12:00:0 0 AM EST 1.0 {tablet_as_needed} active Hydrocodone-Acetaminophen 10- 325 MG eCW1 ([facility]) Acetaminophen 325 MG / Hydrocodone Tj trate 10 MG Oral Tablet Hydrocodone- Acetaminophen 10-325 MG Hydrocodone-Acetaminophen 10-325 MG 07/23/2020 12:00:0 0 AM EST 1.0 {tablet_as_needed} active Hydrocodone-Acetaminophen 10- 325 MG eCW1 ([facility]) Acetaminophen 325 MG / Hydrocodone Tj trate 10 MG Oral Tablet Hydrocodone- Acetaminophen 10-325 MG Hydrocodone-Acetaminophen 10-325 MG 06/27/2020 12:00:0 0 AM EST 1.0 {tablet_as_needed} active Hydrocodone-Acetaminophen 10- 325 MG eCW1 ([facility]) [place] 10-325 MG UNK 06/25/2020 12:00:00 AM EST 1.0 {tablet_a s_needed} active [place] 10-325 MG eCW1 [facility]) [place] 10-325 MG UNK 06/25/2020 12:00:00 AM EST 1.0 {tablet_a s_needed} suspended [place] 10-325 MG eCW1 ([facility]) [place] 10-325 MG UNK 06/25/2020 12:00:00 AM EST 1.0 {tablet_a s_needed} suspended [place] 10-325 MG eCW1 ([facility]) [place] 10-325 MG UNK 06/25/2020 12:00:00 AM EST 1.0 {tablet_a s_needed} suspended [place] 10-325 MG eCW1 ([facility]) [place] 10-325 MG UNK 06/25/2020 12:00:00 AM EST 1.0 {tablet_a s_needed} suspended [place] 10-325 MG eCW1 [facility]) Acetaminophen 325 MG / Hydrocodone Tj trate 10 MG Oral Tablet [[place]] [place] 10-325 MG [place] 10-325 MG 06/25/2020 12:00:00 AM EST 1.0 {tablet_as_ needed} active [place] 10-325 MG eCW1 ([facility]) Acetaminophen 325 MG / Hydrocodone Tj trate 10 MG Oral Tablet [[place]] [place] 10-325 MG [place] 10-325 MG 06/25/2020 12:00:00 AM EST 1.0 {tablet_as_ needed} active [place] 10-325 MG eCW1 ([facility]) [place] 10-325 MG UNK 06/25/2020 12:00:00 AM EST 1.0 {tablet_a s_needed} suspended [place] 10-325 MG [facility]CW1 [facility] [place] 10-325 MG UNK 06/25/2020 12:00:00 AM EST 1.0 {tablet_a s_needed} suspended [place] 10-325 MG eCW1 [facility]) [place] 10-325 MG UNK 06/25/2020 12:00:00 AM EST 1.0 {tablet_a s_needed} suspended [place] 10-325 MG eCW1 [facility]) [place] 10-325 MG UNK 06/25/2020 12:00:00 AM EST 1.0 {tablet_a s_needed} suspended [place] 10-325 MG eCW1 [facility]) Prednisone 2.5 MG Oral Tablet prednisone 2.5 mg tablet predn isone 2.5 mg tablet 05/24/2020 12:00:00 AM EST 1 {tbl} ORAL active take 1 - 2 tablet by oral route every morning with food [facility]erie ([facility]) leflunomide 10 MG Oral Tablet leflunomide (ARAVA) 10 M G tablet leflunomide (ARAVA) 10 MG tablet 05/24/2020 12:00:00 AM EST 10 mg Oral active Take 10 mg by mouth daily [facility] Prednisone 2.5 MG Oral Tablet predniSONE (DELTASONE) 2 .5 MG tablet predniSONE (DELTASONE) 2.5 MG tablet 05/24/2020 12:00:00 AM EST active TAKE 1 TO 2 TABLETS BY MOUTH EVERY MORNING WITH FOOD [facility] leflunomide 10 MG Oral Tablet leflunomide 10 mg tablet leflu nomide 10 mg tablet 05/24/2020 12:00:00 AM EST 1.00 {tbl} ORAL completed take 1 tablet by oral route every day [facility] ([facility]) Acetaminophen 325 MG / Hydrocodone Tj trate 10 MG Oral Tablet [[place]] [place] 10-325 MG [place] 10-325 MG 05/22/2020 12:00:00 AM EST 1.0 {tablet_as_ needed} active [place] 10-325 MG eCW1 ([facility]) Acetaminophen 325 MG / Hydrocodone Tj trate 10 MG Oral Tablet [[place]] [place] 10-325 MG [place] 10-325 MG 04/19/2020 12:00:00 AM EST 1.0 {tablet_as_ needed} active [place] 10-325 MG eCW1 ([facility]) Acetaminophen 325 MG / Hydrocodone Tj trate 10 MG Oral Tablet [[place]] [place] 10-325 MG [place] 10-325 MG 03/19/2020 12:00:00 AM EST 1.0 {tablet_as_ needed} active [place] 10-325 MG eCW1 ([facility]) leflunomide 10 MG Oral Tablet leflunomide 10 mg tablet leflu nomide 10 mg tablet 02/28/2020 12:00:00 AM EDT 1.00 {tbl} ORAL completed take 1 tablet by oral route every day [facility] ([facility]) Prednisone 2.5 MG Oral Tablet prednisone 2.5 mg tablet predn isone 2.5 mg tablet 02/28/2020 12:00:00 AM EDT 1 {tbl} ORAL completed take 1 - 2 tablet by oral route every morning with food Valerie ([facility]) Calcium Citrate-Vitamin D 1000-400 LIQD [address]-03 11/09/2018 12:00:00 AM EDT aborted CALCIUM + D TABS [facility] Misc Natural Products (TURMERIC CURCUMIN) CAPS 66115-32518 Oral aborted Take by mouth [facility] Prednisone 5 MG Oral Tablet predniSONE (DELTASONE) 5 M G tablet predniSONE (DELTASONE) 5 MG tablet 5 mg Oral aborted Take 5 mg by mouth [facility] Vitamin E D-Alpha 400 UNT Oral Capsule vitamin E 400 U NIT capsule vitamin E 400 UNIT capsule 400 U Oral aborted Take 400 Un its by mouth [facility] b complex vitamins capsule 22694-993-45 Oral aborted Take by mouth [facility] Ascorbic Acid 500 MG Oral Capsule Ascorbic Acid (VITAM IN C) 500 MG CAPS Ascorbic Acid (VITAMIN C) 500 MG CAPS Oral aborted Take by mouth [facility] CALCIUM & MAGNESIUM CARBONATES PO Oral aborte d Take by mouth [facility] Insurance Providers Payer name Policy type / Coverage type Policy ID Covered alliance party ID Covered alliance party's relationship to tyler Policy Tyler Plan Information MEDICARE A [id number] Self [id number] Danis BARRY PROG TODAYS OPTIONS G [id number] Self [id number] MEDICARE COMPLETE [id number] SP [id number] Today's Options Commercial [id number] Self [id number] TODAYS OPTIONS [id number] SP [id number] TODAYS OPTIONS [id number] SP [id number] TODAYS OPTION MEDICARE [id number] Paulette [id number] Today's Options Commercial [id number] Self [id number] TODAYS OPTION MEDICARE [id number] Paulette [id number] TODAYS OPTIONS [id number] SP [id number] MEDICARE BLUE PPO 306 [id number] SP [id number] EXCELLUS MEDICARE BLUE PPO G [id number] Self [id number] EXCELLUS BCBS MEDICARE [id number] Paulette [id number] EXCELLUS BCBS MEDICARE Medicare [id number] xxxxxxxxxxxx [id number] EXCELLUS MEDICARE BLUE PPO G [id number] Self [id number] ANSI-Medicare Part B [id number] ANSI-Medicare Part B [id number] ANSI-Medicare Part B [id number] ANSI-Medicare Part B [id number] ANSI-Medicare Part B [id number] ANSI-Medicare Part B [id number] ANSI-Medicare Part B [id number] ANSI-Medicare Part B [id number] [facility] B [id number] S [id number] [id number] ANSI-Medicare Part B [id number] ANSI-Medicare Part B [id number] ANSI-Medicare Part B [id number] ANSI-Medicare Part B [id number] ANSI-Medicare Part B [id number] Today's Options Commercial [id number] Self [id number] Today's Options Commercial [id number] Self [id number] TODAYS OPTIONS [id number] SP [id number] MEDICARE OUTPATIENT M [id number] S [id number] MEDICARE - [place] MCR [id number] S [id number] Medicare [facility] Medicare Primary [id number] Self MEDICARE C [id number] S [id number] A Medicare [facility] Medicare Primary [id number] Self MEDICARE [id number] SP [id number] A MEDICARE [id number] SP [id number] A Medicare [facility] Medicare Primary [id number] Self [id number] Today's Option Medicare Commercial [id number] Self [id number] Medicare [facility] Medicare Primary [id number] Self 1 [id number] TODAYS OPTIONS [id number] SP [id number] MEDICARE COMPLETE-[facility] O [id number] S [id number] TODAYS OPTIONS/[place] O [id number] S [id number] MEDICARE BLUE PPO 306 [id number] SP [id number] [place] Primary [id number] Self 1 [id number] MEDICARE BLUE PPO 306 [id number] SP [id number] MEDICARE BLUE PPO 306 [id number] SP [id number] [facility] [id number] S [id number] [id number] ANSI-Medicare Part B [id number] ANSI-Medicare Part B [id number] Medicare Blue Ppo/Hmo Commercial [id number] Self [id number] ANSI-Medicare Part B [id number] ANSI-Medicare Part B [id number] ANSI-Medicare Part B [id number] ANSI-Medicare Part B [id number] ANSI-Medicare Part B [id number]-[id number] ANSI-Medicare Part B [id number] ANSI-Medicare Part B [id number] ANSI-Medicare Part B [id number]-[id number] Problems, Conditions, and Diagnoses Code Display Name Description Problem Type Effective Dates Data Source(s) D53.9 Nutritional anemia, unspecified Nutritional anemia, un specified Diagnosis 04/24/2021 11:35:00 AM [facility] K29.50 [id number] Chronic gastritis, p resence of bleeding unspecified, unspecified gastritis type Problem 12/10/2020 12:00:00 AM EDT eCW1 ([facility]) R26.89 [id number] Balance disorder Problem 09/11/2020 12:00:00 AM EDT [facility] R63.4 Weight loss, unintentional Weight loss, unintentional [id number] 08/22/2020 12:00:00 AM EDT [facility] Surgeries/Procedures Procedure Description Date Indications Data Source(s) OFFICE OUTPATIENT NEW 45 MINUTES 03/11/2021 12:00:00 A M EDT [facility] ([facility], ) OFFICE OUTPATIENT VISIT 15 MINUTES 02/26/2021 12:00:00 AM EDT [facility] ([facility]) Endoscopy Nasal Diagnostic 12/26/2020 12:00:00 AM EDT [facility] ([facility]) OFFICE OUTPATIENT NEW 45 MINUTES 12/26/2020 12:00:00 A M EDT [facility]) OFFICE OUTPATIENT VISIT 15 MINUTES 12/19/2020 12:00:00 AM EDT [facility] ([facility]) OFFICE OUTPATIENT VISIT 15 MINUTES 10/31/2020 12:00:00 AM EDT [facility] ([facility]) OFFICE/OUTPATIENT VISIT, EST 09/04/2020 12:00:00 AM EDT - 09/04/2020 12:00:00 AM EDT [facility] ([facility]) ECG ROUTINE ECG W/LEAST 12 LDS W/I&R <td>POCT AMB EKG</td><td>Routine</td><td>08/22/2020 4:41 PM EDT</td><td> Shortness of breath</td><td> </td> 08/22/2020 08:41:00 PM EDT Shortness of breath [facility] Shortness of breath Results ID Date Data Source [id number] 11/08/2020 05:50:07 PM EDT [facility] Name Value Range Interpretation Code Description Data Mone rce(s) Supporting Document(s) Progress Note [facility] NQXCHs4rFaUTRrNz17/EVXitNCEla9CuOIdkZWl6XGpxWNSrQ2NbAOK9xD2yZVK3BGtNEoFrRgEnDiP4 lbm [file] Rp0Cy/evp operations/bY24zwoun77j14/A4tY1CLK2JQSnZCGDD [file] AgICAgICAgICAgICAgICAgICAgICAgICAgICAgICAg JRKpCBAfWRJgGIKwUPXeLHRfTI7INTCcWNIzXOIcTHJnLNKrSFCeIIFqJWWxZTFwMLStYLIpEAKkQTRa ICAgICAgICAgICAgICAgICAgICAgICAgICAgICAgICAgICAgICAgICAgICAgICAgICAgICAgICAgICAg QU0BQONvGMOjWGVzRAMjQWFlESUyMVKaDSLgRPRoRH AgICAgICAgICAgICAgICAgICAgICAgICAgICAgICAgICAgICAgICAgICAgICAgICAgICAgICAgICAgIC DyTUPoCEQkPOYsHH9TMHOuBYJjLHUdIJOwRWTlHFUhQQLuPEBeEMCpXOIuMDUsMMGkBFLnPKZaVFOfKA AgICAgICAgICAgICAgICAgICAgICAgICAgICAgICAg XSXfANQfGUHkALSyJTWsZXSwKKUtCI2DQHXuOGJqYALkYFGxCHAaCZBeSURcVYAwOBXiUNYeNQMvJSJl ICAgICAgICAgICAgICAgICAgICAgICAgICAgICAgICAgICAgICAgICAgICAgICAgICAgICAgICAgICAg ELJbTI6OJVWoJDQfLLReGKYnENQwUODiFPLePPQpUF AgICAgICAgICAgICAgICAgICAgICAgICAgICAgICAgICAgICAgICAgICAgICAgICAgICAgICAgICAgIC NqVMUcIJSxZXLsMWUxWL7MOOKjBXFlYPOvXPYcPVEmRPVtKTEyALVbYNQgCLJoXQRoJRAwQAMcFMRrUL AgICAgICAgICAgICAgICAgICAgICAgICAgICAgICAg QPFeTJMuMUCvYZBcBKLlVIBqDWOvISTlVJ9BVSAcPABpYXBuZZYaOITwGXNxKKCvSQLaCBYjQTOxTXUi ICAgICAgICAgICAgICAgICAgICAgICAgICAgICAgICAgICAgICAgICAgICAgICAgICAgICAgICAgICAg KTKjKJMyYQ3FDRYmTTOzIZNvPGCuFHIxURZpTENkRT AgICAgICAgICAgICAgICAgICAgICAgICAgICAgICAgICAgICAgICAgICAgICAgICAgICAgICAgICAgIC RnBBOvTDNaXFGmCHQaGHEmDM1JCQLrWDJrUIGkXJKoRJTnAFPlUWEwNJAsJYTbARSbMNChEEYyZGDhPY AgICAgICAgICAgICAgICAgICAgICAgICAgICAgICAg CYLfOOAqMSEgLRXqBSPqOBIxAVJaYAMjCGTcLF0KPZ07tTKtx0N8LUReJK1aqrr/Qi1HGTcufyCgeJEk SG9EKhVjBN3tkl5WMoOkVM1gej2BTQaZJhVzA5Y7cSIaBZZpOUDYCtLvO96dWUixOz18RZhzDTPeQtHd LMt8Dn1BXrFgT1bsPACfVpA7HNLwDwN3HOPkAvT5LN CjHhEwCMSdEWYvDAJlOWPTKI5LRhGsQ9QiyT32GKLOJt4+CRucdjHeFglNCpDfXLRea7WyJCj8NV5CFP SqJkpiq4MyAvAkYXEFGQnaKD2GWRK0PNBtIVFvKp9REOEuB490qzTvVD7OOi2PUiTaUO3ued0KWxUaEJ SiIdkPOmw6GIcrGB5GwIXhLOpKpg3exnTfyvGRo5Cp adPgwJSZZTN8NGnvW6KfefauV0mskFbuVQNyQKBrSl9uWY0yIBKrJSJrVeVvWJGWSM3BYNLvDVBuxEZd HTHrGUEJJJ8UQIhtJET8UMZibmEzgOZkZTxyFK8NPRRvdiTzHvMeIECOEFv+Dw0LNU7ow1MvCTdyNvJh JO9smq2OMMbZUkVoE5P2dUCeS8W8EWhfQn1JOSYwAP DnHmsjLKEWJNymTN1YDU9rtrZ1CD3EdOGuXIJkMXRwxLPoVQz8W18qyIMyLIobOY0MZXA+Evette+Pg0KIC TbSIJqOHDmUuHbWZNXWeRjW2XfS3WTd9OlP0YaHX43fRdoyuVbQEsfAG8XZF7eHGUyDNJZJN3GuOWnvD 6syuQlTQKcGOJQEmZzF77qnIUrMMYfTAU7LQBiQb2S JBVsJ2OdfjOkxZoxpzQsAYYeIWMEGP6YRZucyqQluXZhwLtsAB70qOwrVD5YEz9HTnBnNG2prv1IrDWg Hc7ANCVlLr6XFIJnNYYsPEAyPXN8IOFlAsEbYWqyRDWcXJGgWIT8PPPzGPPdYO8JDrFkABIoFLQ7RSAf MYAwDZWwkw8ATOCdRNS3RQIpAMKdFBZcMIJvKSikFY ReJEPiLGR6TPIpYXUySE9NPwYlMIIdIMF5QZYkFMGzTAYxdi5VBCTtSDCtXxnrNpBnHIQmSYOeHVlgIZ RvGPQ9WrN4URJfIJNhPD5HUnTjKUDhKHv4QUfcRCSsHABmko0YDTWuCBCsYNF6IILgIPNfQIHkBMbaQB CrSOUfBljcUPPuBNFsZH9ZZcIcWPUmNMTmSMiuGQUq KVBvrk3DPHDsYTSnRgB1CtPnLBInRQFhNTryNKRtENX8SYGaHMUzAHYiKG7VOaYwXAMxNQItHgzzWJWy QOByyy6SVLRcNDRcZmD8RFJwQYKsWWUlWWrvRZNqNRS5Xtl3WEJsLYBgPY4GHkAuOGRnNGc6KpfhNNKo SVJxma7SPUPvFZFaJGZoLIKcHYOhSFMdROhmQBIvRU P3HdDnIIIlAMCmYT5AUuMfOTFrSPw4OnokHGSqDHVbdo4AGYKkVJA3JTN3IDGzQHJtTSOlKYyxFCNoMJ CrXew2KYFmVPJlYZ6CQnEjBHOlRFD1VMUsXDLsWBQcwh7JQFIuSWF6AsYxTZXqZPVtWXFtWFkeVCSdGR QpHXO4APLqBGYkOZ3NXcOnEHPeWZQcSMifJBVkRTHe mt0BUMPlBOH8MaW8XcMcJXNoUHBpKTilJXJvIPTvXfX9JKZwLWQiMZ2TNtGnLHNjHKSsHZGdQBOhOHEo cy4MYIGgSBH0YQQ3BSNiRGGgWYRwRInpCMIdMJS5FkI1SZTpQFDkWW7HUnZqKQHoDRJ0AlqhOWXcWNVo oe1KmEGtfXdrbd4NMEoYBb7QtPicGWTpAMntPi7mlC FfSzDxNKCZUo0OzmSaOWScDRUYCNgpEXLwOZA7SZTrWfz7J1QkOzQkJLV8RiAlRdjeQCH5ZiThKtW6Vz P3OQKoNvB4MqR8HIEaFOIyWAGeJCGdHCQiVQRkQWX2UbG+UL4hLGp+Iy5Wl8OcvlD3cwTnYNx1JhGnUs 2GBPJNN9BLBk== Procedure Social History Code Duration Value Status Description Data Source(s ) Smoking 03/22/2021 12:00:00 AM EDT Never Smoker completed Never S moker [facility] Smoking 03/22/2021 12:00:00 AM EDT Never Smoker completed Never S moker eCW1 ([facility]) Smoking 03/22/2021 12:00:00 AM EDT Never Smoker completed Never S moker eCW1 ([facility]) Smoking 12/11/2020 12:00:00 AM EDT Never Smoker completed Never S moker eCW1 ([facility]) Smoking 12/11/2020 12:00:00 AM EDT Never Smoker completed Never S moker eCW1 ([facility]) Smoking 12/11/2020 12:00:00 AM EDT Never Smoker completed Never S moker eCW1 ([facility]) Smoking 12/11/2020 12:00:00 AM EDT Never Smoker completed Never S moker eCW1 ([facility]) Alcohol intake 11/08/2020 12:00:00 AM EDT Current drinker of al cohol (finding) completed Current drinker of alcohol (finding) [facility] Smoking 11/05/2020 12:00:00 AM EDT Never Smoker completed Never S moker eCW1 ([facility]) Caffeine Use Details 10/19/2020 12:00:00 AM EDT completed [facility] ([facility]) Smoking 10/19/2020 12:00:00 AM EDT Unknown if ever smoked comp leted Unknown if ever smoked [facility] ([facility]) Smoking 09/10/2020 12:00:00 AM EDT Never Smoker completed Never S moker eCW1 [facility]) Smoking 09/10/2020 12:00:00 AM EDT Never Smoker completed Never S moker eCW1 ([facility]) Smoking 09/10/2020 12:00:00 AM EDT Never Smoker completed Never S moker eCW1 ([facility]) Smoking 09/10/2020 12:00:00 AM EDT Never Smoker completed Never S moker eCW1 ([facility]) 09/04/2020 12:00:00 AM EDT Never smoked tobacco comple denton Never smoked tobacco [facility] ([facility]) Alcohol intake 08/22/2020 12:00:00 AM EDT No completed [facility] Smoking 08/22/2020 12:00:00 AM EDT Never smoker completed Never s moker [facility] Smoking 08/08/2020 12:00:00 AM EDT Never Smoker completed Never S moker eCW1 ([facility]) Smoking 08/08/2020 12:00:00 AM EDT Never Smoker completed Never S moker eCW1 ([facility]) Smoking 08/08/2020 12:00:00 AM EDT Never Smoker completed Never S moker eCW1 ([facility]) Smoking 03/19/2020 12:00:00 AM EST Never Smoker completed Never S moker eCW1 ([facility]) Smoking 03/19/2020 12:00:00 AM EST Never Smoker completed Never S moker eCW1 ([facility]) Smoking 03/19/2020 12:00:00 AM EST Never Smoker completed Never S moker eCW1 ([facility]) Smoking 03/19/2020 12:00:00 AM EST Never Smoker completed Never S moker eCW1 ([facility]) Smoking 03/19/2020 12:00:00 AM EST Never Smoker completed Never S moker eCW1 ([facility]) Smoking 03/19/2020 12:00:00 AM EST Never Smoker completed Never S moker eCW1 ([facility]) Vital Signs ID Date Data Source UNK Name Value Range Interpretation Code Description Data Source(s) Body weight 103.4 [lb_av] 103.4 [lb_av] eCW1 ([facility]) Body weight 46.9 kg 46.9 kg eCW1 ([facility]) Body height 62 [in_i] 62 [in_i] eCW1 ([facility]) Body mass index (BMI) [Ratio] 18.91 kg/m2 18.91 kg/m2 eCW1 [facility]) Heart rate 116 /min 116 /min eCW1 ([facility]) Respiratory rate 18 /min 18 /min eCW1 ([facility]) Body temperature 99.3 [degF] 99.3 [degF] eCW1 ( [facility]) Systolic blood pressure 125 mm[Hg] 125 mm[Hg] e CW1 ([facility]) Diastolic blood pressure 71 mm[Hg] 71 mm[Hg] eCW1 [facility]) Systolic blood pressure 143 mm[Hg] 143 mm[Hg] M EDENT ([facility], ) Diastolic blood pressure 71 mm[Hg] 71 mm[Hg] MEDENT ([facility]) Body height 62 [in_i] 62 [in_i] [facility] ([facility]) 5'2" Body weight 101.00 [lb_av] 101.00 [lb_av] MEDEN T ([facility]) Body mass index (BMI) [Ratio] 18.5 kg/m2 18.5 k g/m2 [facility] ([facility]) [employer] body weight 110 [lb_av] 110 [lb_av] MEDEN T ([facility]) Body weight 45.814 kg 45.[address] [facility] ([facility]) Body surface area Derived from formula 1.43 m2 1.[address] [facility] ([facility]) Body mass index (BMI) [Ratio] 18.3 kg/m2 18.3 k g/m2 [facility] ([facility]) Body height 62 [in_i] 62 [in_i] [facility] 5'2" Body weight 100.25 [lb_av] 100.25 [lb_av] MEDEN T ([facility]) Body surface area Derived from formula 1.43 m2 1.[address] [facility] ([facility]) [employer] body weight 110 [lb_av] 110 [lb_av] MEDEN T ([facility]) Body weight 45.473 kg 45.473 kg [facility]ENT ([facility]) Body weight 43.092 kg 43.[address] [facility] ([facility]) Body mass index (BMI) [Ratio] 17.4 kg/m2 17.4 k g/m2 [facility] ([facility]) [employer] body weight 110 [lb_av] 110 [lb_av] MEDEN T ([facility]) Body surface area Derived from formula 1.39 m2 1.[address] [facility] ([facility]) Body height 62 [in_i] 62 [in_i] [facility] ([facility]) 5'2" Body weight 95.00 [lb_av] 95.00 [lb_av] [facility] ([facility]) Body mass index (BMI) [Ratio] 17.6 kg/m2 17.6 k g/m2 [facility] ([facility]) [employer] body weight 110 [lb_av] 110 [lb_av] MEDEN T ([facility]) Body weight 96.12 [lb_av] 96.12 [lb_av] [facility]) Body weight 43.602 kg 43.[address] [facility] ([facility]) Body surface area Derived from formula 1.40 m2 1.[address] [facility] ([facility]) Systolic blood pressure 120 mm[Hg] 120 mm[Hg] M EDENT ([facility]) Diastolic blood pressure 70 mm[Hg] 70 mm[Hg] [facility] ([facility]) Body temperature 98.9 [degF] 98.9 [degF] [facility] ([facility]) Body height 62 [in_i] 62 [in_i] [facility] ([facility]) 5'2" Body weight 97 [lb_av] 97 [lb_av] eCW1 ([facility]) Body height 62 [in_i] 62 [in_i] eCW1 ([facility]) Body mass index (BMI) [Ratio] 17.74 kg/m2 17.74 kg/m2 eCW1 [facility]) Heart rate 116 /min 116 /min eCW1 ([facility]) Respiratory rate 16 /min 16 /min eCW1 ([facility]) Body temperature 97.7 [degF] 97.7 [degF] eCW1 ( [facility]) Systolic blood pressure 138 mm[Hg] 138 mm[Hg] e CW1 ([facility]) Diastolic blood pressure 89 mm[Hg] 89 mm[Hg] eCW1 ([facility]) Body weight 95.4 [lb_av] 95.4 [lb_av] eCW1 ([facility]) Diastolic blood pressure 85 mm[Hg] 85 mm[Hg] eCW1 [facility]) Body height 62 [in_i] 62 [in_i] eCW1 ([facility]) Body mass index (BMI) [Ratio] 17.45 kg/m2 17.45 kg/m2 eCW1 ([facility]) Heart rate 119 /min 119 /min eCW1 ([facility]) Respiratory rate 18 /min 18 /min eCW1 ([facility]) Body temperature 97.8 [degF] 97.8 [degF] eCW1 ( [facility]) Systolic blood pressure 110 mm[Hg] 110 mm[Hg] e CW1 ([facility]) Body weight 94.6 [lb_av] 94.6 [lb_av] eCW1 ([facility]) Body height 62 [in_i] 62 [in_i] eCW1 ([facility]) Body mass index (BMI) [Ratio] 17.30 kg/m2 17.30 kg/m2 eCW1 ([facility]) Heart rate 129 /min 129 /min eCW1 ([facility]) Respiratory rate 18 /min 18 /min eCW1 ([facility]) Body temperature 98.4 [degF] 98.4 [degF] eCW1 ( [facility]) Systolic blood pressure 136 mm[Hg] 136 mm[Hg] e CW1 ([facility]) Diastolic blood pressure 64 mm[Hg] 64 mm[Hg] eCW1 ([facility]) Body surface area Derived from formula 1.38 m2 1.38 m2 [facility] ([facility]) Systolic blood pressure 110 mm[Hg] 110 mm[Hg] M EDENT ([facility]) Diastolic blood pressure 60 mm[Hg] 60 mm[Hg] [facility] ([facility]) Body height 62 [in_i] 62 [in_i] [facility] ([facility]) 5'2" Body weight 92.38 [lb_av] 92.38 [lb_av] [facility] ([facility]) Body mass index (BMI) [Ratio] 16.9 kg/m2 16.9 k g/m2 [facility] ([facility]) [employer] body weight 110 [lb_av] 110 [lb_av] MEDEN T ([facility]) Body weight 41.901 kg 41.[address] [facility] ([facility]) Body surface area Derived from formula 1.38 m2 1.[address] [facility] ([facility]) Body height 62 [in_i] 62 [in_i] [facility] ([facility]) 5'2" Body weight 92.38 [lb_av] 92.38 [lb_av] [facility] ([facility]) Body mass index (BMI) [Ratio] 16.9 kg/m2 16.9 k g/m2 [facility] ([facility]) [employer] body weight 110 [lb_av] 110 [lb_av] MEDEN T ([facility]) Body weight 41.901 kg 41.901 kg [facility] ([facility]) Body height 62 [in_i] 62 [in_i] eCW1 ([facility]) Body weight 93 [lb_av] 93 [lb_av] eCW1 ([facility]) Body temperature 97.9 [degF] 97.9 [degF] [facility]CW[facility] Systolic blood pressure 109 mm[Hg] 109 mm[Hg] e CW1 ([facility]) Diastolic blood pressure 70 mm[Hg] 70 mm[Hg] eCW1 [facility]) Respiratory rate 18 /min 18 /min eCW1 ([facility]) Body mass index (BMI) [Ratio] 17.01 kg/m2 17.01 kg/m2 eCW1 [facility]) Heart rate 122 /min 122 /min eCW1 ([facility]) Body height 162.56 cm 162.56 cm [facility] ([facility]) Body weight 42.638 kg 42.638 kg [facility] ([facility]) Systolic blood pressure 104 mm[Hg] 104 mm[Hg] N [facility]Gen ([facility]) Diastolic blood pressure 62 mm[Hg] 62 mm[Hg] [facility]) Body mass index (BMI) [Ratio] 16.14 kg/m2 Underweight 16.1 4 kg/m2 [facility] ([facility]) Systolic blood pressure 128 mm[Hg] 128 mm[Hg] [facility] Diastolic blood pressure 90 mm[Hg] 90 mm[Hg] [facility] Heart rate 96 /min 96 /min [facility] Body weight 41.731 kg 41.731 kg [facility] Body mass index (BMI) [Ratio] 16.30 kg/m2 16.30 kg/m2 [facility] Oxygen saturation in Arterial blood by Pulse oximetry 94 % 94 % [facility] Body weight 93.2 [lb_av] 93.2 [lb_av] eCW1 ([facility]) Body height 62 [in_i] 62 [in_i] eCW1 ([facility]) Body mass index (BMI) [Ratio] 17.04 kg/m2 17.04 kg/m2 eCW1 [facility] Heart rate 130 /min 130 /min eCW1 ([facility]) Respiratory rate 18 /min 18 /min eCW1 ([facility]) Body temperature 97.3 [degF] 97.3 [degF] eCW1 ( [facility]) Systolic blood pressure 140 mm[Hg] 140 mm[Hg] e CW1 ([facility]) Diastolic blood pressure 67 mm[Hg] 67 mm[Hg] eCW1 [facility]) Body weight 95.6 [lb_av] 95.6 [lb_av] eCW1 ([facility]) Body height 62 [in_i] 62 [in_i] eCW1 ([facility]) Body mass index (BMI) [Ratio] 17.48 kg/m2 17.48 kg/m2 eCW1 [facility]) Heart rate 142 /min 142 /min eCW1 ([facility]) Respiratory rate 18 /min 18 /min eCW1 ([facility]) Body temperature 99.1 [degF] 99.1 [degF] eCW1 ( [facility]) Systolic blood pressure 148 mm[Hg] 148 mm[Hg] e CW1 ([facility]) Diastolic blood pressure 68 mm[Hg] 68 mm[Hg] eCW1 [facility] Patient Treatment Plan of Care Planned Activity Planned Date Details Description Data Source (s) Acetaminophen 325 MG / Hydrocodone Bitartrate 10 MG Or al Tablet 03/22/2021 12:00:00 AM EDT eCW1 ([facility]) Acetaminophen 325 MG / Hydrocodone Bitartrate 10 MG Or al Tablet 03/22/2021 12:00:00 AM EDT eCW1 ([facility]) Acetaminophen 325 MG / Hydrocodone Bitartrate 10 MG Or al Tablet 03/22/2021 12:00:00 AM EDT eCW1 ([facility]) Acetaminophen 325 MG / Hydrocodone Bitartrate 10 MG Or al Tablet 02/21/2021 12:00:00 AM EDT eCW1 ([facility]) Acetaminophen 325 MG / Hydrocodone Bitartrate 10 MG Or al Tablet 01/25/2021 12:00:00 AM EDT eCW1 ([facility]) Acetaminophen 325 MG / Hydrocodone Bitartrate 10 MG Or al Tablet 12/11/2020 12:00:00 AM EDT eCW1 ([facility]) Acetaminophen 325 MG / Hydrocodone Bitartrate 10 MG Or al Tablet 12/11/2020 12:00:00 AM EDT eCW1 ([facility]) Acetaminophen 325 MG / Hydrocodone Bitartrate 10 MG Or al Tablet 11/05/2020 12:00:00 AM EDT eCW1 ([facility]) Acetaminophen 325 MG / Hydrocodone Bitartrate 10 MG Or al Tablet 10/25/2020 12:00:00 AM EDT eCW1 ([facility]) Acetaminophen 325 MG / Hydrocodone Bitartrate 10 MG Or al Tablet 10/25/2020 12:00:00 AM EDT eCW1 ([facility]) Acetaminophen 325 MG / Hydrocodone Bitartrate 10 MG Or al Tablet 09/25/2020 12:00:00 AM EDT eCW1 ([facility]) leflunomide 10 MG Oral Tablet 09/04/2020 12:00:00 AM EDT [facility] ([facility]) Acetaminophen 325 MG / Hydrocodone Bitartrate 10 MG Or al Tablet 08/27/2020 12:00:00 AM EDT eCW1 ([facility]) Acetaminophen 325 MG / Hydrocodone Bitartrate 10 MG Or al Tablet 07/23/2020 12:00:00 AM EST eCW1 ([facility]) Acetaminophen 325 MG / Hydrocodone Bitartrate 10 MG Or al Tablet 07/23/2020 12:00:00 AM EST eCW1 ([facility]) Acetaminophen 325 MG / Hydrocodone Bitartrate 10 MG Or al Tablet 07/23/2020 12:00:00 AM EST eCW1 ([facility]) Acetaminophen 325 MG / Hydrocodone Bitartrate 10 MG Or al Tablet 06/27/2020 12:00:00 AM EST eCW1 ([facility]) Acetaminophen 325 MG / Hydrocodone Bitartrate 10 MG Or al Tablet [[place]] 06/25/2020 12:00:00 AM EST eCW1 ([facility]) [place] 10-325 MG 06/25/2020 12:00:00 AM EST [facility] Acetaminophen 325 MG / Hydrocodone Bitartrate 10 MG Or al Tablet [[place]] 06/25/2020 12:00:00 AM EST eCW1 ([facility]) Prednisone 2.5 MG Oral Tablet 05/24/2020 12:00:00 AM EST [facility] ([facility]) leflunomide 10 MG Oral Tablet 05/24/2020 12:00:00 AM EST [facility] ([facility]) Prednisone 2.5 MG Oral Tablet 05/24/2020 12:00:00 AM EST [facility] leflunomide 10 MG Oral Tablet 05/24/2020 12:00:00 AM EST [facility] Acetaminophen 325 MG / Hydrocodone Bitartrate 10 MG Or al Tablet [[place]] 05/22/2020 12:00:00 AM EST eCW1 ([facility]) Acetaminophen 325 MG / Hydrocodone Bitartrate 10 MG Or al Tablet [[place]] 04/19/2020 12:00:00 AM EST eCW1 ([facility]) Acetaminophen 325 MG / Hydrocodone Bitartrate 10 MG Or al Tablet [[place]] 03/19/2020 12:00:00 AM EST eCW1 ([facility]) leflunomide 10 MG Oral Tablet 02/28/2020 12:00:00 AM EDT [facility] ([facility]) Prednisone 2.5 MG Oral Tablet 02/28/2020 12:00:00 AM EDT [facility] ([facility]) Calcium Citrate-Vitamin D 1000-400 LIQD 11/09/2018 12:00:00 AM EDT [facility] Vitamin E D-Alpha 400 UNT Oral Capsule [facility] Prednisone 5 MG Oral Tablet [facility] Misc Natural Products (TURMERIC CURCUMIN) CAPS [facility] CALCIUM & MAGNESIUM CARBONATES PO [facility] b complex vitamins capsule S [facility] Ascorbic Acid 500 MG Oral Capsule [facility]
--- OUTSIDE RECORDS SUMMARY | 2021-04-26 11:49 | CCD ---
Author Author [facility] Organization [facility] Address Unknown Phone Unavailable Care Team Providers Care Heel Burnisher Name Role Phone Frank Sloan Unavailable PROBLEMS Type Condition ICD9-CM Code PXL35-CF Code Onset Dates Condition S tatus W/U Status Risk SNOMED Code Notes Problem Rheumatoid arthritis involvi ng multiple sites with positive rheumatoid factor M05.79 Active confirmed 241144377 Problem Ovarian cancer C56.9 Active confirmed 94227 3007 Problem Other chronic pain G89.29 Active confirmed 8 1806850 Problem Chronic prescription opiate use Z79.899 Active confirmed 910384582 Problem Hypomagnesemia E83.42 Active confirmed 07940 5004 Problem Myalgia M79.1 Active confirmed 73173845 Problem Chronic prescription opiate use Z79.891 Active confirmed 853194343 Problem Osteoporosis M81.0 Active confirmed 4815506 6 Problem Deformity of right foot M21.961 Active confirmed 191761709 Problem Need for hepatitis C screening test Z11.59 Acti ve confirmed 865265023 Problem Vitamin D deficiency E55.9 Active confirmed 57832894 Problem Chronic fatigue R53.82 Active confirmed 8422 9001 Problem Acute non intractable tension-type headache G44.20 9 Active confirmed 252506687 Problem Balance disorder R26.89 Active confirmed 387 544639 Problem History of total right hip replacement Z96.641 A ctive confirmed 534647138067 Problem Encounter for screening for human immunodeficiency vir us [HIV] Z11.4 Active confirmed 421143738 Problem Chronic gastritis, presence of bleeding unspecified, unspecified gastritis type K29.50 Active confirmed 2854264 Problem Primary osteoarthritis of right hip M16.11 Acti ve confirmed 510078393 Problem Iron deficiency anemia, unspecified D50.9 Acti ve confirmed 86691923 Problem Rheumatoid arthritis M06.9 Active confirmed 82469468 Problem Cerebellar infarction I63.9 Active confirmed 49582703 Problem Current chronic use of systemic steroids Z79.52 Active confirmed 377903804103505 Problem Primary osteoarthritis of left hip M16.12 Activ e confirmed 519106839247170 Problem Hx of ovarian cancer Z85.43 Active confirmed 402931922 ALLERGIES Allergen (clinical drug ingredient) Drug/Non Drug Allergy do cumented on EMR Reaction Allergy Type Onset Date Status mushrooms Anaphylaxis Non Drug Allergy Active Seafood seafood Nausea/Vomiting Non Drug Allergy Act samira Hydroxychloroquine not sure Drug Allergy Acti ve celebrex difficulty breathing Non Drug Allergy Active sulfasalazine Sulfasalazine(ND Code:[address]-44) not sure Drug A llergy Active adalimumab Humira(NDC Code:[address]-98) muscle pain Drug Allergy Active pregabalin Lyrica(ND Code:[address]-40) dizziness , unstable balance, short- term memory loss Drug Allergy Active duloxetine Duloxetine HCl(NDC Code:[address]-70) hallucinations Drug Allergy Active methotrexate Methotrexate(NDC Code:[address]-03) sor es in mouth, constant cough and problems breathing Drug Allergy Active gabapentin Gabapentin(NDC Code:[address]-46) confusion Drug Allergy Active codeine Codeine Sulfate(NDC Code:[address]-18) stomach cramping D rug Allergy Active ENCOUNTERS from 1965 to 2021-02-22 Encounter Location Date Provider Diagnosis [facility] [address] Floor [phone] [place] [address] 07 Feb, 2021 Frank Sloan Rheumatoid arthritis involving multiple [...] Education Language: Question Answer Notes Languages spoken: Kyrgyz Mandaen: Question Answer Notes Mandaen 01 Agnostic Sexual Hx: Question Answer Notes [...] Notes Start Da te End Date Status Glutathione 50 MG Orally Daily Acti ve Vitamin D3 2000 UNIT 1 capsule Orally twice a day Active May Have curamed BCM-95 daily Act samira Vitamin C 1000 MG 1 tablet Orally Once a day Active Milk Thistle 500 MG 750mgs Orally Daily Active Calcium 500 MG 2 Orally Daily Active Sucralfate 1 GM 1 tablet on an empty stomach Orally premals tid for 30 day(s) Nov, Active predniSONE 2.5 MG 1 tablet Orally Daily TAPERING DOSE Active Leflunomide 10 MG 1 tablet Orally Once a day for 30 day(s) Active Magnesium 500 MG 1 cap Orally Once a day Active Ferrous Sulfate 325 (65 Fe) MG 1 tablet Orally bid for 30 day(s) Active Probiotic Orally Daily Active HYDROcodone-Acetaminophen 10-325 MG 1 tablet as needed Orally q 4-6hr prn mdd6 for 30 Days Feb, Active Aspirin 81 81 MG 1 tablet Orally Once a day Active PROCEDURES No Information RESULTS No Results REASON FOR VISIT 10/325MG REFILL MEDICAL (GENERAL) HISTORY Type Description Date Medical History Ovarian Ca-Dr. Chelly Elena Medical History Depression Medical History Rheumatoid Arthritis-Dr. Feng Medical History BRCA 2 positive Medical History Iron Deficiency Anemia Medical History Tdap 02/2015 Medical History Lacunar cerebellar infarction on MRI Medical History ONE FALL LAST YEAR FALL INSIDE OF THE RebtelG, CUT ON FOREHEAD Surgical History QUINT[facility] BSO-Dr. [...] Notes Treatment Notes Treatm ent Clinical Notes Feb, Rheumatoid arthritis involvi ng multiple sites with positive rheumatoid factor (ICD-10 - M05.79) PLAN OF TREATMENT Medication Medication Name Sig Start Date Stop Date HYDROcodone-Acetaminophen 10-325 MG 1 tablet as needed Orally q 4-6hr prn mdd6 for 30 Days Feb, Next Appt Details Provider Name:Frank Sloan, 2021-03-20 02:30:00 PM, [address], , [place], [address], Provider Name:Fe Sherwood, 2020-05 03:00:00 PM, [address] , , [place], [address], Insurance Providers Payer Name Payer Address Payer Phone Insured Name Patient Relati onship to Insured Coverage Start Date Coverage End Date MEDICARE BLUE PPO [address] [facility] BLUE CROSS [address] [facility] [id number] [place]
[2021-04-26] MEDS ORDERED: LIDOCAINE 2% 100MG/5ML SDV (FOR ANES.) As Ordered ONE (12:43)
[2021-04-26] MEDS ORDERED: propofoL 200 MG/20 ML VIAL As Ordered ONE (12:43)
[2021-04-26] MEDS ORDERED: fentaNYL 100 MCG/2 ML INJECTION (J3010) As Ordered ONE (12:44)
--- NOTE | 2021-04-26 13:20 | ROOR ---
Patient Name: Charmaine Jorgensen Procedure Date: 04/26/2021 1:02 PM Date of : 1965 Age: 56 Room: [facility] Gender: Female Note Status: Finalized Procedure: Upper GI endoscopy Indications: Gastroparesis, Nausea, Weight loss Providers: South Diaz MD Referring MD: Fe Sherwood NP Requesting Provider: Medicines: Monitored Anesthesia Care Complications: No immediate complications. Procedure: Pre-Anesthesia Assessment: - The heart rate, respiratory rate, oxygen saturations, blood pressure, adequacy of pulmonary ventilation, and response to care were monitored throughout the procedure. The Endoscope was introduced through the mouth, and advanced to the second part of duodenum. The upper GI endoscopy was accomplished without difficulty. The patient tolerated the procedure well. Findings: Small Hiatal Hernia. The esophagus was normal. The stomach was normal. The examined duodenum was normal. Impression: - Small Hiatal Hernia. - Normal esophagus. - Normal stomach. - Normal examined duodenum. - No specimens collected. Recommendation: - Gastroparesis diet: - Eat smaller, more frequent meals throughout the day. - Low fat diet. - Liquid/soft foods are tolerated better than solid foods. - Low fiber/well cooked vegetables are tolerated better than high fiber/fibrous foods/raw vegetables. - Avoid medications that inhibit gastric/intestinal motility such as narcotic medications. Procedure Code(s): --- Professional --- 62958, Esophagogastroduodenoscopy, flexible, transoral; diagnostic, including collection of specimen(s) by brushing or washing, when performed (separate procedure) Diagnosis Code(s): --- Professional --- R63.4, Abnormal weight loss R11.0, Nausea K31.84, Gastroparesis CPT copyright 2019 [employer]. All rights reserved. The codes documented in this report are preliminary and upon shroud line tier review may be revised to meet current compliance requirements. South Diaz MD South Diaz MD 04/26/2021 1:19:39 PM Electronically signed by South Diaz MD Number of Addenda: 0 Note Initiated On: 04/26/2021 1:02 PM Estimated Blood Loss: Estimated blood loss: none.
--- NOTE | 2021-04-26 13:47 | ROOR ---
Patient Name: Charmaine Jorgensen Procedure Date: 04/26/2021 1:03 PM Date of : 1965 Age: 56 Room: [facility] Gender: Female Note Status: Finalized Procedure: Colonoscopy Indications: Weight loss Providers: South Diaz MD Referring MD: Fe Sherwood NP Requesting Provider: Medicines: Monitored Anesthesia Care Complications: No immediate complications. Procedure: Pre-Anesthesia Assessment: - The heart rate, respiratory rate, oxygen saturations, blood pressure, adequacy of pulmonary ventilation, and response to care were monitored throughout the procedure. The Colonoscope was introduced through the anus and advanced to 5 cm into the ileum. The colonoscopy was technically difficult and complex due to a redundant colon. The patient tolerated the procedure well. The quality of the bowel preparation was good. Findings: The perianal and digital rectal examinations were normal. Internal hemorrhoids were found during retroflexion. The hemorrhoids were medium-sized. The colon (entire examined portion) was moderately redundant. The entire examined colon appeared normal on direct and retroflexion views. The terminal ileum appeared normal. Impression: - Internal hemorrhoids. - Redundant colon. - The entire colon is otherwise normal on direct and retroflexion views. - The examined portion of the ileum was normal. - No specimens collected. Recommendation: - Await results of MRI/MRCP. - Return to my office after studies are complete. Procedure Code(s): --- Professional --- 03376, Colonoscopy, flexible; diagnostic, including collection of specimen(s) by brushing or washing, when performed (separate procedure) Diagnosis Code(s): --- Professional --- K64.8, Other hemorrhoids R63.4, Abnormal weight loss Q43.8, Other specified congenital malformations of intestine CPT copyright 2019 [employer]. All rights reserved. The codes documented in this report are preliminary and upon dish network installer review may be revised to meet current compliance requirements. South Diaz MD South Diaz MD 04/26/2021 1:46:52 PM Electronically signed by South Diaz MD Number of Addenda: 0 Note Initiated On: 04/26/2021 1:03 PM Estimated Blood Loss: Estimated blood loss: none.
[2021-04-26 14:05] VITALS: BP 144/75
== END 2021-04-26 14:23 | disposition home or self-care (01) ==
LOC: M OPP 11:42
PROVIDERS: ATTEND Internal Medicine Gastroenterology
DX: Q43.8 Other specified congenital malformations of intestine (principal); K64.8 Other hemorrhoids; K64.4 Residual hemorrhoidal skin tags; R63.4 Abnormal weight loss; K31.84 Gastroparesis; R11.0 Nausea; Z79.82 Long term (current) use of aspirin; Z79.891 Long term (current) use of opiate analgesic; Z79.899 Other long term (current) drug therapy; Z88.5 Allergy status to narcotic agent; Z88.8 Allergy status to other drugs, medicaments and biological substances; Z91.018 Allergy to other foods; Z85.43 Personal history of malignant neoplasm of ovary; Z86.73 Personal history of transient ischemic attack (TIA), and cerebral infarction without residual deficits
CPT/HCPCS: 43235; 45378; J3010

== ENCOUNTER → 2021-04-30 | Outpatient (CLI) | payer MEDICARE ==
[~2021-04-30] MED LIST changes: -NS 1,000 ML IV ONE
--- NOTE | 2021-04-30 12:56 | REP ---
INDICATION: ABN FINDING OF IMAGING. COMPARISON: None. TECHNIQUE: MIP reformatted 3-D images of the common bile duct and pancreatic duct were obtained along with source images in the axial and coronal scan planes. FINDINGS: Multiple signal voids are seen in the gallbladder consistent with cholelithiasis. The maximal dimension of the common bile duct is 5.7 mm. There is no pancreatic ductal dilatation. The maximal dimension of the pancreatic duct is 2.1 mm. There is a subtle area of decreased signal seen in the distal common hepatic duct without evidence of a focal intraluminal filling defect . there is no evidence of intrahepatic ductal dilatation. There is motion artifact decreasing the sensitivity of the examination IMPRESSION: 1. There is cholelithiasis. 2. No evidence of ductal dilatation with findings as described above. 3. Subtle area of potential filling defect seen in the distal common hepatic duct difficult to evaluate due to motion artifact. Conventional ERCP may be necessary. 4. Other findings as described above. <Electronically signed by Marco A Murphy > 04/30/21 [id number]
== END ==
LOC: M RAD 11:12
PROVIDERS: ATTEND Internal Medicine Gastroenterology
DX: R93.2 Abnormal findings on diagnostic imaging of liver and biliary tract (principal); K80.20 Calculus of gallbladder without cholecystitis without obstruction

== ENCOUNTER → 2021-05-16 | Outpatient (CLI) | payer MEDICARE ==
[~2021-05-16] MED LIST changes: +curamed
== END ==
LOC: M LABSMTC 11:12
PROVIDERS: ATTEND Anesthesiology
DX: Z01.818 Encounter for other preprocedural examination (principal); Z11.52 Encounter for screening for COVID-19

== ENCOUNTER 2021-05-21 12:36 | Day surgery (SDC) | payer MEDICARE ==
[~2021-05-21] VITALS: Ht 160 cm; Wt 45.4 kg
[~2021-05-21 12:36] MED LIST changes: +LR 1,000 ML IV ONE
[2021-05-21] MEDS ORDERED: dexameTHASONE 4 MG/ML 1ML VIAL (J1100 PER 1MG) As Ordered ONE (14:19)
[2021-05-21] MEDS ORDERED: ONDANSETRON 4MG/2ML VIAL As Ordered ONE (14:19)
[2021-05-21] MEDS ORDERED: fentaNYL 100 MCG/2 ML INJECTION (J3010) As Ordered ONE (14:19)
[2021-05-21] MEDS ORDERED: ISOVUE-300 61% 50ML VIAL As Ordered ONE (14:19)
[2021-05-21] MEDS ORDERED: MIDAZOLAM INJ 2MG/2ML VIAL (J2250 PER 1MG) As Ordered ONE (14:19)
[2021-05-21] MEDS ORDERED: propofoL 200 MG/20 ML VIAL As Ordered ONE (14:20)
[2021-05-21] MEDS ORDERED: LIDOCAINE 2% 100MG/5ML SDV (FOR ANES.) As Ordered ONE (14:20)
[2021-05-21] MEDS ORDERED: ROCURONIUM BROMIDE 50 MG/5 ML VIAL As Ordered ONE (14:20)
[2021-05-21] MEDS ORDERED: SUGAMMADEX SODIUM 500 MG/5 ML VIAL (BRIDION) As Ordered ONE (14:20)
[2021-05-21] MEDS ORDERED: PHENYLephrine 500MCG 5ML (100MCG/ML) SYRINGE As Ordered ONE (15:24)
[2021-05-21] MEDS ORDERED: ONDANSETRON 4MG/2ML VIAL IV PRN (16:45)
[2021-05-21] MEDS ORDERED: oxyCODONE 5MG TAB PO PRN (16:45)
[2021-05-21] MEDS ORDERED: fentaNYL 100 MCG/2 ML INJECTION (J3010) IV PRN (16:45)
[2021-05-21] MEDS ORDERED: LR 1,000 ML IV SCH (16:45)
[2021-05-21 17:00] VITALS: BP 130/63
== END 2021-05-21 16:50 | disposition home or self-care (01) ==
LOC: M SDC 12:36
PROVIDERS: ATTEND Internal Medicine Gastroenterology
DX: K83.8 Other specified diseases of biliary tract (principal); R11.0 Nausea; R93.2 Abnormal findings on diagnostic imaging of liver and biliary tract; R10.9 Unspecified abdominal pain; D64.9 Anemia, unspecified; M79.7 Fibromyalgia; Z86.73 Personal history of transient ischemic attack (TIA), and cerebral infarction without residual deficits; Z91.018 Allergy to other foods; Z88.8 Allergy status to other drugs, medicaments and biological substances; Z88.5 Allergy status to narcotic agent; Z85.43 Personal history of malignant neoplasm of ovary; Z92.21 Personal history of antineoplastic chemotherapy
CPT/HCPCS: 43262; 74330; 88104; J1100; J2250; J2370; J2405; J3010; Q9967

== ENCOUNTER → 2021-05-27 | Outpatient (CLI) | payer MEDICARE ==
[~2021-05-27] MED LIST changes: -LR 1,000 ML IV ONE
== END ==
LOC: M PAIN 14:30
PROVIDERS: ATTEND Anesthesiology
DX: M54.2 Cervicalgia (principal); M79.18 Myalgia, other site; M06.9 Rheumatoid arthritis, unspecified; D50.9 Iron deficiency anemia, unspecified; Z86.59 Personal history of other mental and behavioral disorders; Z88.2 Allergy status to sulfonamides; Z88.6 Allergy status to analgesic agent; Z88.8 Allergy status to other drugs, medicaments and biological substances; Z91.013 Allergy to seafood; Z91.018 Allergy to other foods; Z79.82 Long term (current) use of aspirin; Z79.899 Other long term (current) drug therapy

== ENCOUNTER → 2021-07-04 | Outpatient (CLI) | payer MEDICARE ==
[2021-07-04 15:57] LABS: BASO % 0.5 % (0.0-1.0); EOS # 0.2 10^3/uL (0.0-0.5); EOS % 3.9 % (0.0-3.0); HEMATOCRIT 36.1 % (36.0-47.0); HEMOGLOBIN 11.1 g/dl (12.0-15.5); LYMPH # 1.6 10^3/uL (1.5-5.0); LYMPH % 28.5 % (24.0-44.0); MEAN CORPUSCULAR HEMOGLOBIN 31.1 pg (27.0-33.0); MEAN CORPUSCULAR HGB CONC 30.7 g/dl (32.0-36.5); MEAN CORPUSCULAR VOLUME 101.1 fl (80.0-96.0); MONO # 0.4 10^3/uL (0.0-0.8); MONO % 7.3 % (2.0-8.0); NEUTROPHILS # 3.3 10^3/uL (1.5-8.5); NEUTROPHILS % 59.4 % (36.0-66.0); PLATELET COUNT, AUTOMATED 265 10^3/uL (150-450); RED BLOOD COUNT 3.57 10^6/uL (4.00-5.40); WHITE BLOOD COUNT 5.6 10^3/uL (4.0-10.0)
[2021-07-04 16:27] LABS: ALBUMIN 4.2 GM/DL (3.2-5.2); ALT/SGPT 33 U/L (12-78); BLOOD UREA NITROGEN 18 MG/DL (7-18); C REACTIVE PROTEIN QUANTITATIV 0.79 MG/DL (0.00-0.30); CREATININE FOR GFR 0.65 MG/DL (0.55-1.30); GLOMERULAR FILTRATION RATE > 60.0 (>51)
[2021-07-04 18:07] LABS: ERYTHROCYTE SEDIMENTATION RATE 46 mm/hr (0-30)
== END ==
LOC: M WUC 13:37
PROVIDERS: ATTEND Internal Medicine Rheumatology
DX: M05.79 Rheumatoid arthritis with rheumatoid factor of multiple sites without organ or systems involvement (principal); Z79.899 Other long term (current) drug therapy

== ENCOUNTER → 2021-07-10 | Outpatient (CLI) | payer MEDICARE | LOC: M PLAIMG 15:04 | PROVIDERS: ATTEND Anesthesiology | DX: M50.221 Other cervical disc displacement at C4-C5 level (principal); M25.78 Osteophyte, vertebrae; M50.223 Other cervical disc displacement at C6-C7 level ==

== ENCOUNTER → 2021-07-24 | Outpatient (CLI) | payer MEDICARE ==
[~2021-07-24] MED LIST changes: -D31000TA2 PO; +VITA100093 PO
== END ==
LOC: M PAIN 14:30
PROVIDERS: ATTEND Anesthesiology
DX: M47.812 Spondylosis without myelopathy or radiculopathy, cervical region (principal); M79.18 Myalgia, other site; D50.9 Iron deficiency anemia, unspecified; Z86.59 Personal history of other mental and behavioral disorders; Z88.2 Allergy status to sulfonamides; Z88.5 Allergy status to narcotic agent; Z88.6 Allergy status to analgesic agent; Z88.8 Allergy status to other drugs, medicaments and biological substances; Z91.013 Allergy to seafood; Z91.018 Allergy to other foods; Z79.82 Long term (current) use of aspirin; Z79.899 Other long term (current) drug therapy

== ENCOUNTER → 2021-10-24 | Outpatient (CLI) | payer MEDICARE | LOC: M PAIN 14:30 | PROVIDERS: ATTEND Anesthesiology | DX: M79.10 Myalgia, unspecified site (principal); M54.2 Cervicalgia; D50.9 Iron deficiency anemia, unspecified; Z86.59 Personal history of other mental and behavioral disorders; Z88.2 Allergy status to sulfonamides; Z88.6 Allergy status to analgesic agent; Z88.8 Allergy status to other drugs, medicaments and biological substances; Z91.013 Allergy to seafood; Z91.018 Allergy to other foods; Z79.82 Long term (current) use of aspirin; Z79.899 Other long term (current) drug therapy ==

== ENCOUNTER → 2021-10-25 | Outpatient (CLI) | payer MEDICARE | LOC: M WUC 10:22 | PROVIDERS: ATTEND Nurse Practitioner | DX: C56.1 Malignant neoplasm of right ovary (principal) ==

== ENCOUNTER → 2021-11-22 | Outpatient (REF) | payer MEDICARE ==
[2021-11-22 16:02] LABS: BASO % 0.5 % (0.0-1.0); EOS # 0.2 10^3/uL (0.0-0.5); EOS % 5.6 % (0.0-3.0); HEMOGLOBIN 10.6 g/dl (12.0-15.5); LYMPH # 1.3 10^3/uL (1.5-5.0); LYMPH % 30.8 % (24.0-44.0); MEAN CORPUSCULAR HEMOGLOBIN 30.5 pg (27.0-33.0); MEAN CORPUSCULAR HGB CONC 30.3 g/dl (32.0-36.5); MEAN CORPUSCULAR VOLUME 100.9 fl (80.0-96.0); MONO # 0.3 10^3/uL (0.0-0.8); MONO % 8.3 % (2.0-8.0); NEUTROPHILS # 2.3 10^3/uL (1.5-8.5); NEUTROPHILS % 54.6 % (36.0-66.0); PLATELET COUNT, AUTOMATED 255 10^3/uL (150-450); RED BLOOD COUNT 3.47 10^6/uL (4.00-5.40); WHITE BLOOD COUNT 4.1 10^3/uL (4.0-10.0)
[2021-11-22 16:30] LABS: ALBUMIN 3.9 GM/DL (3.2-5.2); ALT/SGPT 28 U/L (12-78); BLOOD UREA NITROGEN 13 MG/DL (7-18); C REACTIVE PROTEIN QUANTITATIV 1.03 MG/DL (0.00-0.30); CREATININE FOR GFR 0.55 MG/DL (0.55-1.30); GLOMERULAR FILTRATION RATE > 60.0 (>51)
[2021-11-22 18:11] LABS: ERYTHROCYTE SEDIMENTATION RATE 37 mm/hr (0-30)
== END ==
LOC: M LABWUC 15:29
DX: M05.79 Rheumatoid arthritis with rheumatoid factor of multiple sites without organ or systems involvement (principal); M15.9 Polyosteoarthritis, unspecified; M81.8 Other osteoporosis without current pathological fracture; Z79.899 Other long term (current) drug therapy

== ENCOUNTER → 2022-01-14 | Outpatient (CLI) | payer MEDICARE ==
[~2022-01-14] MED LIST changes: +PRED1TABL PO
== END ==
LOC: M PAIN 13:45
PROVIDERS: ATTEND Anesthesiology
DX: M54.2 Cervicalgia (principal); G89.29 Other chronic pain; M79.18 Myalgia, other site; M06.9 Rheumatoid arthritis, unspecified; D50.9 Iron deficiency anemia, unspecified; Z86.59 Personal history of other mental and behavioral disorders; Z88.2 Allergy status to sulfonamides; Z88.5 Allergy status to narcotic agent; Z88.6 Allergy status to analgesic agent; Z88.8 Allergy status to other drugs, medicaments and biological substances; Z91.013 Allergy to seafood; Z91.018 Allergy to other foods; Z79.82 Long term (current) use of aspirin; Z79.899 Other long term (current) drug therapy

== ENCOUNTER → 2022-01-31 | Outpatient (CLI) | payer MEDICARE ==
[~2022-01-31] MED LIST changes: +ALEN70TA87 PO; -FOSA70TA PO
[2022-01-31 17:14] LABS: BLOOD UREA NITROGEN 14 MG/DL (7-18)
[2022-01-31 17:15] LABS: ALBUMIN 3.8 GM/DL (3.2-5.2); ALT/SGPT 27 U/L (12-78); C REACTIVE PROTEIN QUANTITATIV 0.97 MG/DL (0.00-0.30); GLOMERULAR FILTRATION RATE > 60.0 (>51)
[2022-01-31 17:19] LABS: BASO % 0.5 % (0.0-1.0); EOS # 0.2 10^3/uL (0.0-0.5); HEMATOCRIT 32.9 % (36.0-47.0); HEMOGLOBIN 9.9 g/dl (12.0-15.5); LYMPH # 1.3 10^3/uL (1.5-5.0); LYMPH % 31.1 % (24.0-44.0); MEAN CORPUSCULAR HEMOGLOBIN 30.6 pg (27.0-33.0); MEAN CORPUSCULAR HGB CONC 30.1 g/dl (32.0-36.5); MEAN CORPUSCULAR VOLUME 101.5 fl (80.0-96.0); MONO # 0.4 10^3/uL (0.0-0.8); NEUTROPHILS # 2.2 10^3/uL (1.5-8.5); NEUTROPHILS % 54.2 % (36.0-66.0); PLATELET COUNT, AUTOMATED 230 10^3/uL (150-450); RED BLOOD COUNT 3.24 10^6/uL (4.00-5.40)
[2022-01-31 18:15] LABS: ERYTHROCYTE SEDIMENTATION RATE 42 mm/hr (0-30)
== END ==
LOC: M WUC 13:00
PROVIDERS: ATTEND Internal Medicine Rheumatology
DX: Z51.81 Encounter for therapeutic drug level monitoring (principal); M05.79 Rheumatoid arthritis with rheumatoid factor of multiple sites without organ or systems involvement; Z79.899 Other long term (current) drug therapy

== ENCOUNTER → 2022-02-02 | Outpatient (CLI) | payer MEDICARE | LOC: M LABSMTC 11:53 | PROVIDERS: ATTEND Anesthesiology | DX: Z01.812 Encounter for preprocedural laboratory examination (principal); Z20.822 Contact with and (suspected) exposure to COVID-19 ==

== ENCOUNTER → 2022-02-06 | Outpatient (CLI) | payer MEDICARE ==
[~2022-02-06] MED LIST changes: +BUPIVACAINE HCL 0.25% 10ML VIAL As Ordered ONE; +BUPIVACAINE HCL 0.25% 30ML VIAL As Ordered ONE; +TRIAMCINOLONE ACETONIDE SUSP 40 MG/ML VIAL (J3301) As Ordered ONE
== END ==
LOC: M PAIN 13:00
PROVIDERS: ATTEND Anesthesiology
DX: M79.18 Myalgia, other site (principal); G89.29 Other chronic pain; M06.9 Rheumatoid arthritis, unspecified; D50.9 Iron deficiency anemia, unspecified; Z86.59 Personal history of other mental and behavioral disorders; Z88.2 Allergy status to sulfonamides; Z88.5 Allergy status to narcotic agent; Z88.8 Allergy status to other drugs, medicaments and biological substances; Z91.013 Allergy to seafood; Z91.018 Allergy to other foods; Z79.82 Long term (current) use of aspirin; Z79.899 Other long term (current) drug therapy
CPT/HCPCS: 20552; J3301

== ENCOUNTER → 2022-02-26 | Outpatient (CLI) | payer MEDICARE ==
[~2022-02-26] MED LIST changes: -BUPIVACAINE HCL 0.25% 10ML VIAL As Ordered ONE; -BUPIVACAINE HCL 0.25% 30ML VIAL As Ordered ONE; -TRIAMCINOLONE ACETONIDE SUSP 40 MG/ML VIAL (J3301) As Ordered ONE
== END ==
LOC: M PAIN 09:00
PROVIDERS: ATTEND Anesthesiology
DX: M79.18 Myalgia, other site (principal); M54.2 Cervicalgia; G89.29 Other chronic pain; M06.9 Rheumatoid arthritis, unspecified; D50.9 Iron deficiency anemia, unspecified; Z86.59 Personal history of other mental and behavioral disorders; Z96.653 Presence of artificial knee joint, bilateral; Z88.2 Allergy status to sulfonamides; Z88.5 Allergy status to narcotic agent; Z88.6 Allergy status to analgesic agent; Z88.8 Allergy status to other drugs, medicaments and biological substances; Z91.013 Allergy to seafood; Z91.018 Allergy to other foods; Z79.82 Long term (current) use of aspirin; Z79.899 Other long term (current) drug therapy

== ENCOUNTER → 2022-03-23 | Outpatient (CLI) | payer MEDICARE | LOC: M LABSMTC 11:45 | PROVIDERS: ATTEND Anesthesiology | DX: Z20.828 Contact with and (suspected) exposure to other viral communicable diseases (principal); Z11.59 Encounter for screening for other viral diseases ==

== ENCOUNTER → 2022-03-23 | Outpatient (CLI) | payer MEDICARE | LOC: M LABSMTC 10:30 | PROVIDERS: ATTEND Anesthesiology | DX: Z01.812 Encounter for preprocedural laboratory examination (principal); Z20.822 Contact with and (suspected) exposure to COVID-19 ==

== ENCOUNTER → 2022-03-27 | Outpatient (CLI) | payer MEDICARE ==
[~2022-03-27] MED LIST changes: +BUPIVACAINE HCL 0.25% 10ML VIAL As Ordered ONE; +BUPIVACAINE HCL 0.25% 30ML VIAL As Ordered ONE; +TRIAMCINOLONE ACETONIDE SUSP 40 MG/ML VIAL (J3301) As Ordered ONE
== END ==
LOC: M PAIN 13:30
PROVIDERS: ATTEND Anesthesiology
DX: M79.18 Myalgia, other site (principal); G89.29 Other chronic pain; M06.9 Rheumatoid arthritis, unspecified; D50.9 Iron deficiency anemia, unspecified; Z86.59 Personal history of other mental and behavioral disorders; Z88.2 Allergy status to sulfonamides; Z88.5 Allergy status to narcotic agent; Z88.6 Allergy status to analgesic agent; Z88.8 Allergy status to other drugs, medicaments and biological substances; Z91.013 Allergy to seafood; Z91.018 Allergy to other foods; Z79.82 Long term (current) use of aspirin; Z79.899 Other long term (current) drug therapy
CPT/HCPCS: 20552; J3301

== ENCOUNTER → 2022-04-07 | Outpatient (CLI) | payer MEDICARE ==
[~2022-04-07] MED LIST changes: -BUPIVACAINE HCL 0.25% 10ML VIAL As Ordered ONE; -BUPIVACAINE HCL 0.25% 30ML VIAL As Ordered ONE; -TRIAMCINOLONE ACETONIDE SUSP 40 MG/ML VIAL (J3301) As Ordered ONE
== END ==
LOC: M PAIN 15:15
PROVIDERS: ATTEND Anesthesiology
DX: R52 Pain, unspecified (principal); M06.9 Rheumatoid arthritis, unspecified; D50.9 Iron deficiency anemia, unspecified; Z87.39 Personal history of other diseases of the musculoskeletal system and connective tissue; Z86.59 Personal history of other mental and behavioral disorders; Z88.2 Allergy status to sulfonamides; Z88.5 Allergy status to narcotic agent; Z88.6 Allergy status to analgesic agent; Z88.8 Allergy status to other drugs, medicaments and biological substances; Z91.013 Allergy to seafood; Z91.018 Allergy to other foods; Z79.82 Long term (current) use of aspirin; Z79.899 Other long term (current) drug therapy

== ENCOUNTER → 2022-04-21 | Outpatient (CLI) | payer MEDICARE ==
[2022-04-21 13:49] LABS: BASO % 0.5 % (0.0-1.0); EOS # 0.1 10^3/uL (0.0-0.5); EOS % 1.9 % (0.0-3.0); HEMOGLOBIN 11.5 g/dl (12.0-15.5); LYMPH # 1.6 10^3/uL (1.5-5.0); LYMPH % 37.4 % (24.0-44.0); MEAN CORPUSCULAR HEMOGLOBIN 31.4 pg (27.0-33.0); MEAN CORPUSCULAR HGB CONC 30.3 g/dl (32.0-36.5); MEAN CORPUSCULAR VOLUME 103.8 fl (80.0-96.0); MONO # 0.4 10^3/uL (0.0-0.8); MONO % 8.2 % (2.0-8.0); NEUTROPHILS # 2.2 10^3/uL (1.5-8.5); NEUTROPHILS % 51.8 % (36.0-66.0); PLATELET COUNT, AUTOMATED 203 10^3/uL (150-450); RED BLOOD COUNT 3.66 10^6/uL (4.00-5.40); WHITE BLOOD COUNT 4.3 10^3/uL (4.0-10.0)
[2022-04-21 14:18] LABS: ALBUMIN 3.9 G/DL (3.2-5.2); ALT/SGPT 48 U/L (7.0-40); AST/SGOT 32 U/L (<34); BLOOD UREA NITROGEN 14 MG/DL (9-23); CREATININE FOR GFR 0.49 MG/DL (0.55-1.30); GLOMERULAR FILTRATION RATE > 60.0 (>51)
[2022-04-21 15:32] LABS: ERYTHROCYTE SEDIMENTATION RATE 31 mm/hr (0-30)
== END ==
LOC: M WUC 10:54
PROVIDERS: ATTEND Physician Assistant Medical
DX: M05.79 Rheumatoid arthritis with rheumatoid factor of multiple sites without organ or systems involvement (principal)

== ENCOUNTER → 2022-04-30 | Outpatient (CLI) | payer MEDICARE | LOC: M PAIN 14:15 | PROVIDERS: ATTEND Anesthesiology | DX: M54.50 Low back pain, unspecified (principal); M54.2 Cervicalgia; Z85.43 Personal history of malignant neoplasm of ovary; M06.9 Rheumatoid arthritis, unspecified; M47.812 Spondylosis without myelopathy or radiculopathy, cervical region; D50.9 Iron deficiency anemia, unspecified; Z86.59 Personal history of other mental and behavioral disorders; Z96.653 Presence of artificial knee joint, bilateral; Z96.643 Presence of artificial hip joint, bilateral; Z88.2 Allergy status to sulfonamides; Z88.5 Allergy status to narcotic agent; Z88.6 Allergy status to analgesic agent; Z88.8 Allergy status to other drugs, medicaments and biological substances; Z91.013 Allergy to seafood; Z91.018 Allergy to other foods; Z79.82 Long term (current) use of aspirin; Z79.899 Other long term (current) drug therapy ==

== ENCOUNTER → 2022-06-11 | Outpatient (CLI) | payer MEDICARE | LOC: M PAIN 11:30 | PROVIDERS: ATTEND Anesthesiology | DX: M06.9 Rheumatoid arthritis, unspecified (principal); R52 Pain, unspecified; D50.9 Iron deficiency anemia, unspecified; Z86.59 Personal history of other mental and behavioral disorders; Z96.653 Presence of artificial knee joint, bilateral; Z88.2 Allergy status to sulfonamides; Z88.5 Allergy status to narcotic agent; Z88.6 Allergy status to analgesic agent; Z88.8 Allergy status to other drugs, medicaments and biological substances; Z91.013 Allergy to seafood; Z91.018 Allergy to other foods; Z79.82 Long term (current) use of aspirin; Z79.899 Other long term (current) drug therapy ==

== ENCOUNTER → 2022-07-08 | Outpatient (CLI) | payer MEDICARE ==
[2022-07-08 19:34] LABS: BASO % 0.5 % (0.0-1.0); EOS # 0.2 10^3/uL (0.0-0.5); EOS % 4.2 % (0.0-3.0); HEMOGLOBIN 10.9 g/dl (12.0-15.5); LYMPH # 1.4 10^3/uL (1.5-5.0); MEAN CORPUSCULAR HEMOGLOBIN 30.5 pg (27.0-33.0); MEAN CORPUSCULAR HGB CONC 30.3 g/dl (32.0-36.5); MEAN CORPUSCULAR VOLUME 100.8 fl (80.0-96.0); MONO # 0.5 10^3/uL (0.0-0.8); MONO % 8.1 % (2.0-8.0); NEUTROPHILS # 3.5 10^3/uL (1.5-8.5); NEUTROPHILS % 61.8 % (36.0-66.0); PLATELET COUNT, AUTOMATED 253 10^3/uL (150-450); RED BLOOD COUNT 3.57 10^6/uL (4.00-5.40); WHITE BLOOD COUNT 5.7 10^3/uL (4.0-10.0)
[2022-07-08 19:51] LABS: ERYTHROCYTE SEDIMENTATION RATE 37 mm/hr (0-30)
[2022-07-08 20:08] LABS: ALBUMIN 3.7 G/DL (3.2-5.2); ALT/SGPT 22 U/L (7.0-40); AST/SGOT 26 U/L (<34); BLOOD UREA NITROGEN 14 MG/DL (9-23); GLOMERULAR FILTRATION RATE > 60.0 (>51)
== END ==
LOC: M WUC 15:10
PROVIDERS: ATTEND Physician Assistant Medical
DX: M05.79 Rheumatoid arthritis with rheumatoid factor of multiple sites without organ or systems involvement (principal); Z79.899 Other long term (current) drug therapy

== ENCOUNTER → 2022-07-30 | Outpatient (CLI) | payer MEDICARE | LOC: M PAIN 10:30 | PROVIDERS: ATTEND Anesthesiology | DX: R52 Pain, unspecified (principal); Z87.39 Personal history of other diseases of the musculoskeletal system and connective tissue; M06.9 Rheumatoid arthritis, unspecified; D50.9 Iron deficiency anemia, unspecified; Z86.59 Personal history of other mental and behavioral disorders; Z96.653 Presence of artificial knee joint, bilateral; Z88.2 Allergy status to sulfonamides; Z88.5 Allergy status to narcotic agent; Z88.6 Allergy status to analgesic agent; Z88.8 Allergy status to other drugs, medicaments and biological substances; Z91.013 Allergy to seafood; Z91.018 Allergy to other foods; Z79.82 Long term (current) use of aspirin; Z79.899 Other long term (current) drug therapy ==

== ENCOUNTER → 2022-10-01 | Outpatient (CLI) | payer MEDICARE | LOC: M PAIN 13:30 | PROVIDERS: ATTEND Anesthesiology | DX: M79.18 Myalgia, other site (principal); M47.812 Spondylosis without myelopathy or radiculopathy, cervical region; G89.29 Other chronic pain; M06.9 Rheumatoid arthritis, unspecified; D50.9 Iron deficiency anemia, unspecified; Z88.2 Allergy status to sulfonamides; Z88.5 Allergy status to narcotic agent; Z88.6 Allergy status to analgesic agent; Z88.8 Allergy status to other drugs, medicaments and biological substances; Z91.013 Allergy to seafood; Z91.018 Allergy to other foods; Z79.82 Long term (current) use of aspirin; Z79.899 Other long term (current) drug therapy ==

== ENCOUNTER → 2022-10-03 | Outpatient (CLI) | payer MEDICARE | LOC: M WUC 14:46 | PROVIDERS: ATTEND Nurse Practitioner | DX: C56.3 Malignant neoplasm of bilateral ovaries (principal) ==

== ENCOUNTER → 2022-12-30 | Outpatient (CLI) | payer MEDICARE ==
[~2022-12-30] MED LIST changes: +CEFD300CAP PO; +METR-265 PO; +VITAMIN A TOP; +VITATAB73 PO; +[UNRECOGNIZED DRUG - OTHER] TOP
[2022-12-30 17:01] LABS: BASO % 0.4 % (0.0-1.0); EOS # 0.1 10^3/uL (0.0-0.5); EOS % 1.9 % (0.0-3.0); HEMATOCRIT 36.1 % (36.0-47.0); LYMPH # 0.6 10^3/uL (1.5-5.0); LYMPH % 11.6 % (24.0-44.0); MEAN CORPUSCULAR HGB CONC 30.5 g/dl (32.0-36.5); MEAN CORPUSCULAR VOLUME 101.7 fl (80.0-96.0); MONO # 0.4 10^3/uL (0.0-0.8); MONO % 8.2 % (2.0-8.0); NEUTROPHILS # 4.1 10^3/uL (1.5-8.5); NEUTROPHILS % 77.7 % (36.0-66.0); PLATELET COUNT, AUTOMATED 208 10^3/uL (150-450); RED BLOOD COUNT 3.55 10^6/uL (4.00-5.40); WHITE BLOOD COUNT 5.3 10^3/uL (4.0-10.0)
[2022-12-30 17:22] LABS: ALBUMIN 4.1 G/DL (3.2-5.2); ALT/SGPT 35 U/L (7.0-40); AST/SGOT 33 U/L (<34); BLOOD UREA NITROGEN 14 MG/DL (9-23); CREATININE FOR GFR 0.48 MG/DL (0.55-1.30); GLOMERULAR FILTRATION RATE > 60.0 (>51)
[2022-12-30 17:56] LABS: ERYTHROCYTE SEDIMENTATION RATE 42 mm/hr (0-30)
== END ==
LOC: M WUC 14:57
PROVIDERS: ATTEND Physician Assistant Medical
DX: M05.79 Rheumatoid arthritis with rheumatoid factor of multiple sites without organ or systems involvement (principal); Z79.899 Other long term (current) drug therapy

== ENCOUNTER → 2023-01-09 | Outpatient (CLI) | payer MEDICARE | LOC: M PAIN 16:00 | PROVIDERS: ATTEND Nurse Practitioner Family | DX: M79.10 Myalgia, unspecified site (principal); G89.29 Other chronic pain; M06.9 Rheumatoid arthritis, unspecified; Z86.59 Personal history of other mental and behavioral disorders; Z88.2 Allergy status to sulfonamides; Z88.5 Allergy status to narcotic agent; Z88.6 Allergy status to analgesic agent; Z88.8 Allergy status to other drugs, medicaments and biological substances; Z91.013 Allergy to seafood; Z91.018 Allergy to other foods; Z79.82 Long term (current) use of aspirin; Z79.899 Other long term (current) drug therapy ==

== ENCOUNTER → 2023-02-03 | Outpatient (REF) | payer MEDICARE | LOC: M LABWUC 17:03 | PROVIDERS: ATTEND Nurse Practitioner | DX: C56.1 Malignant neoplasm of right ovary (principal) ==

== ENCOUNTER → 2023-03-12 | Outpatient (CLI) | payer MEDICARE ==
[~2023-03-12] MED LIST changes: +ARAV1TAB PO; +HYDR-3719 PO; +RA M500C PO; +VITMTA PO; +curamed PO
== END ==
LOC: M PAIN 15:30
PROVIDERS: ATTEND Nurse Practitioner Family
DX: M79.10 Myalgia, unspecified site (principal); G89.29 Other chronic pain; Z85.43 Personal history of malignant neoplasm of ovary; Z86.16 Personal history of COVID-19; Z80.42 Family history of malignant neoplasm of prostate; Z88.2 Allergy status to sulfonamides; Z88.5 Allergy status to narcotic agent; Z88.8 Allergy status to other drugs, medicaments and biological substances; Z91.013 Allergy to seafood; Z91.018 Allergy to other foods; Z79.52 Long term (current) use of systemic steroids; Z79.82 Long term (current) use of aspirin; Z79.899 Other long term (current) drug therapy

== ENCOUNTER → 2023-05-05 | Outpatient (CLI) | payer MEDICARE | LOC: M PAIN 15:00 | PROVIDERS: ATTEND Nurse Practitioner Family | DX: M79.10 Myalgia, unspecified site (principal); G89.29 Other chronic pain; Z85.43 Personal history of malignant neoplasm of ovary; Z86.16 Personal history of COVID-19; Z80.42 Family history of malignant neoplasm of prostate; Z88.2 Allergy status to sulfonamides; Z88.5 Allergy status to narcotic agent; Z88.8 Allergy status to other drugs, medicaments and biological substances; Z91.013 Allergy to seafood; Z91.018 Allergy to other foods; Z79.82 Long term (current) use of aspirin; Z79.899 Other long term (current) drug therapy ==

== ENCOUNTER → 2023-06-10 | Outpatient (CLI) | payer MEDICARE ==
[2023-06-10 18:43] LABS: BASO % 0.7 % (0.0-1.0); EOS # 0.2 10^3/uL (0.0-0.5); EOS % 5.7 % (0.0-3.0); HEMATOCRIT 36.3 % (36.0-47.0); HEMOGLOBIN 10.9 g/dl (12.0-15.5); LYMPH # 1.4 10^3/uL (1.5-5.0); LYMPH % 33.7 % (24.0-44.0); MEAN CORPUSCULAR HEMOGLOBIN 29.9 pg (27.0-33.0); MEAN CORPUSCULAR VOLUME 99.7 fl (80.0-96.0); MONO # 0.4 10^3/uL (0.0-0.8); MONO % 9.3 % (2.0-8.0); NEUTROPHILS # 2.1 10^3/uL (1.5-8.5); NEUTROPHILS % 50.4 % (36.0-66.0); PLATELET COUNT, AUTOMATED 252 10^3/uL (150-450); RED BLOOD COUNT 3.64 10^6/uL (4.00-5.40); WHITE BLOOD COUNT 4.1 10^3/uL (4.0-10.0)
[2023-06-10 18:59] LABS: ERYTHROCYTE SEDIMENTATION RATE 47 mm/hr (0-30)
[2023-06-10 19:14] LABS: ALBUMIN 3.9 G/DL (3.2-5.2); ALT/SGPT 21 U/L (7.0-40); AST/SGOT 26 U/L (<34); BLOOD UREA NITROGEN 13 MG/DL (9-23); CREATININE FOR GFR 0.53 MG/DL (0.55-1.30); GLOMERULAR FILTRATION RATE > 60.0 (>45)
== END ==
LOC: M WUC 12:18
PROVIDERS: ATTEND Physician Assistant Medical
DX: M05.79 Rheumatoid arthritis with rheumatoid factor of multiple sites without organ or systems involvement (principal)

== ENCOUNTER → 2023-08-04 | Outpatient (CLI) | payer MEDICARE | LOC: M PAIN 14:30 | PROVIDERS: ATTEND Nurse Practitioner Family | DX: M79.10 Myalgia, unspecified site (principal); Z79.891 Long term (current) use of opiate analgesic; G89.29 Other chronic pain; M06.9 Rheumatoid arthritis, unspecified; M81.0 Age-related osteoporosis without current pathological fracture; Z79.82 Long term (current) use of aspirin; Z88.2 Allergy status to sulfonamides; Z88.5 Allergy status to narcotic agent; Z88.8 Allergy status to other drugs, medicaments and biological substances; Z91.018 Allergy to other foods ==

== ENCOUNTER → 2023-11-03 | Outpatient (CLI) | payer MEDICARE | LOC: M PAIN 15:30 | PROVIDERS: ATTEND Nurse Practitioner Family | DX: M79.10 Myalgia, unspecified site (principal); Z79.891 Long term (current) use of opiate analgesic; Z79.631 Long term (current) use of antimetabolite agent; Z79.82 Long term (current) use of aspirin; Z79.899 Other long term (current) drug therapy; Z88.5 Allergy status to narcotic agent; Z88.6 Allergy status to analgesic agent; Z88.8 Allergy status to other drugs, medicaments and biological substances; Z91.013 Allergy to seafood; Z91.018 Allergy to other foods ==

== ENCOUNTER → 2023-12-08 | Outpatient (REF) | payer MEDICARE | LOC: M SFHCCLAY 13:57 | PROVIDERS: ATTEND Nurse Practitioner Family | DX: M06.9 Rheumatoid arthritis, unspecified (principal); Z13.220 Encounter for screening for lipoid disorders; E61.1 Iron deficiency; I63.9 Cerebral infarction, unspecified; Z53.9 Procedure and treatment not carried out, unspecified reason ==

== ENCOUNTER → 2023-12-24 | Outpatient (CLI) | payer MEDICARE ==
[2023-12-24 15:38] LABS: EOS # 0.1 10^3/uL (0.0-0.5); EOS % 3.8 % (0.0-3.0); HEMATOCRIT 32.6 % (36.0-47.0); HEMOGLOBIN 10.1 g/dl (12.0-15.5); LYMPH # 0.6 10^3/uL (1.5-5.0); LYMPH % 21.2 % (24.0-44.0); MEAN CORPUSCULAR HEMOGLOBIN 30.4 pg (27.0-33.0); MEAN CORPUSCULAR VOLUME 98.2 fl (80.0-96.0); MONO # 0.3 10^3/uL (0.0-0.8); MONO % 10.6 % (2.0-8.0); NEUTROPHILS # 1.9 10^3/uL (1.5-8.5); NEUTROPHILS % 63.1 % (36.0-66.0); PLATELET COUNT, AUTOMATED 194 10^3/uL (150-450); RED BLOOD COUNT 3.32 10^6/uL (4.00-5.40); WHITE BLOOD COUNT 2.9 10^3/uL (4.0-10.0)
[2023-12-24 16:02] LABS: ALBUMIN 3.7 G/DL (3.2-5.2); ALKALINE PHOSPHATASE 114 U/L (46-116); ALT/SGPT 19 U/L (7.0-40); AST/SGOT 23 U/L (<34); BILIRUBIN,TOTAL 0.6 MG/DL (0.3-1.2); BLOOD UREA NITROGEN 18 MG/DL (9-23); CALCIUM LEVEL 9.1 MG/DL (8.3-10.6); CARBON DIOXIDE LEVEL 32 MMOL/L (20-31); CHLORIDE LEVEL 104 MMOL/L (98-107); CHOLESTEROL LEVEL 184 MG/DL (<200); CHOLESTEROL RISK RATIO 5.18 (<5); CREATININE FOR GFR 0.62 MG/DL (0.55-1.30); GLOMERULAR FILTRATION RATE > 60.0 (>45); GLUCOSE, FASTING 101 MG/DL (74-106); HDL CHOLESTEROL 35.5 MG/DL (>40); IRON (FE) 40 UG/DL (50-170); LDL CHOLESTEROL 116.3 MG/DL (<100); NON-HDL-C 148.5 MG/DL; POTASSIUM SERUM 4.2 MMOL/L (3.5-5.1); SODIUM LEVEL 140 MMOL/L (136-145); TOTAL IRON BINDING CAPACITY 267 UG/DL (250-425); TOTAL PROTEIN 7.4 G/DL (5.7-8.2); TRIGLYCERIDES LEVEL 161 MG/DL (<150)
[2023-12-24 16:04] LABS: FREE T4 1.32 NG/DL (0.89-1.76); THYROID STIMULATING HORMONE 1.637 uIU/ML (0.55-4.78)
== END ==
LOC: M LAB 12-23 13:47
PROVIDERS: ATTEND Nurse Practitioner Family
DX: Z85.43 Personal history of malignant neoplasm of ovary (principal); M06.9 Rheumatoid arthritis, unspecified; E61.1 Iron deficiency; I63.9 Cerebral infarction, unspecified; M05.79 Rheumatoid arthritis with rheumatoid factor of multiple sites without organ or systems involvement; Z13.220 Encounter for screening for lipoid disorders; Z79.899 Other long term (current) drug therapy

== ENCOUNTER → 2023-12-24 | Outpatient (CLI) | payer MEDICARE ==
[2023-12-24 15:38] LABS: BASO % 0.7 % (0.0-1.0); EOS # 0.1 10^3/uL (0.0-0.5); EOS % 4.2 % (0.0-3.0); HEMATOCRIT 32.4 % (36.0-47.0); LYMPH # 0.5 10^3/uL (1.5-5.0); LYMPH % 18.7 % (24.0-44.0); MEAN CORPUSCULAR HEMOGLOBIN 30.1 pg (27.0-33.0); MEAN CORPUSCULAR HGB CONC 30.9 g/dl (32.0-36.5); MEAN CORPUSCULAR VOLUME 97.6 fl (80.0-96.0); MONO # 0.3 10^3/uL (0.0-0.8); MONO % 11.4 % (2.0-8.0); NEUTROPHILS # 1.9 10^3/uL (1.5-8.5); NEUTROPHILS % 64.7 % (36.0-66.0); PLATELET COUNT, AUTOMATED 192 10^3/uL (150-450); RED BLOOD COUNT 3.32 10^6/uL (4.00-5.40); WHITE BLOOD COUNT 2.9 10^3/uL (4.0-10.0)
[2023-12-24 15:49] LABS: ERYTHROCYTE SEDIMENTATION RATE 45 mm/hr (0-30)
[2023-12-24 16:01] LABS: ALBUMIN 3.8 G/DL (3.2-5.2); ALT/SGPT 21 U/L (7.0-40); AST/SGOT 25 U/L (<34); BLOOD UREA NITROGEN 18 MG/DL (9-23); CREATININE FOR GFR 0.63 MG/DL (0.55-1.30); GLOMERULAR FILTRATION RATE > 60.0 (>45)
== END ==
LOC: M LAB 12-23 13:45
PROVIDERS: ATTEND Nurse Practitioner
DX: M05.79 Rheumatoid arthritis with rheumatoid factor of multiple sites without organ or systems involvement (principal); Z79.899 Other long term (current) drug therapy

== ENCOUNTER → 2024-02-09 | Outpatient (CLI) | payer MEDICARE | LOC: M PAIN 15:30 | PROVIDERS: ATTEND Nurse Practitioner Family | DX: M79.18 Myalgia, other site (principal); Z79.891 Long term (current) use of opiate analgesic; F32.A Depression, unspecified; M06.9 Rheumatoid arthritis, unspecified; D50.9 Iron deficiency anemia, unspecified; Z79.82 Long term (current) use of aspirin; Z79.899 Other long term (current) drug therapy; Z88.2 Allergy status to sulfonamides; Z88.5 Allergy status to narcotic agent; Z88.8 Allergy status to other drugs, medicaments and biological substances; Z91.018 Allergy to other foods ==

== ENCOUNTER → 2024-03-22 | Outpatient (CLI) | payer MEDICARE ==
[~2024-03-22] MED LIST changes: +ISOVUE-370 76% 100ML VIAL As Ordered ONE
== END ==
LOC: M RAD 14:09
PROVIDERS: ATTEND Specialist
DX: Z85.43 Personal history of malignant neoplasm of ovary (principal)
CPT/HCPCS: 74177; Q9967

== ENCOUNTER → 2024-04-21 | Outpatient (CLI) | payer MEDICARE ==
[~2024-04-21] MED LIST changes: -ISOVUE-370 76% 100ML VIAL As Ordered ONE
== END ==
LOC: M PAIN 15:30
PROVIDERS: ATTEND Nurse Practitioner Family
DX: M79.18 Myalgia, other site (principal); Z79.891 Long term (current) use of opiate analgesic; G89.29 Other chronic pain; F32.A Depression, unspecified; M06.9 Rheumatoid arthritis, unspecified; D50.9 Iron deficiency anemia, unspecified; Z86.73 Personal history of transient ischemic attack (TIA), and cerebral infarction without residual deficits; Z79.82 Long term (current) use of aspirin; Z79.52 Long term (current) use of systemic steroids; Z79.899 Other long term (current) drug therapy; Z88.5 Allergy status to narcotic agent; Z88.8 Allergy status to other drugs, medicaments and biological substances; Z91.013 Allergy to seafood; Z91.018 Allergy to other foods; Z96.643 Presence of artificial hip joint, bilateral

== ENCOUNTER → 2024-06-14 | Outpatient (REF) | payer MEDICARE | LOC: M SFHCDERM 17:11 | PROVIDERS: ATTEND Dermatology | DX: L57.8 Other skin changes due to chronic exposure to nonionizing radiation (principal); Z51.89 Encounter for other specified aftercare; L92.8 Other granulomatous disorders of the skin and subcutaneous tissue ==

== ENCOUNTER → 2024-06-20 | Outpatient (CLI) | payer MEDICARE | LOC: M PAIN 15:00 | PROVIDERS: ATTEND Nurse Practitioner Family | DX: M79.18 Myalgia, other site (principal); M47.812 Spondylosis without myelopathy or radiculopathy, cervical region; M47.816 Spondylosis without myelopathy or radiculopathy, lumbar region; G89.29 Other chronic pain; D50.9 Iron deficiency anemia, unspecified; Z79.82 Long term (current) use of aspirin; Z79.891 Long term (current) use of opiate analgesic; Z79.899 Other long term (current) drug therapy; Z88.5 Allergy status to narcotic agent; Z88.8 Allergy status to other drugs, medicaments and biological substances; Z91.013 Allergy to seafood ==

== ENCOUNTER → 2024-07-26 | Outpatient (CLI) | payer MEDICARE ==
[2024-07-26 18:50] LABS: BASO % 0.5 % (0.0-1.0); EOS # 0.2 10^3/uL (0.0-0.5); EOS % 5.6 % (0.0-3.0); HEMOGLOBIN 10.7 g/dl (12.0-15.5); LYMPH # 0.7 10^3/uL (1.5-5.0); LYMPH % 17.6 % (24.0-44.0); MEAN CORPUSCULAR HEMOGLOBIN 29.6 pg (27.0-33.0); MEAN CORPUSCULAR HGB CONC 29.7 g/dl (32.0-36.5); MEAN CORPUSCULAR VOLUME 99.4 fl (80.0-96.0); MONO # 0.3 10^3/uL (0.0-0.8); MONO % 7.9 % (2.0-8.0); NEUTROPHILS # 2.7 10^3/uL (1.5-8.5); NEUTROPHILS % 68.1 % (36.0-66.0); PLATELET COUNT, AUTOMATED 191 10^3/uL (150-450); RED BLOOD COUNT 3.62 10^6/uL (4.00-5.40); WHITE BLOOD COUNT 3.9 10^3/uL (4.0-10.0)
[2024-07-26 19:06] LABS: ERYTHROCYTE SEDIMENTATION RATE 17 mm/hr (0-30)
[2024-07-26 19:11] LABS: ALBUMIN 3.5 G/DL (3.2-5.2); ALT/SGPT 133 U/L (7.0-40); AST/SGOT 81 U/L (<34); BLOOD UREA NITROGEN 13 MG/DL (9-23); C REACTIVE PROTEIN QUANTITATIV 0.66 MG/DL (<1.0); CREATININE FOR GFR 0.56 MG/DL (0.55-1.30); GLOMERULAR FILTRATION RATE > 60.0 (>45)
== END ==
LOC: M WUC 14:57
PROVIDERS: ATTEND Nurse Practitioner
DX: M05.79 Rheumatoid arthritis with rheumatoid factor of multiple sites without organ or systems involvement (principal); Z79.899 Other long term (current) drug therapy

== ENCOUNTER → 2024-08-12 | Outpatient (REF) | payer MEDICARE ==
[2024-08-12 19:25] LABS: BASO % 0.5 % (0.0-1.0); EOS # 0.2 10^3/uL (0.0-0.5); EOS % 3.7 % (0.0-3.0); HEMATOCRIT 35.6 % (36.0-47.0); HEMOGLOBIN 11.3 g/dl (12.0-15.5); LYMPH # 0.8 10^3/uL (1.5-5.0); MEAN CORPUSCULAR HEMOGLOBIN 31.1 pg (27.0-33.0); MEAN CORPUSCULAR HGB CONC 31.7 g/dl (32.0-36.5); MEAN CORPUSCULAR VOLUME 98.1 fl (80.0-96.0); MONO # 0.5 10^3/uL (0.0-0.8); MONO % 7.6 % (2.0-8.0); NEUTROPHILS # 4.4 10^3/uL (1.5-8.5); PLATELET COUNT, AUTOMATED 220 10^3/uL (150-450); RED BLOOD COUNT 3.63 10^6/uL (4.00-5.40); WHITE BLOOD COUNT 5.9 10^3/uL (4.0-10.0)
[2024-08-12 19:44] LABS: ALBUMIN 3.9 G/DL (3.2-5.2)
== END ==
LOC: M LABWUC 17:35
PROVIDERS: ATTEND Physician Assistant Medical
DX: M05.79 Rheumatoid arthritis with rheumatoid factor of multiple sites without organ or systems involvement (principal); R79.89 Other specified abnormal findings of blood chemistry; Z79.899 Other long term (current) drug therapy

== ENCOUNTER → 2024-12-26 | Outpatient (CLI) | payer MEDICARE ==
[~2024-12-26] MED LIST changes: +PRED-1142 PO; -PRED1TABL PO
[2024-12-26 13:40] LABS: BASO # 0.0 10^3/uL (0.0-0.2); BASO % 0.8 % (0.0-1.0); EOS # 0.2 10^3/uL (0.0-0.5); EOS % 5.7 % (0.0-3.0); LYMPH # 1.1 10^3/uL (1.5-5.0); LYMPH % 28.5 % (24.0-44.0); MONO # 0.4 10^3/uL (0.0-0.8); MONO % 9.1 % (2.0-8.0); NEUTROPHILS # 2.2 10^3/uL (1.5-8.5); NEUTROPHILS % 55.9 % (36.0-66.0); PLATELET COUNT, AUTOMATED 243 10^3/uL (150-450)
[2024-12-26 14:03] LABS: IRON (FE) 76 UG/DL (50-170); PERCENT SATURATION 29.8 % (13.2-45.0)
[2024-12-26 14:04] LABS: ALT/SGPT 24 U/L (7.0-40); AST/SGOT 33 U/L (<34); CALCIUM LEVEL 8.9 MG/DL (8.3-10.6); CARBON DIOXIDE LEVEL 29 MMOL/L (20-31); CHLORIDE LEVEL 108 MMOL/L (98-107); CHOLESTEROL LEVEL 180 MG/DL (<200); CHOLESTEROL RISK RATIO 3.67 (<5); CREATININE FOR GFR 0.62 MG/DL (0.55-1.30); FREE T4 1.19 NG/DL (0.89-1.76); GLOMERULAR FILTRATION RATE > 90.0 (>45); LDL CHOLESTEROL 98.6 MG/DL (<100); NON-HDL-C 131.0 MG/DL; POTASSIUM SERUM 3.9 MMOL/L (3.5-5.1); SODIUM LEVEL 144 MMOL/L (136-145); TRIGLYCERIDES LEVEL 162 MG/DL (<150)
[2024-12-26 14:40] LABS: CA 125 8.0 U/ML (<35)
== END ==
LOC: M WUC 10:31
PROVIDERS: ATTEND Nurse Practitioner Family
DX: Z85.43 Personal history of malignant neoplasm of ovary (principal); M06.9 Rheumatoid arthritis, unspecified; I63.9 Cerebral infarction, unspecified; E61.1 Iron deficiency; Z13.220 Encounter for screening for lipoid disorders; M05.79 Rheumatoid arthritis with rheumatoid factor of multiple sites without organ or systems involvement; Z79.899 Other long term (current) drug therapy

== ENCOUNTER → 2024-12-26 | Outpatient (CLI) | payer MEDICARE ==
[2024-12-26 13:40] LABS: BASO # 0.0 10^3/uL (0.0-0.2); BASO % 0.8 % (0.0-1.0); EOS # 0.2 10^3/uL (0.0-0.5); EOS % 5.8 % (0.0-3.0); LYMPH # 1.1 10^3/uL (1.5-5.0); LYMPH % 27.8 % (24.0-44.0); MONO # 0.4 10^3/uL (0.0-0.8); MONO % 9.3 % (2.0-8.0); NEUTROPHILS # 2.2 10^3/uL (1.5-8.5); NEUTROPHILS % 56.0 % (36.0-66.0); PLATELET COUNT, AUTOMATED 235 10^3/uL (150-450)
[2024-12-26 13:49] LABS: ERYTHROCYTE SEDIMENTATION RATE 32 mm/hr (0-30)
[2024-12-26 14:02] LABS: ALT/SGPT 24 U/L (7.0-40); AST/SGOT 32 U/L (<34); C REACTIVE PROTEIN QUANTITATIV 0.79 MG/DL (<1.0); CREATININE FOR GFR 0.62 MG/DL (0.55-1.30); GLOMERULAR FILTRATION RATE > 90.0 (>45)
== END ==
LOC: M WUC 10:34
PROVIDERS: ATTEND Physician Assistant Medical
DX: M05.79 Rheumatoid arthritis with rheumatoid factor of multiple sites without organ or systems involvement (principal); Z79.899 Other long term (current) drug therapy

== ENCOUNTER → 2025-03-03 | Outpatient (CLI) | payer MEDICARE ==
[2025-03-03 15:06] LABS: BASO # 0.0 10^3/uL (0.0-0.2); BASO % 0.4 % (0.0-1.0); EOS # 0.3 10^3/uL (0.0-0.5); EOS % 4.9 % (0.0-3.0); LYMPH # 1.4 10^3/uL (1.5-5.0); LYMPH % 28.0 % (24.0-44.0); MONO # 0.5 10^3/uL (0.0-0.8); MONO % 10.1 % (2.0-8.0); NEUTROPHILS # 2.9 10^3/uL (1.5-8.5); NEUTROPHILS % 56.4 % (36.0-66.0); PLATELET COUNT, AUTOMATED 251 10^3/uL (150-450)
[2025-03-03 15:11] LABS: ALT/SGPT 32 U/L (7.0-40); AST/SGOT 34 U/L (<34); C REACTIVE PROTEIN QUANTITATIV 0.73 MG/DL (<1.0); CREATININE FOR GFR 0.63 MG/DL (0.55-1.30); GLOMERULAR FILTRATION RATE > 90.0 (>45)
[2025-03-03 15:16] LABS: ERYTHROCYTE SEDIMENTATION RATE 43 mm/hr (0-30)
== END ==
LOC: M WUC 11:08
PROVIDERS: ATTEND Physician Assistant Medical
DX: M05.79 Rheumatoid arthritis with rheumatoid factor of multiple sites without organ or systems involvement (principal)